=== PATIENT | female | born 1945 | race Caucasian/White ===

== ENCOUNTER → 2016-08-03 | Outpatient (CLI) | payer BC, MEDICARE ==
[~2016-08-03] MED LIST: /CELE20CA; /METO5TA PO; /ONDA4TA; /RANI15TA PO; ACET50TA PO; ADVI200C5 PO; ASPI325T; ASPI81TA85 PO; ATEN25TA; ATEN25TA PO; COLA50CA3 PO; CYAN1000VL IM; DARV100T10; GASTROGRAFIN SOLUTION 30ML (Q9963) As Ordered ONE; HYDR12.56 PO; HYDR25TA6; ISOVUE-370 76% 100ML VIAL (Q9967) As Ordered ONE; MICR10CA PO; MIRA255PW PO; OMEP20CA3 PO; PAXI10TA2 PO; PRED1TA; VITA500T3 PO; XANA0.25; XANA0.25 PO; [UNRECOGNIZED DRUG - REMARK]
--- NOTE | 2016-08-03 14:57 | REP ---
CT ABDOMEN AND PELVIS, MULTIPHASE SCANNING: COMPARISON: 10/03/2015 Scanning is performed without IV contrast from the diaphragms to the iliac crests, not including the pelvis. This is followed by IV contrast enhanced scanning from the diaphragm to the pubic symphysis, including the pelvis during the portal venous phase of enhancement. This is followed by delayed contrast enhancement scanning from the diaphragms to the iliac crest, not including the pelvis. The patient has a history of cholecystectomy, appendectomy, hysterectomy, colon resection, renal calculi, bile duct surgery times two and parathyroid and adhesions. The visualized lung sandy are unremarkable. There is chronic pneumobilia, unchanged. There are surgical clips in the gallbladder fossa. The hepatic parenchyma is otherwise homogeneous on all phases of the study. The pancreas and spleen are normal size, and unchanged. The adrenals are unremarkable and unchanged. There are multiple parapelvic cysts in the kidneys bilaterally, unchanged. There is a small renal cortical cyst in the upper pole of the right kidney, unchanged. The left hydroureter and left ureteral calculus identified on 10/03/2015 are no longer identified. There is a nonobstructive renal calculus in the lower pole of the left kidney measuring 4 mm. There are no right renal calculi. There is no right hydronephrosis or hydroureter. No bladder calculi are identified. The abdominal aorta is unremarkable. There is no bowel distention or obstruction. PELVIS: There is no ascites or adenopathy. Pelvic phleboliths are noted. There are occasional diverticula in the descending colon and sigmoid colon without evidence of diverticulitis. IMPRESSION: Chronic pneumobilia. Bilateral parapelvic renal cysts. No hydronephrosis. Nonobstructive left renal calculus. No right renal calculi. No bowel distention or obstruction. No ascites or adenopathy. There is diverticulosis without diverticulitis. The vaginal cuff and adnexa are unremarkable. Signed by Carlos Eduardo Peña MD 08/03/2016 05:26 P
== END ==
LOC: M RAD 11:49
PROVIDERS: ATTEND Surgery
DX: R10.9 Unspecified abdominal pain (principal)

== ENCOUNTER → 2016-09-21 | Outpatient (CLI) | payer BC, MEDICARE ==
[~2016-09-21] MED LIST changes: -GASTROGRAFIN SOLUTION 30ML (Q9963) As Ordered ONE; -ISOVUE-370 76% 100ML VIAL (Q9967) As Ordered ONE
--- NOTE | 2016-09-21 09:23 | REP ---
URINARY TRACT SONOGRAPHY WITH RENAL ARTERY DOPPLER FLOW ASSESSMENT: HISTORY: History of renal stones, multiple surgeries left greater than right. Comparison study is CT study of the abdomen from August 03, 2016. MORPHOLOGIC FINDINGS: Visualized bladder castaneda are smooth. Renal cortical echogenicity pattern is normal. The right kidney measures 11.6 x 5.4 x 5.6 cm. Left renal dimensions are 10.0 x 4.7 x 5.1 cm. There is a 0.9 cm cyst in the upper pole of the right kidney. There are two visible parapelvic cysts in the left mid and lower pole. These measure 2.1 cm each in greatest diameter. No calculus is sonographically. No mass is seen. No hydronephrosis noted on either side. RENAL DOPPLER ASSESSMENT FINDINGS: Peak systolic flow velocity in the abdominal aorta at the level of the main renal arteries is normal at 81 cm/s. Peak systolic flow velocity in the right main renal artery is recorded at 163 cm/s and that in the left main renal artery is recorded at 148 cm/s. These values are normal. Renal to aortic flow velocity ratios are therefore normal at 2.0 on the right and 1.8 on the left. Resistive indices and acceleration times are measured in the intralobar arteries of the upper mid and lower pole bilaterally and these values are normal. IMPRESSION: Two left-sided peripelvic cysts. One cortical cyst on the right. No hydronephrosis. No renal artery Doppler evidence to suggest renal artery stenosis. Signed by Skinny Dias MD 09/21/2016 10:44 A
== END ==
LOC: M RAD 07:34
PROVIDERS: ATTEND Internal Medicine
DX: I70.1 Atherosclerosis of renal artery (principal)

== ENCOUNTER → 2016-09-25 | Outpatient (REF) | payer BC, MEDICARE | LOC: M LAB REF 09:34 | PROVIDERS: ATTEND Internal Medicine | DX: I10 Essential (primary) hypertension (principal) ==

== ENCOUNTER → 2016-10-02 | Outpatient (CLI) | payer BC, MEDICARE ==
--- NOTE | 2016-10-02 10:06 | REP ---
KUB, ONE VIEW: HISTORY: Kidney stone. COMPARISON: 11/14/2015. Air is present in small and large intestine. There are no air fluid levels or dilated loops of intestine. There is no pneumoperitoneum. A 2 mm calcification is present overlying the left kidney consistent with nephrolithiasis. Surgical clips are present. IMPRESSION: 1. Nonspecific bowel gas pattern. 2. Left nephrolithiasis. Signed by Michael Mac MD 10/02/2016 10:24 A
== END ==
LOC: M LAB 08:57 → M RAD 08:57
PROVIDERS: ATTEND Physician Assistant
DX: N20.0 Calculus of kidney (principal)

== ENCOUNTER → 2016-10-02 | Outpatient (CLI) | payer BC, MEDICARE ==
[2016-10-02 10:13] LABS: BLOOD UREA NITROGEN 21 MG/DL (7-18); CREATININE FOR GFR 0.63 MG/DL (0.55-1.02); GLOMERULAR FILTRATION RATE > 60.0 (>39)
== END ==
LOC: M LAB 09:09
PROVIDERS: ATTEND Nurse Practitioner Acute Care
DX: N20.0 Calculus of kidney (principal)

== ENCOUNTER → 2016-10-29 | Outpatient (REF) | payer BC, MEDICARE ==
[2016-10-29 12:14] LABS: BASO # 0.1 K/mm3 (0.0-0.2); BASO % 1.1 % (0.0-1.0); EOS # 0.2 K/mm3 (0.0-0.50); EOS % 2.4 % (0.0-3.0); LARGE UNSTAINED CELL # 0.2 K/mm3 (0.0-0.4); LARGE UNSTAINED CELL % 2.3 % (0.0-4.0); LYMPH # 1.8 K/mm3 (1.5-4.5); LYMPH % 22.9 % (24.0-44.0); MEAN CORPUSCULAR HEMOGLOBIN 25.4 pg (27.0-33.0); MEAN CORPUSCULAR HGB CONC 31.8 g/dl (32.0-36.5); MEAN CORPUSCULAR VOLUME 80.1 fl (80.0-96.0); MONO # 0.4 K/mm3 (0.0-0.8); MONO % 4.9 % (0.0-5.0); NEUTROPHILS # 5.1 K/mm3 (1.8-7.7); NEUTROPHILS % 66.4 % (36.0-66.0); PLATELET COUNT, AUTOMATED 328 k/mm3 (150-450); RED CELL DISTRIBUTION WIDTH 15.5 % (11.5-14.5); WHITE BLOOD COUNT 7.7 K/mm3 (4.0-10.0)
== END ==
LOC: M LABDRAW1 11:29
PROVIDERS: ATTEND Internal Medicine Gastroenterology
DX: R10.13 Epigastric pain (principal)

== ENCOUNTER → 2016-11-21 | Outpatient (CLI) | payer BC, MEDICARE ==
[~2016-11-21] VITALS: Ht 152.4 cm; Wt 64.4 kg
[~2016-11-21] MED LIST changes: +AMLO5TAB2 PO; +BISO10TA3 PO; +BISO10TA6 PO; +FURO20TA2 PO; +LIDOCAINE 2% INJ 100 MG/5 ML SDV (FOR ANES.) As Ordered ONE; +MAGN500C2 PO; +NS 1,000 ML IV ONE; +PRIL20CA9 PO; +PROPOFOL 200 MG/20 ML VIAL As Ordered ONE; +REGL10TA6 PO; +SERT50TA PO; +TYLE325T5 PO; +VALS1TAB47 PO; +VITA100041 PO; +ZOFR20TA PO
--- NOTE | 2016-11-21 13:02 | ROOR ---
Patient Name: Tammy Barfield Procedure Date: 11/21/2016 12:47 PM Date of : 1945 Age: 71 [facility] Gender: Female Note Status: Finalized Procedure: Upper GI endoscopy + Biopsies Indications: Epigastric abdominal pain, Exclusion of peptic ulcer Providers: Kalen Barfield MD Referring MD: Francisca Calvert DO Requesting Provider: Medicines: Monitored Anesthesia Care Complications: No immediate complications. Procedure: Pre-Anesthesia Assessment: - The heart rate, respiratory rate, oxygen saturations, blood pressure, adequacy of pulmonary ventilation, and response to care were monitored throughout the procedure. The Endoscope was introduced through the mouth, and advanced to the second part of duodenum. The upper GI endoscopy was accomplished without difficulty. The patient tolerated the procedure well. Findings: The Z-line was regular and was found 35 cm from the incisors. No other significant abnormalities were identified in a careful examination of the stomach. The exam of the duodenum was otherwise normal. Biopsies were taken with a cold forceps in the gastric antrum for Helicobacter pylori testing. The esophagus was normal. The stomach was normal. The examined duodenum was normal. Impression: - Z-line regular, 35 cm from the incisors. - Normal esophagus. - Normal stomach. - Normal examined duodenum. - Biopsies were taken with a cold forceps for Helicobacter pylori testing. - The examination was otherwise normal. Recommendation: - Patient has a contact number available for emergencies. The signs and symptoms of potential delayed complications were discussed with the patient. Return to normal activities tomorrow. Written discharge instructions were provided to the patient. - High fiber diet. - Discharge patient to home. - Continue present medications. - Await pathology results. - Telephone GI clinic for pathology results in 1 week. - Check Portal Online for Path Results.([email or web address] [place]) - The findings and recommendations were discussed with the patient's family. Kalen Barfield MD Kalen Barfield MD 11/21/2016 1:01:34 PM This report has been signed electronically. Number of Addenda: 0 Note Initiated On: 11/21/2016 12:47 PM Estimated Blood Loss: Estimated blood loss: none.
[2016-11-21 13:23] VITALS: BP 128/72
== END | disposition home or self-care (01) ==
LOC: M OPP 11:27
PROVIDERS: ATTEND Internal Medicine Gastroenterology
DX: R10.13 Epigastric pain (principal); I10 Essential (primary) hypertension; R01.1 Cardiac murmur, unspecified; M19.90 Unspecified osteoarthritis, unspecified site; D64.9 Anemia, unspecified; L30.9 Dermatitis, unspecified; M81.0 Age-related osteoporosis without current pathological fracture; F33.9 Major depressive disorder, recurrent, unspecified; F41.9 Anxiety disorder, unspecified; Q63.9 Congenital malformation of kidney, unspecified; Z88.5 Allergy status to narcotic agent; Z88.2 Allergy status to sulfonamides; Z88.1 Allergy status to other antibiotic agents; Z88.0 Allergy status to penicillin; Z88.8 Allergy status to other drugs, medicaments and biological substances; Z91.011 Allergy to milk products; Z91.018 Allergy to other foods; Z91.040 Latex allergy status; Z98.890 Other specified postprocedural states; Z79.899 Other long term (current) drug therapy

== ENCOUNTER → 2017-01-07 | Outpatient (REF) | payer BC, MEDICARE ==
[~2017-01-07] MED LIST changes: -LIDOCAINE 2% INJ 100 MG/5 ML SDV (FOR ANES.) As Ordered ONE; -NS 1,000 ML IV ONE; -PROPOFOL 200 MG/20 ML VIAL As Ordered ONE
[2017-01-07 13:59] LABS: PERCENT SATURATION 6.3 % (13.2-37.4)
== END ==
LOC: M LAB REF 12:03
PROVIDERS: ATTEND Internal Medicine
DX: D64.9 Anemia, unspecified (principal)

== ENCOUNTER → 2017-03-08 | Outpatient (CLI) | payer BC, MEDICARE ==
[~2017-03-08] MED LIST changes: +VITA-182 PO; -VITA100041 PO
--- NOTE | 2017-03-08 09:05 | REPMRS ---
Patient History The patient states she has not had a clinical breast exam in over a year. Patient is postmenopausal. Family history of colorectal cancer in father, breast cancer in mother at age 50 or over, colorectal cancer in maternal aunt, colorectal cancer in maternal grandmother, and breast cancer in daughter at age 44. Digital Woman Screen Mammo: March 08, 2017 - Exam #: [id number] Bilateral CC and MLO view(s) were taken. Technologist: Krystle Qureshi, Technologist Prior study comparison: August 10, 2014, digital woman screen mammo performed at [facility]. June 26, 2013, digital woman screen mammo performed at [facility]. FINDINGS: There are scattered fibroglandular densities. There has been no change in the appearance of the mammogram from the prior studies. There is a mild amount of residual fibroglandular tissue which is fairly symmetric. There is no interval development of dominant mass, architectural distortion, or clustered microcalcification suggestive of malignancy. ASSESSMENT: BI-RADS/ACR category 1 mammogram. Negative. Recommendation Routine screening mammogram in 1 year (for women over age 40). This mammogram was interpreted with the aid of an FDA-approved computer-aided dectection system. Electronically Signed By: Carlos Eduardo Green MD 03/08/17 0983
== END ==
LOC: M WHC 08:13
PROVIDERS: ATTEND Internal Medicine
DX: Z12.39 Encounter for other screening for malignant neoplasm of breast (principal)

== ENCOUNTER → 2017-06-11 | Outpatient (REF) | payer BC, MEDICARE ==
[2017-06-11 14:16] LABS: PERCENT SATURATION 22.6 % (13.2-45.0)
== END ==
LOC: M LAB REF 13:16
PROVIDERS: ATTEND Internal Medicine
DX: D50.9 Iron deficiency anemia, unspecified (principal)

== ENCOUNTER → 2017-09-10 | Outpatient (REF) | payer BC, MEDICARE ==
[2017-09-10 12:44] LABS: TROPONIN I < 0.02 NG/ML (< 0.10)
== END ==
LOC: M LAB REF 11:45
DX: R55 Syncope and collapse (principal)
CPT/HCPCS: 84484

== ENCOUNTER 2017-12-18 12:02 | Emergency (ER) | payer BC, MEDICARE ==
[2017-12-18] MEDS: IBUPROFEN 600 MG TAB PO (12:41)
[2017-12-18 14:48] LABS: HEMATOCRIT 37.8 % (36.0-47.0); HEMOGLOBIN 12.4 g/dl (12.0-15.5); MEAN CORPUSCULAR HEMOGLOBIN 29.2 pg (27.0-33.0); MEAN CORPUSCULAR HGB CONC 32.8 g/dl (32.0-36.5); MEAN CORPUSCULAR VOLUME 89.2 fl (80.0-96.0); PLATELET COUNT, AUTOMATED 317 10^3/uL (150-450); RED BLOOD COUNT 4.24 10^6/uL (4.00-5.40); RED CELL DISTRIBUTION WIDTH 12.7 % (11.5-14.5); WHITE BLOOD COUNT 7.7 10^3/uL (4.0-10.0)
[2017-12-18 15:14] LABS: LACTIC ACID SEPSIS PROTOCOL 0.6 MMOL/L (0.4-2.0)
[2017-12-18 15:14] LABS: ANION GAP 8 MEQ/L (8-16); BLOOD UREA NITROGEN 14 MG/DL (7-18); CALCIUM LEVEL 9.2 MG/DL (8.8-10.2); CARBON DIOXIDE LEVEL 27 MEQ/L (21-32); CHLORIDE LEVEL 109 MEQ/L (98-107); CPK CREATINE PHOSPHOKINASE 37 U/L (26-192); CREATININE FOR GFR 0.56 MG/DL (0.55-1.30); GLOMERULAR FILTRATION RATE > 60.0 (>39); GLUCOSE, FASTING 94 MG/DL (70-100); POTASSIUM SERUM 3.9 MEQ/L (3.5-5.1); SODIUM LEVEL 144 MEQ/L (136-145)
[2017-12-18 16:04] LABS: MYOGLOBIN SCREEN, URINE NEGATIVE (NEGATIVE)
== END 2017-12-18 15:59 | disposition home or self-care (01) ==
LOC: M ED 12:02
DX: S80.12XA Contusion of left lower leg, initial encounter (principal); W19.XXXA Unspecified fall, initial encounter; Y92.89 Other specified places as the place of occurrence of the external cause; I10 Essential (primary) hypertension; J44.9 Chronic obstructive pulmonary disease, unspecified; I25.10 Atherosclerotic heart disease of native coronary artery without angina pectoris; E78.00 Pure hypercholesterolemia, unspecified; Z79.899 Other long term (current) drug therapy; Z88.0 Allergy status to penicillin; Z88.2 Allergy status to sulfonamides; Z88.5 Allergy status to narcotic agent
CPT/HCPCS: 73560

== ENCOUNTER → 2018-02-17 | Outpatient (REF) | payer BC, MEDICARE ==
[2018-02-17 13:50] LABS: IRON (FE) 96 UG/DL (50-170); PERCENT SATURATION 22.1 % (13.2-45.0); TOTAL IRON BINDING CAPACITY 434 UG/DL (250-450)
== END ==
LOC: M LAB REF 13:00
DX: D50.9 Iron deficiency anemia, unspecified (principal)
CPT/HCPCS: 83550

== ENCOUNTER → 2018-03-19 | Outpatient (CLI) | payer BC, MEDICARE ==
[2018-03-19 13:35] LABS: ALBUMIN 3.8 GM/DL (3.2-5.2); ANION GAP 11 MEQ/L (8-16); BLOOD UREA NITROGEN 24 MG/DL (7-18); CALCIUM LEVEL 9.9 MG/DL (8.8-10.2); CARBON DIOXIDE LEVEL 24 MEQ/L (21-32); CHLORIDE LEVEL 107 MEQ/L (98-107); CREATININE FOR GFR 0.74 MG/DL (0.55-1.30); GLOMERULAR FILTRATION RATE > 60.0 (>39); GLUCOSE, FASTING 93 MG/DL (70-100); MAGNESIUM LEVEL 2.6 MG/DL (1.8-2.4); PHOSPHORUS LEVEL 4.4 MG/DL (2.5-4.9); POTASSIUM SERUM 4.1 MEQ/L (3.5-5.1); SODIUM LEVEL 142 MEQ/L (136-145)
== END ==
LOC: M LAB 12:08
DX: I11.9 Hypertensive heart disease without heart failure (principal)
CPT/HCPCS: 83735

== ENCOUNTER → 2018-04-10 | Outpatient (REF) | payer BC, MEDICARE ==
[2018-04-10 13:21] LABS: ALBUMIN 3.4 GM/DL (3.2-5.2); ALBUMIN/GLOBULIN RATIO 1.03 (1.00-1.93); ALKALINE PHOSPHATASE 172 U/L (45-117); ALT/SGPT 43 U/L (12-78); AST/SGOT 21 U/L (7-37); BILIRUBIN,DIRECT 0.2 MG/DL (0.0-0.2); BILIRUBIN,TOTAL 0.9 MG/DL (0.2-1.0); CHOLESTEROL LEVEL 126 MG/DL (<200); CHOLESTEROL RISK RATIO 3.073 (<5); HDL CHOLESTEROL 41 MG/DL (>40); LDL CHOLESTEROL 53 MG/DL (<100); NON-HDL-C 85 MG/DL; TOTAL PROTEIN 6.7 GM/DL (6.4-8.2); TRIGLYCERIDES LEVEL 161 MG/DL (<150)
== END ==
LOC: M LABDRAW1 12:10
DX: E78.00 Pure hypercholesterolemia, unspecified (principal)

== ENCOUNTER → 2018-05-31 | Outpatient (CLI) | payer MEDICARE ==
[2018-05-31 09:50] LABS: IONIZED CALCIUM 4.7 MG/DL (4.5-5.3)
[2018-06-02 10:14] LABS: PTH INTACT 109.9 PG/ML (18.5-88.0); TOTAL 25(OH) VITAMIN D 22.4 NG/ML (30.0-100.0)
== END ==
LOC: M LAB 08:36
DX: E83.52 Hypercalcemia (principal)
CPT/HCPCS: 82330

== ENCOUNTER → 2018-07-29 | Outpatient (REF) | payer MEDICARE ==
[~2018-07-29] MED LIST changes: -AMLO5TAB2 PO; +AMLO5TAB6 PO; -ZOFR20TA PO; +ZOFR4TAB16 PO
[2018-07-29 16:46] LABS: INR 0.95; PROTHROMBIN TIME 12.8 SECONDS (12.1-14.4)
[2018-07-29 16:48] LABS: PARTIAL THROMBOPLASTIN TIME 34.2 SECONDS (25.4-37.6)
== END ==
LOC: M LABDRAW1 15:42
PROVIDERS: ATTEND Physical Medicine & Rehabilitation
DX: Z79.01 Long term (current) use of anticoagulants (principal)

== ENCOUNTER → 2018-08-12 | Outpatient (CLI) | payer MEDICARE ==
--- NOTE | 2018-08-12 11:06 | REPMRS ---
Patient History The patient states she has not had a clinical breast exam in over a year. Patient is postmenopausal. Family history of breast cancer at age 50 or over in mother, colorectal cancer in maternal grandmother, colorectal cancer in maternal aunt, colorectal cancer in father, breast cancer at age 44 in daughter. Digital Woman Screen Mammo: August 12, 2018 - Exam #: [id number] Bilateral CC and MLO view(s) were taken. Technologist: Peace Berger Technologist Prior study comparison: March 08, 2017, digital woman screen mammo performed at [facility]. August 10, 2014, digital woman screen mammo performed at [facility]. June 26, 2013, digital woman screen mammo performed at [facility]. FINDINGS: There are scattered fibroglandular densities. There is a moderate amount of residual fibroglandular tissue which is fairly symmetric. There is no interval development of dominant mass, architectural distortion, or clustered microcalcification typical of malignancy. There has been no change in the appearance of the mammogram from the prior studies. 3-D tomosynthesis shows no additional findings. Assessment: BI-RADS/ACR category 1 mammogram. Negative Mammogram. Recommendation Routine screening mammogram of both breasts in 1 year (for women over age 40). This patient's Lifetime Breast Cancer RIsk is estimated at 7.1 %. This mammogram was interpreted with the aid of an FDA-approved computer-aided dectection system. Electronically Signed By: Fabian Dias MD 08/12/18 0058
== END ==
LOC: M WHC 09:39
PROVIDERS: ATTEND Internal Medicine
DX: Z12.31 Encounter for screening mammogram for malignant neoplasm of breast (principal); Z80.3 Family history of malignant neoplasm of breast; Z80.0 Family history of malignant neoplasm of digestive organs

== ENCOUNTER 2018-08-27 10:24 | Inpatient (IN) | payer MEDICARE ==
[~2018-08-27] VITALS: Ht 152.4 cm; Wt 68.4 kg
[2018-08-27] MEDS ORDERED: SYMB16INH INH (10:53)
[2018-08-27] MEDS ORDERED: GABA-843 PO (10:53)
[2018-08-27] MEDS ORDERED: LEVO500T3 PO (10:53)
[2018-08-27] MEDS ORDERED: METR-201 PO (10:53)
[2018-08-27] MEDS ORDERED: SPIR-10 PO (10:53)
[2018-08-27] MEDS ORDERED: SERT50TA PO (10:53)
[2018-08-27] MEDS ORDERED: CARV25TA PO (10:53)
[2018-08-27] MEDS ORDERED: CHLO25TA PO (10:53)
[2018-08-27] MEDS ORDERED: LOSA50TA88 PO (10:53)
--- NOTE | 2018-08-27 10:57 | REP ---
Portable chest, single AP view, the patient upright, 10:42 a.m.: Comparison is 10/28/2012. The lung sandy are clear. The cardiac size is normal. The soila, mediastinum, and skeletal structures are unremarkable. Impression: Negative portable chest. There is no interval change Electronically Signed by Carlos Eduardo Peña MD 08/27/2018 10:48 A
[2018-08-27] MEDS ORDERED: ONDANSETRON 4MG/2ML VIAL (J2405) IV ONE ×2 (11:00→17:45)
[2018-08-27] MEDS ORDERED: fentaNYL 100 MCG/2 ML INJECTION (J3010) IV ONE ×3 (11:00→17:45)
[2018-08-27 11:07] LABS: BASO # 0.1 10^3/uL (0.0-0.2); BASO % 0.9 % (0.0-1.0); EOS # 0.2 10^3/uL (0.0-0.50); EOS % 1.8 % (0.0-3.0); HEMATOCRIT 41.7 % (36.0-47.0); HEMOGLOBIN 14.1 g/dl (12.0-15.5); LYMPH # 1.7 10^3/uL (1.5-4.5); LYMPH % 19.8 % (24.0-44.0); MEAN CORPUSCULAR HEMOGLOBIN 29.5 pg (27.0-33.0); MEAN CORPUSCULAR HGB CONC 33.8 g/dl (32.0-36.5); MEAN CORPUSCULAR VOLUME 87.2 fl (80.0-96.0); MONO # 0.6 10^3/uL (0.0-0.8); MONO % 6.5 % (0.0-5.0); NEUTROPHILS # 5.9 10^3/uL (1.8-7.7); NEUTROPHILS % 69.8 % (36.0-66.0); PLATELET COUNT, AUTOMATED 340 10^3/uL (150-450); RED BLOOD COUNT 4.78 10^6/uL (4.00-5.40); WHITE BLOOD COUNT 8.5 10^3/uL (4.0-10.0)
[2018-08-27 11:45] LABS: ALBUMIN 3.7 GM/DL (3.2-5.2); ALT/SGPT 23 U/L (12-78); BILIRUBIN,DIRECT 0.2 MG/DL (0.0-0.2); BLOOD UREA NITROGEN 23 MG/DL (7-18); CALCIUM LEVEL 9.9 MG/DL (8.8-10.2); CARBON DIOXIDE LEVEL 22 MEQ/L (21-32); CHLORIDE LEVEL 105 MEQ/L (98-107); CK-MB VALUE MASS < 1.0 NG/ML (<3.6); CPK CREATINE PHOSPHOKINASE 26 U/L (26-192); CREATININE FOR GFR 1.14 MG/DL (0.55-1.30); GLOMERULAR FILTRATION RATE 49.9 (>39); GLUCOSE, FASTING 140 MG/DL (70-100); LIPASE 141 U/L (73-393); MB/CK RELATIVE INDEX 3.85 (< OR =4); POTASSIUM SERUM 3.1 MEQ/L (3.5-5.1); SODIUM LEVEL 139 MEQ/L (136-145); TOTAL PROTEIN 6.7 GM/DL (6.4-8.2); TROPONIN I < 0.02 NG/ML (< 0.10)
[2018-08-27] MEDS ORDERED: NS 500 ML IV ONE (13:15)
[2018-08-27] MEDS ORDERED: POTASSIUM CHLORIDE 10 MEQ SR TABLET PO ONE (13:15)
[2018-08-27] MEDS ORDERED: ISOVUE-370 76% 100ML VIAL (Q9967) As Ordered ONE (13:34)
[2018-08-27 16:55] LABS: CK-MB VALUE MASS < 1.0 NG/ML (<3.6); CPK CREATINE PHOSPHOKINASE 29 U/L (26-192); MB/CK RELATIVE INDEX 3.45 (< OR =4); TROPONIN I < 0.02 NG/ML (< 0.10)
[2018-08-27] MEDS ORDERED: ADVI200T PO (17:09)
[2018-08-27] MEDS ORDERED: SERT-138 PO (17:09)
--- NOTE | 2018-08-27 17:14 | ECGEPIP ---
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
--- NOTE | 2018-08-27 17:19 | REP ---
CT of the abdomen and pelvis with IV contrast, without bowel contrast: Comparisons are 10/17/2017 and 08/03/2016. The patient has a history of renal calculi, cholecystectomy, appendectomy, hysterectomy, colon resection, parathyroid surgery and biliary duct surgery. The visualized lung sandy are unremarkable. The hepatic parenchyma is homogeneous. There is chronic pneumobilia, unchanged from both prior studies, likely secondary to the biliary surgery. The pancreas and spleen are unremarkable. The adrenals are unremarkable. There are bilateral renal parapelvic cysts. There is a nonobstructive calculus in the right renal pelvis. There is a nonobstructive calculus in the left renal pelvis. There is no hydroureter. The abdominal aorta is unremarkable. There is no periaortic adenopathy or mass. There is no bowel distension or obstruction. There is wall thickening of the sigmoid colon as a change from the prior studies. This is nonspecific and could represent colitis in the appropriate clinical setting or could be artifact from under distension. There are sigmoid colon diverticula, however there is no pericolonic inflammation or abscess that would indicate acute diverticulitis. Pelvis: The appendix and uterus are surgically absent. The vaginal cuff and adnexa are unremarkable. The bladder is unremarkable. There is no adenopathy or ascites. There is no pneumoperitoneum. Impression: Wall thickening of the sigmoid colon compatible with colitis in the appropriate clinical setting versus artifact from under distension. Bilateral nonobstructive renal calculi. No hydronephrosis. Bilateral parapelvic renal cysts. Chronic pneumobilia. No bowel obstruction or distension. Electronically Signed by Carlos Eduardo Peña MD 08/27/2018 05:10 P
--- NOTE | 2018-08-27 17:24 | ECGEPIP ---
Stationary ECG Study [facility] - ED Test Date: 2018-08-27 Pat Name: MICHELLE VAZQUEZ Department: Room: - Gender: F Cathode Maker: [facility] : 1945 Requested By: Tori Melo Order Number: [id number] Reading MD: Ravi Duron Measurements Intervals [place] Rate: 71 P: 13 SD: 208 QRS: 13 QRSD: 103 T: 5 QT: 388 QTc: 422 Interpretive Statements SINUS RHYTHM NONSPECIFIC T-WAVE ABNORMALITY POOR R WAVE PROGRESSION SIMILAR TO PRIOR ON SAME DATE Electronically Signed On 08-27-2018 17:24:01 EST by Ravi Duron
[2018-08-27] MEDS ORDERED: metroNIDAZOLE 500 MG in APPROPRIATE DILUENT 1 EA IV ONE (17:45)
[2018-08-27] MEDS ORDERED: CIPROFLOXACIN 400 MG in APPROPRIATE DILUENT 1 EA IV ONE (17:45)
[2018-08-27] MEDS: NS 1,000 ML IV SCH (18:46)
--- NOTE | 2018-08-27 19:15 | HPE ---
DATE OF ADMISSION: 08/27/2018 72-year-old female with past medical history of hypertension and multiple abdominal surgeries who presents to emergency room with severe cramping, abdominal pain and diarrhea for 6 weeks. Apparently patient went to see her primary doctor last week and received Levaquin and it did not help and she even had a near-syncopal event yesterday while going to the bathroom during one of her bouts of diarrhea. The diarrhea is noted as watery in nature with no evidence of melena stool or clots. She has not been around any sick contacts. In the ER she had a CT abdomen and pelvis which showed evidence of acute colitis. The patient was started on IV Cipro Flagyl in the ER and given fentanyl as well as IV Zofran for symptomatic relief. Patient does feel better at this time though she is still nauseous. She will be admitted for further management. PAST MEDICAL HISTORY: Hypertension. Asthma. PAST SURGICAL HISTORY: Appendectomy. Tubal ligation. Hysterectomy. Cholecystectomy. Bladder and rectal repair 1971. Gastrectomy in 1972. History of hemorrhoidectomy. Parathyroidectomy. ALLERGIES: CODEINE. IODINE. MORPHINE. PENICILLIN AND CROSS-REACTORS. SULFA DRUGS AND SULFA DRUG CROSS-REACTORS. FAMILY HISTORY: Noncontributory. SOCIAL HISTORY: Patient denies tobacco, alcohol or illicit drugs. MEDICATIONS SHE TAKES AT HOME: Are as follows: - budesonide formoterol 2 puffs inhaled twice daily - Coreg 25 mg orally twice daily - gabapentin 300 mg orally three times a day - ibuprofen 600 mg orally four times a day as needed - levofloxacin 500 mg orally daily - losartan 850 mg orally at bedtime - metronidazole 500 mg orally three times a day - sertraline 100 mg orally at bedtime - spironolactone 12.5 mg orally daily REVIEW OF SYSTEMS: Negative all 10 major systems except as mentioned in the HPI. VITALS: Blood pressure is 115/58, heart rate 60 and regular. Respiratory rate 16, temperature is 97.7. Oxygen saturation is 96% on 2 liters nasal cannula. Head: Atraumatic. Normocephalic. Dry mucous membranes noted. Neck: Supple. No jugular venous distention (JVD). Lungs: Clear to auscultation. S1, S2 audible. No murmurs appreciated. Abdomen: Soft, positive tenderness on the left lower quadrant on deep palpation. No rebound tenderness. Positive bowel sounds. No pedal edema. Skin: Intact. Neurological examination: Patient awake, alert and oriented times three. LABS: WBC 8.5, hemoglobin 14.1, hematocrit 41.7, platelets are 320,000. Sodium 139, potassium 3.1, chloride is 105, CO2 22. Anion gap 12, BUN 23, creatinine 1.14. Glucose is 140, lactic acid is 1.9. Troponins less than 0.02. TSH is 1.97. IMPRESSION: 1. Acute colitis. 2. Hypokalemia. 3. Acute kidney injury (TED). PLAN: Patient will be admitted to the med-surg floor. We are going to continue the patient on IV fluids. Normal saline 125 mL an hour. Her potassium has already been repleted by the ER tending. Will followup BMP in the morning. Her TED is clearly prerenal in origin and will follow her creatinine trends as we give judicious fluids. I am going to hold all her diuretics at this time, otherwise continue preadmission medications and will continue her care on the med-surg floor.
[2018-08-27] MEDS: ONDANSETRON 4MG/2ML VIAL (J2405) IV PRN (21:19)
[2018-08-27] MEDS: MORPHINE 4 MG/ML 1ML VIAL/SYRINGE (J2270) IV PRN (21:19)
[2018-08-27] MEDS: SYMBICORT 160/4.5MCG INHALER 6GM INH SCH (21:20)
[2018-08-28] MEDS: CARVedilol 12.5 MG TAB PO SCH ×3 (00:41→21:04)
[2018-08-28] MEDS: GABAPENTIN 300 MG CAP PO SCH ×4 (00:42→21:04)
[2018-08-28] MEDS: SERTRALINE 100 MG TAB PO SCH ×2 (00:42→21:04)
[2018-08-28] MEDS: NS 1,000 ML IV SCH ×2 (02:03→12:30)
[2018-08-28] MEDS: metroNIDAZOLE 500 MG in APPROPRIATE DILUENT 1 EA IV SCH ×3 (03:47→17:41)
[2018-08-28] MEDS: ONDANSETRON 4MG/2ML VIAL (J2405) IV PRN ×4 (03:50→21:05)
[2018-08-28] MEDS: MORPHINE 4 MG/ML 1ML VIAL/SYRINGE (J2270) IV PRN ×6 (04:10→21:05)
[2018-08-28] MEDS: CIPROFLOXACIN 400 MG in APPROPRIATE DILUENT 1 EA IV SCH ×2 (06:19→19:44)
[2018-08-28 06:25] LABS: BASO # 0.1 10^3/uL (0.0-0.2); BASO % 0.8 % (0.0-1.0); EOS # 0.2 10^3/uL (0.0-0.50); EOS % 1.8 % (0.0-3.0); HEMATOCRIT 35.8 % (36.0-47.0); HEMOGLOBIN 11.8 g/dl (12.0-15.5); LYMPH # 1.4 10^3/uL (1.5-4.5); LYMPH % 16.7 % (24.0-44.0); MEAN CORPUSCULAR HEMOGLOBIN 29.3 pg (27.0-33.0); MEAN CORPUSCULAR VOLUME 88.8 fl (80.0-96.0); MONO # 0.6 10^3/uL (0.0-0.8); MONO % 7.5 % (0.0-5.0); NEUTROPHILS % 72.6 % (36.0-66.0); PLATELET COUNT, AUTOMATED 250 10^3/uL (150-450); RED BLOOD COUNT 4.03 10^6/uL (4.00-5.40); WHITE BLOOD COUNT 8.2 10^3/uL (4.0-10.0)
[2018-08-28 06:49] LABS: BLOOD UREA NITROGEN 19 MG/DL (7-18); CALCIUM LEVEL 8.6 MG/DL (8.8-10.2); CARBON DIOXIDE LEVEL 24 MEQ/L (21-32); CHLORIDE LEVEL 109 MEQ/L (98-107); GLOMERULAR FILTRATION RATE > 60.0 (>39); GLUCOSE, FASTING 97 MG/DL (70-100); POTASSIUM SERUM 3.3 MEQ/L (3.5-5.1); SODIUM LEVEL 141 MEQ/L (136-145)
[2018-08-28] MEDS ORDERED: POTASSIUM CHLORIDE 10 MEQ SR TABLET PO ONE (08:45)
[2018-08-28] MEDS: SYMBICORT 160/4.5MCG INHALER 6GM INH SCH ×2 (09:38→18:41)
[2018-08-28 12:36] VITALS: BP 131/64
[2018-08-28 14:00] VITALS: BP 132/60
[2018-08-28 22:00] VITALS: BP 131/58
--- NOTE | 2018-08-28 22:10 | IPNPDOC ---
Text Note Date of Service The patient was seen on 08/28/18. NOTE SUBJECTIVE: Patient continues to have watery diarrhea but feeling better after IVF. No dizziness or light headedness today. She got some pain medication early in the morning so her abdominal pain is better. Most of her abdominal discomfort was on aleks right upper quadrant. No fever or chills. No chest pain or SOb, No nausea or vomiting. Because of her history of stomach surgery and bile duct surgery she normally has a sensitive stomach and has to be careful about what she eats otherwise she has diarrhea. So she is always careful about her diet. PHYSICAL EXAM: VITALS: As below. HEENT: Atraumatic. Normocephalic. Moist mucous membranes noted. Anicteric eyes Neck: Supple. No jugular venous distention (JVD). Lungs: Clear to auscultation. Heart: S1, S2 audible. No murmurs appreciated. No rub or gallop. Abdomen: Soft, positive tenderness on the left lower quadrant on deep palpation. No rebound tenderness. Positive bowel sounds. Extremities: No pedal edema. Skin: Intact. Neurological examination: Patient awake, alert and oriented times three. 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 Apparently patient went to see her primary doctor last week and received Levaquin and it did not help and she even had a near-syncopal event yesterday while going to the bathroom during one of her bouts of diarrhea. The diarrhea is noted as watery in nature with no evidence of melena stool or clots. In the ER she had a CT abdomen and pelvis which showed evidence of acute colitis. The patient was started on IV Cipro Flagyl in the ER and given fentanyl as well as IV Zofran for symptomatic relief. Pateint was admitted to the hospitalist service for Acute colitis, diarrhea, dehydration , electrolyte immbalance and near syncope. Diarrhea and dehydration GI panel negative CT with possible Acute colitis in the sigmoid colon ? etiology Continue cipro and flagyl. continue IVF. Hypokalemia replaced Hypertension now with dehydration Bp normal to low will hold antihypertensives Asthma no issues Bilateral nonobstructive renal stones no issues Peptic ulcer disease, GERD continue PPI DVT prophylaxis has been ordered. VS,Fishbone, I+O VS, Fishbone, I+O Laboratory Tests 08/28/18 05:28 Red Blood Count 4.03, Mean Corpuscular Volume 88.8, Mean Corpuscular Hemoglobin 29.3, Mean Corpuscular Hemoglobin Concent 33.0, Red Cell Distribution Width 12.6, Neutrophils (%) (Auto) 72.6 H, Lymphocytes (%) (Auto) 16.7 L, Monocytes (%) (Auto) 7.5 H, Eosinophils (%) (Auto) 1.8, Basophils (%) (Auto) 0.8, Neutrophils # (Auto) 6.0, Lymphocytes # (Auto) 1.4 L, Monocytes # (Auto) 0.6, Eosinophils # (Auto) 0.2, Basophils # (Auto) 0.1, Calcium Level 8.6 L Vital Signs Date Time Temp Pulse Resp B/P (MAP) Pulse Ox O2 Delivery O2 Flow Rate FiO2 08/28/18 21:05 18 08/28/18 21:04 79 121/58 08/28/18 14:00 97.9 97 08/28/18 12:18 Room Air 08/28/18 04:10 2.0 I&O- Last 24 Hours up to 6 AM 08/28/18 06:00 Intake Total 800 ml Balance 800 ml INAG HUERTA MD Aug 28, 2018 22:10
[2018-08-29] MEDS: NS 1,000 ML IV SCH ×2 (00:15→13:10)
[2018-08-29] MEDS: metroNIDAZOLE 500 MG in APPROPRIATE DILUENT 1 EA IV SCH ×3 (02:43→17:01)
[2018-08-29] MEDS: ONDANSETRON 4MG/2ML VIAL (J2405) IV PRN ×5 (02:43→23:51)
[2018-08-29] MEDS: MORPHINE 4 MG/ML 1ML VIAL/SYRINGE (J2270) IV PRN ×5 (02:43→23:52)
[2018-08-29 06:00] VITALS: BP 128/69
[2018-08-29] MEDS: CIPROFLOXACIN 400 MG in APPROPRIATE DILUENT 1 EA IV SCH ×2 (06:01→18:12)
[2018-08-29] MEDS: SYMBICORT 160/4.5MCG INHALER 6GM INH SCH ×2 (07:55→21:07)
[2018-08-29] MEDS: GABAPENTIN 300 MG CAP PO SCH ×3 (08:31→20:57)
[2018-08-29] MEDS: CARVedilol 12.5 MG TAB PO SCH ×2 (08:32→20:57)
[2018-08-29 14:00] VITALS: BP 97/49
[2018-08-29 14:02] LABS: BLOOD UREA NITROGEN 13 MG/DL (7-18); CALCIUM LEVEL 8.6 MG/DL (8.8-10.2); CARBON DIOXIDE LEVEL 24 MEQ/L (21-32); CHLORIDE LEVEL 109 MEQ/L (98-107); CREATININE FOR GFR 0.81 MG/DL (0.55-1.30); GLOMERULAR FILTRATION RATE > 60.0 (>39); GLUCOSE, FASTING 161 MG/DL (70-100); POTASSIUM SERUM 3.6 MEQ/L (3.5-5.1); SODIUM LEVEL 140 MEQ/L (136-145)
--- NOTE | 2018-08-29 14:45 | IPNPDOC ---
Text Note Date of Service The patient was seen on 08/29/18. NOTE SUBJECTIVE: Patient continues to have watery diarrhea but feeling better after IVF. No dizziness or light headedness today. Most of her abdominal discomfort was on the right upper quadrant with cramps and bloating sometimes becomes hard followed by explosive diarrhea.No fever or chills. No chest pain or SOb, No nausea or vomiting. Because of her history of stomach surgery and bile duct surgery she normally has a sensitive stomach and has to be careful about what she eats otherwise she has diarrhea. So she is always careful about her diet. PHYSICAL EXAM: VITALS: As below. HEENT: Atraumatic. Normocephalic. Moist mucous membranes noted. Anicteric eyes Neck: Supple. No jugular venous distention (JVD). Lungs: Clear to auscultation. Heart: S1, S2 audible. No murmurs appreciated. No rub or gallop. Abdomen: Soft, positive tenderness on the left lower quadrant on deep palpation. No rebound tenderness. Positive bowel sounds. Extremities: No pedal edema. Skin: Intact. Neurological examination: Patient awake, alert and oriented times three. 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 Apparently patient went to see her primary doctor last week and received Levaquin and it did not help and she even had a near-syncopal event yesterday while going to the bathroom during one of her bouts of diarrhea. The d iarrhea is noted as watery in nature with no evidence of melena stool or clots. In the ER she had a CT abdomen and pelvis which showed evidence of acute colitis. The patient was started on IV Cipro Flagyl in the ER and given fentanyl as well as IV Zofran for symptomatic relief. Pateint was admitted to the hospitalist service for Acute colitis, diarrhea, dehydration , electrolyte immbalance and near syncope. Diarrhea and dehydration GI panel negative CT with possible Acute colitis in the sigmoid colon ? etiology Continue cipro and flagyl. continue IVF.will consult GI Hypokalemia replaced Hypertension now with dehydration Bp normal to low will hold antihypertensives Asthma no issues Bilateral nonobstructive renal stones no issues Peptic ulcer disease, GERD continue PPI DVT prophylaxis has been ordered. VS,Fishbone, I+O VS, Fishbone, I+O Laboratory Tests 08/29/18 13:05 Calcium Level 8.6 L Vital Signs Date Time Temp Pulse Resp B/P (MAP) Pulse Ox O2 Delivery O2 Flow Rate FiO2 08/29/18 13:29 17 08/29/18 08:32 62 130/60 08/29/18 06:00 98.1 95 08/28/18 12:18 Room Air 08/28/18 04:10 2.0 I&O- Last 24 Hours up to 6 AM 08/29/18 06:00 Intake Total 2355 ml Output Total 2100 ml Balance 255 ml INGA HUERTA MD Aug 29, 2018 14:45
[2018-08-29] MEDS: SERTRALINE 100 MG TAB PO SCH (20:57)
[2018-08-29 22:00] VITALS: BP 144/69
[2018-08-29 23:58] VITALS: BP 121/57
[2018-08-30] MEDS: metroNIDAZOLE 500 MG in APPROPRIATE DILUENT 1 EA IV SCH ×3 (02:06→11:44)
[2018-08-30] MEDS: ONDANSETRON 4MG/2ML VIAL (J2405) IV PRN ×4 (05:31→21:43)
[2018-08-30] MEDS: MORPHINE 4 MG/ML 1ML VIAL/SYRINGE (J2270) IV PRN ×4 (05:32→21:44)
[2018-08-30 06:00] VITALS: BP 137/83
[2018-08-30] MEDS: CIPROFLOXACIN 400 MG in APPROPRIATE DILUENT 1 EA IV SCH ×2 (06:05→18:17)
[2018-08-30] MEDS: SYMBICORT 160/4.5MCG INHALER 6GM INH SCH ×2 (07:45→20:56)
[2018-08-30 08:39] LABS: BLOOD UREA NITROGEN 8 MG/DL (7-18); CALCIUM LEVEL 8.3 MG/DL (8.8-10.2); CARBON DIOXIDE LEVEL 24 MEQ/L (21-32); CHLORIDE LEVEL 111 MEQ/L (98-107); CREATININE FOR GFR 0.66 MG/DL (0.55-1.30); GLOMERULAR FILTRATION RATE > 60.0 (>39); GLUCOSE, FASTING 99 MG/DL (70-100); POTASSIUM SERUM 3.4 MEQ/L (3.5-5.1); SODIUM LEVEL 141 MEQ/L (136-145)
[2018-08-30] MEDS: GABAPENTIN 300 MG CAP PO SCH ×3 (09:00→21:42)
[2018-08-30] MEDS: CARVedilol 12.5 MG TAB PO SCH ×2 (09:59→21:42)
[2018-08-30] MEDS: ENOXAPARIN 40 MG/0.4 ML SYRINGE (J1650) SC SCH (10:00)
[2018-08-30] MEDS: NS 1,000 ML IV SCH (11:42)
[2018-08-30] MEDS ORDERED: POTASSIUM CHLORIDE 10 MEQ SR TABLET PO ONE (12:45)
--- NOTE | 2018-08-30 12:46 | IPNPDOC ---
Text Note Date of Service The patient was seen on 08/30/18. NOTE SUBJECTIVE: No furthr diarrhea since last night. Abdominal soreness and dist ension is less. No dizziness or light headedness today. No fever or chills. No chest pain or SOb, No nausea or vomiting. Because of her history of stomach surgery and bile duct surgery she normally has a sensitive stomach and has to be careful about what she eats otherwise she has diarrhea. So she is always careful about her diet. PHYSICAL EXAM: VITALS: As below. HEENT: Atraumatic. Normocephalic. Moist mucous membranes noted. Anicteric eyes Neck: Supple. No jugular venous distention (JVD). Lungs: Clear to auscultation. Heart: S1, S2 audible. No murmurs appreciated. No rub or gallop. Abdomen: Soft, positive tenderness on the left lower quadrant on deep palpation. No rebound tenderness. Positive bowel sounds. Extremities: No pedal edema. Skin: Intact. Neurological examination: Patient awake, alert and oriented times three. 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 Apparently patient went to see her primary doctor last week and received Levaquin and it did not help and she even had a near-syncopal event yesterday while going to the bathroom during one of her bouts of diarrhea. The diarrhea is noted as watery in nature with no evidence of melena stool or clots. In the ER she had a CT abdomen and pelvis which showed evidence of acute colitis. The patient was started on IV Cipro Flagyl in the ER and given fentanyl as well as IV Zofran for symptomatic relief. Pateint was admitted to the hospitalist service for Acute colitis, diarrhea, dehydration , electrolyte immbalance and near syncope. Diarrhea and dehydration GI panel negative CT with possible Acute colitis in the sigmoid colon ? etiology Continue cipro and flagyl. consult Surgery Hypokalemia replaced Hypertension now with dehydration Bp normal to low will hold antihypertensives Asthma no issues Bilateral nonobstructive renal stones no issues Peptic ulcer disease, GERD continue PPI DVT prophylaxis has been ordered. VS,Fishbone, I+O VS, Fishbone, I+O Laboratory Tests 08/29/18 13:05 Calcium Level 8.6 L 08/30/18 08:07 Calcium Level 8.3 L Vital Signs Date Time Temp Pulse Resp B/P (MAP) Pulse Ox O2 Delivery O2 Flow Rate FiO2 08/30/18 12:39 16 08/30/18 09:59 70 08/30/18 06:00 98.2 137/83 (101) 95 08/28/18 12:18 Room Air 08/28/18 04:10 2.0 I&O- Last 24 Hours up to 6 AM 08/30/18 06:00 Intake Total 2270 ml Output Total 1150 ml Balance 1120 ml INGA HUERTA MD Aug 30, 2018 12:46
[2018-08-30 14:00] VITALS: BP 124/61
[2018-08-30] MEDS: SERTRALINE 100 MG TAB PO SCH (21:42)
[2018-08-30 22:00] VITALS: BP 166/77
[2018-08-30 22:40] VITALS: BP 124/58
[2018-08-31] MEDS: ONDANSETRON 4MG/2ML VIAL (J2405) IV PRN (02:03)
[2018-08-31] MEDS: MORPHINE 4 MG/ML 1ML VIAL/SYRINGE (J2270) IV PRN (02:04)
[2018-08-31] MEDS: metroNIDAZOLE 500 MG in APPROPRIATE DILUENT 1 EA IV SCH (02:05)
[2018-08-31 06:00] VITALS: BP 115/55
[2018-08-31] MEDS: CIPROFLOXACIN 400 MG in APPROPRIATE DILUENT 1 EA IV SCH (06:35)
[2018-08-31] MEDS: SYMBICORT 160/4.5MCG INHALER 6GM INH SCH (07:53)
[2018-08-31 09:00] VITALS: BP 115/55
[2018-08-31] MEDS: CARVedilol 12.5 MG TAB PO SCH (09:00)
[2018-08-31] MEDS ORDERED: CIPROFLOXACIN 500 MG TAB PO SCH ×3 (09:00→18:00)
[2018-08-31] MEDS: ENOXAPARIN 40 MG/0.4 ML SYRINGE (J1650) SC SCH (09:00)
[2018-08-31] MEDS ORDERED: metroNIDAZOLE (FLAGYL) 500 MG TAB PO SCH (09:00)
[2018-08-31] MEDS: GABAPENTIN 300 MG CAP PO SCH (09:17)
--- NOTE | 2018-08-31 09:22 | CR ---
DATE OF CONSULTATION: 08/30/2018 REASON FOR CONSULTATION: Abdominal pain. HISTORY OF THE PRESENT ILLNESS: The patient is a pleasant 72-year-old woman with a history of multiple surgical procedures of the abdomen. She was admitted on 08/27/2018 by the hospitalist service for treatment of what was at that time diagnosed as colitis. She reports that she has been having some abdominal cramping and diarrhea for about the last 6 weeks. She had apparently seen her primary physician the previous week and was started on Levaquin without benefit. She had undergone a CT scan of the abdomen and pelvis, which was interpreted as showing some wall thickening of the sigmoid colon compatible with colitis versus artifact from underdistention. She has been undergoing evaluation, but because of her complex surgical history and ongoing pain, I was asked to see the patient for evaluation. ALLERGIES: The patient's medical record indicates allergies to CODEINE, IODINE, LACTOSE INTOLERANCE, LATEX, MORPHINE, PENICILLINS, STRAWBERRY, SULFA DRUGS, and TOMATO. MEDICATIONS AT THE TIME OF ADMISSION: Include Symbicort inhaler two puffs twice daily, carvedilol 25 mg twice daily, gabapentin 300 mg three times daily, ibuprofen 600 mg four times daily as needed for pain, Levaquin 500 mg by mouth daily, losartan and 50 mg by mouth by mouth nightly, metronidazole 500 mg by mouth three times daily, sertraline 100 mg by mouth every day at bedtime, and spironolactone 12.5 mg daily. MEDICAL HISTORY: Is significant for asthma and hypertension. SURGICAL HISTORY: Is fairly complicated. She had an appendectomy in the distant past. She has also had a tubal ligation and a hysterectomy. A cholecystectomy was performed at some point. She underwent a bladder and rectal repair back in 1971. She reports having had a partial gastrectomy in 1972. 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 Ross performed a choledochojejunostomy for a recurrent stricture. At that time, she was noted to have extensive adhesions. She has had a parathyroidectomy. She reports that her last abdominal procedure was approximately 2-1/2 to [address] Mcgill in [place] and that he performed a lysis of adhesions. This was apparently performed as an elective procedure through a midline incision. She also reported that he did some sort of loosening up of a netting over the stomach to allow better flow, but it is unclear to me what exactly this procedure was. She has been doing fairly well but reports that she does have a tendency to have some abdominal tenderness at times, and her stomach does not tolerate certain foods well. FAMILY HISTORY: Is noncontributory. SOCIAL HISTORY: The patient does not smoke and denies any significant alcohol intake. REVIEW OF SYSTEMS: She denies any chest pain or palpitations. She has no current cough, wheezing, or sputum production. She denies any diabetes. She denies any urinary symptoms. She has had no bone or joint issues. She denies any history of deep venous thrombosis (DVT) or pulmonary embolus. She reports no history of stroke, transient ischemic attack (TIA), or seizure. PHYSICAL EXAMINATION: Reveals a pleasant woman appearing slightly younger than her stated age. She is alert, oriented, and cooperative. Her most recent vital signs showed a temperature of 98.3, pulse of 72, respirations of 18, and a blood pressure of 124/61. Room air oxygen saturation is 96%. Her skin is warm and dry. Sclerae are anicteric. Heart examination shows a regular rate and rhythm. The lungs are clear. The abdomen shows active bowel sounds in all four quadrants. She has a long midline scar. She has several smaller scars from either drains or trocar sites on the sides of the abdomen. The abdomen does appear somewhat full. On palpation, she has some mild tenderness in the right upper quadrant and to a lesser extent perhaps in the right lower quadrant. No masses appreciated. Extremities are without edema. LABORATORY STUDIES: From this morning show a white count of 8.2, hemoglobin of 12, hematocrit of 36, and a platelet count of 250,000. Differential count shows 73% neutrophils, 17% lymphocytes and 8% monocytes. Chemistry profile today showed a sodium of 141, potassium 3.4, chloride 111, CO2 of 24, BUN of 80, creatinine 0.66, and a glucose of 99. Her GI tract panel from 08/27/[address] scan from 08/27/2018 reviewed personally. She had some air in her biliary tree, which was not surprising given her choledochojejunostomy. She has somewhat atrophic left kidney, the right appears more normal. She has scattered clips and roque in the abdomen. Her small bowel was largely concentrated in the left upper quadrant, and there are a few small areas where the bowel appears slightly dilated. I cannot determine the nature of her reconstruction from review of her imaging. There is certainly no free air or free fluid within the abdomen and no sign of acute inflammatory changes, I think. The radiologist did feel that there was some thickening of the sigmoid colon wall, though this on my review does not appear striking. IMPRESSION: The patient is having episodic abdominal cramping with diarrhea. While I was examining her today, she had an episode where she sat up and clutched her abdomen and held on for a few minutes while she had severe pain. Her gastrointestinal (GI) panel is negative, and her CT scan does not show anything dramatically wrong to account for her discomfort. It may well be that she has a partial obstruction causing her symptoms. She reports that she had a colonoscopy with Dr. Barfield about 3 years ago, by her recollection. She does have a history of colonic polyps. RECOMMENDATIONS: At this point, I certainly would not recommend any surgical intervention. Though this may represent a partial obstruction causing her pains, any surgery would be very difficult, I anticipate, in this woman who has had multiple abdominal procedures. She would likely have fairly extensive adhesions within the abdomen. Certainly, if a more distinct obstructive pattern becomes clear or if her symptoms become unbearable and persistent, then a surgical procedure may be appropriate. If she approaches this point, then I think a small bowel followthrough study may be of benefit to better evaluate the small bowel. I think with her liquid diet is appropriate. If her pain is not tolerable, then I think converting to nothing by mouth status and performing the small bowel followthrough study would be most appropriate. If her pain diminishes and she is able to tolerate the liquids well, then advancing to regular foods would be reasonable.
[2018-08-31] MEDS ORDERED: CIPR-249 PO (09:40)
[2018-08-31 10:48] LABS: BASO # 0.1 10^3/uL (0.0-0.2); BASO % 0.6 % (0.0-1.0); EOS # 0.2 10^3/uL (0.0-0.50); EOS % 2.1 % (0.0-3.0); HEMATOCRIT 34.5 % (36.0-47.0); HEMOGLOBIN 11.6 g/dl (12.0-15.5); LYMPH # 0.8 10^3/uL (1.5-4.5); LYMPH % 10.9 % (24.0-44.0); MEAN CORPUSCULAR HEMOGLOBIN 29.4 pg (27.0-33.0); MEAN CORPUSCULAR HGB CONC 33.6 g/dl (32.0-36.5); MEAN CORPUSCULAR VOLUME 87.6 fl (80.0-96.0); MONO # 0.5 10^3/uL (0.0-0.8); MONO % 5.8 % (0.0-5.0); NEUTROPHILS # 6.2 10^3/uL (1.8-7.7); NEUTROPHILS % 80.2 % (36.0-66.0); PLATELET COUNT, AUTOMATED 235 10^3/uL (150-450); RED BLOOD COUNT 3.94 10^6/uL (4.00-5.40); WHITE BLOOD COUNT 7.7 10^3/uL (4.0-10.0)
[2018-08-31 11:08] LABS: BLOOD UREA NITROGEN 5 MG/DL (7-18); CALCIUM LEVEL 8.8 MG/DL (8.8-10.2); CARBON DIOXIDE LEVEL 25 MEQ/L (21-32); CHLORIDE LEVEL 110 MEQ/L (98-107); CREATININE FOR GFR 0.66 MG/DL (0.55-1.30); GLOMERULAR FILTRATION RATE > 60.0 (>39); GLUCOSE, FASTING 105 MG/DL (70-100); POTASSIUM SERUM 3.6 MEQ/L (3.5-5.1); SODIUM LEVEL 141 MEQ/L (136-145)
--- NOTE | 2018-09-05 22:20 | DS.PDOC ---
Discharge Summary General Date of Admission Aug 29, 2018 at 14:59 Date of Discharge 08/31/18 Attending Physician: INGA HUERTA MD Specialist/Consultants Involve: Eric Vilchis Discharge Summary PROCEDURES PERFORMED DURING STAY: None DISCHARGE DIAGNOSES: Partial Small bowel obstruction Colitis Hypertension Peptic Ulcer Disease s/p Billroth 2 partial gastrectomy with gastrojejunostomy in 1972 Asthma Bilateral nonobstructive renal stones s/p lithotripsies COMPLICATIONS/CHIEF COMPLAINT: Colitis,Hypokalemia. HISTORY OF PRESENT ILLNESS: Please see history and physical HOSPITAL COURSE: HEENT: 72-year-old female with past medical history of hypertension, Peptic ulcer disease, and multiple abdominal surgeries including Billroth II gastrojejunostomy for PUD in 1972, Bile duct surgery for blockages due to scar tissues and adhesions, Bilateral kidney stones since the age of 20 years with lithotrypsiesx2, laser surgeries for kidney stones on the left, multiple times stone removal from the back, total parathyroidectomy for hyperparathyroidism, asthma, mitral valve prolapse, h/o TIAs with transient vision loss due to control pills at age 21, who presents to emergency room with severe cramping, abdominal pain and diarrhea for 6 weeks. Apparently patient went to see her primary doctor last week and received Levaquin and it did not help and she even had a near-syncopal event yesterday while going to the bathroom during one of her bouts of diarrhea. The diarrhea is noted as watery in nature with no evidence of melena stool or clots. In the ER she had a CT abdomen and pelvis which showed evidence of acute colitis. The patient was started on IV Cipro Flagyl in the ER and given fentanyl as well as IV Zofran for symptomatic relief. Patient was admitted to the hosp italist service for Acute colitis, diarrhea, dehydration , electrolyte imbalance and near syncope. Pateint was evaluated by surgical service and felt there may be some partial small bowel obstruction going on due to extensive adhesions from her multiple abdominal surgeries. They had suggested small bowel follow through if the pain does not improve with conservative management . Hoever pateint abdominal pain improved with liquid diet , IVf and antibiotics. Patient's diet was advanced to regular low roughage food which she tolerated. Abdominal pain Diarrhea and dehydration GI panel negative CT with possible Acute colitis in the sigmoid colon ? etiology Continue Cipro and Flagyl. May be having partial small bowel obstruction but seems to have improved with liquid diet. If this occurs again or worsens then will benefit for small bowel follow through will be helpful Hypokalemia replaced Hypertension now with dehydration Bp normal to low will hold antihypertensives Asthma no issues Bilateral nonobstructive renal stones no issues Peptic ulcer disease, GERD continue PPI DISCHARGE MEDICATIONS: Please see below. ALLERGIES: Please see below. PHYSICAL EXAMINATION ON DISCHARGE: VITAL SIGNS: Please see below. GENERAL: awake alert sitting in bed in acute distress. HEENT: Atraumatic. Normocephalic. Moist mucous membranes noted. Anicteric eyes Neck: Supple. No jugular venous distention (JVD). Lungs: Clear to auscultation. Heart: S1, S2 audible. No murmurs appreciated. No rub or gallop. Abdomen: Soft, positive tenderness on the left lower quadrant on deep palpation. No rebound tenderness. Positive bowel sounds. Extremities: No pedal edema. Skin: Intact. Neurological examination: Patient awake, alert and oriented times three. LABORATORY DATA: Please see below. ACTIVITY: As tolerated DIET: Low fiber diet. DISPOSITION: 01 Home, Self-Care. DISCHARGE INSTRUCTIONS: Follow up with PMD in 1 week Follow up with Dr Vilchis as needed. DISCHARGE CONDITION: [Stable]. TIME SPENT ON DISCHARGE: Greater than 30 minutes. Vital Signs/I&Os Vital Signs Date Time Temp Pulse Resp B/P (MAP) Pulse Ox O2 Delivery O2 Flow Rate FiO2 08/31/18 09:00 79 115/55 08/31/18 06:00 97.2 16 94 08/28/18 12:18 Room Air 08/28/18 04:10 2.0 Microbiology Microbiology 08/27/18 Gastrointestinal Tract Panel (PCR) - Final, Complete Discharge Medications Scheduled Budesonide/Formoterol (Symbicort 160-4.5 Mcg/Act) 60 Puff/Inhaler Aers, 2 PUFF INH BID, (Reported) Carvedilol (Carvedilol) 25 Mg Tab, 25 MG PO BID, (Reported) Ciprofloxacin HCl (Cipro) 500 Mg Tab, 500 MG PO BID Gabapentin (Gabapentin) 300 Mg Cap, 300 MG PO TID, (Reported) Levofloxacin Hemihydrate (Levofloxacin) 500 Mg Tab, 500 MG PO DAILY, (Reported) FILLED 08/20/18 FOR 8 DAYS Losartan Potassium (Losartan Potassium) 50 Mg Tab, 50 MG PO QHS, (Reported) Metronidazole (Metronidazole) 500 Mg Tab, 500 MG PO TID, (Reported) FILLED 08/20/18 FOR 10 DAYS Sertraline HCl (Sertraline HCl) 100 Mg Tab, 100 MG PO QHS, (Reported) Spironolactone (Spironolactone) 25 Mg Tab, 12.5 MG PO DAILY, (Reported) Scheduled PRN Ibuprofen (Advil) 200 Mg Tab, 600 MG PO QID PRN for PAIN, (Reported) Allergies Coded Allergies: Codeine (Verified Allergy, Severe, respiratory failure, 08/27/18) Lactose Intolerance (GI) (Verified Allergy, Severe, GI, 11/14/16) Morphine (Verified Allergy, Intermediate, chest pain, difficulty breathing, 08/27/18) Penicillins (Verified Allergy, Intermediate, facial swelling, hives, 08/27/18) Penicillins Cross Reactors (Verified Allergy, Intermediate, hives, facial swelling, 08/27/18) Sulfa Drugs (Verified Allergy, Intermediate, facial swelling, hives, 08/27/18) Sulfa Drugs Cross Reactors (Verified Allergy, Intermediate, facial swelling; hives, 08/27/18) Iodine (Verified Allergy, Mild, skin irritation, 08/27/18) Latex (Verified Allergy, Unknown, 10/20/12) [place] (Verified Allergy, Unknown, 10/20/12) Tomato (Verified Allergy, Unknown, 10/20/12) INGA HUERTA MD Sep 02, 2018 01:37
== END 2018-08-31 12:10 | disposition home or self-care (01) | DRG 390 ==
LOC: M ED 10:24 → M ED INP 18:03 → M MSPAV 08-28 12:41 → OBSVTOIN 08-29 14:59
PROVIDERS: ADMIT Internal Medicine; ATTEND Internal Medicine Nephrology
DX: K56.51 Intestinal adhesions [bands], with partial obstruction (principal); K52.9 Noninfective gastroenteritis and colitis, unspecified; E87.6 Hypokalemia; N20.0 Calculus of kidney; K27.9 Peptic ulcer, site unspecified, unspecified as acute or chronic, without hemorrhage or perforation; K21.9 Gastro-esophageal reflux disease without esophagitis; I10 Essential (primary) hypertension; J45.909 Unspecified asthma, uncomplicated; E86.0 Dehydration; Z86.73 Personal history of transient ischemic attack (TIA), and cerebral infarction without residual deficits; Z88.5 Allergy status to narcotic agent; Z88.0 Allergy status to penicillin; Z88.2 Allergy status to sulfonamides; Z79.899 Other long term (current) drug therapy; Z91.040 Latex allergy status; Z90.49 Acquired absence of other specified parts of digestive tract

== ENCOUNTER 2018-12-23 16:08 | Emergency (ER) | payer MEDICARE ==
[~2018-12-23] VITALS: Ht 154.9 cm; Wt 66.4 kg
[~2018-12-23 16:08] MED LIST changes: -/CELE20CA; -/METO5TA PO; -/ONDA4TA; -/RANI15TA PO; -ACET50TA PO; +ADVI200T PO; +CARV25TA PO; +CELE1CAP4; +CHLO25TA PO; +CIPR-249 PO; +GABA-843 PO; +LEVO500T3 PO; +LOSA50TA88 PO; +MAPA500T17 PO; +METO1TAB88 PO; +METR-265 PO; -MIRA255PW PO; +ONDA-1; +POLY1POW4 PO; +RANI1TAB17 PO; +SERT-138 PO; +SERT-141 PO; -SERT50TA PO; +SPIR-10 PO; +SYMB16INH INH; -VALS1TAB47 PO; +VALS1TAB67 PO
[2018-12-23] MEDS ORDERED: KETOROLAC 30 MG/ML VIAL (J1885) IM ONE (16:45)
[2018-12-23 17:08] LABS: APPEARANCE, URINE CLEAR (CLEAR); BACTERIA, URINE AUTO 1+ (NEGATIVE); BILIRUBIN, URINE AUTO NEGATIVE (NEGATIVE); BLOOD, URINE BLOOD NEGATIVE (NEGATIVE); COLOR, URINE YELLOW (YELLOW); GLUCOSE, URINE (UA) AUTO NEGATIVE (NEGATIVE); KETONE, URINE AUTO NEGATIVE (NEGATIVE); LEUKOCYTE ESTERASE, URINE AUTO 1+ (NEGATIVE); NITRITE, URINE AUTO NEGATIVE (NEGATIVE); PROTEIN, URINE AUTO NEGATIVE (NEGATIVE); RBC, URINE AUTO 0 /HPF (0-3); SQUAMOUS EPITHELIAL CELL UR AU 3 /HPF (0-6); UROBILINOGEN, URINE AUTO 0.2 mg/dL (0.0-2.0); WBC, URINE AUTO 7 /HPF (0-3)
[2018-12-23] MEDS ORDERED: KETO10TAB PO (17:23)
[2018-12-23 17:30] VITALS: BP 113/56
== END 2018-12-23 17:31 | disposition home or self-care (01) ==
LOC: M ED 16:08
DX: M54.16 Radiculopathy, lumbar region (principal); M54.42 Lumbago with sciatica, left side; G89.29 Other chronic pain; I10 Essential (primary) hypertension; R56.9 Unspecified convulsions; J44.9 Chronic obstructive pulmonary disease, unspecified; J45.909 Unspecified asthma, uncomplicated; Z87.442 Personal history of urinary calculi; Z88.0 Allergy status to penicillin; Z88.2 Allergy status to sulfonamides; Z88.5 Allergy status to narcotic agent; Z88.8 Allergy status to other drugs, medicaments and biological substances; Z91.018 Allergy to other foods; Z91.011 Allergy to milk products; Z91.040 Latex allergy status; Z79.899 Other long term (current) drug therapy; Z79.51 Long term (current) use of inhaled steroids
CPT/HCPCS: 81001; 96372; 99284; J1885

== ENCOUNTER → 2019-01-06 | Outpatient (REF) | payer MEDICARE, BC ==
[~2019-01-06] MED LIST changes: -BISO10TA6 PO; +BISO10TA7 PO; +KETO10TAB PO
[2019-01-06 19:26] LABS: APPEARANCE, URINE CLEAR (CLEAR); BACTERIA, URINE AUTO NEGATIVE (NEGATIVE); BILIRUBIN, URINE AUTO NEGATIVE (NEGATIVE); BLOOD, URINE BLOOD NEGATIVE (NEGATIVE); COLOR, URINE YELLOW (YELLOW); GLUCOSE, URINE (UA) AUTO NEGATIVE (NEGATIVE); KETONE, URINE AUTO NEGATIVE (NEGATIVE); LEUKOCYTE ESTERASE, URINE AUTO TRACE (NEGATIVE); NITRITE, URINE AUTO NEGATIVE (NEGATIVE); PROTEIN, URINE AUTO NEGATIVE (NEGATIVE); RBC, URINE AUTO 0 /HPF (0-3); SPECIFIC GRAVITY URINE AUTO 1.008 (1.002-1.035); SQUAMOUS EPITHELIAL CELL UR AU 0 /HPF (0-6); UROBILINOGEN, URINE AUTO 0.2 mg/dL (0.0-2.0); WBC, URINE AUTO 1 /HPF (0-3)
== END ==
LOC: M SMT 17:07
PROVIDERS: ATTEND Nurse Practitioner Women's Health
DX: N20.0 Calculus of kidney (principal)
CPT/HCPCS: 81001; 87086; G0463

== ENCOUNTER → 2019-01-13 | Outpatient (CLI) | payer MEDICARE ==
[~2019-01-13] MED LIST changes: +BISO10TA14 PO; -BISO10TA3 PO; +BISO10TA4 PO; -BISO10TA7 PO
--- NOTE | 2019-01-14 07:23 | REP ---
REASON FOR EXAMINATION: Flank pain. History of renal calculi. Comparison examination is 08/27/2018 with other multiple priors also reviewed. The latest noncontrast enhanced examination is 10/17/2017. The lung bases are clear. Minimal bibasilar subsegmental atelectatic changes are present status quo. There is an 8 mm sized calculus in the collecting system of the right kidney interpolar region status quo from 08/27/2018 with increase in size from 10/17/2017. There are multiple left renal calculi in the renal collecting system unchanged from 08/27/2018. There are bilateral renal parapelvic cysts status quo. There is no maggy hydronephrosis or hydroureter. There are no definite ureteroliths. There are multiple bilateral pelvic phleboliths, status quo. There is pneumobilia status quo. The spleen, pancreas, and adrenal glands are unchanged. Multiple surgical clips are again seen throughout the abdomen and within the retroperitoneum. Limited evaluation of the bowel loops and their mesenteries show no gross abnormalities or significant changes from the prior exam. There is no free fluid or free air in the abdomen. Limited evaluation of the abdominal aorta and para-aortic regions show no gross abnormalities. CT PELVIS: There is sigmoid colon diverticulosis. The bowel loops and their mesenteries are otherwise unremarkable. There is no free fluid or free air. There is no evidence of a pelvic mass or adenopathy. Bone window technique throughout the exam shows the osseous structures to be stable and intact. IMPRESSION: Chronic changes as described above. There is no evidence of acute intra-abdominal or intrapelvic disease. Electronically Signed by Yordy Harrell DO 01/14/2019 03:37 P
== END ==
LOC: M RAD 16:48
PROVIDERS: ATTEND Nurse Practitioner Women's Health
DX: N20.0 Calculus of kidney (principal); R10.9 Unspecified abdominal pain; K57.30 Diverticulosis of large intestine without perforation or abscess without bleeding; N28.1 Cyst of kidney, acquired

== ENCOUNTER → 2019-02-12 | Outpatient (REF) | payer MEDICARE ==
[~2019-02-12] MED LIST changes: -BISO10TA14 PO; +BISO10TA3 PO; -BISO10TA4 PO; +BISO10TA7 PO
[2019-02-12 12:39] LABS: INR 1.09; PROTHROMBIN TIME 13.8 SECONDS (11.8-14.0)
== END ==
LOC: M LABDRAW1 10:44
PROVIDERS: ATTEND Physician Assistant
DX: Z01.812 Encounter for preprocedural laboratory examination (principal); Z79.01 Long term (current) use of anticoagulants

== ENCOUNTER → 2019-05-05 | Outpatient (REF) | payer MEDICARE ==
[~2019-05-05] MED LIST changes: +BISO10TA10 PO; -BISO10TA3 PO; +BISO10TA4 PO; -BISO10TA7 PO
== END ==
LOC: M LAB REF 12:57
PROVIDERS: ATTEND Registered Nurse
DX: N39.0 Urinary tract infection, site not specified (principal)

== ENCOUNTER → 2019-10-01 | Outpatient (REF) | payer MEDICARE ==
[~2019-10-01] MED LIST changes: -BISO10TA10 PO; +BISO10TA14 PO
[2019-10-01 12:01] LABS: APPEARANCE, URINE CLEAR (CLEAR); BACTERIA, URINE AUTO NEGATIVE (NEGATIVE); BILIRUBIN, URINE AUTO NEGATIVE (NEGATIVE); BLOOD, URINE BLOOD NEGATIVE (NEGATIVE); COLOR, URINE YELLOW (YELLOW); GLUCOSE, URINE (UA) AUTO NEGATIVE (NEGATIVE); KETONE, URINE AUTO NEGATIVE (NEGATIVE); LEUKOCYTE ESTERASE, URINE AUTO 2+ (NEGATIVE); MUCUS, URINE SMALL (NEGATIVE); NITRITE, URINE AUTO NEGATIVE (NEGATIVE); PROTEIN, URINE AUTO NEGATIVE (NEGATIVE); RBC, URINE AUTO 2 /HPF (0-3); SPECIFIC GRAVITY URINE AUTO 1.014 (1.002-1.035); SQUAMOUS EPITHELIAL CELL UR AU 2 /HPF (0-6); UROBILINOGEN, URINE AUTO 0.2 mg/dL (0.0-2.0); WBC, URINE AUTO 1 /HPF (0-3)
== END ==
LOC: M LABSMT 08:27
PROVIDERS: ATTEND Nurse Practitioner Women's Health
DX: N20.0 Calculus of kidney (principal)

== ENCOUNTER → 2019-10-01 | Outpatient (CLI) | payer MEDICARE ==
--- NOTE | 2019-10-01 09:49 | REPPI ---
KUB: Single view. HISTORY: Kidney stone. Comparison CT study January 13, 2019. FINDINGS: There are bilateral intrarenal calculi. The largest is in the upper pole region of the right kidney where a calculus measures 16 mm. No other right sided renal calculi are observed. There are several calcific opacities projecting on the left kidney the largest of which measures 10 mm. Scattered surgical clips are noted in the upper abdomen. No ureteral calculus or bladder calculus. There are phleboliths bilaterally in the pelvis. IMPRESSION: Bilateral intrarenal nephrolithiasis. Electronically Signed by Skinny Dias MD 10/01/2019 12:07 P
== END ==
LOC: M PLAIMG 08:30
PROVIDERS: ATTEND Nurse Practitioner Women's Health
DX: N20.0 Calculus of kidney (principal); I87.8 Other specified disorders of veins

== ENCOUNTER → 2019-11-09 | Outpatient (CLI) | payer MEDICARE ==
--- NOTE | 2019-11-10 00:03 | REP ---
MAXILLOFACIAL CT STUDY WITHOUT CONTRAST: HISTORY: Acute frontal sinusitis. CT FINDINGS: Digital preliminary it communications specialist radiographs are unremarkable. There is extensive opacification in the left maxillary sinus due to moderate to marked mucosal thickening. The ostiomeatal complex is occluded on the left. The right maxillary sinus is clear. The right ostiomeatal complex is patent. There is a small osteoma in the left medial frontal sinus; this osteoma measures 8 mm in greatest diameter. The left frontal sinus is otherwise clear. The right frontal sinus is clear. Ethmoid aeration is clear. There is a mild amount of mucosal thickening in the posterior aspect of the sphenoid sinus on the left. Sphenoid sinus is otherwise clear. The mastoid sinuses are clear and symmetric. Middle ear cavities appear to be aerated bilaterally. Nasal turbinate soft tissues are unremarkable. The mid nasal septum deviates somewhat to the left without a visible beak. There are several carious teeth in the maxilla bilaterally. No bony destructive lesion is seen. No intracranial or intraorbital abnormality is appreciated. IMPRESSION: Moderate chronic left maxillary sinusitis changes with mucosal thickening and mucosal thickening occluding the ostiomeatal complex. 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 Electronically Signed by Skinny Dias MD 11/10/2019 07:49 A
== END ==
LOC: M RAD 14:04
PROVIDERS: ATTEND Specialist
DX: J01.10 Acute frontal sinusitis, unspecified (principal); D14.0 Benign neoplasm of middle ear, nasal cavity and accessory sinuses

== ENCOUNTER → 2020-01-13 | Outpatient (REF) | payer MEDICARE ==
[2020-01-13 17:02] LABS: PERCENT SATURATION 18.2 % (13.2-45.0)
[2020-01-18 20:08] LABS: Lyme Disease IgG/IgM Antibodie <0.91 ISR (0.00-0.90); Lyme Disease IgM Ab Quantitati <0.80 index (0.00-0.79)
== END ==
LOC: M LAB REF 16:01
PROVIDERS: ATTEND Internal Medicine
DX: D50.9 Iron deficiency anemia, unspecified (principal); R10.84 Generalized abdominal pain; W57.XXXA Bitten or stung by nonvenomous insect and other nonvenomous arthropods, initial encounter; Y92.9 Unspecified place or not applicable; Y93.9 Activity, unspecified; Y99.9 Unspecified external cause status

== ENCOUNTER → 2020-04-01 | Outpatient (CLI) | payer MEDICARE ==
[~2020-04-01] MED LIST changes: +AMLO1TAB24 PO; -AMLO5TAB6 PO
[2020-04-01 13:22] LABS: BLOOD UREA NITROGEN 20 MG/DL (7-18); CALCIUM LEVEL 10.1 MG/DL (8.8-10.2); CARBON DIOXIDE LEVEL 26 MEQ/L (21-32); CHLORIDE LEVEL 103 MEQ/L (98-107); CREATININE FOR GFR 0.94 MG/DL (0.55-1.30); GLOMERULAR FILTRATION RATE > 60.0 (>39); GLUCOSE, FASTING 98 MG/DL (70-100); POTASSIUM SERUM 3.6 MEQ/L (3.5-5.1); SODIUM LEVEL 137 MEQ/L (136-145)
== END ==
LOC: M LAB 09:30
PROVIDERS: ATTEND Physician Assistant
DX: I11.9 Hypertensive heart disease without heart failure (principal)

== ENCOUNTER → 2020-06-08 | Outpatient (CLI) | payer MEDICARE ==
--- NOTE | 2020-06-08 12:53 | REPVR ---
PROCEDURE INFORMATION: Exam: CT Maxillofacial Without Contrast, Sinus Exam date and time: 06/08/2020 12:38 PM Age: 74 years old Clinical indication: Other: Pansinusitis; Additional info: Chronic pansinusitis TECHNIQUE: Imaging protocol: CT Maxillofacial without contrast. Focus on the sinuses. Radiation optimization: All CT scans at this facility use at least one of these dose optimization techniques: automated exposure control; mA and/or kV adjustment per patient size (includes targeted exams where dose is matched to clinical indication); or iterative reconstruction. COMPARISON: CT Maxilofacial w/out contrast 11/09/2019 2:40 PM FINDINGS: Frontal sinuses: There is mild mucosal thickening along the floors of the frontal sinuses. There is an osteoma within the left frontal sinus. No air-fluid levels. Ethmoid air cells: There is mild left ethmoid mucosal thickening.. No air-fluid levels. Sphenoid sinuses: There is trace fluid within the left sphenoid sinus. Maxillary sinuses: There is near complete opacification of the left maxillary sinus. The left maxillary sinus infundibulum is obscured by mucosal thickening. Nasal cavity/Septum: There is leftward nasal septal deviation. Orbital cavity: Orbits are normal. Globes are unremarkable. Bones/joints: Unremarkable. Soft tissues: Unremarkable. IMPRESSION: Sinus mucosal disease as described. Electronically signed by: Brunilda Funez On 06/08/2020 12:53:41 PM
== END ==
LOC: M RAD 12:25
PROVIDERS: ATTEND Specialist
DX: J32.4 Chronic pansinusitis (principal)

== ENCOUNTER → 2020-08-02 | Outpatient (REF) | payer MEDICARE ==
[~2020-08-02] MED LIST changes: +GABA-282 PO; -GABA-843 PO
== END ==
LOC: M LAB REF 11:29
PROVIDERS: ATTEND Internal Medicine
DX: J45.901 Unspecified asthma with (acute) exacerbation (principal)

== ENCOUNTER → 2020-09-20 | Outpatient (REF) | payer MEDICARE ==
[2020-09-20 15:09] LABS: APPEARANCE, URINE CLEAR (CLEAR); BACTERIA, URINE AUTO NEGATIVE (NEGATIVE); BILIRUBIN, URINE AUTO NEGATIVE (NEGATIVE); BLOOD, URINE BLOOD 1+ (NEGATIVE); COLOR, URINE STRAW (YELLOW); GLUCOSE, URINE (UA) AUTO NEGATIVE (NEGATIVE); KETONE, URINE AUTO NEGATIVE (NEGATIVE); LEUKOCYTE ESTERASE, URINE AUTO TRACE (NEGATIVE); NITRITE, URINE AUTO NEGATIVE (NEGATIVE); PROTEIN, URINE AUTO NEGATIVE (NEGATIVE); RBC, URINE AUTO 0 /HPF (0-3); SPECIFIC GRAVITY URINE AUTO 1.004 (1.002-1.035); SQUAMOUS EPITHELIAL CELL UR AU 1 /HPF (0-6); UROBILINOGEN, URINE AUTO 0.2 mg/dL (0.0-2.0); WBC, URINE AUTO 1 /HPF (0-3)
== END ==
LOC: M SMT 13:44
PROVIDERS: ATTEND Nurse Practitioner Women's Health
DX: N20.0 Calculus of kidney (principal)
CPT/HCPCS: 51798; 81001; 87086; G0463

== ENCOUNTER → 2020-09-28 | Outpatient (CLI) | payer MEDICARE ==
--- NOTE | 2020-09-28 18:37 | REP ---
INDICATION: KIDNEY STONE, FLANK PAIN. COMPARISON: 01/13/2019 without IV contrast and 08/03/2016 with IV contrast. TECHNIQUE: Abdomen/pelvis CT without IV contrast. FINDINGS: Patient has a history of cholecystectomy, bowel duct surgery x2, appendectomy, hysterectomy and colon resection. The pancreas and spleen are on remarkable unchanged. The adrenals are unremarkable. The abdominal aorta is unremarkable. There is no periaortic adenopathy or mass. The bowel and mesentery are unremarkable. Pelvis: There is no adenopathy or ascites. The bladder and pelvic bowel loops are unchanged. There is diverticulosis without diverticulitis in the sigmoid colon, unchanged. The vaginal cuff and adnexa are unremarkable. There is a nonobstructive 16 mm calculus in the upper pole calyx of the right kidney. This measured 11 mm on 01/13/2019. There are no other right renal calculi. There are multiple calcifications in the lower pole of the left kidney. This is also unchanged from 01/13/2019. Additionally there is diffuse left renal cortical atrophy. This is also unchanged. There are multiple bilateral renal parapelvic cysts, confirmed on the comparison study with IV contrast. These are unchanged. There is no definite evidence of hydronephrosis or hydroureter on the study today. There are multiple surgical clips in the upper abdomen as previously. There is chronic pneumobilia as previously. IMPRESSION: There are mild bilateral nonobstructive renal calculi as described, unchanged. There are parapelvic cysts bilaterally, unchanged. There is diffuse left renal cortical atrophy, unchanged. There is no hydronephrosis. There are other chronic findings as discussed above. <Electronically signed by Carlos Eduardo Peña > 09/28/20 [id number]
== END ==
LOC: M RAD 14:38
PROVIDERS: ATTEND Nurse Practitioner Women's Health
DX: N28.1 Cyst of kidney, acquired (principal); N26.1 Atrophy of kidney (terminal); N20.0 Calculus of kidney; R10.9 Unspecified abdominal pain

== ENCOUNTER → 2020-10-24 | Outpatient (CLI) | payer MEDICARE ==
[~2020-10-24] MED LIST changes: +ALBU8.5H INH; +CHLO125TA PO; +DICL50TA2 PO; +LOSA25TA14 PO; +OMEP1CAP73 PO; +ZOLO100T PO
--- NOTE | 2020-10-24 11:35 | REP ---
INDICATION: CALCULUS OF KIDNEY- LABS AND EKG FIRST. COMPARISON: Plain film chest 08/02/2020 TECHNIQUE: PA and lateral chest FINDINGS: The cardiovascular silhouette within normal limits. The lungs are clear. Mediastinum and bony thorax are unremarkable. Surgical clips seen in the midline beneath the diaphragm. IMPRESSION: Normal chest <Electronically signed by Thang More > 10/24/20 [id number]
[2020-10-24 11:38] LABS: HEMATOCRIT 42.1 % (36.0-47.0); HEMOGLOBIN 13.8 g/dl (12.0-15.5); MEAN CORPUSCULAR HEMOGLOBIN 28.3 pg (27.0-33.0); MEAN CORPUSCULAR HGB CONC 32.8 g/dl (32.0-36.5); MEAN CORPUSCULAR VOLUME 86.3 fl (80.0-96.0); PLATELET COUNT, AUTOMATED 324 10^3/uL (150-450); RED BLOOD COUNT 4.88 10^6/uL (4.00-5.40); WHITE BLOOD COUNT 7.8 10^3/uL (4.0-10.0)
[2020-10-24 11:49] LABS: INR 0.9; PROTHROMBIN TIME 12.4 SECONDS (12.5-14.3)
[2020-10-24 12:06] LABS: BLOOD UREA NITROGEN 20 MG/DL (7-18); CALCIUM LEVEL 10.5 MG/DL (8.8-10.2); CARBON DIOXIDE LEVEL 26 MEQ/L (21-32); CHLORIDE LEVEL 105 MEQ/L (98-107); CREATININE FOR GFR 0.87 MG/DL (0.55-1.30); GLOMERULAR FILTRATION RATE > 60.0 (>39); GLUCOSE, FASTING 90 MG/DL (70-100); POTASSIUM SERUM 3.5 MEQ/L (3.5-5.1); SODIUM LEVEL 139 MEQ/L (136-145)
[2020-10-24 13:12] LABS: APPEARANCE, URINE CLEAR (CLEAR); BACTERIA, URINE AUTO 1+ (NEGATIVE); BILIRUBIN, URINE AUTO NEGATIVE (NEGATIVE); BLOOD, URINE BLOOD 3+ (NEGATIVE); COLOR, URINE STRAW (YELLOW); GLUCOSE, URINE (UA) AUTO NEGATIVE (NEGATIVE); KETONE, URINE AUTO NEGATIVE (NEGATIVE); LEUKOCYTE ESTERASE, URINE AUTO 2+ (NEGATIVE); MUCUS, URINE SMALL (NEGATIVE); NITRITE, URINE AUTO NEGATIVE (NEGATIVE); PROTEIN, URINE AUTO NEGATIVE (NEGATIVE); RBC, URINE AUTO 4 /HPF (0-3); SPECIFIC GRAVITY URINE AUTO 1.005 (1.002-1.035); SQUAMOUS EPITHELIAL CELL UR AU 2 /HPF (0-6); UROBILINOGEN, URINE AUTO 0.2 mg/dL (0.0-2.0); WBC, URINE AUTO 4 /HPF (0-3)
--- NOTE | 2020-10-24 23:20 | ECGEPIP ---
[facility] Test Date: 2020-10-24 Pat Name: MICHELLE VAZQUEZ Department: Room: - Gender: Female Real Estate Coordinator: ANKITA : 1945 Requested By: Monse GOINS Order Number: [id number] Reading MD: Cruz Patel Measurements Intervals [place] Rate: 73 P: 12 ID: [id number] QRS: 18 QRSD: 86 T: 16 QT: 384 QTc: 423 Interpretive Statements Normal sinus rhythm Compared to prior 2 tracings in the system, no remarkable changes Electronically Signed on 10-24-2020 23:19:59 EDT by Cruz Patel
== END ==
LOC: M LAB 09:40
PROVIDERS: ATTEND Nurse Practitioner Women's Health
DX: Z01.818 Encounter for other preprocedural examination (principal); N20.0 Calculus of kidney; Z79.51 Long term (current) use of inhaled steroids; Z79.899 Other long term (current) drug therapy

== ENCOUNTER → 2020-10-29 | Outpatient (CLI) | payer MEDICARE | LOC: M LABSMTC 08:11 | PROVIDERS: ATTEND Anesthesiology | DX: Z01.812 Encounter for preprocedural laboratory examination (principal); Z20.822 Contact with and (suspected) exposure to COVID-19 ==

== ENCOUNTER 2020-11-03 06:00 | Day surgery (SDC) | payer MEDICARE ==
[~2020-11-03] VITALS: Ht 152.4 cm; Wt 62.1 kg
[2020-11-03] MEDS ORDERED: LevoFLOXacin IV 500 MG in IV 1 EA IV ONE (07:00)
[2020-11-03] MEDS ORDERED: LR 1,000 ML IV ONE (07:00)
[2020-11-03] MEDS ORDERED: LIDOCAINE 2% 100MG/5ML SDV (FOR ANES.) As Ordered ONE (07:16)
[2020-11-03] MEDS ORDERED: ONDANSETRON 4MG/2ML VIAL As Ordered ONE (07:16)
[2020-11-03] MEDS ORDERED: propofoL 500 MG/50 ML VIAL As Ordered ONE (07:17)
[2020-11-03] MEDS ORDERED: MIDAZOLAM INJ 2MG/2ML VIAL (J2250 PER 1MG) As Ordered ONE (07:17)
[2020-11-03] MEDS ORDERED: fentaNYL 100 MCG/2 ML INJECTION (J3010) As Ordered ONE (07:17)
[2020-11-03] MEDS ORDERED: SCOPOLAMINE 1MG TRANSDERMAL PATCH TOP ONE (07:20)
[2020-11-03] MEDS ORDERED: LIDOCAINE 2% JELLY 5ML TUBE As Ordered ONE (07:23)
[2020-11-03] MEDS ORDERED: LIDOCAINE 5% OINT 30GM TUBE As Ordered ONE (07:40)
[2020-11-03] MEDS ORDERED: OXYC1TAB23 PO (08:12)
[2020-11-03] MEDS ORDERED: FLOM0.4C39 PO (08:12)
--- NOTE | 2020-11-03 08:24 | REP ---
INDICATION: KIDNEY STONE- KUB PRIOR TO SDC. COMPARISON: Comparison KUB October 02, 2016. Comparison CT study September 28, 2020.. TECHNIQUE: KUB. FINDINGS: There is a 16 mm calculus projecting over the renal pelvic region on the right kidney. There is a grouping of 5 or 6 calcifications in the lower pole of the left kidney, the largest of which measures 9 mm in greatest diameter. Bowel gas pattern is unremarkable. There are surgical clips in the upper abdomen right more so than left. Psoas margins and flank stripes are intact. No bony lesion is seen. Phleboliths are noted in the pelvis. IMPRESSION: Bilateral intrarenal nephrolithiasis. <Electronically signed by Fabian Dias > 11/03/20 0818
[2020-11-03] MEDS ORDERED: oxyCODONE 5MG TAB PO PRN (09:00)
[2020-11-03] MEDS ORDERED: ONDANSETRON 4MG/2ML VIAL IV PRN (09:00)
[2020-11-03] MEDS ORDERED: LR 1,000 ML IV SCH (09:00)
[2020-11-03] MEDS ORDERED: HYDROMORPHONE HCL 0.5 MG/ 0.5 ML SYRINGE (J1170 PER 1) IV PRN (09:00)
[2020-11-03] MEDS: fentaNYL 100 MCG/2 ML INJECTION (J3010) IV PRN ×2 (09:05→09:12)
[2020-11-03] MEDS ORDERED: PERCOCET 5MG/325MG TAB PO PRN (09:05)
--- NOTE | 2020-11-03 09:33 | RO ---
OPERATIVE NOTE DATE OF OPERATION: 11/03/2020 PREOPERATIVE DIAGNOSIS: Right kidney stone. POSTOPERATIVE DIAGNOSIS: Right kidney stone. PROCEDURE: Right extracorporeal shock wave lithotripsy, cystoscopy, right ureteral stent placement. SURGEON: Tonny Rutledge MD SPEECH LANGUAGE PATHOLOGIST TRAVEL: None. ANESTHESIA: MAC. OPERATIVE INDICATIONS: This is a 75-year-old female who was found to have bilateral non-obstructing kidney stones with 1.6 cm stone on the right side. She was brought to the operating room for treatment of right side first. DESCRIPTION OF PROCEDURE: The patient was brought to the operating room and MAC anesthesia was administered. Prophylactic antibiotics were infused. She was placed in the supine position, and was prepped and draped first for cystoscopy. A rigid cystoscope was inserted into urethral meatus and advanced into the bladder. A guidewire was advanced up the right collecting system. I then advanced a 6-Amharic x 22-32 cm JJ ureteral stent up the right collecting system. The wire was removed and there were adequate curls of the stent in right renal pelvis and bladder. At this point the cystoscope was removed. The patient was then repositioned for the right-sided extracorporeal shock wave lithotripsy. Fluoroscopy was utilized to monitor the stone position and fragmentation throughout the procedure. Shock wave was then delivered to the right-sided kidney stone ungated. There were no arrhythmias. The stone did appear to fragment well up. After 2500 shocks the procedure was concluded. The patient was awakened from anesthesia and transferred to the recovery room in stable condition. ESTIMATED BLOOD LOSS: 0 mL. COMPLICATIONS: None. SPECIMEN: None. PLAN: The patient will follow up in urology clinic in a few weeks with imaging prior to assess for residual stone burden. She will then be set up for treatment on the left side kidney stone. If she does not pass her stones from the right side it will probably be best to proceed with bilateral ureteroscopy. If all of her stone fragments are gone from right side then we will just set her up for the left-sided extracorporeal shock wave lithotripsy and remove the right-sided stent at that time. [facility]
[2020-11-03 10:25] VITALS: BP 132/65
== END 2020-11-03 10:25 | disposition home or self-care (01) ==
LOC: M SDC 06:00
PROVIDERS: ATTEND Urology
DX: N20.0 Calculus of kidney (principal); Z87.442 Personal history of urinary calculi; N28.1 Cyst of kidney, acquired; K21.9 Gastro-esophageal reflux disease without esophagitis; R06.00 Dyspnea, unspecified; I11.9 Hypertensive heart disease without heart failure; E78.00 Pure hypercholesterolemia, unspecified; J45.909 Unspecified asthma, uncomplicated; F41.1 Generalized anxiety disorder; E78.5 Hyperlipidemia, unspecified; M47.9 Spondylosis, unspecified; M19.041 Primary osteoarthritis, right hand; M19.042 Primary osteoarthritis, left hand; L30.9 Dermatitis, unspecified; F32.9 Major depressive disorder, single episode, unspecified; R06.83 Snoring; Z79.899 Other long term (current) drug therapy; Z79.51 Long term (current) use of inhaled steroids; Z88.8 Allergy status to other drugs, medicaments and biological substances; Z88.5 Allergy status to narcotic agent; Z91.011 Allergy to milk products; Z91.040 Latex allergy status; Z88.0 Allergy status to penicillin; Z91.018 Allergy to other foods; Z88.2 Allergy status to sulfonamides
CPT/HCPCS: 50590; 52332; 74018; C1769; C2617; J1956; J2250; J3010

== ENCOUNTER → 2020-11-29 | Outpatient (CLI) | payer MEDICARE ==
[~2020-11-29] MED LIST changes: +FLOM0.4C39 PO; +OXYC1TAB23 PO
--- NOTE | 2020-11-29 11:11 | REP ---
INDICATION: CALCULUS OF KIDNEY. COMPARISON: 11/03/2020 FINDINGS: KUB shows the intestinal gas pattern to be nonspecific. The organ silhouettes insofar as delineated are unremarkable. There is no evidence of free intraperitoneal air. Since the last examination a double pigtail catheter stent has been placed on the right the proximal portion of which is in the region of the right renal pelvis and the distal portion of which is in the region of the urinary bladder. There are multiple pelvic calcifications consistent with phleboliths status quo. There are bilateral calcifications superimposed over each nephric silhouette. These calcifications appear unchanged on the left while on the right, the large calcifications seen in the upper pole region is no longer present but there new calcifications in the lower pole region. IMPRESSION: As above <Electronically signed by Yordy Harrell > 11/29/20 8047
== END ==
LOC: M RAD 09:13
PROVIDERS: ATTEND Nurse Practitioner Women's Health
DX: N20.0 Calculus of kidney (principal)

== ENCOUNTER → 2020-12-14 | Outpatient (CLI) | payer MEDICARE ==
[2020-12-14 11:22] LABS: HEMOGLOBIN 13.3 g/dl (12.0-15.5); MEAN CORPUSCULAR HEMOGLOBIN 27.6 pg (27.0-33.0); MEAN CORPUSCULAR HGB CONC 32.4 g/dl (32.0-36.5); MEAN CORPUSCULAR VOLUME 85.1 fl (80.0-96.0); PLATELET COUNT, AUTOMATED 356 10^3/uL (150-450); RED BLOOD COUNT 4.82 10^6/uL (4.00-5.40); WHITE BLOOD COUNT 7.6 10^3/uL (4.0-10.0)
[2020-12-14 11:25] LABS: APPEARANCE, URINE HAZY (CLEAR); BACTERIA, URINE AUTO 1+ (NEGATIVE); BILIRUBIN, URINE AUTO NEGATIVE (NEGATIVE); BLOOD, URINE BLOOD 3+ (NEGATIVE); COLOR, URINE YELLOW (YELLOW); GLUCOSE, URINE (UA) AUTO NEGATIVE (NEGATIVE); KETONE, URINE AUTO NEGATIVE (NEGATIVE); LEUKOCYTE ESTERASE, URINE AUTO 3+ (NEGATIVE); NITRITE, URINE AUTO NEGATIVE (NEGATIVE); PROTEIN, URINE AUTO 1+ mg/dL (NEGATIVE); RBC, URINE AUTO 98 /HPF (0-3); SPECIFIC GRAVITY URINE AUTO 1.009 (1.002-1.035); SQUAMOUS EPITHELIAL CELL UR AU 4 /HPF (0-6); UROBILINOGEN, URINE AUTO 0.2 mg/dL (0.0-2.0); WBC, URINE AUTO 31 /HPF (0-3)
[2020-12-14 11:37] LABS: INR 0.88; PROTHROMBIN TIME 12.1 SECONDS (12.5-14.3)
[2020-12-14 11:38] LABS: PARTIAL THROMBOPLASTIN TIME 32.5 SECONDS (24.2-38.5)
[2020-12-14 11:44] LABS: BLOOD UREA NITROGEN 26 MG/DL (7-18); CALCIUM LEVEL 10.8 MG/DL (8.8-10.2); CARBON DIOXIDE LEVEL 30 MEQ/L (21-32); CHLORIDE LEVEL 102 MEQ/L (98-107); CREATININE FOR GFR 0.75 MG/DL (0.55-1.30); GLOMERULAR FILTRATION RATE > 60.0 (>39); GLUCOSE, FASTING 105 MG/DL (70-100); POTASSIUM SERUM 3.2 MEQ/L (3.5-5.1); SODIUM LEVEL 139 MEQ/L (136-145)
== END ==
LOC: M LAB 10:19
PROVIDERS: ATTEND Nurse Practitioner Women's Health
DX: N20.0 Calculus of kidney (principal); Z01.818 Encounter for other preprocedural examination

== ENCOUNTER → 2020-12-15 | Outpatient (CLI) | payer MEDICARE ==
[2020-12-15 14:54] LABS: APPEARANCE, URINE HAZY (CLEAR); BACTERIA, URINE AUTO NEGATIVE (NEGATIVE); BILIRUBIN, URINE AUTO NEGATIVE (NEGATIVE); BLOOD, URINE BLOOD 3+ (NEGATIVE); COLOR, URINE YELLOW (YELLOW); GLUCOSE, URINE (UA) AUTO NEGATIVE (NEGATIVE); KETONE, URINE AUTO NEGATIVE (NEGATIVE); LEUKOCYTE ESTERASE, URINE AUTO 3+ (NEGATIVE); MUCUS, URINE SMALL (NEGATIVE); NITRITE, URINE AUTO NEGATIVE (NEGATIVE); PROTEIN, URINE AUTO 2+ mg/dL (NEGATIVE); RBC, URINE AUTO TNTC /HPF (0-3); SPECIFIC GRAVITY URINE AUTO 1.009 (1.002-1.035); SQUAMOUS EPITHELIAL CELL UR AU 1 /HPF (0-6); UROBILINOGEN, URINE AUTO 0.2 mg/dL (0.0-2.0); WBC, URINE AUTO 37 /HPF (0-3)
== END ==
LOC: M LAB 14:32
PROVIDERS: ATTEND Nurse Practitioner Women's Health
DX: N20.0 Calculus of kidney (principal); Z01.818 Encounter for other preprocedural examination

== ENCOUNTER → 2020-12-24 | Outpatient (CLI) | payer MEDICARE | LOC: M LABSMTC 09:15 | PROVIDERS: ATTEND Anesthesiology | DX: Z01.812 Encounter for preprocedural laboratory examination (principal); Z20.822 Contact with and (suspected) exposure to COVID-19 ==

== ENCOUNTER 2020-12-29 06:40 | Day surgery (SDC) | payer MEDICARE ==
[~2020-12-29] VITALS: Ht 152.4 cm; Wt 58.5 kg
[~2020-12-29 06:40] MED LIST changes: +LR 1,000 ML IV ONE; +LevoFLOXacin IV 500 MG in IV 1 EA IV ONE
[2020-12-29] MEDS ORDERED: LIDOCAINE 2% 5ML JELLY UROJET As Ordered ONE (08:44)
[2020-12-29] MEDS ORDERED: fentaNYL 100 MCG/2 ML INJECTION (J3010) As Ordered ONE (09:19)
[2020-12-29] MEDS ORDERED: MIDAZOLAM INJ 2MG/2ML VIAL (J2250 PER 1MG) As Ordered ONE (09:19)
[2020-12-29] MEDS ORDERED: propofoL 200 MG/20 ML VIAL As Ordered ONE (09:19)
[2020-12-29] MEDS ORDERED: ETOMIDATE INJ 20MG/10ML VIAL As Ordered ONE (09:19)
[2020-12-29] MEDS ORDERED: FLOM0.4C39 PO (09:28)
[2020-12-29] MEDS ORDERED: OXYC1TAB23 PO (09:28)
[2020-12-29] MEDS ORDERED: fentaNYL 100 MCG/2 ML INJECTION (J3010) IV PRN (10:05)
[2020-12-29] MEDS ORDERED: PERCOCET 5MG/325MG TAB PO PRN (10:05)
[2020-12-29] MEDS ORDERED: ONDANSETRON 4MG/2ML VIAL IV PRN (10:05)
[2020-12-29] MEDS ORDERED: METOCLOPRAMIDE INJ 10MG/2ML VIAL (J2765 PER 1) IV PRN (10:05)
[2020-12-29] MEDS ORDERED: LR 1,000 ML IV SCH (10:05)
--- NOTE | 2020-12-29 10:06 | REP ---
INDICATION: KUB BEFORE SDC. COMPARISON: 11/29/2020. TECHNIQUE: AP view abdomen and pelvis. FINDINGS: There is no evidence of bowel obstruction. A cluster of calculi overlying the left kidney appears essentially unchanged. The largest calcification measures approximately 11 mm maximally. There is an oval density overlying the lower pole the right kidney which measures approximately 17 x 7 mm. There is an oval density overlying the lateral margin of the right kidney measuring 8 x 5 mm. A right ureteral stent is unchanged in position. Multiple phleboliths are seen in the right pelvis. Multiple metallic clips are seen in the upper abdomen. There are mild degenerative changes of the spine. IMPRESSION: Bilateral calcific densities overlying the kidneys as discussed above. <Electronically signed by Carlos Eduardo Green > 12/29/20 1002
[2020-12-29 10:40] VITALS: BP 140/66
--- NOTE | 2020-12-29 10:51 | RO ---
OPERATIVE NOTE DATE OF OPERATION: 12/29/2020 PREOPERATIVE DIAGNOSES: Kidney stones. POSTOPERATIVE DIAGNOSIS: Kidney stones. PROCEDURE: Left extracorporeal shockwave lithotripsy, cystoscopy, removal of right ureteral stent. SURGEON: Tonny Rutledge MD INTERPRETER: None. ANESTHESIA: MAC. OPERATIVE INDICATIONS: This is a patient with a history of kidney stones. She was brought to the operating room a few weeks ago for right-sided extracorporeal shock wave lithotripsy and right ureteral stent placement. She also has left-sided kidney stones. She is brought to the operating room today to treat left side kidney stones and remove her right ureteral stent. DESCRIPTION OF PROCEDURE: The patient was brought to the operating room and MAC anesthesia was administered. Prophylactic antibiotics were infused. She was placed in supine position and was then prepped and draped for cystoscopy. A cystoscope was inserted in the urethral meatus and advanced to the bladder. The right-sided ureteral stent was removed intact. The patient was then repositioned for a left-sided extracorporeal shockwave lithotripsy. Fluoroscopy was then utilized to monitor stone position and fragmentation throughout the position. Shockwaves were then delivered to the left-sided kidney stones ungated. There were no arrhythmias. The stones did appear to fragment well. After 2500 shocks, the procedure was concluded. The patient was then awakened from anesthesia and transported to the recovery room in stable condition. ESTIMATED BLOOD LOSS: 0 mL COMPLICATIONS: None. SPECIMENS: None PLAN: The patient will follow up in urology clinic in a few weeks and imaging prior to assess for residual stone burden. [facility]PITAL[facility]
== END 2020-12-29 10:50 | disposition home or self-care (01) ==
LOC: M SDC 06:40 → M RAD 06:40
PROVIDERS: ATTEND Urology
DX: N20.0 Calculus of kidney (principal); R10.9 Unspecified abdominal pain; Z87.442 Personal history of urinary calculi; K21.9 Gastro-esophageal reflux disease without esophagitis; N28.1 Cyst of kidney, acquired; J45.909 Unspecified asthma, uncomplicated; I10 Essential (primary) hypertension; R01.1 Cardiac murmur, unspecified; E78.00 Pure hypercholesterolemia, unspecified; K27.9 Peptic ulcer, site unspecified, unspecified as acute or chronic, without hemorrhage or perforation; R12 Heartburn; D64.9 Anemia, unspecified; M19.90 Unspecified osteoarthritis, unspecified site; L30.9 Dermatitis, unspecified; M54.9 Dorsalgia, unspecified; F41.9 Anxiety disorder, unspecified; M81.0 Age-related osteoporosis without current pathological fracture; N13.30 Unspecified hydronephrosis; F32.9 Major depressive disorder, single episode, unspecified; R06.83 Snoring; R06.02 Shortness of breath; Q63.9 Congenital malformation of kidney, unspecified; Z79.899 Other long term (current) drug therapy; Z79.51 Long term (current) use of inhaled steroids; Z79.1 Long term (current) use of non-steroidal anti-inflammatories (NSAID); Z79.891 Long term (current) use of opiate analgesic; Z88.8 Allergy status to other drugs, medicaments and biological substances; Z88.5 Allergy status to narcotic agent; Z88.0 Allergy status to penicillin; Z88.2 Allergy status to sulfonamides; Z91.040 Latex allergy status; E73.9 Lactose intolerance, unspecified; Z91.018 Allergy to other foods
CPT/HCPCS: 50590; 52310; 74018; J1956; J2250; J3010

== ENCOUNTER → 2021-01-31 | Outpatient (CLI) | payer MEDICARE ==
[~2021-01-31] MED LIST changes: -LR 1,000 ML IV ONE; -LevoFLOXacin IV 500 MG in IV 1 EA IV ONE
--- NOTE | 2021-01-31 14:53 | REP ---
INDICATION: CALCULUS OF KIDNEY. COMPARISON: Comparison radiograph December 29, 2020.. TECHNIQUE: Two views. Supine KUB. FINDINGS: There are scattered surgical clips in the upper abdomen. There is pneumobilia again noted post biliary surgery. There are 2 calcifications each a 2 mm in size projecting in the lower pole the right kidney. There are scattered small calcifications projecting at the lower pole and midpole position of the left kidney. These are much smaller than on the December 29, 2020 study. There are phleboliths in the pelvis. The ureteral stent that was previously noted on the right is been removed. Psoas margins and flank stripes are intact. IMPRESSION: Bilateral intrarenal nephrolithiasis much improved on the left compared with the December 29, 2020 study. <Electronically signed by Fabian Dias > 01/31/21 1262
== END ==
LOC: M RAD 12:58
PROVIDERS: ATTEND Nurse Practitioner Women's Health
DX: N20.0 Calculus of kidney (principal)

== ENCOUNTER → 2021-04-04 | Outpatient (CLI) | payer MEDICARE ==
--- NOTE | 2021-04-04 12:22 | DEXAMM ---
INDICATION: AGE RELATED OSTEOPOROSIS W/O CURRENT PATHOLOGICAL FX. COMPARISON: August 23, 2009 TECHNIQUE: Bone density was measured using dual-energy x-ray absorptionmetry (DEXA). FINDINGS: AP SPINE L1-L4 BMD 0.903 g/cm2 Young Adult T-Score -2.4 Age Matched Z-Score -0.6. LT FEMUR, TOTAL BMD 0.682 g/cm2 Young Adult T-Score -2.6 Age Matched Z-Score -0.8. LT NECK BMD 0.674 g/cm2 Young Adult T-Score -2.6 Age Matched Z-Score -0.7. RT FEMUR, TOTAL BMD 0.778 g/cm2 Young Adult T-Score -1.8 Age Matched Z-Score -0.1. RT NECK BMD 0.749 g/cm2 Young Adult T-Score -2.1 Age Matched Z-Score -0.1. IMPRESSION: There is low bone density of the spine. There is osteoporosis of the left hip. There is low bone density of the right hip. The density of the spine has decreased 6.8% since the initial exam on 05 August 2003. The density of the spine decreased 2.9% since most recent exam on 23 August 2009. The density of the left hip has decreased 18.5% since initial exam on 05 August 2003. The density of the left hip has decreased 11.1% since most recent exam on 23 August 2009. The density of the right hip has decreased 10.6% since the initial exam on 05 August 2003. The density of the right hip has decreased 6.7% since the most recent exam on 23 August 2009. FOLLOW-UP: Recommendation for the next bone density exam: 2 years. <Electronically signed by Fabian Dias > 04/04/21 0125
--- NOTE | 2021-04-04 12:31 | REPMRS ---
Patient History The patient states she has not had a clinical breast exam in over a year. Family history of breast cancer at age 50 or over in mother, colorectal cancer in maternal grandmother, colorectal cancer in maternal aunt, colorectal cancer in father, breast cancer at age 44 in daughter. 15 lb unintentional weight loss. Patient states no breast complaints today. Patient has signed MRS History Sheet. Digital Woman Screen Mammo: April 04, 2021 - Exam #: [id number] Bilateral CC and MLO view(s) were taken. Technologist: RT Latisha Prior study comparison: August 12, 2018, bilateral digital woman screen mammo performed at [facility]. March 08, 2017, digital woman screen mammo performed at [facility]. FINDINGS: The breast tissue is heterogeneously dense. This may lower the sensitivity of mammography. Screening. Digital screening (2D) mammography was performed bilaterally in the CC and MLO projections. Additionally, breast tomosynthesis (3D mammography) was performed bilaterally in the CC and MLO projections. Todays exam was compared to the prior exam/exams. By history, the patient has no complaints of a palpable breast abnormality or other significant breast complaints. The breasts are unchanged in size and shape. There are no kia-soft tissue densities or spiculated masses. There is no internal architectural distortion. There are no suspicious kia-calcific clusters. Skin thickening or nipple retraction is not present. The Volpara volumetric breast density category is C, the breasts are heterogenously dense which may obscure small masses. IMPRESSION: BI-RADS Category 2- Benign Findings. There is no evidence of malignant alteration of the breasts. Followup examination recommended in one year. This mammogram was read [facility] the [facility],an FDA approved computer aided detection system for mammography. The lifetime Tyrer-Cuzick score is 5.7% Negative x-ray reports should not delay surgical consultation if a dominant or clinically suspicious mass is present. Not all breast cancers can be identified by mammography. Therefore, we recommend that you continue to perform regular breast self-examination and physical examination and then promptly contact your physician of any concerns or changes. Adenosis and dense breasts may obscure an underlying neoplasm. No significant changes when compared with prior studies. Assessment: BI-RADS/ACR category 2 mammogram. Benign Findings. Recommendation Routine screening mammogram of both breasts in 1 year. Electronically Signed By: Dominick Valdez MD 04/04/21 2328
== END ==
LOC: M WHC 10:37
PROVIDERS: ATTEND Internal Medicine
DX: Z12.31 Encounter for screening mammogram for malignant neoplasm of breast (principal); M81.0 Age-related osteoporosis without current pathological fracture; M85.89 Other specified disorders of bone density and structure, multiple sites; Z80.3 Family history of malignant neoplasm of breast

== ENCOUNTER → 2021-04-24 | Outpatient (CLI) | payer MEDICARE ==
--- NOTE | 2021-04-24 20:20 | REPVR ---
PROCEDURE INFORMATION: Exam: MR Lumbar Spine Without Contrast Exam date and time: 04/24/2021 9:19 AM Age: 75 years old Clinical indication: Low back pain; Additional info: Contusion of lower back and pelvis TECHNIQUE: Imaging protocol: Multiplanar magnetic resonance images of the lumbar spine without intravenous contrast. COMPARISON: CT ABD PELVIS W/O CONTRAST 09/28/2020 3:01 PM FINDINGS: Vertebral body heights are maintained. Prominent Schmorl's node along the superior endplate of L4. No abnormal marrow signal. No cord compression. No abnormal cord signal. Conus medullaris terminates at the L1 level. Paravertebral soft tissues are unremarkable. L1-L2: No significant canal or foraminal narrowing. L2-L3: Broad-based disc bulge causes mild bilateral foraminal narrowing. Mild canal narrowing. L3-L4: Broad-based disc bulge and facet hypertrophy cause mild canal narrowing and mild bilateral foraminal narrowing. L4-L5: Broad-based disc bulge and facet hypertrophy cause mild bilateral foraminal narrowing. No significant canal narrowing. L5-S1: No significant canal or foraminal narrowing. IMPRESSION: Multilevel spondylotic changes of the lumbar spine, as detailed above. Electronically signed by: Eugenio Silva On 04/24/2021 20:19:47 PM
== END ==
LOC: M PLAIMG 08:25
PROVIDERS: ATTEND Physician Assistant
DX: S30.0XXA Contusion of lower back and pelvis, initial encounter (principal)

== ENCOUNTER → 2021-05-02 | Outpatient (CLI) | payer MEDICARE ==
[~2021-05-02] MED LIST changes: +POTA20TA6 PO
[2021-05-02 11:40] LABS: ALBUMIN 4.1 GM/DL (3.2-5.2); ALT/SGPT 31 U/L (12-78); BILIRUBIN,TOTAL 1.3 MG/DL (0.2-1.0); BLOOD UREA NITROGEN 19 MG/DL (7-18); CALCIUM LEVEL 10.5 MG/DL (8.8-10.2); CARBON DIOXIDE LEVEL 25 MEQ/L (21-32); CHLORIDE LEVEL 108 MEQ/L (98-107); CHOLESTEROL LEVEL 262 MG/DL (<200); CREATININE FOR GFR 0.84 MG/DL (0.55-1.30); GLOMERULAR FILTRATION RATE > 60.0 (>39); GLUCOSE, FASTING 103 MG/DL (70-100); HDL CHOLESTEROL 65 MG/DL (>40); LDL CHOLESTEROL 162 MG/DL (<100); NON-HDL-C 197 MG/DL; NT-PRO BNP 72 PG/ML (<450); POTASSIUM SERUM 3.6 MEQ/L (3.5-5.1); SODIUM LEVEL 139 MEQ/L (136-145); TOTAL PROTEIN 7.5 GM/DL (6.4-8.2); TRIGLYCERIDES LEVEL 176 MG/DL (<150)
== END ==
LOC: M PLALAB 08:29
PROVIDERS: ATTEND Physician Assistant
DX: E78.00 Pure hypercholesterolemia, unspecified (principal); I11.9 Hypertensive heart disease without heart failure

== ENCOUNTER → 2021-05-05 | Outpatient (CLI) | payer MEDICARE ==
[2021-05-05 16:57] LABS: ALBUMIN 3.5 GM/DL (3.2-5.2); ALT/SGPT 38 U/L (12-78); BILIRUBIN,TOTAL 0.8 MG/DL (0.2-1.0); BLOOD UREA NITROGEN 15 MG/DL (7-18); CALCIUM LEVEL 9.5 MG/DL (8.8-10.2); CARBON DIOXIDE LEVEL 28 MEQ/L (21-32); CHLORIDE LEVEL 110 MEQ/L (98-107); CREATININE FOR GFR 0.81 MG/DL (0.55-1.30); GLOMERULAR FILTRATION RATE > 60.0 (>39); GLUCOSE, FASTING 91 MG/DL (70-100); SODIUM LEVEL 143 MEQ/L (136-145); TOTAL PROTEIN 6.8 GM/DL (6.4-8.2)
== END ==
LOC: M PLALAB 13:53
PROVIDERS: ATTEND Physician Assistant
DX: I11.9 Hypertensive heart disease without heart failure (principal)

== ENCOUNTER → 2021-05-09 | Outpatient (REF) | payer MEDICARE | LOC: M LAB REF 14:37 | PROVIDERS: ATTEND Internal Medicine | DX: E55.9 Vitamin D deficiency, unspecified (principal); M81.0 Age-related osteoporosis without current pathological fracture ==

== ENCOUNTER → 2021-05-10 | Outpatient (CLI) | payer MEDICARE | LOC: M LABSMTC 10:09 | PROVIDERS: ATTEND Anesthesiology | DX: Z01.812 Encounter for preprocedural laboratory examination (principal); Z20.822 Contact with and (suspected) exposure to COVID-19 ==

== ENCOUNTER 2021-05-15 09:04 | Day surgery (SDC) | payer MEDICARE ==
[~2021-05-15] VITALS: Ht 152.4 cm; Wt 56.6 kg
[~2021-05-15 09:04] MED LIST changes: +NS 1,000 ML IV ONE
--- OUTSIDE RECORDS SUMMARY | 2021-05-15 09:11 | CCD | Continuity of Care Document ---
Author Author Tammy DANIELLE P.A. Organization Unknown Address [facility], [address] [place] [address] Phone [phone] Care Team Providers Care Facilities Maintenance Supervisor Name Role Phone Francisca Calvert DO AUTM [phone] Problems Active Problems Provider Date Closed anterior dislocation of humerus O nset: 05/05/1999 Essential hypertension Parag Zamarripa MD Onset: 06/18/2016 Social History Type Date Description Comments Sex Unknown ETOH Use Denies alcohol use Tobacco Use Start: Unknown Denies Smoking Smoking Status Reviewed: 06/25/19 Denies Smoking Allergies and adverse reactions Active Allergies Criticality Reaction | Severity Comments Date Codeine Unable to assess criticality 06/18/2016 Tramadol Unable to assess criticality 06/18/2016 Morphine and Related Unable to assess criticality 06/18/2016 Penicillins Unable to assess criticality 06/18/2016 sulfa drugs Unable to assess criticality 12/19/2017 Latex Unable to assess criticality 12/19/2017 Inactive Allergies NKDA Unable to assess criticality 06/18/2016 Medications Active Medications SIG Qnty Indications Ordering Provide r Date Tramadol HCL 50mg Tablets 1 every 6 hours as needed pain 30tabs Adrián Mendoza MD 03/29/2021 Gabapentin 400mg Capsules 1 by mouth three times a day 90caps S30.0xxA Austin Ragland MD 06/25/2019 Losartan Potassium 25mg Tablets 1 by mouth every day Unknown Symbicort 80-4.5mcg/Act Aerosol Unknown Sertraline HCL 100mg Tablets Unknown Ondansetron 4mg Tablets Dispers Unknown Vitamin D 2000Unit Tablets 1 by mouth every day Unknown Potassium Chloride Torrie ER 20Meq Tablets ER Take One Tablet By Mouth Every Day Unknow n Aripiprazole 5mg Tablets Take One Tablet By Mouth Every Day Unknown Immunizations Description No Information Available Vital Signs Date Vital Result Comment 03/29/2021 10:52am Body Temperature 97.7 F Height 60.75 inches 5'0.75" Weight 128.00 lb BMI (Body Mass Index) 24.4 kg/m2 12/19/2017 8:15am Body Temperature 98.8 F Height 60.75 inches 5'0.75" Weight 148.12 lb BMI (Body Mass Index) 28.2 kg/m2 Results Description No Information Available Procedures Date Code Description Status 05/02/2021 29433 Office/Outpatient Established Lo w MDM 20-29 Min Completed 03/29/2021 33120 Office/Outpatient Established Mo d MDM 30-39 Min Completed 03/29/2021 62543 X-Ray Spine Lumbosacral Complete Inc Bending Views Min Of 6 Completed Medical Devices Description No Information Available Encounters Type Date Location Provider Dx Diagnosis Office Visit 05/02/2021 4:15p [place] Abdias Danielle, P.A. S30.0xxD Contusion of lower back and pelvis, subsequent encounter M48.061 Spinal stenosis, lumbar marcus on without neurogenic darlyn M51.36 Other intervertebral disc de generation, lumbar region Office Visit 03/29/2021 11:00a [place] Abdias Danielle PStephaneAStephane S30.0xxA Contusion of lower back and pelvis, initial encounter M51.37 Other intervertebral disc de generation, lumbosacral region Assessments Date Code Description Provider 05/02/2021 S30.0xxD Contusion of lower back and pelv is, subsequent encounter Abdias Danielle PStephaneAStephane 05/02/2021 M48.061 Spinal stenosis, lum bar region without neurogenic claudication Marcelino RandolphAStephane 05/02/2021 M51.36 Other intervertebral disc degene ration, lumbar region Marcelino RandolphAStephane 03/29/2021 S30.0xxA Contusion of lower back and pelv is, initial encounter Merrill Randolph 03/29/2021 M51.37 Other intervertebral disc degene ration, lumbosacral region Merrill Randolph Plan of Treatment Future Appointment(s):* 05/24/2021 1:30 pm - Mikayla Pacheco, MSPT at Physical Therapy 05/02/2021 - Merrill Randolph* S30.0xxD Contusion of lower back and pelvis, subsequent encounter * M48.061 Spinal stenosis, lumbar region without neurogenic claudication * M51.36 Other intervertebral disc degeneration, lumbar region* Follow up:* prn Functional Status Description No Information Available Mental Status Description No Information Available Referrals Refer to Dr Reason for Referral Status Appt Date Abdias Danielle, BENITA Physical therapy lumbar spin e per medicare no auth req based on medical necessity, [place] [facility] [place] dept [place]. Created [address] [place], [place] [id number] [phone] Austin Ragland MD MRI NO AUTH REQUIRED FOR MRI OF LUMBAR SPINE ([id number]) TO TERESA CORADO Created [address] [place] [address], [address] [address] [phone] Austin Ragland MD MRI NO AUTH REQUIRED FOR MRI OF LUMBAR SPINE ([id number]) TO TERESA CORADO Created [address] [place] [address], [address] [address] [phone]
--- OUTSIDE RECORDS SUMMARY | 2021-05-15 09:11 | CCD | Continuity of Care Document ---
Author Author Tammy NAJERA Organization Unknown Address [id number] [place] [address] Phone [phone] Care Team Providers Care Services Account Manager Name Role Phone Russ Khan MD AUTM Unavailable Parag Zamarripa MD AUTM Unavailable Zuleika Leiva MD AUTM [phone] Kalen Barfield MD AUTM [phone] Francisca Najera DO AUTM Unavailable Eric Vilchis MD AUTM [phone] Denton Hong MD AUTM Unavailable [facility] [phone] Problems Active Problems Provider Date Kidney stone Francisca Najera DO Onset: 12/07/2011 Disease of liver Francisca Najera DO Onset: 12/07/2011 Asthma without status asthmaticus Francisca Najera DO Onset: 12/07/2011 Benign hypertensive heart disease without congestive h eart failure Francisca Najera DO Onset: 12/07/2011 Social History Type Date Description Comments Sex Unknown Tobacco Use Start: Unknown Never Smoked Cigarettes ETOH Use Denies alcohol use Tobacco Use Start: Unknown Patient has never smoked Exercise Type/Frequency Exercises sporadically Seat Belt/Car Seat always uses seat belt Allergies and adverse reactions Active Allergies Criticality Reaction | Severity Comments Date Penicillins Unable to assess criticality Tongue Swell ing, Hives 07/22/2009 Sulfa Unable to assess criticality Tongue Swell ing, Hives 07/22/2009 Iodine Unable to assess criticality Tongue Swell ing, Hives 07/22/2009 Codeine Unable to assess criticality Respiratory Arrest 07/22/2009 Morphine Unable to assess criticality Respiratory Arrest 07/22/2009 Latex Unable to assess criticality RASH WHEN WEARING LATEX G LOVES 04/16/2012 Tramadol Unable to assess criticality vomiting 04/16/2012 Trazodone Unable to assess criticality n/v, rash 06/09/2012 Medications Active Medications SIG Qnty Indications Ordering Provide r Date Klor-Con M20 20Meq Tablets ER one po daily 30tabs Francisca NajeraDO 03/16/2021 Aripiprazole 5mg Tablets 1 by mouth every day 30tabs Francisca Najera,DO 03/07/2021 Advair Diskus 250-50mcg/Dose Aeros ol 1 puff twice a day 60units Jean-Claude Calderon M.D. 08/02/[address] 1 by mouth po bid for 8 weeks then once a day after 8 weeks 90caps Samantha Najera,DO 01/13/2020 Docusate Sodium & Senna Stimulant Laxati ve/Stool Softener 8.6-50mg Tablets take one tablet by mouth qam 60tabs Francisca Najera,DO 08/20/2018 Sertraline HCL 100mg Tablets 1 by mouth every day 30tabs Francisca Najera,DO 08/20/2018 Gabapentin 300mg Capsules 1 by mouth three times a day 90caps Francisca Najera,DO 02/17/2018 Gas Relief Extra Strength 125mg Ca psules 1 by mouth four times a day as needed Francisca Najera, DO 06/11/2017 Epipen 2-Esequiel 0.3mg/0.3ML Device as directed as needed 1units Francisca Najera,DO 03/23/2013 Proair HFA 108(90Base) mcg/Act Aer osol inhale two puffs by mouth four times a day as needed 8.5units Francisca Najera, 03/23/2013 Advil 200mg Capsules up to 4 a day if needed for pain Unknown Losartan Potassium 50mg Tablets 1 by mouth one daily Unknown Chlorthalidone 25mg Tablets take 1/2 tablet by mouth every morning Unknown History Medications Losartan Potassium 50mg Tablets 1 by mouth one daily Francisca Najera DO 05/09/2021 - Medications Administered in Office Medication SIG Qnty Indications Ordering Provider Date Covid-19 vaccine, Unspecified Inj ection Unknown 08/28/2020 Covid-19 vaccine, Unspecified Inj ection Unknown 07/31/2020 B12 1000 mcg [address]-79 Injection Francisca Najera,DO 01/21/2014 Therapeutic Injection Injection Francisca Najera,DO 01/21/2014 B12 1000 mcg [address]-09 Injection Nurse Schedule 11/27/2013 Therapeutic Injection Injection Francisca Najera,DO 11/27/2013 B12 1000 mcg [address]-42 Injection Nurse Schedule 09/14/2013 Therapeutic Injection Injection Francisca Najera,DO 09/14/2013 B12 1000 mcg [address]-03 Injection Francisca Najera,DO 07/23/2013 Therapeutic Injection Injection Francisca Najera,DO 07/23/2013 B12 1000 mcg [address]-80 Injection Nurse Schedule 06/15/2013 Therapeutic Injection Injection Francisca Najera,DO 06/15/2013 B12 1000 mcg [address]-61 Injection Francisca Najera,DO 05/15/2013 Therapeutic Injection Injection Francisca Najera,DO 05/15/2013 B12 1000 mcg [address]-15 Injection Nurse Schedule 04/06/2013 Therapeutic Injection Injection Francisca Najera,DO 04/06/2013 B12 1000 mcg [address]-74 Injection Francisca Najera,DO 02/20/2013 Therapeutic Injection Injection Francisca Najera,DO 02/20/2013 B12 1000 mcg [address]-52 Injection Nurse Schedule 01/22/2013 Therapeutic Injection Injection Francisca Najera,DO 01/22/2013 B12 1000 mcg [address]-61 Injection Nurse Schedule 11/26/2012 Therapeutic Injection Injection Francisca Najera,DO 11/26/2012 B12 1000 mcg [address]-12 Injection Nurse Schedule 10/27/2012 Therapeutic Injection Injection Francisca Najera,DO 10/27/2012 B12 1000 mcg [address]-04 Injection Nurse Schedule 09/25/2012 Therapeutic Injection Injection Nurse Schedule 09/25/2012 B12 1000 mcg [address]-96 Injection Nurse Schedule 08/28/2012 Therapeutic Injection Injection Francisca Najera,DO 08/28/2012 B12 1000 mcg [address]-95 Injection Nurse Schedule 07/28/2012 Therapeutic Injection Injection Francisca Najera,DO 07/28/2012 B12 1000 mcg [address]-36 Injection Nurse Schedule 07/21/2012 Therapeutic Injection Injection Francisca Najera,DO 07/21/2012 B12 1000 mcg [address]-69 Injection Nurse Schedule 07/09/2012 Therapeutic Injection Injection Francisca Najera,DO 07/09/2012 B12 1000 mcg [address]-94 Injection Nurse Schedule 06/30/2012 B12 1000 mcg [address]-94 Injection Francisca Najera,DO 06/30/2012 Therapeutic Injection Injection Francisca Najera,DO 06/30/2012 B12 1000 mcg [address]-55 Injection Nurse Schedule 06/23/2012 Therapeutic Injection Injection Francisca Najera,DO 06/23/2012 B12 1000 mcg [address]-87 Injection Nurse Schedule 06/16/2012 Therapeutic Injection Injection Nurse Schedule 06/16/2012 B12 1000 mcg [address]-55 Injection Francisca Najera,DO 06/09/2012 Therapeutic Injection Injection Francisca Najera,DO 06/09/2012 B12 1000 mcg [address]-57 Injection Nurse Schedule 05/30/2012 Therapeutic Injection Injection Francisca Najera,DO 05/30/2012 B12 1000 mcg [address]-10 Injection Nurse Schedule 05/23/2012 Therapeutic Injection Injection Francisca Najera,DO 05/23/2012 B12 1000 mcg [address]-40 Injection Nurse Schedule 05/16/2012 Therapeutic Injection Injection Francisca Najera,DO 05/16/2012 Immunizations CPT Code Status Date Vaccine Lot # [id number] Given 03/16/2021 Pneumovax 23 [id number] U-Flu Given 06/22/2020 Influenza,Unspecified U-Flu Given 05/16/2018 Influenza,Unspecified U-PneuC Given 08/21/2017 Prevnar 13 [id number] Given 05/17/2015 Fluvirin Virus Vaccine [id number] 01 [id number] Given 05/23/2010 Influenza Virus Vaccine Vital Signs Date Vital Result Comment 05/09/2021 9:11am BP Systolic 122 mmHg BP Diastolic 78 mmHg Heart Rate 72 /min Height 61 inches 5'1" Weight 128.00 lb BMI (Body Mass Index) 24.2 kg/m2 03/16/2021 8:32am BP Systolic 140 mmHg BP Diastolic 80 mmHg BP Systolic Lying Down 130 mmHg Laying Down BP Diastolic Lying Down 70 mmHg Laying Down BP Systolic Sitting 120 mmHg Sitting BP Diastolic Sitting 70 mmHg Sitting BP Systolic Standing 110 mmHg Standing BP Diastolic Standing 70 mmHg Standing Height 61 inches 5'1" Weight 125.12 lb BMI (Body Mass Index) 23.6 kg/m2 Results Test Acquired Date Facility Test Result H/L Range Note Coronavirus 2019 Nasopharygeal 05/10/[address] [id number] [phone] Coronavirus 2019 Nasopharygeal ASSAY INFORMATIO <SEE N OTE> 1 Laboratory test finding 05/09/2021 [facility] Document Imaging Specialist: Dr Donald Carmen [place] [id number] [phone] Vitamin D 25-Hydroxy 28.2 ng/ml 24.0 - 80.0 2 Laboratory test finding 05/09/2021 [place] [id number] [phone] PTH Intact 86.3 pg/mL Normal 18.5-88.0 Basic Metabolic Panel 05/09/2021 [facility] Document Imaging Specialist: [place] [address] [phone] Glucose 107 mg/dL High 74 - 99 3 BUN 22 mg/dL High 7 - 18 Creatinine 1.0 mg/dL 0.6 - 1.3 Sodium 138 mEq/L 136 - 145 Potassium 3.8 mEq/L 3.5 - 5.1 Chloride 102 mEq/L 98 - 107 Carbon Dioxide 27 mEq/L 21 - 32 Calcium 10.8 mg/dL High 8.5 - 10.1 4 GFR 54 mL/min Low >60 GFR >= 60 mL/min >60 5 Comprehensive Metabolic Profil 05/05/2021 [place] [address] [phone] Glucose, Fasting 91 mg/dL Normal 70-100 Blood Urea Nitrogen 15 mg/dL Normal 7-18 Creatinine For GFR 0.81 mg/dL Normal 0.55-1.30 Glomerular Filtration Rate > 60.0 Normal >39 6 Sodium Level 143 mEq/L Normal 136-145 Potassium Serum 4.0 mEq/L Normal 3.5-5.1 Chloride Level 110 mEq/L High 98-107 Carbon Dioxide Level 28 mEq/L Normal 21-32 Anion Gap 5 mEq/L Low 8-16 Calcium Level 9.5 mg/dL Normal 8.8-10.2 Ast/Sgot 25 U/L Normal 7-37 Alt/SGPT 38 U/L Normal 12-78 Alkaline Phosphatase 153 U/L High 45-117 Bilirubin,Total 0.8 mg/dL Normal 0.2-1.0 Total Protein 6.8 GM/DL Normal 6.4-8.2 Albumin 3.5 GM/DL Normal 3.2-5.2 Albumin/Globulin Ratio 1.1 Low 1.2-2.2 Laboratory test finding 03/23/2021 [facility] Document Imaging Specialist: Dr Donald Carmen [place] [id number] [phone] Potassium 4.0 mEq/L 3.5 - 5.1 Comprehensive Chem Profile 03/16/2021 [facility] Peggy jimenez Document Imaging Specialist: [place] [address] [phone] Glucose 96 mg/dL 74 - 99 7 BUN 19 mg/dL High 7 - 18 Creatinine 0.8 mg/dL 0.6 - 1.3 Sodium 142 mEq/L 136 - 145 Potassium 3.0 mEq/L Low 3.5 - 5.1 Chloride 106 mEq/L 98 - 107 Carbon Dioxide 25 mEq/L 21 - 32 Calcium 10.0 mg/dL 8.5 - 10.1 Alk. Phosphatase 153 mg/dL High 46 - 116 Total Bilirubin 0.9 mg/dL 0.2 - 1.0 Ast (Sgot) 20 U/L 15 - 37 Alt (SGPT) 33 U/L 12 - 78 Albumin 3.9 g/dL 3.4 - 5.0 Total Protein 6.8 g/dL 6.4 - 8.2 A/G Ratio 1.34 CALC 1.00 - 1.90 GFR >= 60 mL/min >60 GFR >= 60 mL/min >60 8 Laboratory test finding 03/16/2021 [facility]ir kim Document Imaging Specialist: [place] [address] [phone] Magnesium 2.1 mg/dL 1.8 - 2.4 Complete Blood Count 03/16/2021 [facility]h elizal[facility] Document Imaging Specialist: [place] [address] [phone] WBC 6.2 x10*3/UL 4.1 - 10.9 RBC 4.72 x10*6/UL 4.20 - 6.30 Hemoglobin 13.5 g/dL 12.0 - 18.0 Hematocrit 38.8 % 37.0 - 51.0 MCV 82.2 fL 80.0 - 97.0 MCH 28.6 pg 26.0 - 32.0 MCHC 34.8 g/dL 31.0 - 38.0 RDW 12.8 % 11.6 - 13.7 PLT 320 x10*3/UL 140 - 440 MPV 8.5 FL 7.8 - 11.0 Lymph % 19.0 % 10.0 - 58.5 Mid % 5.1 % 1.7 - 9.3 Neut % 75.9 % 37.0 - 92.0 Lymph # 1.1 x10*3/UL 0.6 - 4.1 Mid # 0.4 x10*3/UL 0.1 - 0.6 Neut # 4.7 x10*3/UL 2.0 - 7.8 Ua Routine 12/15/2020 [facility] [address] [address] [place] [address] [phone] Appearance, Urine HAZY Normal Clear Color, Urine YELLOW Normal Yellow PH,Urine 6.0 units Normal 5.0-9.0 Specific [place] Urine Auto 1.009 Normal 1.002-1.035 Protein, Urine Auto 2+ mg/dL High Negative Glucose, Urine (Ua) Auto NEGATIVE mg/dL Normal Negative Ketone, Urine Auto NEGATIVE mg/dL Normal Negative Urobilinogen, Urine Auto 0.2 mg/dL Normal 0.0-2.0 Bilirubin, Urine Auto NEGATIVE Normal Negative Nitrite, Urine Auto NEGATIVE Normal Negative Leukocyte Esterase, Urine Auto 3+ High Negative Blood, Urine Blood 3+ High Negative WBC, Urine Auto 37 /HPF High 0-3 RBC, Urine Auto TNTC /HPF High 0-3 Bacteria, Urine Auto NEGATIVE Normal Negative Squamous Epithelial Cell Ur AU 1 /HPF Normal 0-6 Mucus, Urine SMALL Normal Negative Hyaline Cast, Urine Auto 0 /LPF Normal 0-1 Laboratory test finding 12/15/2020 [facility] [address] [place] [address] [phone] Urine Culture FULL REPORT IN L <SEE NOTE> Normal 9 Complete Blood Count 12/14/2020 [facility] [address] [place] [address] [phone] White Blood Count 7.6 10 Normal 4.0-10.0 Red Blood Count 4.82 10 Normal 4.00-5.40 Hemoglobin 13.3 g/dL Normal 12.0-15.5 Hematocrit 41.0 % Normal 36.0-47.0 Mean Corpuscular Volume 85.1 fl Normal 80.0-96.0 Mean Corpuscular Hemoglobin 27.6 pg Normal 27.0-33.0 Mean Corpuscular HGB Conc 32.4 g/dL Normal 32.0-36.5 Red Cell Distribution Width 13.2 % Normal 11.5-14.5 Platelet Count, Automated 356 10 Normal 150-450 Nucleated Red Blood Cell % 0.0 % Normal 0-0 Ua Routine 12/14/2020 [facility] [address] [address] [place] [address] [phone] Appearance, Urine HAZY Normal Clear Color, Urine YELLOW Normal Yellow PH,Urine 6.0 units Normal 5.0-9.0 Specific [place] Urine Auto 1.009 Normal 1.002-1.035 Protein, Urine Auto 1+ mg/dL High Negative Glucose, Urine (Ua) Auto NEGATIVE mg/dL Normal Negative Ketone, Urine Auto NEGATIVE mg/dL Normal Negative Urobilinogen, Urine Auto 0.2 mg/dL Normal 0.0-2.0 Bilirubin, Urine Auto NEGATIVE Normal Negative Nitrite, Urine Auto NEGATIVE Normal Negative Leukocyte Esterase, Urine Auto 3+ High Negative Blood, Urine Blood 3+ High Negative WBC, Urine Auto 31 /HPF High 0-3 RBC, Urine Auto 98 /HPF High 0-3 Bacteria, Urine Auto 1+ High Negative Squamous Epithelial Cell Ur AU 4 /HPF Normal 0-6 Hyaline Cast, Urine Auto 0 /LPF Normal 0-1 PT & Aptt 12/14/2020 [facility] [address] [place] [address] [phone] Prothrombin Time 12.1 seconds Normal 12.5-14.3 Inr 0.88 Normal 10 Partial Thromboplastin Time 32.5 seconds Normal 24.2-38.5 Basic Metabolic Profile 12/14/2020 [facility] [address] [place] [address] [phone] Glucose, Fasting 105 mg/dL High 70-100 Blood Urea Nitrogen 26 mg/dL High 7-18 Creatinine For GFR 0.75 mg/dL Normal 0.55-1.30 Glomerular Filtration Rate > 60.0 Normal >39 1 1 Sodium Level 139 mEq/L Normal 136-145 Potassium Serum 3.2 mEq/L Low 3.5-5.1 Chloride Level 102 mEq/L Normal 98-107 Carbon Dioxide Level 30 mEq/L Normal 21-32 Anion Gap 7 mEq/L Low 8-16 Calcium Level 10.8 mg/dL High 8.8-10.2 Laboratory test finding 12/14/2020 [place] [id number] [place] [address] [phone] Urine Culture FULL REPORT IN L <SEE NOTE> Normal 12 1 ASSAY INFORMATION: Real Time RT-PCR NOTE: The COVID-19 assay has been cleared by the U.S. Food and Drug Administration under the Emergency Use Authorization (EUA). [email or web address] and [employer] are designated as high complexity laboratories by the Clinical Laboratory Improvement Amendments of 1988(CLIA) and are qualified to perform this test. Not Detected 2 This test was performed in [employer] Vitamin D immunoassay kit. Values obtained with different assay methods should not be used interchangeably. 3 100-125 mg/dL PRE-DIABET ES/FASTING >126 mg/dL DIABETES/FASTING 4 NOTE: RESULT VERIFIED. 5 CHRONIC KIDNEY DISEASE STAGI NG PER NKF STAGE I & II GFR >= 60 NORMAL TO MILDLY DECREASED STAGE III GFR 30-59 MODERATELY DECREASED STAGE IV GFR 15-29 SEVERELY DECREASED STAGE V GFR <15 VERY LITTLE GFR LEFT ESRD GFR <15 ON ARMED SECURITY PROFESSIONAL 6 Units are mL/min/1.73 m2 Chronic Kidney Disease Staging per NKF: Stage I & II GFR >=60 Normal to Mildly Decreased Stage III GFR 30-59 Moderately Decreased Stage IV GFR 15-29 Severely Decreased Stage V GFR <15 Very Little GFR Left ESRD GFR <15 on ARMED SECURITY PROFESSIONAL 7 100-125 mg/dL PRE-DIABET ES/FASTING >126 mg/dL DIABETES/FASTING 8 CHRONIC KIDNEY DISEASE STAGI NG PER NKF STAGE I & II GFR >= 60 NORMAL TO MILDLY DECREASED STAGE III GFR 30-59 MODERATELY DECREASED STAGE IV GFR 15-29 SEVERELY DECREASED STAGE V GFR <15 VERY LITTLE GFR LEFT ESRD GFR <15 ON ARMED SECURITY PROFESSIONAL 9 FULL REPORT IN LAB NOTES ([facility] and [facility]). NO GROWTH 10 THERAPUTIC HUMAN INR VALUES INDICATIONS NORMAL RANGES PROPHYLAXIS/TREATMENT OF: VENOUS THROMBOSIS 2.0-3.0 PULMONARY EMBOLISM 2.0-3.0 PREVENTION OF SYSTEMIC EMBOLISM FROM: TISSUE HEART VALVES 2.0-3.0 ACUTE MYOCARDIAL INFARCTION 2.0-3.0 VALVULAR HEART DISEASE 2.0-3.0 ATRIAL FIBRILLATION 2.0-3.0 MECHANICAL VALVES(HIGH RISK) 2.5-3.5 RECURRENT MYOCARDIAL INFARCTION 2.5-3.5 11 Units are mL/min/1.73 m2 Chronic Kidney Disease Staging per NKF: Stage I & II GFR >=60 Normal to Mildly Decreased Stage III GFR 30-59 Moderately Decreased Stage IV GFR 15-29 Severely Decreased Stage V GFR <15 Very Little GFR Left ESRD GFR <15 on ARMED SECURITY PROFESSIONAL 12 FULL REPORT IN LAB NOTES ([facility] and [facility]). SPECIMEN APPEARS CONTAMINATED Procedures Date Code Description Status 04/04/2021 [id number] Bone Mineral Density Test Comple ana maria 04/04/2021 [id number] Mammogram Completed 03/21/2021 08976 Chronic Care MGMT 20 Mins Clinical Staff Time Per Calendar Month Completed 03/16/2021 19294 Office/Outpatient Established Mo d MDM 30-39 Min Completed 03/07/2021 01239 Complex Chronic Care MGMT Servic e Ea Addl 30 Min Completed 03/07/2021 71516 Complex Chronic Care Management SVC 1St 60 Min Completed 08/12/2018 [id number] Mammogram Completed 03/08/2017 [id number] Mammogram Completed 04/27/2015 [id number] Colonoscopy Completed 08/10/2014 [id number] Mammogram Completed 06/26/2013 [id number] Mammogram Completed 05/17/2011 [id number] Mammogram Completed 08/23/2009 [id number] Bone Mineral Density Test Comple [facility] Medical Devices Description No Information Available Encounters Type Date Location Provider Dx Diagnosis Office Visit [facility] I10 Essential (primary) hypertension M81.0 Age-related osteoporosis w/o current pathological fracture N20.0 Calculus of kidney E55.9 Vitamin D deficiency, unspec ified F43.23 Adjustment disorder with mix ed anxiety and depressed mood J45.20 Mild intermittent asthma, un complicated I25.10 Athscl heart disease of [place] coronary artery w/o ang pctrs E87.6 Hypokalemia D50.9 Iron deficiency anemia, unsp ecified Z23 Encounter for immunization Z13.89 Encounter for screening for other disorder Assessments Date Code Description Provider 05/09/2021 I10 Essential (primary) hypertension Francisca Najera,DO 05/09/2021 N20.0 Calculus of kidney Francisca Nehal,D O 05/09/2021 E55.9 Vitamin D deficiency, unspecifie d Francisca Nehal,DO 05/09/2021 M81.0 Age-related osteoporosis without current pathological fracture Francisca Francogs,DO 05/09/2021 F43.23 Adjustment disorder with mixed a nxiety and depressed mood Francisca Nehal,DO 05/09/2021 J45.20 Mild intermittent asthma, uncomp licated Francisca Nehal,DO 05/09/2021 I25.10 Atherosclerotic hear t disease of [place] coronary artery without angina pectoris Francisca Nehal,DO 05/09/2021 D50.9 Iron deficiency anemia, unspecif ied Francisca Nehal,DO 05/09/2021 K83.1 Obstruction of bile duct Francisca frank,DO 03/23/2021 E87.6 Hypokalemia Francisca Nehal,DO 03/23/2021 E87.6 Hypokalemia Lab Schedule 03/21/2021 I10 Essential (primary) hypertension Francisca Nehal,DO 03/21/2021 N20.0 Calculus of kidney Francisca Nehal,D O 03/21/2021 E55.9 Vitamin D deficiency, unspecifie d Francisca Nehal,DO 03/16/2021 I10 Essential (primary) hypertension Francisca Nehal,DO 03/16/2021 M81.0 Age-related osteoporosis without current pathological fracture Francisca Francogs,DO 03/16/2021 N20.0 Calculus of kidney Francisca Najera,D O 03/16/2021 E55.9 Vitamin D deficiency, unspecifie d Francisca Najera,DO 03/16/2021 F43.23 Adjustment disorder with mixed a nxiety and depressed mood Francisca Najera,DO 03/16/2021 J45.20 Mild intermittent asthma, uncomp licated Francisca Najera,DO 03/16/2021 I25.10 Atherosclerotic hear t disease of [place] coronary artery without angina pectoris Francisca Najera,DO 03/16/2021 E87.6 Hypokalemia Francisca Najera,DO 03/16/2021 D50.9 Iron deficiency anemia, unspecif ied Francisca Najera,DO 03/16/2021 Z23 Encounter for immunization Francisca Naejra,DO 03/16/2021 Z13.89 Encounter for screening for othe r disorder Francisca Najera,DO 03/07/2021 I10 Essential (primary) hypertension Francisca Najera, 03/07/2021 N20.2 Calculus of kidney with calculus of ureter Francisca Najera,DO 03/07/2021 E55.9 Vitamin D deficiency, unspecifie d Francisca Najera DO Plan of Treatment Future Appointment(s):* 11/09/2021 9:40 am - Francisca Najera DO at [facility] 05/09/2021 - Francisca Najera DO* I10 Essential (primary) hypertension * N20.0 Calculus of kidney * E55.9 Vitamin D deficiency, unspecified * M81.0 Age-related osteoporosis without current pathological fracture * F43.23 Adjustment disorder with mixed anxiety and depressed mood * J45.20 Mild intermittent asthma, uncomplicated * I25.10 Atherosclerotic heart disease of [place] coronary artery without angina pectoris * D50.9 Iron deficiency anemia, unspecified * K83.1 Obstruction of bile duct * All * New Medication:* Losartan Potassium 50 mg - 1 by mouth one daily Functional Status Description No Information Available Mental Status Description No Information Available Referrals Description No Information Available
--- OUTSIDE RECORDS SUMMARY | 2021-05-15 09:12 | CCD | Continuity of Care Document ---
Author Author Tammy NAJERA Organization Unknown Address [address] [place] [address] Phone [phone] Care Team Providers Care Mental Health Clinician Name Role Phone Russ Khan MD AUTM Unavailable Parag Zamarripa MD AUT[facility] Unavailable Zuleika Leiva MD [facility]M [phone] Kalen Barfield MD [facility] [phone] Francisca Najera DO AUTM Unavailable Eric Vilchis MD [facility]M [phone] Denton Hong MD [facility] Unavailable [facility] [phone] Problems Active Problems Provider Date Kidney stone [...] Inj ection Unknown 07/31/2020 B12 1000 mcg [address]-45 Injection Francisca Najera,DO 01/21/2014 Therapeutic Injection Injection Francisca Najera,DO 01/21/2014 B12 1000 mcg [address]-11 Injection Nurse Schedule 11/27/2013 Therapeutic Injection Injection Francisca Najera,DO 11/27/2013 B12 1000 mcg [address]-05 Injection Nurse Schedule 09/14/2013 Therapeutic Injection Injection Francisca Najera,DO 09/14/2013 B12 1000 mcg [address]-47 Injection Francisca Najera,DO 07/23/2013 Therapeutic Injection Injection Francisca Najera,DO 07/23/2013 B12 1000 mcg [address]-90 Injection Nurse Schedule 06/15/2013 Therapeutic Injection Injection Francisca Najera,DO 06/15/2013 B12 1000 mcg [address]-07 Injection Francisca Najera,DO 05/15/2013 Therapeutic Injection Injection Francisca Najera,DO 05/15/2013 B12 1000 mcg [address]-66 Injection Nurse Schedule 04/06/2013 Therapeutic Injection Injection Francisca Najera,DO 04/06/2013 B12 1000 mcg [address]-34 Injection Francisca Najera,DO 02/20/2013 Therapeutic Injection Injection Francisca Najera,DO 02/20/2013 B12 1000 mcg [address]-67 Injection Nurse Schedule 01/22/2013 Therapeutic Injection Injection Francisca Najera,DO 01/22/2013 B12 1000 mcg [address]-84 Injection Nurse Schedule 11/26/2012 Therapeutic Injection Injection Francisca Najera,DO 11/26/2012 B12 1000 mcg [address]-77 Injection Nurse Schedule 10/27/2012 Therapeutic Injection Injection Francisca Najera,DO 10/27/2012 B12 1000 mcg [address]-35 Injection Nurse Schedule 09/25/2012 Therapeutic Injection Injection Nurse Schedule 09/25/2012 B12 1000 mcg [address]-53 Injection Nurse Schedule 08/28/2012 Therapeutic Injection Injection Francisca Najera,DO 08/28/2012 B12 1000 mcg [address]-68 Injection Nurse Schedule 07/28/2012 Therapeutic Injection Injection Francisca Najera,DO 07/28/2012 B12 1000 mcg [address]-58 Injection Nurse Schedule 07/21/2012 Therapeutic Injection Injection Francisca Najera,DO 07/21/2012 B12 1000 mcg [address]-53 Injection Nurse Schedule 07/09/2012 Therapeutic Injection Injection Francisca Najera,DO 07/09/2012 B12 1000 mcg [address]-14 Injection Nurse Schedule 06/30/2012 B12 1000 mcg [address]-02 Injection Francisca Najera,DO 06/30/2012 Therapeutic Injection Injection Francisca Najera,DO 06/30/2012 B12 1000 mcg [address]-06 Injection Nurse Schedule 06/23/2012 Therapeutic Injection Injection Francisca Najera,DO 06/23/2012 B12 1000 mcg [address]-23 Injection Nurse Schedule 06/16/2012 Therapeutic Injection Injection Nurse Schedule 06/16/2012 B12 1000 mcg [address]-30 Injection Francisca Najera,DO 06/09/2012 Therapeutic Injection Injection Francisca Najera,DO 06/09/2012 B12 1000 mcg [address]-76 Injection Nurse Schedule 05/30/2012 Therapeutic Injection Injection Francisca Najera,DO 05/30/2012 B12 1000 mcg [address]-09 Injection Nurse Schedule 05/23/2012 Therapeutic Injection Injection Francisca Najera,DO 05/23/2012 B12 1000 mcg [address]-27 Injection Nurse Schedule 05/16/2012 Therapeutic Injection Injection Francisca Najera,DO 05/16/2012 Immunizations CPT Code Status Date Vaccine Lot # [id number] Given 03/16/2021 Pneumovax 23 [id number] U-Flu Given 06/22/2020 Influenza,Unspecified U-Flu Given 05/16/2018 Influenza,Unspecified U-PneuC Given 08/21/2017 Prevnar 13 [id number] Given 05/17/2015 Fluvirin Virus Vaccine [id number] Given 05/23/2010 Influenza Virus Vaccine Vital Signs [...] Date Facility Test Result H/L Range Note Laboratory test finding 05/09/2021 [facility] [id number] [place], [place] [id number] [phone] PTH Intact 86.3 pg/mL Normal 18.5-88.0 Basic Metabolic Panel 05/09/2021 [facility] Mail Examiner: Dr Donald Carmen [place] [id number] [phone] Glucose 107 mg/dL High 74 - 99 1 BUN 22 mg/dL High 7 - 18 Creatinine 1.0 mg/dL 0.6 - 1.3 Sodium 138 mEq/L 136 - 145 Potassium 3.8 mEq/L 3.5 - 5.1 Chloride 102 mEq/L 98 - 107 Carbon Dioxide 27 mEq/L 21 - 32 Calcium 10.8 mg/dL High 8.5 - 10.1 2 GFR 54 mL/min Low >60 GFR >= 60 mL/min >60 3 Laboratory test finding 05/09/2021 [facility] Mail Examiner: [place] [address] [phone] Vitamin D 25-Hydroxy <pending> Comprehensive Metabolic Profil 05/05/2021 [facility] [address] [place] [id number] [phone] Glucose, Fasting 91 mg/dL Normal 70-100 Blood Urea Nitrogen 15 mg/dL Normal 7-18 Creatinine For GFR 0.81 mg/dL Normal 0.55-1.30 Glomerular Filtration Rate > 60.0 Normal >39 4 Sodium Level 143 mEq/L Normal 136-145 Potassium [...] 1.1 Low 1.2-2.2 Laboratory test finding 03/23/2021 [facility] Mail Examiner: Dr Donald Carmen [place], [place] [id number] [phone] Potassium 4.0 mEq/L 3.5 - 5.1 Comprehensive Chem Profile 03/16/2021 [facility] Mail Examiner: [place] [address] [phone] Glucose 96 mg/dL 74 - 99 5 BUN 19 mg/dL High 7 - 18 [...] mL/min >60 GFR >= 60 mL/min >60 6 Laboratory test finding 03/16/2021 [facility] Mail Examiner: [place] [address] [phone] Magnesium 2.1 mg/dL 1.8 - 2.4 Complete Blood Count 03/16/2021 [facility] Mail Examiner: [place] [address] [phone] WBC 6.2 x10*3/UL 4.1 - 10.9 RBC [...] x10*3/UL 2.0 - 7.8 Ua Routine 12/15/2020 [facility] [address] [place] [address] [phone] Appearance, Urine HAZY Normal Clear Color, Urine YELLOW Normal Yellow PH,Urine 6.0 units Normal 5.0-9.0 Specific Embudo Urine Auto 1.009 Normal 1.002-1.035 Protein, Urine [...] /LPF Normal 0-1 Laboratory test finding 12/15/2020 [facility] [address] [place] [address] [phone] Urine Culture FULL REPORT IN L <SEE NOTE> Normal 7 Complete Blood Count 12/14/2020 [facility] enter [address] [place] [address] [phone] White Blood Count 7.6 10 Normal 4.0-10.0 [...] 0.0 % Normal 0-0 Ua Routine 12/14/[address] [address] [phone] Appearance, Urine HAZY Normal Clear Color, Urine YELLOW Normal Yellow PH,Urine 6.0 units Normal 5.0-9.0 Specific Embudo Urine Auto 1.009 Normal 1.002-1.035 Protein, Urine [...] /LPF Normal 0-1 PT & Aptt 12/14/[address] [address] [phone] Prothrombin Time 12.1 seconds Normal 12.5-14.3 Inr 0.88 Normal 8 Partial Thromboplastin Time 32.5 seconds Normal 24.2-38.5 Basic Metabolic Profile 12/14/[address] [address] [phone] Glucose, Fasting 105 mg/dL High 70-100 Blood Urea Nitrogen 26 mg/dL High 7-18 Creatinine For GFR 0.75 mg/dL Normal 0.55-1.30 Glomerular Filtration Rate > 60.0 Normal >39 9 Sodium Level 139 mEq/L Normal 136-145 Potassium Serum 3.2 mEq/L Low 3.5-5.1 Chloride Level 102 mEq/L Normal 98-107 Carbon Dioxide Level 30 mEq/L Normal 21-32 Anion Gap 7 mEq/L Low 8-16 Calcium Level 10.8 mg/dL High 8.8-10.2 Laboratory test finding 12/14/2020 [facility] [address] [place] [address] [phone] Urine Culture FULL REPORT IN L <SEE NOTE> Normal 10 1 100-125 mg/dL PRE-DIABET ES/FASTING >126 mg/dL DIABETES/FASTING 2 NOTE: RESULT VERIFIED. 3 CHRONIC KIDNEY DISEASE STAGI NG PER NKF STAGE I & II GFR >= 60 NORMAL TO MILDLY DECREASED STAGE III GFR 30-59 MODERATELY DECREASED STAGE IV GFR 15-29 SEVERELY DECREASED STAGE V GFR <15 VERY LITTLE GFR LEFT ESRD GFR <15 ON VICE PRESIDENT FIXED INCOME 4 Units are mL/min/1.73 m2 Chronic Kidney Disease Staging per NKF: Stage I & II GFR >=60 Normal to Mildly Decreased Stage III GFR 30-59 Moderately Decreased Stage IV GFR 15-29 Severely Decreased Stage V GFR <15 Very Little GFR Left ESRD GFR <15 on VICE PRESIDENT FIXED INCOME 5 100-125 mg/dL PRE-DIABET ES/FASTING >126 mg/dL DIABETES/FASTING 6 CHRONIC KIDNEY DISEASE STAGI NG PER NKF STAGE I & II GFR >= 60 NORMAL TO MILDLY DECREASED STAGE III GFR 30-59 MODERATELY DECREASED STAGE IV GFR 15-29 SEVERELY DECREASED STAGE V GFR <15 VERY LITTLE GFR LEFT ESRD GFR <15 ON VICE PRESIDENT FIXED INCOME 7 FULL REPORT IN LAB NOTES ([facility] and [facility]). NO GROWTH 8 THERAPUTIC HUMAN INR VALUES INDICATIONS NORMAL RANGES PROPHYLAXIS/TREATMENT OF: VENOUS THROMBOSIS 2.0-3.0 PULMONARY EMBOLISM 2.0-3.0 PREVENTION OF SYSTEMIC EMBOLISM FROM: TISSUE HEART VALVES 2.0-3.0 ACUTE MYOCARDIAL INFARCTION 2.0-3.0 VALVULAR HEART DISEASE 2.0-3.0 ATRIAL FIBRILLATION 2.0-3.0 MECHANICAL VALVES(HIGH RISK) 2.5-3.5 RECURRENT MYOCARDIAL INFARCTION 2.5-3.5 9 Units are mL/min/1.73 m2 Chronic Kidney Disease Staging per NKF: Stage I & II GFR >=60 Normal to Mildly Decreased Stage III GFR 30-59 Moderately Decreased Stage IV GFR 15-29 Severely Decreased Stage V GFR <15 Very Little GFR Left ESRD GFR <15 on VICE PRESIDENT FIXED INCOME 10 FULL REPORT IN LAB NOTES ([facility] and [facility]). SPECIMEN APPEARS CONTAMINATED Procedures Date Code Description Status 04/04/2021 [id number] Bone Mineral Density Test Comple ana maria 04/04/2021 [id number] Mammogram Completed 03/21/2021 34135 Chronic Care MGMT 20 Mins Clinical Staff Time Per Calendar Month Completed 03/16/2021 81742 Office/Outpatient Established Mo d MDM 30-39 Min Completed 03/07/2021 05075 Complex Chronic Care MGMT Servic e Ea Addl 30 Min Completed 03/07/2021 19997 Complex Chronic Care Management SVC 1St 60 Min Completed 08/12/2018 [id number] Mammogram Completed 03/08/2017 [id number] Mammogram Completed 04/27/2015 [id number] Colonoscopy Completed 08/10/2014 [id number] Mammogram Completed 06/26/2013 [id number] Mammogram Completed 05/17/2011 [id number] Mammogram Completed 08/23/2009 [id number] Bone Mineral Density Test Comple ana maria Medical Devices Description No Information Available Encounters Type Date Location Provider Dx Diagnosis Office Visit 03/16/2021 9:00a [facility] Francisca Najera DO I10 Essential (primary) hypertension M81.0 [...] Provider 05/09/2021 I10 Essential (primary) hypertension Francisca Najera DO 05/09/2021 N20.0 Calculus of kidney Bernice Kahn O 05/09/2021 E55.9 Vitamin D deficiency, unspecifie d Francisca Najera DO 05/09/2021 M81.0 Age-related osteoporosis without current pathological fracture Francisca Najera DO 05/09/2021 F43.23 Adjustment disorder with mixed a nxiety and depressed mood Francisca Najera,DO 05/09/2021 J45.20 Mild intermittent asthma, uncomp licated Francisca Najera,DO 05/09/2021 I25.10 Atherosclerotic hear t disease of [place] coronary artery without angina pectoris Francisca Najera,DO 05/09/2021 D50.9 Iron deficiency anemia, unspecif ied Francisca Najera,DO 05/09/2021 K83.1 Obstruction of bile duct Francisca Herrera oggs,DO 03/23/2021 E87.6 Hypokalemia Francisca Najera,DO 03/23/2021 E87.6 Hypokalemia Lab Schedule 03/21/2021 I10 Essential (primary) hypertension Francisca Najera,DO 03/21/2021 N20.0 Calculus of kidney Francisca Najera,D O 03/21/2021 E55.9 Vitamin D deficiency, unspecifie d Francisca Najera,DO 03/16/2021 I10 Essential (primary) hypertension Francisca Najera,DO 03/16/2021 M81.0 Age-related osteoporosis without current pathological fracture Francisca Najera,DO 03/16/2021 N20.0 Calculus of kidney Francisca Najera,D O 03/16/2021 E55.9 Vitamin D deficiency, unspecifie d Francisca Najera,DO 03/16/2021 F43.23 Adjustment disorder with mixed a nxiety and depressed mood Francisca Najera,DO 03/16/2021 J45.20 Mild intermittent asthma, uncomp licated Francisca Najera,DO 03/16/2021 I25.10 Atherosclerotic hear t disease of [place] coronary artery without angina pectoris Francisca Najera,DO 03/16/2021 E87.6 Hypokalemia Francisca Najera,DO 03/16/2021 D50.9 Iron deficiency anemia, unspecif ied Francisca Najera,DO 03/16/2021 Z23 Encounter for immunization Francisca Najera,DO 03/16/2021 Z13.89 Encounter for screening for othe r disorder Francisca Najera,DO 03/07/2021 I10 Essential (primary) hypertension Francisca Najera,DO 03/07/2021 N20.2 Calculus of kidney with calculus of ureter Francisca Najera DO 03/07/2021 E55.9 Vitamin D deficiency, unspecifie d Francisca Najera DO Plan of Treatment Future Appointment(s):* 11/09/2021 9:40 am - Francisca Najera DO at [facility] 05/09/2021 - Francisca Najera DO* I10 Essential (primary) hypertension * N20.0 Calculus of kidney * E55.9 Vitamin D deficiency, unspecified * M81.0 Age-related osteoporosis without current pathological fracture * F43.23 Adjustment disorder with mixed anxiety and depressed mood * J45.20 Mild intermittent asthma, uncomplicated * I25.10 Atherosclerotic heart disease of [place] coronary artery without angina pectoris * D50.9 Iron deficiency anemia, unspecified * K83.1 Obstruction of bile duct * All * New Medication:* Losartan Potassium 50 mg - 1 by mouth one daily Functional Status Description No Information Available Mental Status Description No Information Available Referrals Description No Information Available
--- OUTSIDE RECORDS SUMMARY | 2021-05-15 09:12 | CCD | Continuity of Care Document ---
Author Organization Unknown Address Unknown Phone Unavailable Care Team Providers [facility] Name Role Phone Russ Khan MD AUTM Unavailable Parag Zamarripa MD AUTM Unavailable Zuleika Leiva MD AUTM [phone] Kalen Barfield MD AUTM [phone] Francisca Calvert DO AUTM Unavailable Eric Vilchis MD AUTM [phone] Denton Hong MD AUTM Unavailable Problems Active Problems Provider Date Kidney stone Francisca Calvert DO Onset: 12/07/2011 Disease of liver Francisca Calvert DO Onset: 12/07/2011 Asthma without status asthmaticus Francisca Calvert DO Onset: 12/07/2011 Benign hypertensive heart disease without congestive h eart failure Francisca Calvert DO Onset: 12/07/2011 Social History Type Date [...] Tablets ER one po daily 30tabs Francisca Calvert,DO 03/16/2021 Aripiprazole 5mg Tablets 1 by mouth every day 30tabs Francisca Calvert,DO 03/07/2021 Losartan Potassium 25mg Tablets 1 by mouth one po bid 60tabs Francisca Calvert,DO 2020 Advair Diskus 250-50mcg/Dose Aeros ol 1 puff twice a day 60units Jean-Claude Calderon M.D. 08/02/[address] 1 by mouth po bid for 8 weeks then once a day after 8 weeks 90caps Samantha Calvert,DO 01/13/2020 Docusate Sodium & Senna Stimulant Laxati ve/Stool Softener 8.6-50mg Tablets take one tablet by mouth qam 60tabs Francisca Calvert,DO 08/20/2018 Sertraline HCL 100mg Tablets 1 by mouth every day 30tabs Francisca Calvert,DO 08/20/2018 Gabapentin 300mg Capsules 1 by mouth three times a day 90caps Francisca Calvert,DO 02/17/2018 Gas Relief Extra Strength 125mg Ca psules 1 by mouth four times a day as needed Francisca Calvert, DO 06/11/2017 Epipen 2-Esequiel 0.3mg/0.3ML Device as directed as needed 1units Francisca Calvert,DO 03/23/2013 Proair HFA 108(90Base) mcg/Act Aer osol inhale two puffs by mouth four times a day as needed 8.5units Francisca Calvert,DO 03/23/2013 Advil 200mg Capsules up to 4 a day if needed for pain Unknown Medications Administered in Office Medication SIG Qnty Indications Ordering Provider Date Covid-19 vaccine, Unspecified Inj ection Unknown 08/28/2020 Covid-19 vaccine, Unspecified Inj ection Unknown 07/31/2020 B12 1000 mcg [address]-01 Injection Francisca Calvert,DO 01/21/2014 Therapeutic Injection Injection Francisca Calvert,DO 01/21/2014 B12 1000 mcg [address]-88 Injection Nurse Schedule 11/27/2013 Therapeutic Injection Injection Francisca Calvert,DO 11/27/2013 B12 1000 mcg [address]-30 Injection Nurse Schedule 09/14/2013 Therapeutic Injection Injection Francisca Calvert,DO 09/14/2013 B12 1000 mcg [address]-99 Injection Francisca Calvert,DO 07/23/2013 Therapeutic Injection Injection Francisca Calvert,DO 07/23/2013 B12 1000 mcg [address]-44 Injection Nurse Schedule 06/15/2013 Therapeutic Injection Injection Francisca Calvert,DO 06/15/2013 B12 1000 mcg [address]-17 Injection Francisca Calvert,DO 05/15/2013 Therapeutic Injection Injection Francisca Calvert,DO 05/15/2013 B12 1000 mcg [address]-43 Injection Nurse Schedule 04/06/2013 Therapeutic Injection Injection Francisca Calvert,DO 04/06/2013 B12 1000 mcg [address]-43 Injection Francisca Calvert,DO 02/20/2013 Therapeutic Injection Injection Francisca Calvert,DO 02/20/2013 B12 1000 mcg [address]-28 Injection Nurse Schedule 01/22/2013 Therapeutic Injection Injection Francisca Calvert,DO 01/22/2013 B12 1000 mcg [address]-60 Injection Nurse Schedule 11/26/2012 Therapeutic Injection Injection Francisca Calvert,DO 11/26/2012 B12 1000 mcg [address]-69 Injection Nurse Schedule 10/27/2012 Therapeutic Injection Injection Francisca Calvert,DO 10/27/2012 B12 1000 mcg [address]-82 Injection Nurse Schedule 09/25/2012 Therapeutic Injection Injection Nurse Schedule 09/25/2012 B12 1000 mcg [address]-43 Injection Nurse Schedule 08/28/2012 Therapeutic Injection Injection Francisca Calvert,DO 08/28/2012 B12 1000 mcg [address]-88 Injection Nurse Schedule 07/28/2012 Therapeutic Injection Injection Francisca Calvert,DO 07/28/2012 B12 1000 mcg [address]-00 Injection Nurse Schedule 07/21/2012 Therapeutic Injection Injection Francisca Calvert,DO 07/21/2012 B12 1000 mcg [address]-45 Injection Nurse Schedule 07/09/2012 Therapeutic Injection Injection Francisca Calvert,DO 07/09/2012 B12 1000 mcg [address]-65 Injection Nurse Schedule 06/30/2012 B12 1000 mcg [address]-93 Injection Francisca Calvert,DO 06/30/2012 Therapeutic Injection Injection Francisca Calvert,DO 06/30/2012 B12 1000 mcg [address]-96 Injection Nurse Schedule 06/23/2012 Therapeutic Injection Injection Francisca Calvert,DO 06/23/2012 B12 1000 mcg [address]-22 Injection Nurse Schedule 06/16/2012 Therapeutic Injection Injection Nurse Schedule 06/16/2012 B12 1000 mcg [address]-87 Injection Francisca Calvert,DO 06/09/2012 Therapeutic Injection Injection Francisca Calvert,DO 06/09/2012 B12 1000 mcg [address]-67 Injection Nurse Schedule 05/30/2012 Therapeutic Injection Injection Francisca Calvert,DO 05/30/2012 B12 1000 mcg [address]-12 Injection Nurse Schedule 05/23/2012 Therapeutic Injection Injection Francisca Calvert,DO 05/23/2012 B12 1000 mcg [address]-00 Injection Nurse Schedule 05/16/2012 Therapeutic Injection Injection Francisca Calvert,DO 05/16/2012 Immunizations CPT Code Status Date Vaccine Lot # [id number] Given 03/16/2021 Pneumovax 23 [id number] U-Flu Given 06/22/2020 Influenza,Unspecified U-Flu Given 05/16/2018 Influenza,Unspecified U-PneuC Given 08/21/2017 Prevnar 13 [id number] Given 05/17/2015 Fluvirin Virus Vaccine [id number] 01 07058 Given 05/23/2010 Influenza Virus Vaccine Vital Signs Date Vital Result Comment 03/16/2021 8:32am BP Systolic 140 mmHg BP Diastolic 80 mmHg BP Systolic Lying Down 130 mmHg Laying Down BP Diastolic Lying Down 70 mmHg Laying Down BP Systolic Sitting 120 mmHg Sitting BP Diastolic Sitting 70 mmHg Sitting BP Systolic Standing 110 mmHg Standing BP Diastolic Standing 70 mmHg Standing Height 61 inches 5'1" Weight 125.12 lb BMI (Body Mass Index) 23.6 kg/m2 10/27/2020 10:10am BP Systolic 130 mmHg BP Diastolic 76 mmHg Heart Rate 72 /min Height 61 inches 5'1" Weight 136.00 lb BMI (Body Mass Index) 25.7 kg/m2 Results Test Acquired Date Facility Test Result H/L Range Note Comprehensive Metabolic Profil 05/05/[address] [id number] [phone] Glucose, Fasting 91 mg/dL Normal 70-100 Blood Urea Nitrogen 15 mg/dL Normal 7-18 Creatinine For GFR 0.81 mg/dL Normal 0.55-1.30 Glomerular Filtration Rate > 60.0 Normal >39 1 Sodium Level 143 mEq/L Normal 136-145 Potassium [...] 1.1 Low 1.2-2.2 Laboratory test finding 03/23/2021 [facility] [employer] Architect: [place] [address] [phone] Potassium 4.0 mEq/L 3.5 - 5.1 Complete Blood Count 03/16/2021 [facility] [employer] Architect: [place] [address] [phone] WBC 6.2 x10*3/UL 4.1 - 10.9 RBC [...] Neut # 4.7 x10*3/UL 2.0 - 7.8 Comprehensive Chem Profile 03/16/2021 [facility] [employer] Architect: [place] [address] [phone] Glucose 96 mg/dL 74 - 99 2 BUN 19 mg/dL High 7 - 18 [...] mL/min >60 GFR >= 60 mL/min >60 3 Laboratory test finding 03/16/2021 [facility] [employer] Architect: [place] [address] [phone] Magnesium 2.1 mg/dL 1.8 - 2.4 Ua Routine 12/15/2020 [facility] [address] [address] [place] [address] [phone] Appearance, Urine HAZY Normal Clear Color, Urine YELLOW Normal Yellow PH,Urine 6.0 units Normal 5.0-9.0 Specific [place] Urine Auto 1.009 Normal 1.002-1.035 Protein, Urine [...] /LPF Normal 0-1 Laboratory test finding 12/15/2020 [facility] [address] [place] [address] [phone] Urine Culture FULL REPORT IN L <SEE NOTE> Normal 4 Complete Blood Count 12/14/2020 [facility] enter [address] [place] [address] [phone] White Blood Count 7.6 10 Normal 4.0-10.0 [...] 0.0 % Normal 0-0 Ua Routine 12/14/2020 [facility] [address] [address] [place] [address] [phone] Appearance, Urine HAZY Normal Clear Color, Urine YELLOW Normal Yellow PH,Urine 6.0 units Normal 5.0-9.0 Specific [place] Urine Auto 1.009 Normal 1.002-1.035 Protein, Urine [...] /LPF Normal 0-1 PT & Aptt 12/14/2020 [facility] [address] [address] [place] [address] [phone] Prothrombin Time 12.1 seconds Normal 12.5-14.3 Inr 0.88 Normal 5 Partial Thromboplastin Time 32.5 seconds Normal 24.2-38.5 Basic Metabolic Profile 12/14/2020 [facility] [address] [place] [address] [phone] Glucose, Fasting 105 mg/dL High 70-100 Blood Urea Nitrogen 26 mg/dL High 7-18 Creatinine For GFR 0.75 mg/dL Normal 0.55-1.30 Glomerular Filtration Rate > 60.0 Normal >39 6 Sodium Level 139 mEq/L Normal 136-145 Potassium Serum 3.2 mEq/L Low 3.5-5.1 Chloride Level 102 mEq/L Normal 98-107 Carbon Dioxide Level 30 mEq/L Normal 21-32 Anion Gap 7 mEq/L Low 8-16 Calcium Level 10.8 mg/dL High 8.8-10.2 Laboratory test finding 12/14/2020 [facility] [address] [place] [address] [phone] Urine Culture FULL REPORT IN L <SEE NOTE> Normal 7 1 Units are mL/min/1.73 m2 Chronic Kidney Disease Staging per NKF: Stage I & II GFR >=60 Normal to Mildly Decreased Stage III GFR 30-59 Moderately Decreased Stage IV GFR 15-29 Severely Decreased Stage V GFR <15 Very Little GFR Left ESRD GFR <15 on [employer] ENGRAVER 2 100-125 mg/dL PRE-DIABET ES/FASTING >126 mg/dL DIABETES/FASTING 3 CHRONIC KIDNEY DISEASE STAGI NG PER NKF STAGE I & II GFR >= 60 NORMAL TO MILDLY DECREASED STAGE III GFR 30-59 MODERATELY DECREASED STAGE IV GFR 15-29 SEVERELY DECREASED STAGE V GFR <15 VERY LITTLE GFR LEFT ESRD GFR <15 ON SO[employer] HAND ENGRAVER 4 FULL REPORT IN LAB NOTES ([facility] and [facility]). NO GROWTH 5 THERAPUTIC HUMAN INR VALUES INDICATIONS NORMAL RANGES PROPHYLAXIS/TREATMENT OF: VENOUS THROMBOSIS 2.0-3.0 PULMONARY EMBOLISM 2.0-3.0 PREVENTION OF SYSTEMIC EMBOLISM FROM: TISSUE HEART VALVES 2.0-3.0 ACUTE MYOCARDIAL INFARCTION 2.0-3.0 VALVULAR HEART DISEASE 2.0-3.0 ATRIAL FIBRILLATION 2.0-3.0 MECHANICAL VALVES(HIGH RISK) 2.5-3.5 RECURRENT MYOCARDIAL INFARCTION 2.5-3.5 6 Units are mL/min/1.73 m2 Chronic Kidney Disease Staging per NKF: Stage I & II GFR >=60 Normal to Mildly Decreased Stage III GFR 30-59 Moderately Decreased Stage IV GFR 15-29 Severely Decreased Stage V GFR <15 Very Little GFR Left ESRD GFR <15 on [employer] HAND ENGRAVER 7 FULL REPORT IN LAB NOTES ([facility]C [facility] and [facility]). SPECIMEN APPEARS CONTAMINATED Procedures Date Code Description Status 04/04/2021 [id number] Bone Mineral Density Test Comple ana maria 04/04/2021 [id number] Mammogram Completed 03/21/2021 73885 Chronic Care MGMT 20 Mins Clinical Staff Time Per Calendar Month Completed 03/16/2021 95682 Office/Outpatient Established Mo d MDM 30-39 Min Completed 03/07/2021 27933 Complex Chronic Care MGMT Servic e Ea Addl 30 Min Completed 03/07/2021 95617 Complex Chronic Care Management SVC 1St 60 Min Completed 08/12/2018 [id number] Mammogram Completed 03/08/2017 [id number] Mammogram Completed 04/27/2015 [id number] Colonoscopy Completed 08/10/2014 [id number] Mammogram Completed 06/26/2013 [id number] Mammogram Completed 05/17/2011 [id number] Mammogram Completed 08/23/2009 [id number] Bone Mineral Density Test Comple ana maria Medical Devices Description No Information Available Encounters Type Date Location Provider Dx Diagnosis Office Visit 03/16/2021 9:00a [facility] Francisca Calvert ,DO I10 Essential (primary) hypertension M81.0 Age-related osteoporosis [...] other disorder Assessments Date Code Description Provider 03/23/2021 E87.6 Hypokalemia Francisca Calvert,DO 03/23/2021 E87.6 Hypokalemia Lab Schedule 03/21/2021 I10 Essential (primary) hypertension Francisca Calvert,DO 03/21/2021 N20.0 Calculus of kidney Francisca Calvert,D O 03/21/2021 E55.9 Vitamin D deficiency, unspecifie d Francisca Calvert,DO 03/16/2021 I10 Essential (primary) hypertension Francisca Calvert,DO 03/16/2021 M81.0 Age-related osteoporosis without current pathological fracture Francisca Calvert,DO 03/16/2021 N20.0 Calculus of kidney Francisca Calvert,D O 03/16/2021 E55.9 Vitamin D deficiency, unspecifie d Francisca Calvert,DO 03/16/2021 F43.23 Adjustment disorder with mixed a nxiety and depressed mood Francisca Calvert,DO 03/16/2021 J45.20 Mild intermittent asthma, uncomp licated Francisca Calvert,DO 03/16/2021 I25.10 Atherosclerotic hear t disease of [place] coronary artery without angina pectoris Francisca Calvert,DO 03/16/2021 E87.6 Hypokalemia Francisca Calvert,DO 03/16/2021 D50.9 Iron deficiency anemia, unspecif ied Francisca Calvert,DO 03/16/2021 Z23 Encounter for immunization Francisca Calvert,DO 03/16/2021 Z13.89 Encounter for screening for othe r disorder Francisca Calvert,DO 03/07/2021 I10 Essential (primary) hypertension Francisca Calvert,DO 03/07/2021 N20.2 Calculus of kidney with calculus of ureter Francisca Calvert,DO 03/07/2021 E55.9 Vitamin D deficiency, unspecifie d Francisca Calvert DO Plan of Treatment Future Appointment(s):* 05/09/2021 9:00 am - Francisca Calvert DO at [facility] 03/16/2021 - Francisca Calvert DO* I10 Essential (primary) hypertension * M81.0 Age-related osteoporosis without current pathological fracture * N20.0 Calculus of kidney * E55.9 Vitamin D deficiency, unspecified * F43.23 Adjustment disorder with mixed anxiety and depressed mood * J45.20 Mild intermittent asthma, uncomplicated * I25.10 Atherosclerotic heart disease of [place] coronary artery without angina pectoris * E87.6 Hypokalemia * D50.9 Iron deficiency anemia, unspecified * Z23 Encounter for immunization * Z13.89 Encounter for screening for other disorder * All * New Medication:* Klor-Con M20 20 Meq - one po daily Functional Status Description No Information Available Mental Status Description No Information Available Referrals Description No Information Available
--- OUTSIDE RECORDS SUMMARY | 2021-05-15 09:12 | CCD | Continuity of Care Document ---
Author Author Tammy NAJERA Organization Unknown Address [address] [place] [address] Phone [phone] Care Team Providers Care Roof Painter Name Role Phone Russ Khan MD AUTM Unavailable Parag Zamarripa MD AUTM Unavailable Zuleika Leiva MD AUTM [phone] Kalen Barfield MD AUTM [phone] Francisca Najera DO AUTM Unavailable Eric Vilchis MD AUTM [phone] Denton Hong MD AUTM Unavailable [facility] AUTM [phone] Problems Active Problems Provider Date Kidney stone [...] Inj ection Unknown 07/31/2020 B12 1000 mcg [address]-55 Injection Francisca Najera,DO 01/21/2014 Therapeutic Injection Injection Francisca Najera,DO 01/21/2014 B12 1000 mcg [address]-67 Injection Nurse Schedule 11/27/2013 Therapeutic Injection Injection Francisca Najera,DO 11/27/2013 B12 1000 mcg [address]-04 Injection Nurse Schedule 09/14/2013 Therapeutic Injection Injection Francisca Najera,DO 09/14/2013 B12 1000 mcg [address]-03 Injection Francisca Najera,DO 07/23/2013 Therapeutic Injection Injection Francisca Najera,DO 07/23/2013 B12 1000 mcg [address]-41 Injection Nurse Schedule 06/15/2013 Therapeutic Injection Injection Francisca Najera,DO 06/15/2013 B12 1000 mcg [address]-72 Injection Francisca Najera,DO 05/15/2013 Therapeutic Injection Injection Francisca Najera,DO 05/15/2013 B12 1000 mcg [address]-71 Injection Nurse Schedule 04/06/2013 Therapeutic Injection Injection Francisca Najera,DO 04/06/2013 B12 1000 mcg [address]-59 Injection Francisca Najera,DO 02/20/2013 Therapeutic Injection Injection Francisca Najera,DO 02/20/2013 B12 1000 mcg [address]-59 Injection Nurse Schedule 01/22/2013 Therapeutic Injection Injection Francisca Najera,DO 01/22/2013 B12 1000 mcg [address]-06 Injection Nurse Schedule 11/26/2012 Therapeutic Injection Injection Francisca Najera,DO 11/26/2012 B12 1000 mcg [address]-40 Injection Nurse Schedule 10/27/2012 Therapeutic Injection Injection Francisca Najera,DO 10/27/2012 B12 1000 mcg [address]-62 Injection Nurse Schedule 09/25/2012 Therapeutic Injection Injection Nurse Schedule 09/25/2012 B12 1000 mcg [address]-49 Injection Nurse Schedule 08/28/2012 Therapeutic Injection Injection Francisca Najera,DO 08/28/2012 B12 1000 mcg [address]-33 Injection Nurse Schedule 07/28/2012 Therapeutic Injection Injection Francisca Najera,DO 07/28/2012 B12 1000 mcg [address]-94 Injection Nurse Schedule 07/21/2012 Therapeutic Injection Injection Francisca Najera,DO 07/21/2012 B12 1000 mcg [address]-66 Injection Nurse Schedule 07/09/2012 Therapeutic Injection Injection Francisca Najera,DO 07/09/2012 B12 1000 mcg [address]-49 Injection Nurse Schedule 06/30/2012 B12 1000 mcg [address]-28 Injection Francisca Najera,DO 06/30/2012 Therapeutic Injection Injection Francisca Najera,DO 06/30/2012 B12 1000 mcg [address]-06 Injection Nurse Schedule 06/23/2012 Therapeutic Injection Injection Francisca Najera,DO 06/23/2012 B12 1000 mcg [address]-63 Injection Nurse Schedule 06/16/2012 Therapeutic Injection Injection Nurse Schedule 06/16/2012 B12 1000 mcg [address]-76 Injection Francisca Najera,DO 06/09/2012 Therapeutic Injection Injection Francisca Najera,DO 06/09/2012 B12 1000 mcg [address]-47 Injection Nurse Schedule 05/30/2012 Therapeutic Injection Injection Francisca Najera,DO 05/30/2012 B12 1000 mcg [address]-46 Injection Nurse Schedule 05/23/2012 Therapeutic Injection Injection Francisca Najera,DO 05/23/2012 B12 1000 mcg [address]-49 Injection Nurse Schedule 05/16/2012 Therapeutic Injection Injection Francisca Najera,DO 05/16/2012 Immunizations CPT Code Status Date Vaccine Lot # [id number] Given 03/16/2021 Pneumovax 23 [id number] U-Flu Given 06/22/2020 Influenza,Unspecified U-Flu Given 05/16/2018 Influenza,Unspecified U-PneuC Given 08/21/2017 Prevnar 13 [id number] Given 05/17/2015 Fluvirin Virus Vaccine [id number] 01 91184 Given 05/23/2010 Influenza Virus Vaccine Vital Signs [...] H/L Range Note Laboratory test finding 05/09/2021 [facility] jefferson Wilburn [employer] Layer: [place] [address] [phone] Vitamin D 25-Hydroxy <pending> Basic Metabolic Panel 05/09/2021 [facility] jefferson Vazquez [employer] Layer: Dr Donald Carmen [place], [place] [id number] [phone] Glucose 107 mg/dL High 74 - 99 [...] >60 GFR >= 60 mL/min >60 3 Comprehensive Metabolic Profil 05/05/[address] [id number] [phone] Glucose, Fasting 91 mg/dL Normal 70-100 Blood [...] 1.1 Low 1.2-2.2 Laboratory test finding 03/23/2021 [facility] Tamir kim, pc [employer] Layer: [place] [address] [phone] Potassium 4.0 mEq/L 3.5 - 5.1 Complete Blood Count 03/16/2021 [facility] International Marketing Coordinator jefferson elizalde [employer] Layer: [place] [address] [phone] WBC 6.2 x10*3/UL 4.1 - 10.9 RBC [...] 2.0 - 7.8 Comprehensive Chem Profile 03/16/2021 [facility] Int jefferson jimenez [employer] Layer: [place] [address] [phone] Glucose 96 mg/dL 74 - 99 5 [...] mL/min >60 6 Laboratory test finding 03/16/2021 [facility] Wax Blender jefferson kim [employer]forcing [employer] Layer: [place] [address] [phone] Magnesium 2.1 mg/dL 1.8 - 2.4 Ua Routine 12/15/2020 [facility] nter [address] [place] [address] [phone] Appearance, Urine HAZY Normal Clear Color, Urine YELLOW Normal Yellow PH,Urine 6.0 units Normal 5.0-9.0 Specific Catarina Urine Auto 1.009 Normal 1.002-1.035 Protein, Urine [...] /LPF Normal 0-1 Laboratory test finding 12/15/2020 [facility] [address] [place] [address] [phone] Urine Culture FULL REPORT IN L <SEE NOTE> Normal 7 Complete Blood Count 12/14/2020 [facility] enter [address] [place] [address] [phone] White Blood Count 7.6 10 Normal 4.0-10.0 [...] 0.0 % Normal 0-0 Ua Routine 12/14/2020 [place] [id number] [phone] Appearance, Urine HAZY Normal Clear Color, Urine YELLOW Normal Yellow PH,Urine 6.0 units Normal 5.0-9.0 Specific Catarina Urine Auto 1.009 Normal 1.002-1.035 Protein, Urine [...] /LPF Normal 0-1 PT & Aptt 12/14/[address] [address] [phone] Prothrombin Time 12.1 seconds Normal 12.5-14.3 Inr 0.88 Normal 8 Partial Thromboplastin Time 32.5 seconds Normal 24.2-38.5 Basic Metabolic Profile 12/14/[address] [address] [phone] Glucose, Fasting 105 mg/dL High 70-100 Blood [...] mg/dL High 8.8-10.2 Laboratory test finding 12/14/2020 [facility] [address] [place], [place] [address] [phone] Urine Culture FULL REPORT IN L <SEE [...] LITTLE GFR LEFT ESRD GFR <15 ON DIRECTOR COMM[employer]CIAL SALES 4 Units are mL/min/1.73 m2 Chronic Kidney Disease Staging per NKF: Stage I & II GFR >=60 Normal to Mildly Decreased Stage III GFR 30-59 Moderately Decreased Stage IV GFR 15-29 Severely Decreased Stage V GFR <15 Very Little GFR Left ESRD GFR <15 on DIRECTOR [employer] SALES 5 100-125 mg/dL PRE-DIABET ES/FASTING >126 mg/dL DIABETES/FASTING 6 CHRONIC KIDNEY DISEASE STAGI NG PER NKF STAGE I & II GFR >= 60 NORMAL TO MILDLY DECREASED STAGE III GFR 30-59 MODERATELY DECREASED STAGE IV GFR 15-29 SEVERELY DECREASED STAGE V GFR <15 VERY LITTLE GFR LEFT ESRD GFR <15 ON [employer]OR [employer] SALES 7 FULL REPORT IN LAB NOTES ([facility] [employer]). NO GROWTH 8 THERAPUTIC HUMAN INR VALUES [...] Little GFR Left ESRD GFR <15 on DIRECTOR [employer] SALES 10 FULL REPORT IN LAB NOTES ([facility] [employer]). SPECIMEN APPEARS CONTAMINATED Procedures Date Code Description Status 04/04/2021 420946705 Bone Mineral Density Test Comple ana maria 04/04/2021 [id number] Mammogram Completed 03/21/2021 18079 Chronic Care MGMT 20 Mins Clinical Staff Time Per Calendar Month Completed 03/16/2021 95860 Office/Outpatient Established Mo d MDM 30-39 Min Completed 03/07/2021 12638 Complex Chronic Care MGMT Servic e Ea Addl 30 Min Completed 03/07/2021 67778 Complex Chronic Care Management SVC 1St 60 Min Completed 08/12/2018 [id number] Mammogram Completed 03/08/2017 [id number] Mammogram Completed 04/27/2015 [id number] Colonoscopy Completed 08/10/2014 [id number] Mammogram Completed 06/26/2013 [id number] Mammogram Completed 05/17/2011 [id number] Mammogram Completed 08/23/2009 [id number] Bone Mineral Density Test Comple [facility] Medical Devices Description No Information Available Encounters Type Date Location Provider Dx Diagnosis Office Visit 03/16/2021 9:00a [facility] Francisca Najera ,DO I10 Essential (primary) hypertension M81.0 Age-related [...] Provider 05/09/2021 I10 Essential (primary) hypertension Francisca Najera, 05/09/2021 N20.0 Calculus of kidney Francisca Najera,D O 05/09/2021 E55.9 Vitamin D deficiency, unspecifie d Francisca Najera, 05/09/2021 M81.0 Age-related osteoporosis without current pathological fracture Francisca Najera DO 05/09/2021 F43.23 Adjustment disorder with mixed a nxiety and depressed mood Francisca Najera DO 05/09/2021 J45.20 Mild intermittent asthma, uncomp licated Francisca Najera,DO 05/09/2021 I25.10 Atherosclerotic hear t disease of samish coronary artery without angina pectoris Francisca Najera,DO 05/09/2021 D50.9 Iron deficiency anemia, unspecif ied Francisca Najera,DO 05/09/2021 K83.1 Obstruction of bile duct Francisca frank,DO 03/23/2021 E87.6 Hypokalemia Francisca Najera,DO 03/23/2021 E87.6 [...] 03/16/2021 I25.10 Atherosclerotic hear t disease of samish coronary artery without angina pectoris Francisca Najera,DO [...] Vitamin D deficiency, unspecifie d Francisca Nehal,DO Plan of Treatment Future Appointment(s):* 11/09/2021 9:40 am - Francisca Najera DO at [facility] 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
--- OUTSIDE RECORDS SUMMARY | 2021-05-15 09:12 | CCD | Continuity of Care Document ---
Author Author Tammy BUENROSTRO PA Organization Unknown Address [address] [facility], [place] [address] Phone [phone] Care Team Providers Care Ad Operations Specialist Name Role Phone Russ Khan MD AUTM [phone] Francisca Calvert DO AUTM [phone] Kalen Barfield MD AUTM [phone] Santhosh Cardenas MD AUTM [phone] Problems Active Problems Provider Date Benign hypertensive heart disease without congestive h eart failure Fiona Landrum PA-C Onset: 08/16/2011 Electrocardiogram abnormal Fiona Landrum PA-C Onset: 10/01 Supraventricular premature beats Fiona Landrum PA-C Onset: 08/16/2011 Pure hypercholesterolemia Denton Hong MD Onset: 018 Precordial pain Denton Hong MD Onset: 03/06/2018 Dyspnea Denton Hong MD Onset: 03/06/2018 Syncope and collapse Denton Hong MD Onset: 03/06/2018 Dietary management surveillance BENITA Archibald Onset: 10/22/2018 Social History Type Date Description Comments Sex Unknown ETOH Use Does not consume alcohol Tobacco Use Start: Unknown Patient has never smoked Smoking Status Reviewed: 04/11/21 Patient has never smoked Exercise Type/Frequency Walks daily Exercise Type/Frequency Does housework daily Exercise Type/Frequency Does yardwork sporadical ly Exercise Type/Frequency Does gardening sporadica lly Exercise Limitations Shortness Of Breath Exercise Limitations Chest Discomfort Allergies and adverse reactions Active Allergies Criticality Reaction | Severity Comments Date Altace Unable to assess criticality hives 08/13/2006 Codeine Unable to assess criticality resp failure 08/13/2006 Penicillin Unable to assess criticality tongue swell ing, hives, anaphylaxis 08/13/2006 Sulfa Unable to assess criticality hives 08/13/2006 Iodine Unable to assess criticality hives 08/13/2006 Shellfish Unable to assess criticality hives 08/13/2006 Lasix Unable to assess criticality hives 01/11/2009 Latex Unable to assess criticality contact rash 03/30/2018 Medications Active Medications SIG Qnty Indications Ordering Provide r Date Losartan Potassium 50mg Tablets 1 by mouth once day 90tabs Denton Hong MD 05/05/2021 Chlorthalidone 25mg Tablets Take 1/2 Tablet By Mouth Every Day 45tabs I11.9 Ace Dai MD 1 Afrin Nasal [place] 0.05% Solution 1 spray each nostril every 12 hours Unknown 04/15 Aripiprazole 5mg Tablets 1 by mouth every day Unknown 04/10/2021 Tramadol HCL 50mg Tablets 1 by mouth every 6 hours as needed, as directed Unknown 0 04/10/2021 Advil Dual Action /Acetaminophen 125-250mg Tablets 2 by mouth as needed Unknown 020 Mucinex 600mg Tablets ER 12HR 1 by mouth twice daily as needed Unknown 06/20/2020 Advair Diskus 250-50mcg/Dose Aeros ol 1 puff twice a day Francisca Calvert, 12/16/2019 Sertraline HCL 100mg Tablets 1 by mouth every day Francisca Calvert, 12/16/2019 Gas Relief Extra Strength 125mg Ch ewtabs as needed Unknown 03/30/2018 Aspirin Childrens 81mg Chewtabs 1 by mouth every day 90units R07.2 Denton Hong MD 03/06/2018 Gabapentin 300mg Capsules 1 by mouth three times a day Unknown 03/05/2018 Ondansetron HCL 4mg Tablets 1 by mouth every 6 hours as needed Lorraine Donato, RNC ANP 09/09/2014 Proair HFA 108(90Base) mcg/ac Aero analia 2 puffs tid Francisca Calvert DO 08/16/2011 Potassium Chloride ER 20Meq Tablet s ER 1 by mouth every day Unknown History Medications Losartan Potassium 25mg Tablets 1 by mouth twice every day Francisca Calvert DO 05/04/2021 - 05/05/2021 Losartan Potassium 25mg Tablets 1 by mouth twice daily Unknown 04/10/2021 - Immunizations Description No Information Available Vital Signs Date Vital Result Comment 05/05/2021 12:44pm Weight 129.00 lb Home Weight 127lb Height 60 inches 5'0" BMI (Body Mass Index) 25.2 kg/m2 BP Systolic Sitting 160 mmHg Ra, medium cuff BP Diastolic Sitting 92 mmHg Ra, medium cuff 04/11/2021 11:10am Weight 127.00 lb Home Weight 128lb Height 60 inches 5'0" BMI (Body Mass Index) 24.8 kg/m2 BP Systolic Sitting 140 mmHg Ra, medium cuff BP Diastolic Sitting 82 mmHg Ra, medium cuff Results Test Acquired Date Facility Test Result H/L Range Note [facility] 05/05/2021 [facility] nter [phone] Glucose, Fasting 91 mg/dL Normal 70-100 Blood [...] Normal 3.2-5.2 Albumin/Globulin Ratio 1.1 Low 1.2-2.2 [facility] 05/02/2021 [facility] nter [phone] Glucose, Fasting 103 mg/dL High 70-100 Blood Urea Nitrogen 19 mg/dL High 7-18 Creatinine For GFR 0.84 mg/dL Normal 0.55-1.30 Glomerular Filtration Rate > 60.0 Normal >39 2 Sodium Level 139 mEq/L Normal 136-145 Potassium Serum 3.6 mEq/L Normal 3.5-5.1 Chloride Level 108 mEq/L High 98-107 Carbon Dioxide Level 25 mEq/L Normal 21-32 Anion Gap 6 mEq/L Low 8-16 Calcium Level 10.5 mg/dL High 8.8-10.2 Ast/Sgot 18 U/L Normal 7-37 Alt/SGPT 31 U/L Normal 12-78 Alkaline Phosphatase 160 U/L High 45-117 Bilirubin,Total 1.3 mg/dL High 0.2-1.0 Total Protein 7.5 GM/DL Normal 6.4-8.2 Albumin 4.1 GM/DL Normal 3.2-5.2 Albumin/Globulin Ratio 1.2 Normal 1.2-2.2 Lipid Panel 05/02/2021 [facility] nter [phone] Triglycerides Level 176 mg/dL High <150 Cholesterol Level 262 mg/dL High <200 HDL Cholesterol 65 mg/dL Normal >40 LDL Cholesterol 162 mg/dL High <100 Non-HDL-C 197 mg/dL Normal Cholesterol Risk Ratio 4.030 Normal <5 Laboratory test finding 05/02/2021 [facility] [phone] NT-Pro BNP 72 pg/mL Normal <450 Magnesium Level 2.0 mg/dL Normal 1.8-2.4 CBC without Differential 03/16/2021 [facility] [address] [place], [place] [address] [phone] White Blood Count 6.2 4.1-10.9 Red Blood Count 4.72 4.2-6.30 Platelets 320 140-440 Hemoglobin 13.5 12.0-18.0 Hematocrit 38.8 37.0-51.0 CMP 03/16/2021 [facility] [address] [place], [place] [address] [phone] Albumin Serum/Plasma 3.9 Alt - SGPT 33 Calcium Ser/Plasma Mass/Vol 10.0 Carbon Dioxide Ser/Plasm 25 Chloride Serum/Plasma 106 Alkaline Phosphatase 153 Potassium 3.0 Protein Total 6.8 Sodium 142 Ast - Sgot 20 BUN - Urea Nitrogen 19 Glucose 96 74-106 Creatinine For GFR 0.8 CBC without Differential 12/14/2020 [facility] - not inter faced (315)- - White Blood Count 7.6 5.0-10.0 Red Blood Count 4.82 4.00-5.40 Platelets 356 172-450 Hemoglobin 13.3 Hematocrit 41.0 BMP 12/14/2020 [facility] - not interfaced (315)- - Calcium Ser/Plasma Mass/Vol 10.8 Sodium 139 Carbon Dioxide Ser/Plasm 30 Chloride Serum/Plasma 102 Potassium 3.2 Glucose 105 83-110 Blood Urea Nitrogen 26 High 7-18 Creatinine 0.75 0.6-1.0 G F R >60.0 1 Units are mL/min/1.73 m2 Chronic Kidney Disease Staging per NKF: Stage I & II GFR >=60 Normal to Mildly Decreased Stage III GFR 30-59 Moderately Decreased Stage IV GFR 15-29 Severely Decreased Stage V GFR <15 Very Little GFR Left ESRD GFR <15 on INCLUSION INTERN 2 Units are mL/min/1.73 m2 Chronic Kidney Disease Staging per NKF: Stage I & II GFR >=60 Normal to Mildly Decreased Stage III GFR 30-59 Moderately Decreased Stage IV GFR 15-29 Severely Decreased Stage V GFR <15 Very Little GFR Left ESRD GFR <15 on INCLUSION INTERN Procedures Date Code Description Status 05/05/2021 41711 Office/Outpatient Established Lo w MDM 20-29 Min Completed 04/26/2021 44188 TM Interpretation & Report Only Completed 04/26/2021 22026 Myocardial Imaging (PET) Multipl e Studies Completed 04/11/2021 62465 Office/Outpatient Established Mo d MDM 30-39 Min Completed 04/11/2021 51231 ECG 12-Lead Completed Medical Devices Description No Information Available Encounters Type Date Location Provider Dx Diagnosis Office Visit 05/05/2021 12:45p Main Office BENITA Chairez I11 .9 Hypertensive heart disease without heart failure Office Visit 04/11/2021 11:15a Main Office BENITA Chairez R55 Syncope and collapse R07.9 Chest pain, unspecified I11.9 Hypertensive heart disease w ithout heart failure R06.02 Shortness of breath E78.00 Pure hypercholesterolemia, u nspecified R94.31 Abnormal electrocardiogram [ ECG] [EKG] Z71.3 Dietary counseling and surve illance Assessments Date Code Description Provider 05/05/2021 I11.9 Hypertensive heart disease witho ut heart failure BENITA Chairez 04/26/2021 R07.9 Chest pain, unspecified Cardiac PET 04/11/2021 R55 Syncope and collapse BENITA Jack 04/11/2021 R07.9 Chest pain, unspecified BENITA Seo 04/11/2021 I11.9 Hypertensive heart disease witho ky heart failure BENITA Chairez 04/11/2021 R06.02 Shortness of breath BENITA Chairez 04/11/2021 E78.00 Pure hypercholesterolemia, unspe cified BENITA Chairez 04/11/2021 R94.31 Abnormal electrocardiogram [ECG] [EKG] BENITA Chairez 04/11/2021 Z71.3 Dietary counseling and surveilla nce BENITA Chairez Plan of Treatment Future Appointment(s):* 06/16/2021 8:00 am - BENITA Chairez at Main Office 05/05/2021 - BENITA Chairez* I11.9 Hypertensive heart disease without heart failure* New Medication:* Chlorthalidone 25 mg - Take 1/2 Tablet By Mouth Every Day * Recommendations:* Take losartan 50 mg in the evening (she states she only took 50mg of Losartan this AM, can start this tonight) Add half tablet of chlorthalidone in the morning Do not take medications other than as directed Obtain lab work to rule out any renal dysfunction/electrolyte abnormalities with excessive HOLLY inhibitor use Advised patient to please monitor blood pressures at home and to alert our office with readings >150/>90 Will see her in a few weeks for a BP check * All * Follow up:* 4 week BP check Cancel 05/18 apt Functional Status Functional Condition Comment Date Status Independent with all ADL's Activ e Mental Status Description No Information Available Referrals Refer to Reason for Referral Status Appt Date Santhosh Cardenas MD Please evaluate and treat th is patient with multiple years history of dizziness and frequent syncopal episodes. She has had multiple cardiac tests and unfortunately does not wish for much further evaluation from a cardiac standpoint. She is agreeable to a neurology referral, however she would only like to follow with Dr. Cardenas. She states she saw a neurologist last many years ago. Thank you for your consultation. [facility] [place] [address] [phone]
--- OUTSIDE RECORDS SUMMARY | 2021-05-15 09:12 | CCD | Continuity of Care Document ---
Author Author Tammy BUENROSTRO PA Organization Unknown Address [address] [facility], [place] [address] Phone [phone] Care Team Providers Care Project Finance Analyst Name Role Phone Russ Khan MD AUTM [phone] Francisca Calvert DO AUTM [phone] Kalen Barfield MD AUTM [phone] Santhosh Cardenas MD AUTM [phone] Problems Active Problems Provider Date Benign hypertensive [...] I11.9 Ace Dai MD 1 Afrin Nasal [place] 0.05% Solution 1 spray each nostril every [...] Date Facility Test Result H/L Range Note [facility] 05/05/2021 [facility] nter [phone] Glucose, Fasting 91 mg/dL Normal 70-100 Blood [...] Normal 3.2-5.2 Albumin/Globulin Ratio 1.1 Low 1.2-2.2 [facility] 05/02/2021 [facility] nter [phone] Glucose, Fasting 103 mg/dL High 70-100 Blood [...] Ratio 1.2 Normal 1.2-2.2 Lipid Panel 05/02/2021 [facility] nter [phone] Triglycerides Level 176 mg/dL High <150 Cholesterol Level 262 mg/dL High <200 HDL Cholesterol 65 mg/dL Normal >40 LDL Cholesterol 162 mg/dL High <100 Non-HDL-C 197 mg/dL Normal Cholesterol Risk Ratio 4.030 Normal <5 Laboratory test finding 05/02/2021 [facility] [phone] NT-Pro BNP 72 pg/mL Normal <450 Magnesium Level 2.0 mg/dL Normal 1.8-2.4 CBC without Differential 03/16/2021 [facility] [address] [place], [place] [address] [phone] White Blood Count 6.2 4.1-10.9 Red Blood Count 4.72 4.2-6.30 Platelets 320 140-440 Hemoglobin 13.5 12.0-18.0 Hematocrit 38.8 37.0-51.0 CMP 03/16/2021 [facility] [address] [place], [place] [address] [phone] Albumin Serum/Plasma 3.9 Alt - SGPT 33 Calcium Ser/Plasma Mass/Vol 10.0 Carbon Dioxide Ser/Plasm 25 Chloride Serum/Plasma 106 Alkaline Phosphatase 153 Potassium 3.0 Protein Total 6.8 Sodium 142 Ast - Sgot 20 BUN - Urea Nitrogen 19 Glucose 96 74-106 Creatinine For GFR 0.8 CBC without Differential 12/14/2020 [facility] - not inter faced (315)- - White Blood Count 7.6 5.0-10.0 Red Blood Count 4.82 4.00-5.40 Platelets 356 172-450 Hemoglobin 13.3 Hematocrit 41.0 BMP 12/14/2020 [facility] - not interfaced (315)- - Calcium Ser/Plasma [...] GFR Left ESRD GFR <15 on DIRECTOR OF [employer]NERSHIPS 2 Units are mL/min/1.73 m2 Chronic Kidney Disease Staging per NKF: Stage I & II GFR >=60 Normal to Mildly Decreased Stage III GFR 30-59 Moderately Decreased Stage IV GFR 15-29 Severely Decreased Stage V GFR <15 Very Little GFR Left ESRD GFR <15 on DIRECTOR OF [employer]NER[employer]IPS Procedures Date Code Description Status 05/05/2021 39942 Office/Outpatient Established Lo w MDM 20-29 Min Completed 04/26/2021 23288 TM Interpretation & Report Only Completed 04/26/2021 17584 Myocardial Imaging (PET) Multipl e Studies Completed 04/11/2021 60278 Office/Outpatient Established Mo d MDM 30-39 Min Completed 04/11/2021 79087 ECG 12-Lead Completed Medical Devices Description No [...] Seo 04/11/2021 I11.9 Hypertensive heart disease witho or heart failure BENITA Chairez 04/11/2021 R06.02 Shortness [...] ago. Thank you for your consultation. Sent [facility] Neurology [facility] [place] [address] [phone]
--- OUTSIDE RECORDS SUMMARY | 2021-05-15 09:12 | CCD | Continuity of Care Document ---
Author Author Tammy BUENROSTRO PA Organization Unknown Address [address] [facility], [place] [address] Phone [phone] Care Team Providers Care [place] Joiner Name Role Phone Russ Khan MD AUTM [phone] Francisca Calvert DO AUTM [phone] Kalen Barfield MD AUTM [phone] Santhosh Cardenas MD AUTM [phone] Problems Active Problems Provider Date Benign hypertensive [...] I11.9 Ace Dai MD 1 Afrin Nasal [place] 0.05% Solution 1 spray each nostril every [...] 5'0" BMI (Body Mass Index) 25.2 kg/m2 04/11/2021 11:10am Weight 127.00 lb Home Weight 128lb Height 60 inches 5'0" BMI (Body Mass Index) 24.8 kg/m2 BP Systolic Sitting 140 mmHg Ra, medium cuff BP Diastolic Sitting 82 mmHg Ra, medium cuff Results Test Acquired Date Facility Test Result H/L Range Note CMP 05/02/2021 [facility] nter [phone] Glucose, Fasting 103 mg/dL High 70-100 Blood Urea Nitrogen 19 mg/dL High 7-18 Creatinine For GFR 0.84 mg/dL Normal 0.55-1.30 Glomerular Filtration Rate > 60.0 Normal >39 1 Sodium Level 139 mEq/L Normal 136-145 [...] Ratio 1.2 Normal 1.2-2.2 Lipid Panel 05/02/2021 [facility] nter [phone] Triglycerides Level 176 mg/dL High <150 Cholesterol Level 262 mg/dL High <200 HDL Cholesterol 65 mg/dL Normal >40 LDL Cholesterol 162 mg/dL High <100 Non-HDL-C 197 mg/dL Normal Cholesterol Risk Ratio 4.030 Normal <5 Laboratory test finding 05/02/2021 [facility] [phone] NT-Pro BNP 72 pg/mL Normal <450 Magnesium Level 2.0 mg/dL Normal 1.8-2.4 CBC without Differential 03/16/2021 [facility] [address] [place] [address] [phone] White Blood Count 6.2 4.1-10.9 Red Blood Count 4.72 4.2-6.30 Platelets 320 140-440 Hemoglobin 13.5 12.0-18.0 Hematocrit 38.8 37.0-51.0 CMP 03/16/2021 [facility] [address] [place] [address] [phone] Albumin Serum/Plasma 3.9 Alt - SGPT 33 Calcium Ser/Plasma Mass/Vol 10.0 Carbon Dioxide Ser/Plasm 25 Chloride Serum/Plasma 106 Alkaline Phosphatase 153 Potassium 3.0 Protein Total 6.8 Sodium 142 Ast - Sgot 20 BUN - Urea Nitrogen 19 Glucose 96 74-106 Creatinine For GFR 0.8 CBC without Differential 12/14/2020 [facility] - not inter faced (315)- - White Blood Count 7.6 5.0-10.0 Red Blood Count 4.82 4.00-5.40 Platelets 356 172-450 Hemoglobin 13.3 Hematocrit 41.0 BMP 12/14/2020 [facility] - not interfaced (315)- - Calcium Ser/Plasma [...] Little GFR Left ESRD GFR <15 on COMBER FIXER Procedures Date Code Description Status 05/05/2021 69866 Office/Outpatient Established Lo w MDM 20-29 Min Completed 04/26/2021 84651 TM Interpretation & Report Only Completed 04/26/2021 61801 Myocardial Imaging (PET) Multipl e Studies Completed 04/11/2021 43760 Office/Outpatient Established Mo d MDM 30-39 Min Completed 04/11/2021 71242 ECG 12-Lead Completed Medical Devices Description No [...] BENITA Jack 04/11/2021 R07.9 Chest pain, unspecified Vickir BENITA Pierre 04/11/2021 I11.9 Hypertensive heart disease witho ut heart failure BENITA Chairez 04/11/2021 R06.02 Shortness [...] Take losartan 50 mg in the evening Add half tablet of chlorthalidone in the morning Do not take medications other than as directed Obtain lab work to rule out any renal dysfunction/electrolyte abnormalities with excessive HOLLY inhibitor use Advised patient to please monitor blood pressures at home and to alert our office with readings >150/>90 * All * Follow up:* 4 week [...] ago. Thank you for your consultation. Sent [facility] [address] [address] [phone]
--- OUTSIDE RECORDS SUMMARY | 2021-05-15 09:12 | CCD | Continuity of Care Document ---
Author Author Tammy NAJERA Organization Unknown Address [address] [place] [address] Phone [phone] Care Team Providers Care Immigration Manager Name Role Phone Russ Khan MD AUTM Unavailable Parag Zamarripa MD AUTM Unavailable Zuleika Leiva MD AUTM [phone] Kalen Barfield MD AUTM [phone] Francisca Najera DO AUTM Unavailable Eric Vilchis MD AUTM [phone] Denton Hong MD AUTM Unavailable [facility] AUTM [phone] Problems Active Problems Provider Date Kidney stone [...] Inj ection Unknown 07/31/2020 B12 1000 mcg [address]-94 Injection Francisca Najera,DO 01/21/2014 Therapeutic Injection Injection Francisca Najera,DO 01/21/2014 B12 1000 mcg [address]-63 Injection Nurse Schedule 11/27/2013 Therapeutic Injection Injection Francisca Najera,DO 11/27/2013 B12 1000 mcg [address]-36 Injection Nurse Schedule 09/14/2013 Therapeutic Injection Injection Francisca Najera,DO 09/14/2013 B12 1000 mcg [address]-05 Injection Francisca Najera,DO 07/23/2013 Therapeutic Injection Injection Francisca Najera,DO 07/23/2013 B12 1000 mcg [address]-09 Injection Nurse Schedule 06/15/2013 Therapeutic Injection Injection Francisca Najera,DO 06/15/2013 B12 1000 mcg [address]-22 Injection Francisca Najera,DO 05/15/2013 Therapeutic Injection Injection Francisca Najera,DO 05/15/2013 B12 1000 mcg [address]-48 Injection Nurse Schedule 04/06/2013 Therapeutic Injection Injection Francisca Najera,DO 04/06/2013 B12 1000 mcg [address]-48 Injection Francisca Najera,DO 02/20/2013 Therapeutic Injection Injection Francisca Najera,DO 02/20/2013 B12 1000 mcg [address]-90 Injection Nurse Schedule 01/22/2013 Therapeutic Injection Injection Francisca Najera,DO 01/22/2013 B12 1000 mcg [address]-71 Injection Nurse Schedule 11/26/2012 Therapeutic Injection Injection Francisca Najera,DO 11/26/2012 B12 1000 mcg [address]-29 Injection Nurse Schedule 10/27/2012 Therapeutic Injection Injection Francisca Najera,DO 10/27/2012 B12 1000 mcg [address]-41 Injection Nurse Schedule 09/25/2012 Therapeutic Injection Injection Nurse Schedule 09/25/2012 B12 1000 mcg [address]-55 Injection Nurse Schedule 08/28/2012 Therapeutic Injection Injection Francisca Njaera,DO 08/28/2012 B12 1000 mcg [address]-56 Injection Nurse Schedule 07/28/2012 Therapeutic Injection Injection Francisca Najera,DO 07/28/2012 B12 1000 mcg [address]-05 Injection Nurse Schedule 07/21/2012 Therapeutic Injection Injection Francisca Najera,DO 07/21/2012 B12 1000 mcg [address]-35 Injection Nurse Schedule 07/09/2012 Therapeutic Injection Injection Francisca Najera,DO 07/09/2012 B12 1000 mcg [address]-67 Injection Nurse Schedule 06/30/2012 B12 1000 mcg [address]-97 Injection Francisca Najera,DO 06/30/2012 Therapeutic Injection Injection Francisca Najera,DO 06/30/2012 B12 1000 mcg [address]-15 Injection Nurse Schedule 06/23/2012 Therapeutic Injection Injection Francisca Najera,DO 06/23/2012 B12 1000 mcg [address]-56 Injection Nurse Schedule 06/16/2012 Therapeutic Injection Injection Nurse Schedule 06/16/2012 B12 1000 mcg [address]-55 Injection Francisca Najera,DO 06/09/2012 Therapeutic Injection Injection Francisca Najera,DO 06/09/2012 B12 1000 mcg [address]-70 Injection Nurse Schedule 05/30/2012 Therapeutic Injection Injection Francisca Najera,DO 05/30/2012 B12 1000 mcg [address]-80 Injection Nurse Schedule 05/23/2012 Therapeutic Injection Injection Francisca Najera,DO 05/23/2012 B12 1000 mcg [address]-89 Injection Nurse Schedule 05/16/2012 Therapeutic Injection Injection Francisca Najera,DO 05/16/2012 Immunizations CPT Code Status Date Vaccine Lot # [id number] Given 03/16/2021 Pneumovax 23 [id number] U-Flu Given 06/22/2020 Influenza,Unspecified U-Flu Given 05/16/2018 Influenza,Unspecified U-PneuC Given 08/21/2017 Prevnar 13 [id number] Given 05/17/2015 Fluvirin Virus Vaccine 22494 01 35989 Given 05/23/2010 Influenza Virus Vaccine Vital Signs [...] H/L Range Note Laboratory test finding 05/09/[address] [id number] [phone] PTH Intact 86.3 pg/mL Normal 18.5-88.0 Basic Metabolic Panel 05/09/2021 [facility] President: Dr Donald Carmen [place] [id number] [phone] Glucose 107 mg/dL High 74 - 99 [...] mL/min >60 3 Laboratory test finding 05/09/2021 [facility] President: [place] [address] [phone] Vitamin D 25-Hydroxy 28.2 ng/ml 24.0 - 80.0 4 Comprehensive Metabolic Profil 05/05/[address] [id number] [phone] Glucose, Fasting 91 mg/dL Normal 70-100 Blood Urea Nitrogen 15 mg/dL Normal 7-18 Creatinine For GFR 0.81 mg/dL Normal 0.55-1.30 Glomerular Filtration Rate > 60.0 Normal >39 5 Sodium Level 143 mEq/L Normal 136-145 Potassium [...] 1.1 Low 1.2-2.2 Laboratory test finding 03/23/2021 [facility] President: [place] [address] [phone] Potassium 4.0 mEq/L 3.5 - 5.1 Comprehensive Chem Profile 03/16/2021 [facility] President: [place] [address] [phone] Glucose 96 mg/dL 74 - 99 6 BUN 19 mg/dL High 7 - 18 [...] mL/min >60 GFR >= 60 mL/min >60 7 Laboratory test finding 03/16/2021 [facility] President: [place] [address] [phone] Magnesium 2.1 mg/dL 1.8 - 2.4 Complete Blood Count 03/16/2021 [facility] President: [place] [address] [phone] WBC 6.2 x10*3/UL 4.1 - 10.9 RBC [...] x10*3/UL 2.0 - 7.8 Ua Routine 12/15/2020 [facility] nter [address] [place] [address] [phone] Appearance, Urine HAZY Normal Clear Color, Urine YELLOW Normal Yellow PH,Urine 6.0 units Normal 5.0-9.0 Specific [place] Urine Auto 1.009 Normal 1.002-1.035 Protein, Urine [...] /LPF Normal 0-1 Laboratory test finding 12/15/2020 [facility] [address] [place] [address] [phone] Urine Culture FULL REPORT IN L <SEE NOTE> Normal 8 Complete Blood Count 12/14/2020 [facility] enter [address] [place] [address] [phone] White Blood Count 7.6 10 Normal 4.0-10.0 [...] 0.0 % Normal 0-0 Ua Routine 12/14/[address] [address] [phone] Appearance, Urine HAZY Normal Clear Color, Urine YELLOW Normal Yellow PH,Urine 6.0 units Normal 5.0-9.0 Specific [place] Urine Auto 1.009 Normal 1.002-1.035 Protein, Urine [...] /LPF Normal 0-1 PT & Aptt 12/14/[address] [address] [phone] Prothrombin Time 12.1 seconds Normal 12.5-14.3 Inr 0.88 Normal 9 Partial Thromboplastin Time 32.5 seconds Normal 24.2-38.5 Basic Metabolic Profile 12/14/2020 [address] [place] [address] [phone] Glucose, Fasting 105 mg/dL High 70-100 Blood Urea Nitrogen 26 mg/dL High 7-18 Creatinine For GFR 0.75 mg/dL Normal 0.55-1.30 Glomerular Filtration Rate > 60.0 Normal >39 1 0 Sodium Level 139 mEq/L Normal 136-145 Potassium Serum 3.2 mEq/L Low 3.5-5.1 Chloride Level 102 mEq/L Normal 98-107 Carbon Dioxide Level 30 mEq/L Normal 21-32 Anion Gap 7 mEq/L Low 8-16 Calcium Level 10.8 mg/dL High 8.8-10.2 Laboratory test finding 12/14/[address] [address] [phone] Urine Culture FULL REPORT IN L <SEE NOTE> Normal 11 1 100-125 mg/dL PRE-DIABET ES/FASTING >126 mg/dL DIABETES/FASTING 2 NOTE: RESULT VERIFIED. 3 CHRONIC KIDNEY DISEASE STAGI NG PER NKF STAGE I & II GFR >= 60 NORMAL TO MILDLY DECREASED STAGE III GFR 30-59 MODERATELY DECREASED STAGE IV GFR 15-29 SEVERELY DECREASED STAGE V GFR <15 VERY LITTLE GFR LEFT ESRD GFR <15 ON CLOCKSMITH 4 This test was performed [facility] Vitamin D immunoassay kit. Values obtained with different assay methods should not be used interchangeably. 5 Units are mL/min/1.73 m2 Chronic Kidney Disease Staging per NKF: Stage I & II GFR >=60 Normal to Mildly Decreased Stage III GFR 30-59 Moderately Decreased Stage IV GFR 15-29 Severely Decreased Stage V GFR <15 Very Little GFR Left ESRD GFR <15 on CLOCKSMITH 6 100-125 mg/dL PRE-DIABET ES/FASTING >126 mg/dL DIABETES/FASTING 7 CHRONIC KIDNEY DISEASE STAGI NG PER NKF STAGE I & II GFR >= 60 NORMAL TO MILDLY DECREASED STAGE III GFR 30-59 MODERATELY DECREASED STAGE IV GFR 15-29 SEVERELY DECREASED STAGE V GFR <15 VERY LITTLE GFR LEFT ESRD GFR <15 ON CLOCKSMITH 8 FULL REPORT IN LAB NOTES ([facility] W and [facility]). NO GROWTH 9 THERAPUTIC HUMAN INR VALUES INDICATIONS NORMAL RANGES PROPHYLAXIS/TREATMENT OF: VENOUS THROMBOSIS 2.0-3.0 PULMONARY EMBOLISM 2.0-3.0 PREVENTION OF SYSTEMIC EMBOLISM FROM: TISSUE HEART VALVES 2.0-3.0 ACUTE MYOCARDIAL INFARCTION 2.0-3.0 VALVULAR HEART DISEASE 2.0-3.0 ATRIAL FIBRILLATION 2.0-3.0 MECHANICAL VALVES(HIGH RISK) 2.5-3.5 RECURRENT MYOCARDIAL INFARCTION 2.5-3.5 10 Units are mL/min/1.73 m2 Chronic Kidney Disease Staging per NKF: Stage I & II GFR >=60 Normal to Mildly Decreased Stage III GFR 30-59 Moderately Decreased Stage IV GFR 15-29 Severely Decreased Stage V GFR <15 Very Little GFR Left ESRD GFR <15 on CLOCKSMITH 11 FULL REPORT IN LAB NOTES (eC W and [facility]). SPECIMEN APPEARS CONTAMINATED Procedures Date Code Description Status 04/04/2021 [id number] Bone Mineral Density Test Comple ana maria 04/04/2021 [id number] Mammogram Completed 03/21/2021 11473 Chronic Care MGMT 20 Mins Clinical Staff Time Per Calendar Month Completed 03/16/2021 36042 Office/Outpatient Established Mo d MDM 30-39 Min Completed 03/07/2021 40326 Complex Chronic Care MGMT Servic e Ea Addl 30 Min Completed 03/07/2021 36986 Complex Chronic Care Management SVC 1St 60 Min Completed 08/12/2018 [id number] Mammogram Completed 03/08/2017 [id number] Mammogram Completed 04/27/2015 [id number] Colonoscopy Completed 08/10/2014 [id number] Mammogram Completed 06/26/2013 [id number] Mammogram Completed 05/17/2011 [id number] Mammogram Completed 08/23/2009 [id number] Bone Mineral Density Test Comple [facility] Medical Devices Description No Information Available Encounters Type Date Location Provider Dx Diagnosis Office Visit 03/16/2021 9:00a [facility] Francisca Najera DO I10 Essential [...] 05/09/2021 N20.0 Calculus of kidney Bernice Kahn 05/09/2021 E55.9 Vitamin D deficiency, unspecifie d Francisca Najera,DO 05/09/2021 M81.0 Age-related osteoporosis without current pathological fracture Francisca Najera,DO 05/09/2021 F43.23 Adjustment disorder with mixed a nxiety and depressed mood Francisca Najera,DO 05/09/2021 J45.20 Mild intermittent asthma, uncomp licated Francisca Najera,DO 05/09/2021 I25.10 Atherosclerotic hear t disease of [place] coronary artery without angina pectoris Francisca Najera,DO [...] 03/16/2021 I25.10 Atherosclerotic hear t disease of [place] coronary artery without angina pectoris Francisca Najera,DO 03/16/2021 E87.6 Hypokalemia Francisca Najera,DO 03/16/2021 D50.9 Iron deficiency anemia, unspecif ied Francisca Najera,DO 03/16/2021 Z23 Encounter for immunization Francisca Najera,DO 03/16/2021 Z13.89 Encounter for screening for othe r disorder Francisca Najera DO 03/07/2021 I10 Essential (primary) hypertension Francisca Najera DO 03/07/2021 N20.2 Calculus of kidney with calculus of ureter Francisca Najera DO 03/07/2021 E55.9 Vitamin D deficiency, unspecifie d Francisca Najera DO Plan of Treatment Future Appointment(s):* 11/09/2021 9:40 am - Francisca Najera DO at [facility] 05/09/2021 - Francisca Najera DO* I10 Essential (primary) hypertension * N20.0 Calculus of kidney * E55.9 Vitamin D deficiency, unspecified * M81.0 Age-related osteoporosis without current pathological fracture * F43.23 Adjustment disorder with mixed anxiety and depressed mood * J45.20 Mild intermittent asthma, uncomplicated * I25.10 Atherosclerotic heart disease of [place] coronary artery without angina pectoris * D50.9 Iron deficiency anemia, unspecified * K83.1 Obstruction of bile duct * All * New Medication:* Losartan Potassium 50 mg - 1 by mouth one daily Functional Status Description No Information Available Mental Status Description No Information Available Referrals Description No Information Available
--- OUTSIDE RECORDS SUMMARY | 2021-05-15 09:12 | CCD | Continuity of Care Document ---
Author Author Tammy NAJERA Organization Unknown Address [address] [place] [address] Phone [phone] Care Team Providers Care Assignment Clerk Name Role Phone Russ Khan MD AUTM Unavailable Parag Zamarripa MD AUTM Unavailable Zuleika Leiva MD AUTM [phone] Kalen Barfield MD AUTM [phone] Francisca Najera DO AUTM Unavailable Eric Vilchis MD AUTM [phone] Denton Hong MD AUTM Unavailable [facility] [phone] Problems Active Problems Provider Date Kidney stone [...] Inj ection Unknown 07/31/2020 B12 1000 mcg [address]-72 Injection Francisca Najera,DO 01/21/2014 Therapeutic Injection Injection Francisca Najera,DO 01/21/2014 B12 1000 mcg [address]-37 Injection Nurse Schedule 11/27/2013 Therapeutic Injection Injection Francisca Najera,DO 11/27/2013 B12 1000 mcg [address]-28 Injection Nurse Schedule 09/14/2013 Therapeutic Injection Injection Francisca Najera,DO 09/14/2013 B12 1000 mcg [address]-28 Injection Francisca Najera,DO 07/23/2013 Therapeutic Injection Injection Francisca Najera,DO 07/23/2013 B12 1000 mcg [address]-89 Injection Nurse Schedule 06/15/2013 Therapeutic Injection Injection Francisca Najera,DO 06/15/2013 B12 1000 mcg [address]-68 Injection Francisca Najera,DO 05/15/2013 Therapeutic Injection Injection Francisca Najera,DO 05/15/2013 B12 1000 mcg [address]-20 Injection Nurse Schedule 04/06/2013 Therapeutic Injection Injection Francisca Najera,DO 04/06/2013 B12 1000 mcg [address]-97 Injection Francisca Najera,DO 02/20/2013 Therapeutic Injection Injection Francisca Najera,DO 02/20/2013 B12 1000 mcg [address]-59 Injection Nurse Schedule 01/22/2013 Therapeutic Injection Injection Francisca Najera,DO 01/22/2013 B12 1000 mcg [address]-88 Injection Nurse Schedule 11/26/2012 Therapeutic Injection Injection Francisca Najera,DO 11/26/2012 B12 1000 mcg [address]-26 Injection Nurse Schedule 10/27/2012 Therapeutic Injection Injection Francisca Najera,DO 10/27/2012 B12 1000 mcg [address]-80 Injection Nurse Schedule 09/25/2012 Therapeutic Injection Injection Nurse Schedule 09/25/2012 B12 1000 mcg [address]-43 Injection Nurse Schedule 08/28/2012 Therapeutic Injection Injection Francisca Najera,DO 08/28/2012 B12 1000 mcg [address]-50 Injection Nurse Schedule 07/28/2012 Therapeutic Injection Injection Francisca Najera,DO 07/28/2012 B12 1000 mcg [address]-21 Injection Nurse Schedule 07/21/2012 Therapeutic Injection Injection Francisca Najera,DO 07/21/2012 B12 1000 mcg [address]-68 Injection Nurse Schedule 07/09/2012 Therapeutic Injection Injection Francisca Najera,DO 07/09/2012 B12 1000 mcg [address]-16 Injection Nurse Schedule 06/30/2012 B12 1000 mcg [address]-51 Injection Francisca Najera,DO 06/30/2012 Therapeutic Injection Injection Francisca Najera,DO 06/30/2012 B12 1000 mcg [address]-44 Injection Nurse Schedule 06/23/2012 Therapeutic Injection Injection Francisca Najera,DO 06/23/2012 B12 1000 mcg [address]-11 Injection Nurse Schedule 06/16/2012 Therapeutic Injection Injection Nurse Schedule 06/16/2012 B12 1000 mcg [address]-84 Injection Francisca Najera,DO 06/09/2012 Therapeutic Injection Injection Francisca Najera,DO 06/09/2012 B12 1000 mcg [address]-88 Injection Nurse Schedule 05/30/2012 Therapeutic Injection Injection Francisca Najera,DO 05/30/2012 B12 1000 mcg [address]-78 Injection Nurse Schedule 05/23/2012 Therapeutic Injection Injection Francisca Najera,DO 05/23/2012 B12 1000 mcg [address]-78 Injection Nurse Schedule 05/16/2012 Therapeutic Injection Injection Francisca Naejra,DO 05/16/2012 Immunizations CPT Code Status Date Vaccine Lot # [id number] Given 03/16/2021 Pneumovax 23 [id number] U-Flu Given 06/22/2020 Influenza,Unspecified U-Flu Given 05/16/2018 Influenza,Unspecified U-PneuC Given 08/21/2017 Prevnar 13 [id number] Given 05/17/2015 Fluvirin Virus Vaccine [id number] 01 55031 Given 05/23/2010 Influenza Virus Vaccine Vital Signs [...] H/L Range Note Laboratory test finding 05/09/2021 [facility]: Dr Donald [place], [place] [id number] [phone] Vitamin D 25-Hydroxy <pending> Comprehensive Metabolic Profil 05/05/2021 [facility] [address] [place] [address] [phone] Glucose, Fasting 91 mg/dL Normal 70-100 Blood [...] 1.1 Low 1.2-2.2 Laboratory test finding 03/23/2021 [facility]: Dr Donald Carmen [place], [place] [address] [phone] Potassium 4.0 mEq/L 3.5 - 5.1 Complete Blood Count 03/16/2021 [facility]: [place] [address] [phone] WBC 6.2 x10*3/UL 4.1 - 10.9 RBC [...] 2.0 - 7.8 Comprehensive Chem Profile 03/16/2021 [facility] Gmat Tutor: [place] [address] [phone] Glucose 96 mg/dL 74 - 99 2 [...] mL/min >60 3 Laboratory test finding 03/16/2021 [facility]: [place] [address] [phone] Magnesium 2.1 mg/dL 1.8 - 2.4 Ua Routine 12/15/2020 [facility] nter [address] [place] [address] [phone] Appearance, Urine HAZY Normal Clear Color, Urine YELLOW Normal Yellow PH,Urine 6.0 units Normal 5.0-9.0 Specific Maskell Urine Auto 1.009 Normal 1.002-1.035 Protein, Urine [...] /LPF Normal 0-1 Laboratory test finding 12/15/2020 [facility] [address] [place] [address] [phone] Urine Culture FULL REPORT IN L <SEE NOTE> Normal 4 Complete Blood Count 12/14/2020 [facility] enter [address] [place] [address] [phone] White Blood Count 7.6 10 Normal 4.0-10.0 [...] 0.0 % Normal 0-0 Ua Routine 12/14/2020 [facility] nter [address] [place], [place] [address] [phone] Appearance, Urine HAZY Normal Clear Color, Urine YELLOW Normal Yellow PH,Urine 6.0 units Normal 5.0-9.0 Specific [place] Urine Auto 1.009 Normal 1.002-1.035 Protein, Urine [...] /LPF Normal 0-1 PT & Aptt 12/14/2020 [facility] nter [address] [place] [address] [phone] Prothrombin Time 12.1 seconds Normal 12.5-14.3 Inr 0.88 Normal 5 Partial Thromboplastin Time 32.5 seconds Normal 24.2-38.5 Basic Metabolic Profile 12/14/[address] [address] [phone] Glucose, Fasting 105 mg/dL High 70-100 Blood [...] mg/dL High 8.8-10.2 Laboratory test finding 12/14/[address] [address] [phone] Urine Culture FULL REPORT IN L <SEE NOTE> Normal 7 1 Units are mL/min/1.73 m2 Chronic Kidney Disease Staging per NKF: Stage I & II GFR >=60 Normal to Mildly Decreased Stage III GFR 30-59 Moderately Decreased Stage IV GFR 15-29 Severely Decreased Stage V GFR <15 Very Little GFR Left ESRD GFR <15 on SOLUTION DEVELOPER 2 100-125 mg/dL PRE-DIABET ES/FASTING >126 mg/dL DIABETES/FASTING 3 CHRONIC KIDNEY DISEASE STAGI NG PER NKF STAGE I & II GFR >= 60 NORMAL TO MILDLY DECREASED STAGE III GFR 30-59 MODERATELY DECREASED STAGE IV GFR 15-29 SEVERELY DECREASED STAGE V GFR <15 VERY LITTLE GFR LEFT ESRD GFR <15 ON SOLUTION DEVELOPER 4 FULL REPORT IN LAB NOTES (eC [...] Little GFR Left ESRD GFR <15 on SOLUTION DEVELOPER 7 FULL REPORT IN LAB NOTES (eC W and Medent). SPECIMEN APPEARS CONTAMINATED Procedures Date Code Description Status 04/04/2021 [id number] Bone Mineral Density Test Comple ana maria 04/04/2021 [id number] Mammogram Completed 03/21/2021 34298 Chronic Care MGMT 20 Mins Clinical Staff Time Per Calendar Month Completed 03/16/2021 97830 Office/Outpatient Established Mo d MDM 30-39 Min Completed 03/07/2021 46978 Complex Chronic Care MGMT Servic e Ea Addl 30 Min Completed 03/07/2021 50168 Complex Chronic Care Management SVC 1St 60 Min Completed 08/12/2018 [id number] Mammogram Completed 03/08/2017 [id number] Mammogram Completed 04/27/2015 [id number] Colonoscopy Completed 08/10/2014 [id number] Mammogram Completed 06/26/2013 [id number] Mammogram Completed 05/17/2011 [id number] Mammogram Completed 08/23/2009 [id number] Bone Mineral Density Test Comple [facility] Medical Devices Description No Information Available Encounters Type Date Location Provider Dx Diagnosis Office Visit 03/16/2021 9:00a [facility] Francisca Nehal ,DO I10 Essential (primary) hypertension M81.0 Age-related [...] Code Description Provider 03/23/2021 E87.6 Hypokalemia Francisca Nehal,DO 03/23/2021 E87.6 Hypokalemia Lab Schedule 03/21/2021 I10 Essential (primary) hypertension Francisca Najera,DO 03/21/2021 N20.0 Calculus of kidney Francisca Najera,D O 03/21/2021 E55.9 Vitamin D deficiency, unspecifie d Francisca Najera,DO 03/16/2021 I10 Essential (primary) hypertension Francisca Nehal,DO 03/16/2021 M81.0 Age-related osteoporosis without current pathological fracture Francisca Najera,DO 03/16/2021 N20.0 Calculus of kidney Francisca Najera,D O 03/16/2021 E55.9 Vitamin D deficiency, unspecifie d Francisca Nehal,DO 03/16/2021 F43.23 Adjustment disorder with mixed a nxiety and depressed mood Francisca Najera,DO 03/16/2021 J45.20 Mild intermittent asthma, uncomp licated Francisca Francogs,DO 03/16/2021 I25.10 Atherosclerotic hear t disease of [place] coronary artery without angina pectoris Francisca Najera,DO [...] 9:40 am - Francisca Najera DO at [facility] 03/16/2021 - Francisca Najera DO* I10 Essential (primary) hypertension * M81.0 Age-related osteoporosis without current pathological fracture * N20.0 Calculus of kidney * E55.9 Vitamin D deficiency, unspecified * F43.23 Adjustment disorder with mixed anxiety and depressed mood * J45.20 Mild intermittent asthma, uncomplicated * I25.10 Atherosclerotic heart disease of [place] coronary artery without angina pectoris * E87.6 [...]
--- OUTSIDE RECORDS SUMMARY | 2021-05-15 09:13 | CCD | Continuity of Care Document ---
Author Author Cardiac NAYETammy Franny Organization Unknown Address [address] [facility], [place] [address] Phone [phone] Care Team Providers Care Food Analyst Name Role Phone Russ Khan MD AUTM [phone] Francisca Calvert DO AUTM [phone] Kalen Barfield MD AUTM [phone] Santhosh Cardenas MD AUTM [phone] Problems Active Problems Provider Date Benign hypertensive [...] Lasix Unable to assess criticality hives 01/11/2009 Tramadol Unable to assess criticality voilent vomi ting, nausea, chest pain 08/16/2011 Latex Unable to assess criticality contact rash 03/30/2018 Medications Active Medications SIG Qnty Indications Ordering Provide r Date Aripiprazole 5mg Tablets 1 by mouth every day Unknown 04/10/2021 Tramadol HCL 50mg Tablets 1 by mouth every 6 hours as needed, as directed Unknown 0 04/10/2021 Advil Dual Action /Acetaminophen 125-250mg Tablets 2 by mouth as needed Unknown 020 Mucinex 600mg Tablets ER 12HR 1 by mouth twice daily as needed Unknown 06/20/2020 Sertraline HCL 100mg Tablets 1 by mouth every day Francisca Calvert, 12/16/2019 Advair Diskus 250-50mcg/Dose Aeros ol 1 puff twice a day Francisca Calvert DO 12/16/2019 Gas Relief Extra Strength 125mg Ch [...] Available Vital Signs Date Vital Result Comment 04/11/2021 11:10am Weight 127.00 lb Home Weight 128lb Height 60 inches 5'0" BMI (Body Mass Index) 24.8 kg/m2 BP Systolic Sitting 140 mmHg Ra, medium cuff BP Diastolic Sitting 82 mmHg Ra, medium cuff 06/21/2020 8:38am Weight 139.00 lb Home Weight 138lb Height 60 inches 5'0" BMI (Body Mass Index) 27.1 kg/m2 Heart Rate 56 /min regular Respiratory Rate 16 /min nonlabored BP Systolic Sitting 118 mmHg Ra, medium cuff BP Diastolic Sitting 78 mmHg Ra, medium cuff BP Systolic Lying Down 122 mmHg Ra, medium cuff BP Diastolic Lying Down 80 mmHg Ra, medium cuff Results Test Acquired Date Facility Test Result H/L Range Note CMP 05/02/2021 [facility] nter [phone] Glucose, Fasting 103 mg/dL High 70-100 Blood [...] Ratio 1.2 Normal 1.2-2.2 Lipid Panel 05/02/2021 [facility] nter [phone] Triglycerides Level 176 mg/dL High <150 Cholesterol Level 262 mg/dL High <200 HDL Cholesterol 65 mg/dL Normal >40 LDL Cholesterol 162 mg/dL High <100 Non-HDL-C 197 mg/dL Normal Cholesterol Risk Ratio 4.030 Normal <5 Laboratory test finding 05/02/2021 [facility] [phone] NT-Pro BNP 72 pg/mL Normal <450 Magnesium Level 2.0 mg/dL Normal 1.8-2.4 CBC without Differential 03/16/2021 [facility] [address] [place] [address] [phone] White Blood Count 6.2 4.1-10.9 Red Blood Count 4.72 4.2-6.30 Platelets 320 140-440 Hemoglobin 13.5 12.0-18.0 Hematocrit 38.8 37.0-51.0 [facility] 03/16/2021 [facility] [address] [place], [place] [address] [phone] Albumin Serum/Plasma 3.9 Alt - SGPT 33 [...] Little GFR Left ESRD GFR <15 on INFORMATION TECHNOLOGY PROGRAM MANAGER Procedures Date Code Description Status 04/11/2021 50904 Office/Outpatient Established Mo d MDM 30-39 Min Completed 04/11/2021 80677 ECG 12-Lead Completed Medical Devices Description No Information Available Encounters Type Date Location Provider Dx Diagnosis Office Visit 04/11/2021 11:15a Main Office BENITA Chairez R55 Syncope and collapse R07.9 Chest pain, unspecified I11.9 Hypertensive heart disease w ithout heart failure R06.02 Shortness of breath E78.00 Pure hypercholesterolemia, u nspecified R94.31 Abnormal electrocardiogram [ ECG] [EKG] Z71.3 Dietary counseling and surve illance Assessments Date Code Description Provider 04/11/2021 R55 Syncope and collapse BENITA Jack 04/11/2021 R07.9 Chest pain, unspecified BENITA Seo 04/11/2021 I11.9 Hypertensive heart disease witho ut heart failure BENITA Chairez 04/11/2021 R06.02 Shortness of breath BENITA Chairez 04/11/2021 E78.00 Pure hypercholesterolemia, unspe cified BENITA Chairez 04/11/2021 R94.31 Abnormal electrocardiogram [ECG] [EKG] BENITA Chairez 04/11/2021 Z71.3 Dietary counseling and surveilla nce BENITA Chairez Plan of Treatment Future Appointment(s):* 05/18/2021 9:30 am - BENITA Chairez at Main Office 04/11/2021 - BENITA Chairez* R55 Syncope and collapse* Referral:* Santhosh Cardenas MD, Neurology * Recommendations:* Cardiac has been ordered as per assessment #2 Referral to neurology Lab requisition has been given to recheck patient's electrolytes Will contact patient in one week to see how her blood pressures have been running, advised her to please take a morning and mid afternoon reading Advised patient to seek medical attention with the onset of any additional episodes of syncope * R07.9 Chest pain, unspecified* Recommendations:* Cardiac PET scan has been ordered for further evaluation Patient agreeable to seek emergency medical attention with any worsening chest pain * I11.9 Hypertensive heart disease without heart failure* Recommendations:* Continue off antihypertensives Continue losartan 25 mg with systolic blood pressure > 130 Advised patient to monitor blood pressures and alert our office with readings >150/>90. * R06.02 Shortness of breath* Recommendations:* No further evaluation is needed at this time * E78.00 Pure hypercholesterolemia, unspecified* Recommendations:* Please obtain fasting labs * R94.31 Abnormal electrocardiogram [ECG] [EKG]* Recommendations:* No further evaluation is needed at this time. * Z71.3 Dietary counseling and surveillance* Recommendations:* Recommended for patient to follow a more whole food diet. Advised patient to avoid overly processed foods and packaged foods. Advised patient to avoid sodas, juices and other liquid calories. Recommended at least 30 minutes of exercise 3 days a week. * All * Follow up:* CV after cardiac testing Functional Status Functional Condition Comment Date Status [...] ago. Thank you for your consultation. Sent [facility] Neurology [facility] [place] [address] [phone]
--- OUTSIDE RECORDS SUMMARY | 2021-05-15 09:13 | CCD | Continuity of Care Document ---
Author Author Tammy BUENROSTRO PA Organization Unknown Address [address] [facility], [place] [address] Phone [phone] Care Team Providers Care Rewrite Editor Name Role Phone Russ Khan MD AUTM [phone] Francisca Calvert DO AUTM [phone] Kalen Barfield MD AUTM [phone] Santhosh Cardenas MD AUTM [phone] Problems Active Problems Provider Date Benign hypertensive [...] Tablets 1 by mouth every day Francisca Calvert DO 12/16/2019 Advair Diskus 250-50mcg/Dose Aeros ol 1 [...] Test Result H/L Range Note CMP 05/02/[address] [facility] nter [phone] Glucose, Fasting 103 mg/dL High 70-100 Blood [...] Ratio 1.2 Normal 1.2-2.2 Lipid Panel 05/02/[address] [facility] nter [phone] Triglycerides Level 176 mg/dL High <150 Cholesterol Level 262 mg/dL High <200 HDL Cholesterol 65 mg/dL Normal >40 LDL Cholesterol 162 mg/dL High <100 Non-HDL-C 197 mg/dL Normal Cholesterol Risk Ratio 4.030 Normal <5 Laboratory test finding 05/02/2021 [facility] [phone] NT-Pro BNP 72 pg/mL Normal <450 Magnesium Level 2.0 mg/dL Normal 1.8-2.4 CBC without Differential 03/16/2021 [facility] [address] [place] [address] [phone] White Blood Count 6.2 4.1-10.9 Red Blood Count 4.72 4.2-6.30 Platelets 320 140-440 Hemoglobin 13.5 12.0-18.0 Hematocrit 38.8 37.0-51.0 [facility] 03/16/2021 [facility] [address] [place], [place] [address] [phone] Albumin Serum/Plasma 3.9 Alt - SGPT 33 [...] Little GFR Left ESRD GFR <15 on EVALUATION MANAGER Procedures Date Code Description Status 04/11/2021 80316 Office/Outpatient Established Mo d MDM 30-39 Min Completed 04/11/2021 63277 ECG 12-Lead Completed Medical Devices Description No [...] ago. Thank you for your consultation. Sent [facility] Neurology [facility] [place] [address] [phone]
--- OUTSIDE RECORDS SUMMARY | 2021-05-15 09:13 | CCD | Continuity of Care Document ---
Author Organization Unknown Address Unknown Phone Unavailable Care Team Providers Care Executive Vp Name Role Phone Russ Khan MD AUTM [phone] Francisca Calvert DO AUTM [phone] Kalen Barfield MD AUTM [phone] Problems Active Problems Provider Date Benign hypertensive [...] Patient has never smoked Smoking Status Reviewed: 06/21/20 Patient has never smoked Exercise Type/Frequency Walks daily Exercise Type/Frequency Does housework daily Exercise Type/Frequency Does yardwork sporadical ly Exercise Type/Frequency Does gardening sporadica lly Exercise Limitations Shortness Of Breath Exercise Limitations Chest Discomfort Allergies, Adverse Reactions, Alerts Active Allergies Criticality Reaction | Severity Comments [...] SIG Qnty Indications Ordering Provide r Date Coq-10 Fast Dissolve 50mg Tablets Dispers Take 1 by mouth daily 30tabs E78.00 Denton Hong MD 020 Advil Dual Action /Acetaminophen 125-250mg Tablets 2 by mouth as needed Unknown Mucinex 600mg Tablets ER 12HR 1 by mouth twice daily as needed Unknown 06/20/2020 Tylenol Cold/Flu Severe 1-46-840-325mg Tablets 2 by mouth as needed Unknown 020 Vitamin D3 25mcg (1000 Ut) Capsule s 1 by mouth every day Unknown 06/20/[address] 1 by mouth every day Francisca Calvert, DO 03/22/2020 Atorvastatin Calcium 80mg Tablets 1 by mouth every night at bedtime 90tabs Zee Chase 12/17/2019 Sertraline HCL 100mg Tablets 1 by mouth every day Francisca Calvert, 12/16/2019 Advair Diskus 250-50mcg/Dose Aeros ol 1 puff twice a day Francisca Calvert, 12/16/2019 Gas Relief Extra Strength 125mg Ch ewtabs as needed Unknown 03/30/2018 Losartan Potassium 100mg Tablets take 1/2 tablets by mouth once daily 90tabs Ace Dai MD 03/13/2018 Aspirin Childrens 81mg Chewtabs 1 by mouth every day 90units R07.2 Denton Hong MD 03/06/2018 Chlorthalidone 25mg Tablets Take One Tablet By Mouth Every Day 90tabs I11.9 Ace Dai MD 0 03/06/2018 Gabapentin 300mg Capsules 1 by mouth three times a day Unknown 03/05/2018 Ondansetron HCL 4mg Tablets 1 by mouth every 6 hours as needed Lorraine Donato, RNC ANP 09/09/2014 Proair HFA 108(90Base) mcg/ac Aero analia 2 puffs tid Francisca Calvert DO 08/16/2011 Immunizations Description No Information Available Vital Signs Date Vital Result Comment 06/21/2020 8:38am Weight 139.00 lb Home Weight 138lb Height 60 inches 5'0" BMI (Body Mass Index) 27.1 kg/m2 Heart Rate 56 /min regular Respiratory Rate 16 /min nonlabored BP Systolic Sitting 118 mmHg Ra, medium cuff BP Diastolic Sitting 78 mmHg Ra, medium cuff BP Systolic Lying Down 122 mmHg Ra, medium cuff BP Diastolic Lying Down 80 mmHg Ra, medium cuff 03/23/2020 9:01am Weight 140.00 lb Home Weight 139lb Height 60 inches 5'0" BMI (Body Mass Index) 27.3 kg/m2 BP Systolic Sitting 124 mmHg large cuff, Ra BP Diastolic Sitting 70 mmHg large cuff, Ra Results Test Acquired Date Facility Test Result H/L Range Note CBC without Differential 03/16/2021 [facility] [address] [id number] [phone] White Blood Count 6.2 4.1-10.9 Red Blood Count 4.72 4.2-6.30 Platelets 320 140-440 Hemoglobin 13.5 12.0-18.0 Hematocrit 38.8 37.0-51.0 [facility] 03/16/2021 [facility] [address] [id number] [phone] Albumin Serum/Plasma 3.9 Alt - SGPT 33 Calcium Ser/Plasma Mass/Vol 10.0 Carbon Dioxide Ser/Plasm 25 Chloride Serum/Plasma 106 Alkaline Phosphatase 153 Potassium 3.0 Protein Total 6.8 Sodium 142 Ast - Sgot 20 BUN - Urea Nitrogen 19 Glucose 96 74-106 Creatinine For GFR 0.8 CBC without Differential 12/14/2020 [facility] - not inter faced (050)- - White Blood Count 7.6 5.0-10.0 Red Blood Count 4.82 4.00-5.40 Platelets 356 172-450 Hemoglobin 13.3 Hematocrit 41.0 BMP 12/14/2020 [facility] - not interfaced (967)- - Calcium Ser/Plasma Mass/Vol 10.8 Sodium 139 Carbon Dioxide Ser/Plasm 30 Chloride Serum/Plasma 102 Potassium 3.2 Glucose 105 83-110 Blood Urea Nitrogen 26 High 7-18 Creatinine 0.75 0.6-1.0 G F R >60.0 CBC without Differential 10/24/2020 [facility] - not inter faced (315)- - White Blood Count 7.6 5.0-10.0 Red Blood Count 4.82 4.00-5.40 Platelets 356 172-450 Hemoglobin 13.3 Hematocrit 41.0 BMP 10/24/2020 [facility] - not interfaced (315)- - Calcium Ser/Plasma Mass/Vol 10.5 Sodium 139 Carbon Dioxide Ser/Plasm 26 Chloride Serum/Plasma 105 Potassium 3.5 Glucose 90 83-110 Blood Urea Nitrogen 20 High 7-18 Creatinine 0.87 0.6-1.0 G F R >60.0 Procedures Description No Information Available Medical Devices Description No Information Available Encounters Description No Information Available Assessments Description No Information Available Plan of Treatment Future Appointment(s):* 04/11/2021 11:15 am - BENITA Chairez at Main Office 06/21/2020 - BENITA Chairez* R55 Syncope and collapse* Recommendations: * Due to symptoms of syncope and intermittent AVB found on event monitor, discontinue Carvedilol As per assessment #2 blood pressure is well controlled, and risk for ischemic event was found to be low with 12/2019 stress SPECT. Advised patient on the benefits and risks to discontinuing carvedilol therapy and to monitor her symptoms. * I11.9 Hypertensive heart disease without heart failure* Recommendations:* Continue Losartan at current dosage. Carvedilol discontinued as above. Advised patient to monitor blood pressures and alert our office with readings >130/> 90. * R06.02 Shortness of breath* Recommendations:* No further evaluation is needed at this time * R94.31 Abnormal electrocardiogram [ECG] [EKG]* Recommendations:* No further evaluation is needed at this time. * E78.00 Pure hypercholesterolemia, unspecified* New Medication:* Coq-10 Fast Dissolve 50 mg - Take 1 by mouth daily * Recommendations:* Begin CoQ-10 for side effects of statin therapy. Explained the benefit of statin therapy to patient, advised to try CoQ-10 to relieve symptoms, and if CoQ-10 is not found to be helpful we could consider switching to a different statin. * Z71.3 Dietary counseling and surveillance* Recommendations:* Recommended for patient to follow a more whole food diet. Advised patient to avoid overly processed foods and packaged foods. Advised patient to avoid sodas, juices and other liquid calories. Recommended at least 30 minutes of exercise 3 days a week. * All * Follow up:* Follow up in 3 months Functional Status Functional Condition Comment Date Status Independent with all ADL's Activ e Mental Status Description No Information Available Referrals Description No Information Available
--- OUTSIDE RECORDS SUMMARY | 2021-05-15 09:13 | CCD | Continuity of Care Document ---
Author Organization Unknown Address Unknown Phone Unavailable Care Team Providers Care Automatic Tire Tester Name Role Phone Russ Khan MD AUTM [phone] Francisca Calvert DO AUTM [phone] Kalen Barfield MD AUTM [phone] Problems Active Problems Provider Date Benign hypertensive [...] as needed Unknown 06/20/2020 Tylenol Cold/Flu Severe 6-30-037-325mg Tablets 2 by mouth as needed Unknown [...] Result H/L Range Note CBC without Differential 10/24/2020 [facility] - not inter faced (315)- - White Blood Count 7.6 5.0-10.0 Red Blood Count 4.82 4.00-5.40 Platelets 356 172-450 Hemoglobin 13.3 Hematocrit 41.0 [facility] 10/24/2020 [facility] - not interfaced (315)- - [...]
--- OUTSIDE RECORDS SUMMARY | 2021-05-15 09:13 | CCD | Continuity of Care Document ---
Author Author Tammy COHEN P.A. Organization Unknown Address [facility], [address] [place] [address] Phone [phone] Care Team Providers Care Head Insulation Board Saw Operator Name Role Phone Francisca Calvert DO AUTM [phone] Problems Active Problems Provider Date Closed anterior dislocation of humerus O nset: 05/05/1999 Essential hypertension Parag Zamarripa MD Onset: 06/18/2016 Social History Type Date Description Comments Sex Unknown ETOH Use Denies alcohol use Tobacco Use Start: Unknown Denies Smoking Smoking Status Reviewed: 06/25/19 Denies Smoking Allergies, Adverse Reactions, Alerts Active Allergies Criticality [...] every 6 hours as needed pain 30tabs Austin Ragland MD 03/29/2021 Gabapentin 400mg Capsules 1 by [...] Information Available Procedures Date Code Description Status 03/29/2021 59081 Office/Outpatient Established Mo d MDM 30-39 Min Completed 03/29/2021 83649 X-Ray Spine Lumbosacral Complete Inc Bending Views Min Of 6 Completed Medical Devices Description No Information Available Encounters Type Date Location Provider Dx Diagnosis Office Visit 03/29/2021 11:00a [place] Merrill Randolph S30.0xxA Contusion of lower back and pelvis, initial encounter M51.37 Other intervertebral disc de generation, lumbosacral region Assessments Date Code Description Provider 03/29/2021 S30.0xxA Contusion of lower back and pelv is, initial encounter Merrill Randolph 03/29/2021 M51.37 Other intervertebral disc degene ration, lumbosacral region Merrill Randolph Plan of Treatment Future Appointment(s):* 05/02/2021 4:15 pm - Merrill Randolph at [place] 03/29/2021 - Merrill Randolph* S30.0xxA Contusion of lower back and pelvis, initial encounter* Follow up:* after MRI of lumbosacral at [facility] with Zee * M51.37 Other intervertebral disc degeneration, lumbosacral region * All * New Medication:* Tramadol HCL 50 mg - 1 every 6 hours as needed pain Functional Status Description No Information Available Mental Status Description No Information Available Referrals Refer to Reason for Referral Status Appt Date Austin Ragland MD MRI NO AUTH REQUIRED FOR MRI OF LUMBAR SPINE ([id number]) TO TERESA CORADO Created [address] [place] [phone] Austin Ragland MD MRI NO AUTH REQUIRED FOR MRI OF LUMBAR SPINE ([id number]) TO TERESA CORADO Created [address] [place] [phone]
--- OUTSIDE RECORDS SUMMARY | 2021-05-15 09:13 | CCD | Continuity of Care Document ---
Author Author Tammy BUENROSTRO PA Organization Unknown Address [address] [place] [address], [place] [address] Phone [phone] Care Team Providers Care Technology Lead Name Role Phone Russ Khan MD AUTM [phone] Francisca Calvert DO AUTM [phone] Kalen Barfield MD AUTM [phone] Santhosh Cardenas MD AUTM [phone] Problems Active Problems Provider Date Benign hypertensive [...] H/L Range Note CBC without Differential 03/16/2021 [facility] [address] [address] [phone] White Blood Count 6.2 4.1-10.9 Red Blood Count 4.72 4.2-6.30 Platelets 320 140-440 Hemoglobin 13.5 12.0-18.0 Hematocrit 38.8 37.0-51.0 [facility] 03/16/2021 [facility] [address] [address] [phone] Albumin Serum/Plasma 3.9 Alt - SGPT 33 Calcium Ser/Plasma Mass/Vol 10.0 Carbon Dioxide Ser/Plasm 25 Chloride Serum/Plasma 106 Alkaline Phosphatase 153 Potassium 3.0 Protein Total 6.8 Sodium 142 Ast - Sgot 20 BUN - Urea Nitrogen 19 Glucose 96 74-106 Creatinine For GFR 0.8 CBC without Differential 12/14/2020 [facility] - not inter faced (315)- - White Blood Count 7.6 5.0-10.0 Red Blood Count 4.82 4.00-5.40 Platelets 356 172-450 Hemoglobin 13.3 Hematocrit 41.0 [facility] 12/14/2020 [facility] - not interfaced (315)- - Calcium Ser/Plasma Mass/Vol 10.8 Sodium 139 Carbon Dioxide Ser/Plasm 30 Chloride Serum/Plasma 102 Potassium 3.2 Glucose 105 83-110 Blood Urea Nitrogen 26 High 7-18 Creatinine 0.75 0.6-1.0 G F R >60.0 CBC without Differential 10/24/2020 [facility] - not inter faced (315)- [...] 0.87 0.6-1.0 G F R >60.0 Procedures Date Code Description Status 04/11/2021 21148 Office/Outpatient Established Mo d MDM 30-39 Min Completed 04/11/2021 09741 ECG 12-Lead Completed Medical Devices Description No [...] BENITA Chairez Plan of Treatment Future Appointment(s):* 05/04/2021 8:00 am - BENITA Chairez at Main Office * 04/26/2021 1:00 pm - Cardiac PET at Main Office 04/11/2021 - BENITA Chairez* [...] of syncope * R07.9 Chest pain, unspecified* New Xrays:* PET Myocardial Perfusion Multi Study AT [facility], Scheduled: 04/26/21 * Recommendations:* Cardiac PET scan has been ordered for further evaluation Patient agreeable to seek emergency medical attention with any worsening chest pain * I11.9 Hypertensive heart disease without heart failure* New Labs:* NT Probnp QN Ser/Plas, Ordered: 04/11/21 * Magnesium Level, Ordered: 04/11/21 * Recommendations:* Continue off antihypertensives Continue losartan 25 mg with systolic blood pressure > 130 Advised patient to monitor blood pressures and alert our office with readings >150/>90. * R06.02 Shortness of breath* Recommendations:* No further evaluation is needed at this time * E78.00 Pure hypercholesterolemia, unspecified* New Labs:* CMP, Ordered: 04/11/21 * Lipid Panel, Ordered: 04/11/21 * Recommendations:* Please obtain fasting labs * R94.31 [...] years ago. Thank you for your consultation. Created [facility] [address] [id number] [phone]
--- OUTSIDE RECORDS SUMMARY | 2021-05-15 09:13 | CCD | Continuity of Care Document ---
Author Organization Unknown Address Unknown Phone Unavailable Care Team Providers Care Supervisor Refractory Products Name Role Phone Russ Khan MD AUTM [phone] Francisca Calvert DO AUTM [phone] Kalen Barfield MD AUTM [phone] Problems Active Problems Provider Date Benign hypertensive [...] as needed Unknown 06/20/2020 Tylenol Cold/Flu Severe 9-10-992-325mg Tablets 2 by mouth as needed Unknown [...] Result H/L Range Note CBC without Differential 12/14/2020 [facility] - not inter faced (315)- - White Blood Count 7.6 5.0-10.0 Red Blood Count 4.82 4.00-5.40 Platelets 356 172-450 Hemoglobin 13.3 Hematocrit 41.0 BMP 12/14/2020 [facility] - not interfaced (315)- - Calcium Ser/Plasma Mass/Vol 10.8 Sodium 139 Carbon Dioxide Ser/Plasm 30 Chloride Serum/Plasma 102 Potassium 3.2 Glucose 105 83-110 Blood Urea Nitrogen 26 High 7-18 Creatinine 0.75 0.6-1.0 G F R >60.0 CBC without Differential 10/24/2020 [facility] - not inter faced (315)- - White Blood Count 7.6 5.0-10.0 Red Blood Count 4.82 4.00-5.40 Platelets 356 172-450 Hemoglobin 13.3 Hematocrit 41.0 BMP 10/24/2020 [facility] - not interfaced (315)- - [...]
--- OUTSIDE RECORDS SUMMARY | 2021-05-15 09:13 | CCD | Continuity of Care Document ---
Author Author Tammy DANIELLE P.A. Organization Unknown Address [facility], [address] [place] [address] Phone [phone] Care Team Providers Care Mechanical Systems Design Engineer Name Role Phone Francisca Calvert DO AUTM [phone] Problems Active Problems Provider Date Closed anterior [...] Available Procedures Date Code Description Status 03/29/2021 63447 Office/Outpatient Established Mo d MDM 30-39 Min Completed 03/29/2021 81808 X-Ray Spine Lumbosacral Complete Inc Bending Views Min Of 6 Completed Medical Devices Description No Information Available Encounters Type Date Location Provider Dx Diagnosis Office Visit 03/29/2021 11:00a Tennga Abdias Danielle, P.A. S30.0xxA Contusion of lower back and pelvis, initial encounter M51.37 Other intervertebral disc de generation, lumbosacral region Assessments Date Code Description Provider 05/02/2021 S30.0xxD Contusion of lower back and pelv is, subsequent encounter Rosa M Randolph. 05/02/2021 M48.061 Spinal stenosis, lum bar region without neurogenic claudication Merrill Randolph 05/02/2021 M51.36 Other intervertebral disc degene ration, lumbar region Marcelino RandolphA. 03/29/2021 S30.0xxA Contusion of lower back and pelv is, initial encounter Merrill Randolph 03/29/2021 M51.37 Other intervertebral disc degene ration, lumbosacral region Rosa M Randolph. Plan of Treatment 05/02/2021 - Rosa M Randolph.* S30.0xxD Contusion of lower back and pelvis, subsequent encounter * M48.061 Spinal stenosis, lumbar region without neurogenic claudication * M51.36 Other intervertebral disc degeneration, lumbar region* Follow up:* prn Functional Status Description No Information Available Mental Status Description No Information Available Referrals Refer to Dr Reason for Referral Status Appt Date Austin Ragland MD MRI NO AUTH REQUIRED FOR MRI OF LUMBAR SPINE ([id number]) TO TERESA CORADO Created [address] [place] [phone] Austin Ragland MD MRI NO AUTH REQUIRED FOR MRI OF LUMBAR SPINE ([id number]) TO TERESA CORADO Created [address] [place] [phone]
--- OUTSIDE RECORDS SUMMARY | 2021-05-15 09:13 | CCD | Continuity of Care Document ---
Author Author Cardiac NAYETammy Franny Organization Unknown Address [address] [facility], [place] [address] Phone [phone] Care Team Providers Care Assessment Clinician Name Role Phone Russ Khan MD AUTM [phone] Francisca Calvert DO AUTM [phone] Kalen Barfield MD AUTM [phone] Santhosh Cardenas MD AUTM [phone] Problems Active Problems Provider Date Benign hypertensive heart disease without congestive h eart failure Fiona Landrum PA-C Onset: 08/16/2011 Electrocardiogram abnormal Fiona Landrum PA-C Onset: 10/01 Supraventricular premature beats Fiona Landrum PA-C Onset: 08/16/2011 Pure hypercholesterolemia Denton Hong MD Onset: 018 Precordial pain Denton Hong MD Onset: 03/06/2018 Dyspnea Denton Hogn MD Onset: 03/06/2018 Syncope and collapse Denton [...] Test Result H/L Range Note CMP 05/02/2021 [facility] nter [phone] Glucose, Fasting 103 mg/dL High 70-100 Blood [...] Ratio 1.2 Normal 1.2-2.2 Lipid Panel 05/02/2021 [facility] nter [phone] Triglycerides Level 176 mg/dL High <150 Cholesterol Level 262 mg/dL High <200 HDL Cholesterol 65 mg/dL Normal >40 LDL Cholesterol 162 mg/dL High <100 Non-HDL-C 197 mg/dL Normal Cholesterol Risk Ratio 4.030 Normal <5 Laboratory test finding 05/02/2021 [facility] [phone] NT-Pro BNP 72 pg/mL Normal <450 Magnesium Level 2.0 mg/dL Normal 1.8-2.4 CBC without Differential 03/16/2021 [facility] [address] [place] [address] [phone] White Blood Count 6.2 4.1-10.9 Red Blood Count 4.72 4.2-6.30 Platelets 320 140-440 Hemoglobin 13.5 12.0-18.0 Hematocrit 38.8 37.0-51.0 [facility] 03/16/2021 [facility] [address] [place], [place] [id number] [phone] Albumin Serum/Plasma 3.9 Alt - SGPT 33 [...] Little GFR Left ESRD 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 Procedures Date Code Description Status 04/26/2021 93232 TM Interpretation & Report Only Completed 04/26/2021 06893 Myocardial Imaging (PET) Multipl e Studies Completed 04/11/2021 56818 Office/Outpatient Established Mo d MDM 30-39 Min Completed 04/11/2021 30512 ECG 12-Lead Completed Medical Devices Description No [...] surve illance Assessments Date Code Description Provider 04/26/2021 R07.9 Chest pain, unspecified Cardiac PET 04/11/2021 R55 Syncope and collapse BENITA Jack 04/11/2021 R07.9 Chest pain, unspecified BENITA Seo 04/11/2021 I11.9 Hypertensive heart disease witho ut heart failure BENITA Chairez 04/11/2021 R06.02 Shortness of breath BENITA Chairez 04/11/2021 E78.00 Pure hypercholesterolemia, unspe cified BENITA Chairez 04/11/2021 R94.31 Abnormal electrocardiogram [ECG] [EKG] BENTIA Chairez 04/11/2021 Z71.3 Dietary counseling and surveilla [...] ago. Thank you for your consultation. Sent [facility] [address] [address] [phone]
--- OUTSIDE RECORDS SUMMARY | 2021-05-15 09:15 | CCD ---
Author Author [facility] Organization [facility] Address Unknown Phone Unavailable Care Team Providers Care Chief Cruiser Name Role Phone Lenard, L Mikayla PA Unavailable Unavailable Lenard, L Mikayla PA Unavailable Unavailable Lenard, L Mikayla PA Unavailable Unavailable Lenard, L Mikayla PA Unavailable Unavailable Lenard, L Mikayla PA Unavailable Unavailable Lenard, L Mikayla PA Unavailable Unavailable Lenard, L Mikayla PA Unavailable Unavailable Lenard, L Mikayla PA Unavailable Unavailable Lenard, L Mikayla PA Unavailable Unavailable Lenard, L Mikayla PA Unavailable Unavailable Lenard, L Mikayla PA Unavailable Unavailable Lenard, L Mikayla PA Unavailable Unavailable Lenard, L Mikayla PA Unavailable Unavailable Lenard, L Mikayla PA Unavailable Unavailable Lenard, L Mikayla PA Unavailable Unavailable Lenard, L Mikayla PA Unavailable Unavailable Lenard, L Mikayla PA Unavailable Unavailable Lenard, L Mikayla PA Unavailable Unavailable Lenard, L Mikayla PA Unavailable Unavailable Lenard, L Mikayla PA Unavailable Unavailable Lenard, L Mikayla PA Unavailable Unavailable Lenard, L Mikayla PA Unavailable Unavailable Lenard, L Mikayla PA Unavailable Unavailable Rochelle Barfield MD Unavailable Unavailable Rochelle Barfield MD Unavailable Unavailable Rochelle Barfield MD Unavailable Unavailable Rochelle Barfield MD Unavailable Unavailable Rochelle Barfield MD Unavailable Unavailable Rochelle Barfield MD Unavailable Unavailable Rochelle Barfield MD Unavailable Unavailable Rochelle Barfield MD Unavailable Unavailable CarolyneRochelle bragg MD Unavailable Unavailable Carolyne, S Kalen BOSWELL Unavailable Unavailable Rochelle Barfield MD Unavailable Unavailable Rochelle Barfield MD Unavailable Unavailable Rochelle Barfield MD Unavailable Unavailable CarolyneRochelle bragg MD Unavailable Unavailable CarolyneRochelle bragg MD Unavailable Unavailable Carolyne, S Kalen BOSWELL Unavailable Unavailable Carolyne S Kalen BOSWELL Unavailable Unavailable Carolyne S Kalen BOSWELL Unavailable Unavailable CarolyneRochelle MD Unavailable Unavailable CarolyneRochelle bragg MD Unavailable Unavailable CarolyneRochelle MD Unavailable Unavailable CarolyneRochelle MD Unavailable Unavailable Carolyne, S Kalen BOSWELL Unavailable Unavailable Carolyne S Kalen BOSWELL Unavailable Unavailable Rochelle Barfield MD Unavailable Unavailable Rochelle Barfield MD Unavailable Unavailable Rochelle Barfield MD Unavailable Unavailable Rochelle Barfield MD Unavailable Unavailable Rochelle Barfield MD Unavailable Unavailable Rochelle Barfield MD Unavailable Unavailable Rochelle Barfield MD Unavailable Unavailable Rochelle Barfield MD Unavailable Unavailable Rochelle Barfield MD Unavailable Unavailable Rochelle Barfield MD Unavailable Unavailable Rochelle Barfield MD Unavailable Unavailable Rochelle Barfield MD Unavailable Unavailable Rochelle Barfield MD Unavailable Unavailable Rochelle Barfield MD Unavailable Unavailable Rochelle Barfield MD Unavailable Unavailable Rochelle Barfield MD Unavailable Unavailable Rochelle Barfield MD Unavailable Unavailable Rochelle Barfield MD Unavailable Unavailable Rochelle Barfield MD Unavailable Unavailable Rochelle Barfeild MD Unavailable Unavailable Rochelle Barfield MD Unavailable Unavailable Rochelle Barfield MD Unavailable Unavailable Rochelle Barfield MD Unavailable Unavailable Rochelle Barfield MD Unavailable Unavailable Rochelle Barfield MD Unavailable Unavailable Rochelle Barfield MD Unavailable Unavailable MCELAN, ACE PA Unavailable Unavailable MCELAN, ACE PA Unavailable Unavailable MCELHERAN, ACE PA Unavailable Unavailable MCELHERAN, ACE PA Unavailable Unavailable MCELHERAN, ACE PA Unavailable Unavailable MCELHERAN, ACE PA Unavailable Unavailable MCELHERAN, ACE PA Unavailable Unavailable MCELAN, ACE PA Unavailable Unavailable MCELAN, ACE PA Unavailable Unavailable MCELAN, ACE PA Unavailable Unavailable MCELHERAN, ACE PA Unavailable Unavailable MCELHERAN, ACE PA Unavailable Unavailable MCELHERAN, ACE PA Unavailable Unavailable MCELHERAN, ACE PA Unavailable Unavailable MCELHERAN, ACE PA Unavailable Unavailable MCELHERAN, ACE PA Unavailable Unavailable MCELHERAN, ACE PA Unavailable Unavailable MCELHERAN, ACE PA Unavailable Unavailable MCELHERAN, ACE PA Unavailable Unavailable MCELHERAN, ACE PA Unavailable Unavailable MCELHERAN, ACE PA Unavailable Unavailable MCELHERAN, ACE PA Unavailable Unavailable MCELHERAN, ACE PA Unavailable Unavailable MCELHERAN, ACE PA Unavailable Unavailable MCELHERAN, ACE PA Unavailable Unavailable MCELHERAN, ACE PA Unavailable Unavailable MCELHERAN, ACE PA Unavailable Unavailable MCELHERAN, ACE PA Unavailable Unavailable MCELHERAN, ACE PA Unavailable Unavailable MCELHERAN, ACE PA Unavailable Unavailable MCELHERAN, ACE PA Unavailable Unavailable MCELHERAN, ACE PA Unavailable Unavailable MCELHERAN, ACE PA Unavailable Unavailable MCELHERAN, ACE PA Unavailable Unavailable MCELHERAN, ACE PA Unavailable Unavailable MCELHERAN, ACE PA Unavailable Unavailable MCELHERAN, ACE PA Unavailable Unavailable MCELHERAN, ACE PA Unavailable Unavailable MCELHERAN, ACE PA Unavailable Unavailable MCELHERAN, ACE PA Unavailable Unavailable MCELHERAN, ACE PA Unavailable Unavailable MCELHERAN, ACE PA Unavailable Unavailable MCELHERAN, ACE PA Unavailable Unavailable MCELHERAN, ACE PA Unavailable Unavailable MCELHERAN, ACE PA Unavailable Unavailable MCELHERAN, ACE PA Unavailable Unavailable MCELHERAN, ACE PA Unavailable Unavailable MCELHERAN, ACE PA Unavailable Unavailable MCELHERAN, ACE PA Unavailable Unavailable MCELHERAN, ACE PA Unavailable Unavailable MCELHERAN, ACE PA Unavailable Unavailable MCELHERAN, ACE PA Unavailable Unavailable MCELHERAN, ACE PA Unavailable Unavailable MCELHERAN, ACE PA Unavailable Unavailable MCELHERAN, ACE PA Unavailable Unavailable MCELHERAN, ACE PA Unavailable Unavailable MCELHERAN, ACE PA Unavailable Unavailable MCELHERAN, ACE PA Unavailable Unavailable Javier Herrera MD Unavailable Unavailable Javier Herrera MD Unavailable Unavailable Javier Herrera MD Unavailable Unavailable Javier Herrera MD Unavailable Unavailable Javier Herrera MD Unavailable Unavailable Javier Herrera MD Unavailable Unavailable Javier Herrera MD Unavailable Unavailable Javier Herrera MD Unavailable Unavailable Javier Herrera MD Unavailable Unavailable Javier Herrera MD Unavailable Unavailable Javier Herrera MD Unavailable Unavailable Abriss, Javier Solano MD Unavailable Unavailable Abriss, Javier Solano MD Unavailable Unavailable Abriss, Javier Solano MD Unavailable Unavailable Abriss, Javier Solano MD Unavailable Unavailable Abriss, Javier Solano MD Unavailable Unavailable Abriss, Javier Solano MD Unavailable Unavailable Abriss, Javier Solano MD Unavailable Unavailable Abriss, Javier Solano MD Unavailable Unavailable DONNA, O DEVORA BOSWELL Unavailable Unavailable DONNA, O DEVORA BOSWELL Unavailable Unavailable DONNA, O DEVORA BOSWELL Unavailable Unavailable DONNA, O DEVORA BOSWELL Unavailable Unavailable DONNA, O DEVORA BOSWELL Unavailable Unavailable DONNA, O DEVORA MD Unavailable Unavailable DONNA, O DEVORA BOSWELL Unavailable Unavailable DONNA, O DEVORA BOSWELL Unavailable Unavailable DONNA, O DEVORA BOSWELL Unavailable Unavailable DONNA, O DEVORA MD Unavailable Unavailable DONNA, O DEVORA MD Unavailable Unavailable DONNA, O DEVORA MD Unavailable Unavailable DONNA, O DEVORA MD Unavailable Unavailable DONNA, O DEVORA MD Unavailable Unavailable DONNA, O DEVORA MD Unavailable Unavailable DONNA, O DEVORA MD Unavailable Unavailable DONNA, O DEVORA MD Unavailable Unavailable DONNA, O DEVORA MD Unavailable Unavailable DONNA, O DEVORA MD Unavailable Unavailable DONNA, O DEVORA BOSWELL Unavailable Unavailable DONNA, O DEVORA MD Unavailable Unavailable DONNA, O DEVORA MD Unavailable Unavailable DONNA, O DEVORA MD Unavailable Unavailable DONNA, O DEVORA MD Unavailable Unavailable DONNA, O DEVORA MD Unavailable Unavailable DONNA, O DEVORA MD Unavailable Unavailable DONNA, O DEVORA MD Unavailable Unavailable DONNA, O DEVORA MD Unavailable Unavailable DONNA, O DEVORA MD Unavailable Unavailable DONNA, O DEVORA MD Unavailable Unavailable DONNA, O DEVORA MD Unavailable Unavailable DONNA, O DEVORA MD Unavailable Unavailable DONNA, O DEVORA MD Unavailable Unavailable DONNA, O DEVORA MD Unavailable Unavailable DONNA, O DEVORA BOSWELL Unavailable Unavailable DONNA, O DEVORA BOSWELL Unavailable Unavailable DONNA, O DEVORA BOSWELL Unavailable Unavailable DONNA, O DEVORA BOSWELL Unavailable Unavailable DONNA, O DEVORA BOSWELL Unavailable Unavailable DONNA, O DEVORA BOSWELL Unavailable Unavailable DONNA, O DEVORA MD Unavailable Unavailable DONNA, O DEVORA MD Unavailable Unavailable DONNA, O DEVORA MD Unavailable Unavailable Nehal, Francisca DO Unavailable Unavailable Nehal, Francisca DO Unavailable Unavailable Nehal, Francisca DO Unavailable Unavailable Nehal, Francisca DO Unavailable Unavailable Nehal, Francisca DO Unavailable Unavailable Nehal, Francisca DO Unavailable Unavailable Nehal, Francisca DO Unavailable Unavailable Nehal, Francisca DO Unavailable Unavailable Nehal, Francisca DO Unavailable Unavailable Nehal, Francisca DO Unavailable Unavailable Nehal, Francisca DO Unavailable Unavailable Nehal, Francisca DO Unavailable Unavailable Nehal, Francisca DO Unavailable Unavailable Nehal, Francisca DO Unavailable Unavailable Nehal, Francisca DO Unavailable Unavailable Nehal, Francisca DO Unavailable Unavailable Nehal, Francisca DO Unavailable Unavailable Nehal, Francisca DO Unavailable Unavailable Nehal, Francisca DO Unavailable Unavailable Nehal, Francisca DO Unavailable Unavailable Nehal, Francisca DO Unavailable Unavailable Nehal, Francisca DO Unavailable Unavailable Nehal, Francisca DO Unavailable Unavailable Nehal, Francisca DO Unavailable Unavailable Nehal, Francisca DO Unavailable Unavailable Nehal, Francisca DO Unavailable Unavailable Nehal, Francisca DO Unavailable Unavailable Nehal, Francisca DO Unavailable Unavailable Nehal, Francisca DO Unavailable Unavailable Nehal, Francisca DO Unavailable Unavailable Nehal, Francisca DO Unavailable Unavailable Nehal, Francisca DO Unavailable Unavailable Nehal, Francisca DO Unavailable Unavailable Nehal, Francisca DO Unavailable Unavailable Nehal, Francisca DO Unavailable Unavailable Nehal, Francisca DO Unavailable Unavailable Nehal, Francisca DO Unavailable Unavailable Nehal, Francisca DO Unavailable Unavailable Nehal, Francisca DO Unavailable Unavailable Nehal, Francisca DO Unavailable Unavailable Nehal, Francisca DO Unavailable Unavailable Nehal, Francisca DO Unavailable Unavailable Nehal, Francisca DO Unavailable Unavailable Nehal, Francisca DO Unavailable Unavailable Nehal, Francisca DO Unavailable Unavailable Nehal, Francisca DO Unavailable Unavailable Nehal, Francisca DO Unavailable Unavailable Nehal, Francisca DO Unavailable Unavailable Nehal, Francisca DO Unavailable Unavailable Nehal, Francisca DO Unavailable Unavailable Nehal, Francisca DO Unavailable Unavailable Nehal, Francisca DO Unavailable Unavailable Nehal, Francisca DO Unavailable Unavailable Nehal, Francisca DO Unavailable Unavailable Nehal, Francisca DO Unavailable Unavailable Nehal, Francisca DO Unavailable Unavailable Nehal, Francisca DO Unavailable Unavailable Nehal, Francisca DO Unavailable Unavailable Nehal, Francisca DO Unavailable Unavailable Nehal, Francisca DO Unavailable Unavailable Nehal, Francisca DO Unavailable Unavailable Nehal, Francisca DO Unavailable Unavailable Nehal, Francisca DO Unavailable Unavailable Nehal, Francisca DO Unavailable Unavailable Nehal, Francisca DO Unavailable Unavailable Nehal, Francisca DO Unavailable Unavailable Nehal, Francisca DO Unavailable Unavailable Nehal, Francisca DO Unavailable Unavailable Nehal, Francisca DO Unavailable Unavailable Nehal, Francisca DO Unavailable Unavailable Nehal, Francisca DO Unavailable Unavailable Nehal, Francisca DO Unavailable Unavailable Nehal, Francisca DO Unavailable Unavailable Nehal, Francisca DO Unavailable Unavailable John BUENROSTROANDRA PA Unavailable Unavailable CHITRA, L NAPOLEON PA Unavailable Unavailable CHITRA, L NAPOLEON PA Unavailable Unavailable CHITRA, L NAPOLEON PA Unavailable Unavailable CHITRA, L NAPOLEON PA Unavailable Unavailable CHITRA, L NAPOLEON PA Unavailable Unavailable CHITRA, L NAPOLEON PA Unavailable Unavailable CHITRA, L NAPOLEON PA Unavailable Unavailable CHITRA, L NAPOLEON PA Unavailable Unavailable CHITRA, L NAPOLEON PA Unavailable Unavailable CHITRA, L NAPOLEON PA Unavailable Unavailable CHITRA, L NAPOLEON PA Unavailable Unavailable CHITRA, L NAPOLEON PA Unavailable Unavailable CHITRA, L NAPOLEON PA Unavailable Unavailable CHITRA, L NAPOLEON PA Unavailable Unavailable CHITRA, L NAPOLEON PA Unavailable Unavailable NON, PHYSICIAN STAFF Unavailable Unavailable Re-disclosure Warning The records that you are about to access may contain information from federally-assisted alcohol or drug abuse programs. If such information is present, then the following federally mandated warning applies: This information has been disclosed to you from records protected by federal confidentiality rules (42 CFR part 2). The federal rules prohibit you from making any further disclosure of this information unless further disclosure is expressly permitted by the written consent of the person to whom it pertains or as otherwise permitted by 42 CFR part 2. A general authorization for the release of medical or other information is NOT sufficient for this purpose. The Federal rules restrict any use of the information to criminally investigate or prosecute any alcohol or drug abuse patient.The records that you are about to access may contain highly sensitive health information, the redisclosure of which is protected by Article 27-F of the [facility] Public Health law. If you continue you may have access to information: Regarding HIV / AIDS; Provided by facilities licensed or operated by the [facility] Office of Mental Health; or Provided by the [facility] Office for People With Developmental Disabilities. If such information is present, then the following [facility] mandated warning applies: This information has been disclosed to you from confidential records which are protected by state law. State law prohibits you from making any further disclosure of this information without the specific written consent of the person to whom it pertains, or as otherwise permitted by law. Any unauthorized further disclosure in violation of state law may result in a fine or nursing home sentence or both. A general authorization for the release of medical or other information is NOT sufficient authorization for further disc losure. Family History Family Member Name Family Member Gender Family Member Status Date o f Status Description Data Source(s) Unknown Unknown Problem MEDENT ([facility], ) Encounters Encounter Providers Location Date Indications Data Source(s ) Outpatient Attender: NAPOLEON JOY Main Office 05/05/2021 1 2:45:00 PM EDT MED[facility] ([facility]) OFFICE OUTPATIENT VISIT 15 MINUTES Attender: ACE JOY Physical Therapy 05/02/2021 04:15:00 PM EDT MED[facility] ([facility]) Outpatient Attender: ACE COHEN PAConsultant: STAFF NON 04/11/2021 01:30:53 PM EDT - 04/12/2021 01:12:00 PM EDT [facility] Patient discharged. Outpatient Attender: NAPOLEON JOY Main Office 04/11/2021 1 1:15:00 AM EDT MED[facility] ([facility]) Outpatient Attender: ACE JOY Physical Therapy 03/29/2021 11:00:00 AM EDT [facility] ([facility] ) Outpatient Attender: Kalen Barfield MD Main Office 03/28/2021 10:15:00 AM EDT MED[facility] ([facility]) Outpatient Attender: Francisca Syed 03/16 09:00:00 AM EDT [facility] ([facility] ) [place] [address] [address] [address] 02/01/2021 12:00:00 AM EDT [facility]1 ([facility]) [place] [address] [address] 12/19/2020 12:00:00 AM EDT [facility]CW1 ([facility]) [place] [address] [facility] [place] [address] 12/15/2020 12:00:00 AM EDT eCW1 ([facility]) [place] [address] [address] [address] 12/01/2020 12:00:00 AM EDT eCW1 ([facility]) [place]op [place] [address] [address] [address] 11/30/2020 12:00:00 AM EDT eCW1 ([facility]) Outpatient Attender: Francisca Syed 10/27 10:00:00 AM EDT MED[facility] ([facility] ) [place] [address] [address] [address] 10/13/2020 12:00:00 AM EDT eCW1 [facility] [place] [address] [address] 10/07/2020 12:00:00 AM EDT eCW1 ([facility]) [place] [address] [address] 10/06/2020 12:00:00 AM EDT eCW1 [facility] [place] [address] [address] 10/05/2020 12:00:00 AM EDT eCW1 ([facility]) [place] [address] [address] 10/04/2020 12:00:00 AM EDT eCW1 ([facility] [place]patient [address] [address] 09/20/2020 12:00:00 AM EST eCW1 ([facility]) Outpatient Attender: Francisca Syed 09/07 07:40:00 AM EST MED[facility] ([facility] ) Outpatient Attender: Francisca Syed 08/09 12:45:00 PM EST MED[facility] ([facility] ) Outpatient Attender: Francisca Syed 08/02 07:40:00 AM EST MED[facility] ([facility] ) Outpatient Attender: NAPOLEON BUENROSTRO PA Main Office 06/21/2020 0 7:45:00 AM EST [facility] ([facility] Outpatient Attender: Russ [place] 06/01/2020 08:00:00 AM EST MED[facility] ([facility], ) Outpatient Attender: Russ Long/[place] 05/05/2020 01:00:00 PM EDT MED[facility] ([facility], ) Outpatient Attender: DEVORA Long/[place] 04/04/2020 10:00:00 AM EDT MED[facility] ([facility], ) Outpatient Attender: Mikayla JOY Main Office 03/23/2020 08:45:0 0 AM EDT MED[facility] ([facility]) Immunizations Vaccine Date Status Description Data Source(s) pneumococcal polysaccharide PPV23 03/16/2021 09:37:00 AM EDT comple ana maria MEDANTONY ([facility]) COVID-19 VACCINE Moderna 08/28/2020 12:00:00 AM EST completed [facility] Vaccine Series Complete: YESThis Data wa s Submitted to [facility] Via [employer]. COVID-19 VACCINE, MRNA-1273, LNP-S (MODERNA)/PF 08/28/2020 1 2:00:00 AM EST completed [facility] COVID-19 VACCINE, MRNA-1273, LNP-S (MODERNA)/PF 07/31/2020 1 2:00:00 AM EST completed [facility] COVID-19 VACCINE Moderna 07/31/2020 12:00:00 AM EST completed [facility] Vaccine Series Complete: NOThis Data was Submitted to [facility] Via [employer]. This CVX code allows reporting of a vacc ination when formulation is unknown (for example, when recording a Influenza vaccination when noted on a vaccination card) 06/22/2020 11:56:00 AM EST completed MEDEN T ([facility]) INFLUENZA VACCINE QUADRIVALENT (65 YR UP)/MF59 C.1/PF 06/22/2020 12:00:00 AM EST completed [facility] Medications Medication Brand Name Start Date Product Form Dose Route Admi nistrative Instructions Pharmacy Instructions Status Indications Reaction Description Data Source(s) Losartan Potassium 50 MG Oral Tablet Losartan Potassium 12:00:00 AM EDT ORAL completed MED[facility] ([facility]) 50 mg 05/06/2021 12:00:00 AM EDT tablet 90 TAKE ONE TABLET BY MOUTH EVERY DAY TAKE ONE TABLET BY MOUTH EVERY DAY SOLD: 05/07/2021 [facility] 25 mg 05/06/2021 12:00:00 AM EDT tablet 45 TAKE ONE-HALF TABLET BY MOUTH EVERY DAY TAKE ONE-HALF TABLET BY MOUTH EVERY DAY SOLD: 05/07/2021 [facility] Losartan Potassium 50 MG Oral Tablet Losartan Potassium 12:00:00 AM EDT ORAL active [facility] Chlorthalidone 25 MG Oral Tablet Chlorthalidone 05/05/2021 12:00:00 A M EDT active [facility] Losartan Potassium 25 MG Oral Tablet Losartan Potassium 12:00:00 AM EDT ORAL completed [facility] ([facility]) Oxymetazoline hydrochloride 0.5 MG/ML Nasal [place] [Afrin] Af rin Nasal [place] 05/04/2021 12:00:00 AM EDT active [facility] ([facility]) 50 mg 04/15/2021 12:00:00 AM EDT tablet 30 TAKE 1 TABLET BY MOUTH EVERY 6 HOURS NEEDED FOR PAIN MAXIMUM DAILY DOSE = 4 TAKE 1 TABLET BY MOUTH EVERY 6 HOURS NEEDED FOR PAIN MAXIMUM DAILY DOSE = 4 SOLD: 05/13/2021 [facility] 50 mg 04/15/2021 12:00:00 AM EDT tablet 30 TAKE 1 TABLET BY MOUTH EVERY 6 HOURS NEEDED FOR PAIN MAXIMUM DAILY DOSE = 4 TAKE 1 TABLET BY MOUTH EVERY 6 HOURS NEEDED FOR PAIN MAXIMUM DAILY DOSE = 4 SOLD: 04/15/2021 [facility] aripiprazole 5 MG Oral Tablet Aripiprazole 04/10/2021 12:00:00 AM EDT ORAL active [facility] ([facility] Losartan Potassium 25 MG Oral Tablet Losartan Potassium 12:00:00 AM EDT ORAL completed [facility] ([facility]) tramadol hydrochloride 50 MG Oral Tablet Tramadol HCL 04/10/2021 12:00:00 AM EDT ORAL active [facility] ([facility] tramadol hydrochloride 50 MG Oral Tablet Tramadol HCL 03/29/2021 12:00:00 AM EDT active [facility] 50 mg 03/29/2021 12:00:00 AM EDT tablet 30 TAKE ONE TABLET BY MOUTH EVERY 6 HOURS NEEDED FOR PAIN MAXIMUM DAILY DOSE = 4 TAKE ONE TABLET BY MOUTH EVERY 6 HOURS NEEDED FOR PAIN MAXIMUM DAILY DOSE = 4 SOLD: 03/29/2021 [facility] Sutab Sutab 03/28/2021 12:00:00 AM EDT active [facility] ([facility]) 1.479-0.188- 0.225 gram 03/28/2021 12:00:00 AM EDT tablet 24 TAKE DIRECTED TAKE DIRECTED SOLD: 03/29/2021 [facility] 20 mEq 03/17/2021 12:00:00 AM EDT tablet,ER particles/cry stals 30 TAKE ONE TABLET BY MOUTH EVERY DAY TAKE ONE TABLET BY MOUTH EVERY DAY SOLD: 03/21/2021 [facility] Klor-Con M20 Klor-Con M20 03/16/2021 12:00:00 AM EDT ORAL active MED[facility] ([facility]) 5 mg 03/07/2021 12:00:00 AM EDT tablet 30 TAKE ONE TABLET BY MOUTH EVERY DAY TAKE ONE TABLET BY MOUTH EVERY DAY SOLD: 03/08/2021 [facility] 5 mg 03/07/2021 12:00:00 AM EDT tablet 30 TAKE ONE TABLET BY MOUTH EVERY DAY TAKE ONE TABLET BY MOUTH EVERY DAY SOLD: 05/02/2021 [facility] aripiprazole 5 MG Oral Tablet Aripiprazole 03/07/2021 12:00:00 AM EDT ORAL active MED[facility] ([facility]) 250-50 mcg/dose 03/02/2021 12:00:00 AM EDT blister with julianna ce 60 INHALE ONE PUFF BY MOUTH TWICE A DAY INHALE ONE PUFF BY MOUTH TWICE A DAY SOLD: 03/02/2021 [facility] Alprazolam 0.25 MG Oral Tablet ALPRAZOLAM 03/02/2021 12:00:00 AM EDT tablet 30 TAKE ONE TABLET BY MOUTH TWICE A DAY NEEDED FOR ANXIETY MAXIMUM DAILY DOSE = 2 TAKE ONE TABLET BY MOUTH TWICE A DAY NEEDED FOR ANXIETY MAXIMUM DAILY DOSE = 2 SOLD: 03/02/2021 [facility] 5-325 mg 12/29/2020 12:00:00 AM EDT tablet 20 TAKE ONE TABLET BY MOUTH EVERY 6 HOURS NEEDED FOR MODERATE/SEVERE PAIN (PS 5-10) MAXIMUM DAILY DOSE = 4 TAKE ONE TABLET BY MOUTH EVERY 6 HOURS NEEDED FOR MODERATE/SEVERE PAIN (PS 5- 10) MAXIMUM DAILY DOSE = 4 SOLD: 12/29/2020 [facility] 0.4 mg 12/29/2020 12:00:00 AM EDT capsule 20 TAKE ONE CAPSULE BY MOUTH EVERY DAY TAKE ONE CAPSULE BY MOUTH EVERY DAY SOLD: 12/29/2020 [facility] Acetaminophen 325 MG / Oxycodone Hydroch loride 5 MG Oral Tablet [Percocet] Percocet 5-325 MG Percocet 5-325 MG 12/19/2020 12:00:00 AM EDT 1 .0 {tablet_as_needed} active Percocet 5-32 5 MG eCW1 ([facility]) Acetaminophen 325 MG / Oxycodone Hydroch loride 5 MG Oral Tablet [Percocet] Percocet 5-325 MG Percocet 5-325 MG 12/19/2020 12:00:00 AM EDT 1 .0 {tablet_as_needed} suspended Percocet 5- 325 MG eCW1 ([facility]) 5-325 mg 12/19/2020 12:00:00 AM EDT tablet 28 TAKE 1 TABLET BY MOUTH EVERY 6 HOURS FOR 7 DAYS MAXIMUM DAILY DOSE = 4 TAKE 1 TABLET BY MOUTH EVERY 6 HOURS FOR 7 DAYS MAXIMUM DAILY DOSE = 4 SOLD: 12/20/2020 [facility] 100 mg 12/07/2020 12:00:00 AM EDT tablet 30 TAKE ONE TABLET BY MOUTH EVERY DAY TAKE ONE TABLET BY MOUTH EVERY DAY SOLD: 05/07/2021 [facility] 100 mg 12/07/2020 12:00:00 AM EDT tablet 30 TAKE ONE TABLET BY MOUTH EVERY DAY TAKE ONE TABLET BY MOUTH EVERY DAY SOLD: 01/31/2021 [facility] 100 mg 12/07/2020 12:00:00 AM EDT tablet 30 TAKE ONE TABLET BY MOUTH EVERY DAY TAKE ONE TABLET BY MOUTH EVERY DAY SOLD: 01/04/2021 [facility] 100 mg 12/07/2020 12:00:00 AM EDT tablet 30 TAKE ONE TABLET BY MOUTH EVERY DAY TAKE ONE TABLET BY MOUTH EVERY DAY SOLD: 04/05/2021 [facility] 100 mg 12/07/2020 12:00:00 AM EDT tablet 30 TAKE ONE TABLET BY MOUTH EVERY DAY TAKE ONE TABLET BY MOUTH EVERY DAY SOLD: 12/07/2020 [facility] 100 mg 12/07/2020 12:00:00 AM EDT tablet 30 TAKE ONE TABLET BY MOUTH EVERY DAY TAKE ONE TABLET BY MOUTH EVERY DAY SOLD: 03/02/2021 [facility] 5-325 mg 11/30/2020 12:00:00 AM EDT tablet 28 TAKE ONE TABLET BY MOUTH EVERY 6 HOURS NEEDED, MAXIMUM DAILY DOSE = 4 TAKE ONE TABLET BY MOUTH EVERY 6 HOURS NEEDED, MAXIMUM DAILY DOSE = 4 SOLD: 11/30/2020 [facility] Acetaminophen 325 MG / Oxycodone Hydroch loride 5 MG Oral Tablet [Percocet] Percocet 5-325 MG Percocet 5-325 MG 11/30/2020 12:00:00 AM EDT 1 .0 {tablet_as_needed} active eCW1 ([facility]) Acetaminophen 325 MG / Oxycodone Hydroch loride 5 MG Oral Tablet [Percocet] Percocet 5-325 MG Percocet 5-325 MG 11/30/2020 12:00:00 AM EDT 1 .0 {tablet_as_needed} active Percocet 5-32 5 MG eCW1 ([facility]) Acetaminophen 325 MG / Oxycodone Hydroch loride 5 MG Oral Tablet [Percocet] Percocet 5-325 MG Percocet 5-325 MG 11/30/2020 12:00:00 AM EDT 1 .0 {tablet_as_needed} active Percocet 5-32 5 MG eCW1 ([facility]) 5-325 mg 11/03/2020 12:00:00 AM EDT tablet 20 TAKE ONE TABLET BY MOUTH EVERY 6 HOURS NEEDED FOR MODERATE/SEVERE PAIN (PS 5-10) MAXIMUM DAILY DOSE = 4 TAKE ONE TABLET BY MOUTH EVERY 6 HOURS NEEDED FOR MODERATE/SEVERE PAIN (PS 5- 10) MAXIMUM DAILY DOSE = 4 SOLD: 11/03/2020 [facility] 0.4 mg 11/03/2020 12:00:00 AM EDT capsule 20 TAKE ONE CAPSULE BY MOUTH EVERY DAY TAKE ONE CAPSULE BY MOUTH EVERY DAY SOLD: 11/03/2020 [facility] Diclofenac Potassium 50 MG Oral Tablet Diclofenac Potassium 50 MG 10/13/2020 12:00:00 AM EDT 1.0 {tablet_with_food_or_milk} activ e eCW1 ([facility]) 50 mg 10/13/2020 12:00:00 AM EDT tablet 60 TAKE ONE TABLET BY MOUTH TWICE A DAY WITH FOOD OR MILK TAKE ONE TABLET BY MOUTH TWICE A DAY WITH FOOD OR MILK SOLD: 10/13/2020 [facility] Diclofenac Potassium 50 MG Oral Tablet Diclofenac Potassium 50 MG 10/13/2020 12:00:00 AM EDT 1.0 {tablet_with_food_or_milk} a ctive Diclofenac Potassium 50 MG eCW1 ([facility]) Diclofenac Potassium 50 MG Oral Tablet Diclofenac Potassium 50 MG 10/13/2020 12:00:00 AM EDT 1.0 {tablet_with_food_or_milk} a ctive Diclofenac Potassium 50 MG eCW1 ([facility]) Diclofenac Potassium 50 MG Oral Tablet Diclofenac Potassium 50 MG 10/13/2020 12:00:00 AM EDT 1.0 {tablet_with_food_or_milk} a ctive Diclofenac Potassium 50 MG eCW1 ([facility]) Diclofenac Potassium 50 MG Oral Tablet Diclofenac Potassium 50 MG 10/13/2020 12:00:00 AM EDT 1.0 {tablet_with_food_or_milk} a ctive Diclofenac Potassium 50 MG eCW1 ([facility]) Diclofenac Potassium 50 MG Oral Tablet Diclofenac Potassium 50 MG 10/13/2020 12:00:00 AM EDT 1.0 {tablet_with_food_or_milk} s uspended Diclofenac Potassium 50 MG eCW1 ([facility]) 4 mg 10/12/2020 12:00:00 AM EDT tablet 60 TAKE ONE TABLET BY MOUTH EVERY 4 HOURS NEEDED FOR NAUSEA TAKE ONE TABLET BY MOUTH EVERY 4 HOURS A S NEEDED FOR NAUSEA SOLD: 10/13/2020 [facility] 4 mg 10/12/2020 12:00:00 AM EDT tablet 60 TAKE ONE TABLET BY MOUTH EVERY 4 HOURS NEEDED FOR NAUSEA TAKE ONE TABLET BY MOUTH EVERY 4 HOURS A S NEEDED FOR NAUSEA SOLD: 01/11/2021 [facility] 4 mg 10/12/2020 12:00:00 AM EDT tablet 60 TAKE ONE TABLET BY MOUTH EVERY 4 HOURS NEEDED FOR NAUSEA TAKE ONE TABLET BY MOUTH EVERY 4 HOURS A S NEEDED FOR NAUSEA SOLD: 03/21/2021 [facility] 4 mg 10/12/2020 12:00:00 AM EDT tablet 60 TAKE ONE TABLET BY MOUTH EVERY 4 HOURS NEEDED FOR NAUSEA TAKE ONE TABLET BY MOUTH EVERY 4 HOURS A S NEEDED FOR NAUSEA SOLD: 11/23/2020 [facility] Naproxen sodium 550 MG Oral Tablet Naproxen Sodium 550 MG Naproxen Sodium 550 MG 10/07/2020 12:00:00 AM EDT active Naproxen Sodium 550 MG eCW1 ([facility]) Naproxen sodium 550 MG Oral Tablet Naproxen Sodium 550 MG Naproxen Sodium 550 MG 10/07/2020 12:00:00 AM EDT suspended Naproxen Sodium 550 MG eCW1 ([facility]) Naproxen sodium 550 MG Oral Tablet Naproxen Sodium 550 MG Naproxen Sodium 550 MG 10/07/2020 12:00:00 AM EDT active Naproxen Sodium 550 MG eCW1 ([facility]) Naproxen sodium 550 MG Oral Tablet Naproxen Sodium 550 MG Naproxen Sodium 550 MG 10/07/2020 12:00:00 AM EDT active Naproxen Sodium 550 MG eCW1 ([facility]) Naproxen sodium 550 MG Oral Tablet Naproxen Sodium 550 MG Naproxen Sodium 550 MG 10/07/2020 12:00:00 AM EDT active Naproxen Sodium 550 MG eCW1 ([facility]) Naproxen sodium 550 MG Oral Tablet Naproxen Sodium 550 MG Naproxen Sodium 550 MG 10/07/2020 12:00:00 AM EDT active eCW1 ([facility]) Naproxen sodium 550 MG Oral Tablet Naproxen Sodium 550 MG Naproxen Sodium 550 MG 10/07/2020 12:00:00 AM EDT active Naproxen Sodium 550 MG eCW1 ([facility]) Alprazolam 0.25 MG Oral Tablet ALPRAZOLAM 09/27/2020 12:00:00 AM EDT tablet 30 TAKE ONE TABLET BY MOUTH TWICE A DAY NEEDED FOR ANXIETY MAXIMUM DAILY DOSE = 2 TABLETS TAKE ONE TABLET BY MOUTH TWICE A DAY NEEDED FOR ANXIETY MAXIMUM DAILY DOSE = 2 TABLETS SOLD: 09/27/2020 [facility] Alprazolam 0.25 MG Oral Tablet [Xanax] Xanax 09/26/2020 12:00:00 AM EDT ORAL completed [facility] ([facility]) Ketorolac Tromethamine 10 MG Oral Tablet Ketorolac Trometham ine 10 MG 09/20/2020 12:00:00 AM EST active eCW1 ([facility]) Ketorolac Tromethamine 10 MG Oral Tablet Ketorolac Trometham ine 10 MG 09/20/2020 12:00:00 AM EST active Ketorol ac Tromethamine 10 MG eCW1 ([facility]) Ketorolac Tromethamine 10 MG Oral Tablet Ketorolac Trometham ine 10 MG 09/20/2020 12:00:00 AM EST active Ketorol ac Tromethamine 10 MG eCW1 ([facility]) Ketorolac Tromethamine 10 MG Oral Tablet Ketorolac Trometham ine 10 MG 09/20/2020 12:00:00 AM EST active Ketorol ac Tromethamine 10 MG eCW1 ([facility]) Ketorolac Tromethamine 10 MG Oral Tablet Ketorolac Trometham ine 10 MG 09/20/2020 12:00:00 AM EST active Ketorol ac Tromethamine 10 MG eCW1 ([facility]) Ketorolac Tromethamine 10 MG Oral Tablet Ketorolac Trometham ine 10 MG 09/20/2020 12:00:00 AM EST active Ketorol ac Tromethamine 10 MG eCW1 ([facility]) Ketorolac Tromethamine 10 MG Oral Tablet Ketorolac Trometham ine 10 MG 09/20/2020 12:00:00 AM EST active Ketorol ac Tromethamine 10 MG eCW1 ([facility]) Ketorolac Tromethamine 10 MG Oral Tablet Ketorolac Trometham ine 10 MG 09/20/2020 12:00:00 AM EST active Ketorol ac Tromethamine 10 MG eCW1 ([facility]) 10 mg 09/20/2020 12:00:00 AM EST tablet 20 TAKE ONE TABLET BY MOUTH EVERY 6 HOURS NEEDED WITH FOOD OR MILK TAKE ONE TABLET BY MOUTH EVERY 6 HOURS A S NEEDED WITH FOOD OR MILK SOLD: 09/20/2020 [facility] Ketorolac Tromethamine 10 MG Oral Tablet Ketorolac Trometham ine 10 MG 09/20/2020 12:00:00 AM EST suspended Keto rolac Tromethamine 10 MG eCW1 ([facility]) Ketorolac Tromethamine 10 MG Oral Tablet Ketorolac Trometham ine 10 MG 09/20/2020 12:00:00 AM EST active Ketorol ac Tromethamine 10 MG eCW1 ([facility]) Ketorolac Tromethamine 10 MG Oral Tablet Ketorolac Trometham ine 10 MG 09/20/2020 12:00:00 AM EST active Ketorol ac Tromethamine 10 MG eCW1 ([facility]) 25 mg 2020 12:00:00 AM EST tablet 60 TAKE ONE TABLET BY MOUTH TWICE A DAY TAKE ONE TABLET BY MOUTH TWICE A DAY SOLD: 10/11/2020 [facility] 25 mg 2020 12:00:00 AM EST tablet 60 TAKE ONE TABLET BY MOUTH TWICE A DAY TAKE ONE TABLET BY MOUTH TWICE A DAY SOLD: 05/02/2021 [facility] Losartan Potassium 25 MG Oral Tablet Losartan Potassium 12:00:00 AM EST ORAL active [facility] ([facility]) 25 mg 2020 12:00:00 AM EST tablet 60 TAKE ONE TABLET BY MOUTH TWICE A DAY TAKE ONE TABLET BY MOUTH TWICE A DAY SOLD: 02/21/2021 [facility] 25 mg 2020 12:00:00 AM EST tablet 60 TAKE ONE TABLET BY MOUTH TWICE A DAY TAKE ONE TABLET BY MOUTH TWICE A DAY SOLD: 03/26/2021 [facility] 25 mg 2020 12:00:00 AM EST tablet 60 TAKE ONE TABLET BY MOUTH TWICE A DAY TAKE ONE TABLET BY MOUTH TWICE A DAY SOLD: 11/23/2020 [facility] 25 mg 2020 12:00:00 AM EST tablet 60 TAKE ONE TABLET BY MOUTH TWICE A DAY TAKE ONE TABLET BY MOUTH TWICE A DAY SOLD: 01/04/2021 [facility] 25 mg 2020 12:00:00 AM EST tablet 60 TAKE ONE TABLET BY MOUTH TWICE A DAY TAKE ONE TABLET BY MOUTH TWICE A DAY SOLD: 09/08/2020 [facility] Covid-19 vaccine, Unspecified 08/28/2020 12:00:00 AM EST completed [facility] ([facility]) Medication administered onsite 250-50 mcg/dose 08/03/2020 12:00:00 AM EST blister with julianna ce 60 INHALE ONE PUFF BY MOUTH TWICE A DAY INHALE ONE PUFF BY MOUTH TWICE A DAY SOLD: 08/03/2020 [facility] Azithromycin 500 MG Oral Tablet Azithromycin 08/02/2020 12:00:[address] ORAL completed [facility] ([facility]) Prednisone 20 MG Oral Tablet Prednisone 08/02/2020 12:00:00 AM EST ORAL completed [facility] ([facility]) 60 ACTUAT Fluticasone propionate 0.25 MG /ACTUAT / salmeterol 0.05 MG/ACTUAT Dry Powder Inhaler [Advair] Advair Diskus 08/02/2020 12:00:00 AM EST RESPIRATORY active [facility] ([facility]) 20 mg 08/02/2020 12:00:00 AM EST tablet 14 TAKE TWO TABLETS BY MOUTH EVERY DAY FOR 7 DAYS TAKE TWO TABLETS BY MOUTH EVERY DAY FOR 7 DAYS SOLD: 021 [facility] 500 mg 08/02/2020 12:00:00 AM EST tablet 8 TAKE ONE TABLET BY MOUTH EVERY DAY FOR 8 DAYS TAKE ONE TABLET BY MOUTH EVERY DAY FOR 8 DAYS SOLD: 08/02/2020 [facility] 20 mEq 08/02/2020 12:00:00 AM EST tablet,ER particles/cry stals 60 TAKE 1 TABLET BY MOUTH NOW THEN REPEAT IN 2 HOURS THEN AGAIN IN 2 HOURS. STARTING TOMORROW TAKE 1 TABLET TWICE A DAY FOR 2 DAYS THEN ONCE DAILY THEREAFTER. TAKE 1 TABLET BY MOUTH NOW THEN REPEAT IN 2 HOURS THEN AGAIN IN 2 HOURS. STARTING TOMORROW TAKE 1 TABLET TWICE A DAY FOR 2 DAYS THEN ONCE DAILY THEREAFTER. SOLD: 08/03/2020 [facility] Klor-Con M20 Klor-Con M20 08/02/2020 12:00:00 AM EST ORAL completed [facility] ([facility]) Covid-19 vaccine, Unspecified 07/31/2020 12:00:00 AM EST completed [facility] ([facility]) Medication administered onsite 90 mcg/actuation 07/20/2020 12:00:00 AM EST HFA aerosol inha ler 8 INHALE TWO PUFFS BY MOUTH FOUR TIMES A DAY NEEDED INHALE TWO PUFFS BY MOUTH FOUR TIMES A DAY NEEDED SOLD: 07/24/2020 [facility] 300 mg 07/01/2020 12:00:00 AM EST capsule 30 TAKE ONE CAPSULE BY MOUTH THREE TIMES A DAY TAKE ONE CAPSULE BY MOUTH THREE TIMES A DAY SOLD: 07/01/2020 [facility] 10 mg 07/01/2020 12:00:00 AM EST tablet 40 TAKE TWO TABS. BY MOUTH TWICE A DAY FOR 4 DAYS, THEN 1 TAB. THREE TIMES DAILY FOR 4 DAYS, THEN 1 TAB. TWICE DAILY FOR 4 DAYS, THEN 1 TAB. DAILY FOR 4 DAYS TAKE TWO TABS. BY MOUTH TWICE A DAY FOR 4 DAYS, THEN 1 TAB. THREE TIMES DAILY FOR 4 DAYS, THEN 1 TAB. TWICE DAILY FOR 4 DAYS, THEN 1 TAB. DAILY FOR 4 DAYS SOLD: 07/01/2020 [facility] Coq-10 Fast Dissolve 06/21/2020 12:00:00 AM EST ORAL active [facility] ([facility]) Cholecalciferol 1000 UNT Oral Capsule Vitamin D3 06/20/2020 12:00:00 AM EST ORAL active [facility] ([facility] 12 HR Guaifenesin 600 MG Extended Release Oral Tablet [Mucin ex] Mucinex 06/20/2020 12:00:00 AM EST ORAL active [facility] ([facility]) Acetaminophen 325 MG / Dextromethorphan Hydrobromide 10 MG / Guaifenesin 200 MG / Phenylephrine Hydrochloride 5 MG Oral Tablet Tylenol Cold/Flu Severe 06/20/2020 12:00:00 AM EST ORAL active [facility] ([facility]) Advil Dual Action /Acetaminophen Advil Dual Action /Acetamin ophen 06/20/2020 12:00:00 AM EST ORAL active M [facility] ([facility]) 300 mg 05/20/2020 12:00:00 AM EST capsule 14 TAKE ONE CAPSULE BY MOUTH THREE TIMES A DAY TAKE ONE CAPSULE BY MOUTH THREE TIMES A DAY SOLD: 05/25/2020 [facility] 100 mg 05/12/2020 12:00:00 AM EDT tablet 30 TAKE ONE TABLET BY MOUTH EVERY DAY TAKE ONE TABLET BY MOUTH EVERY DAY SOLD: 10/11/2020 [facility] 100 mg 05/12/2020 12:00:00 AM EDT tablet 30 TAKE ONE TABLET BY MOUTH EVERY DAY TAKE ONE TABLET BY MOUTH EVERY DAY SOLD: 05/13/2020 [facility] 100 mg 05/12/2020 12:00:00 AM EDT tablet 30 TAKE ONE TABLET BY MOUTH EVERY DAY TAKE ONE TABLET BY MOUTH EVERY DAY SOLD: 2020 [facility] 100 mg 05/12/2020 12:00:00 AM EDT tablet 30 TAKE ONE TABLET BY MOUTH EVERY DAY TAKE ONE TABLET BY MOUTH EVERY DAY SOLD: 06/12/2020 [facility] 100 mg 05/12/2020 12:00:00 AM EDT tablet 30 TAKE ONE TABLET BY MOUTH EVERY DAY TAKE ONE TABLET BY MOUTH EVERY DAY SOLD: 08/08/2020 [facility] 100 mg 05/12/2020 12:00:00 AM EDT tablet 30 TAKE ONE TABLET BY MOUTH EVERY DAY TAKE ONE TABLET BY MOUTH EVERY DAY SOLD: 07/10/2020 [facility] 100 mg 05/12/2020 12:00:00 AM EDT tablet 30 TAKE ONE TABLET BY MOUTH EVERY DAY TAKE ONE TABLET BY MOUTH EVERY DAY SOLD: 11/09/2020 [facility] 10 mg 05/05/2020 12:00:00 AM EDT tablet 50 TAKE 2 TABS. BY MOUTH TWICE DAILY FOR 5 DAYS, THEN 1 TAB. THREE TIMES DAILY FOR 5 DAYS, THEN 1 TAB. TWICE DAILY FOR 5 DAYS, THEN 1 TAB. DAILY FOR 5 DAYS TAKE 2 TABS. BY MOUTH TWICE DAILY FOR 5 DAYS, THEN 1 TAB. THREE TIMES DAILY FOR 5 DAYS, THEN 1 TAB. TWICE DAILY FOR 5 DAYS, THEN 1 TAB. DAILY FOR 5 DAYS SOLD: 05/13/2020 [facility] 300 mg 05/05/2020 12:00:00 AM EDT capsule 30 TAKE ONE CAPSULE BY MOUTH THREE TIMES A DAY FOR 10 DAYS TAKE ONE CAPSULE BY MOUTH THREE TIMES A DAY FOR 10 DAYS SOLD: 05/05/2020 [facility] Prednisone 10 MG Oral Tablet Prednisone 05/05/2020 12:00:00 AM EDT ORAL active [facility] ([facility] ) 25 mg 04/29/2020 12:00:00 AM EDT tablet 30 TAKE ONE TABLET BY MOUTH EVERY DAY WITH 100MG TABLET TAKE ONE TABLET BY MOUTH EVERY DAY WITH 100MG TABLET S OLD: 04/30/2020 [facility] Clindamycin 300 MG Oral Capsule CLINDAMYCIN HCL 04/26/2020 12:00 :00 AM EDT capsule 21 TAKE ONE CAPSULE BY MOUTH THREE TIMES A DAY TAKE ONE CAPSULE BY MOUTH THREE TIMES A DAY SOLD: 04/26/2020 [facility] Clindamycin 300 MG Oral Capsule Clindamycin HCL 04/26/2020 12:00:00 A M EDT ORAL active [facility] ([facility] ) Acetaminophen 500 MG Oral Tablet Acetaminophen Extra Strengt h 03/22/2020 12:00:00 AM EDT ORAL completed [facility] ([facility] Omeprazole 40 MG Delayed Release Oral Capsule [Prilosec] Minnie losec 03/22/2020 12:00:00 AM EDT ORAL active M EDENT ([facility]) carvedilol 6.25 MG Oral Tablet CARVEDILOL 03/17/2020 12:00:00 AM EDT tablet 60 TAKE ONE TABLET BY MOUTH TWICE A DAY TAKE ONE TABLET BY MOUT H TWICE A DAY SOLD: 03/22/2020 [facility] carvedilol 6.25 MG Oral Tablet Carvedilol 03/17/2020 12:00:00 AM EDT ORAL completed [facility] ([facility]) 25 mg 03/15/2020 12:00:00 AM EDT tablet 90 TAKE ONE TABLET BY MOUTH EVERY DAY TAKE ONE TABLET BY MOUTH EVERY DAY SOLD: 10/11/2020 [facility] 25 mg 03/15/2020 12:00:00 AM EDT tablet 90 TAKE ONE TABLET BY MOUTH EVERY DAY TAKE ONE TABLET BY MOUTH EVERY DAY SOLD: 06/17/2020 [facility] 25 mg 03/15/2020 12:00:00 AM EDT tablet 90 TAKE ONE TABLET BY MOUTH EVERY DAY TAKE ONE TABLET BY MOUTH EVERY DAY SOLD: 01/11/2021 [facility] 25 mg 03/15/2020 12:00:00 AM EDT tablet 90 TAKE ONE TABLET BY MOUTH EVERY DAY TAKE ONE TABLET BY MOUTH EVERY DAY SOLD: 03/17/2020 [facility] 4 mg 02/09/2020 12:00:00 AM EDT tablet 60 TAKE ONE TABLET BY MOUTH EVERY 4 HOURS NEEDED FOR NAUSEA TAKE ONE TABLET BY MOUTH EVERY 4 HOURS A S NEEDED FOR NAUSEA SOLD: 08/18/2020 [facility] 4 mg 02/09/2020 12:00:00 AM EDT tablet 60 TAKE ONE TABLET BY MOUTH EVERY 4 HOURS NEEDED FOR NAUSEA TAKE ONE TABLET BY MOUTH EVERY 4 HOURS A S NEEDED FOR NAUSEA SOLD: 04/19/2020 [facility] 300 mg 02/09/2020 12:00:00 AM EDT capsule 270 TAKE ONE CAPSULE BY MOUTH THREE TIMES A DAY TAKE ONE CAPSULE BY MOUTH THREE TIMES A DAY SOLD: 01/31/2021 [facility] 300 mg 02/09/2020 12:00:00 AM EDT capsule 270 TAKE ONE CAPSULE BY MOUTH THREE TIMES A DAY TAKE ONE CAPSULE BY MOUTH THREE TIMES A DAY SOLD: 09/20/2020 [facility] 300 mg 02/09/2020 12:00:00 AM EDT capsule 270 TAKE ONE CAPSULE BY MOUTH THREE TIMES A DAY TAKE ONE CAPSULE BY MOUTH THREE TIMES A DAY SOLD: 05/13/2020 [facility] 4 mg 02/09/2020 12:00:00 AM EDT tablet 60 TAKE ONE TABLET BY MOUTH EVERY 4 HOURS NEEDED FOR NAUSEA TAKE ONE TABLET BY MOUTH EVERY 4 HOURS A S NEEDED FOR NAUSEA SOLD: 06/22/2020 [facility] 25 mg 02/08/2020 12:00:00 AM EDT tablet 30 TAKE ONE TABLET BY MOUTH EVERY DAY WITH 100MG TABLET TAKE ONE TABLET BY MOUTH EVERY DAY WITH 100MG TABLET S OLD: 03/17/2020 [facility] Sertraline 25 MG Oral Tablet Sertraline HCL 02/08/2020 12:00:00 AM EDT completed [facility] ([facility]) Prednisone 10 MG Oral Tablet Prednisone 12/16/2019 12:00:00 AM EDT ORAL completed [facility] ([facility] Clindamycin 150 MG Oral Capsule Clindamycin HCL 12/16/2019 12:00:00 A M EDT ORAL completed [facility] ([facility] 100 mg 11/03/2019 12:00:00 AM EDT tablet 30 TAKE ONE TABLET BY MOUTH EVERY DAY TAKE ONE TABLET BY MOUTH EVERY DAY SOLD: 04/19/2020 [facility] 100 mg 11/03/2019 12:00:00 AM EDT tablet 30 TAKE ONE TABLET BY MOUTH EVERY DAY TAKE ONE TABLET BY MOUTH EVERY DAY SOLD: 03/22/2020 [facility] 100 mg 08/19/2019 12:00:00 AM EST tablet 120 TAKE 1 & 1/2 TABLETS BY MOUTH ONCE DAILY TAKE 1 & 1/2 TABLETS BY MOUTH ONCE DAILY SOLD: 06/04/2020 [facility] carvedilol 25 MG Oral Tablet CARVEDILOL 06/30/2019 12:00:00 AM EST tab let 90 TAKE 1/2 TABLET BY MOUTH TWO TIMES A DAY TAKE 1/2 TABLET BY MOUTH TWO TIMES A DAY SOLD: 04/26/2020 [facility] Insurance Providers Payer name Policy type / Coverage type Policy ID Covered alliance party ID Covered alliance party's relationship to henley Policy [place] Plan Information Medicaid Medigap Part B [id number] Self [id number] Medicaid Medigap Part B [id number] Self Medicaid Medigap Part B [id number] Self [id number] Medicaid Medigap Part B [id number] Self [id number] Medicaid Medigap Part B [id number] [facility] () Workers Compensation [id number] Self [id number] [facility] () Workers Compensation [id number] Self [id number] Medicare (Part B) Medicare Primary [id number] Self [id number] Medicare Medigap Part B [id number] Self [id number] Medicare Medigap Part B [id number] Self Medicare Natl [employer] Medicare Primary [id number] Self [id number] Medicare Natl Govt Servic Medicare Primary [id number] Self [id number] Medicare (Part B) Medicare Primary [id number] Self [id number] [employer] [id number] S [id number] MEDICARE - [place] [id number] S [id number] Medicare Natl Govt Servic Medicare Primary [id number] Self [id number] Medicare Natl Govt Servic Medicare Primary [id number] Self [id number] Medicare Medigap Part B [id number] Self [id number] Medicare Natl Govt Servic Medicare Primary [id number] Self [id number] Medicare Natl Govt Servic Medicare Primary [id number] Self [id number] Medicare Natl Govt Servic Medicare Primary [id number] Self [id number] Medicare (Part B) Medicare Primary [id number] Self [id number] Medicare Natl Govt Servic Medicare Primary [id number] Self [id number] MEDICARE A [id number] Self [id number] Medicare Medigap Part B [id number] Self [id number] Medicare Natl [employer]t Servic Medicare Primary [id number] Self [id number] Medicare Natl [employer]t [employer]ic Medicare Primary [id number] Self [id number] Medicare Natl [employer]t [employer]ic Medicare Primary [id number] Self [id number] Medicare Natl [employer]t [employer] Medicare Primary [id number] Self [id number] MEDICARE [id number] SP [id number] A Medicare Natl [employer]t [employer] Medicare Primary [id number] Self Medicare (Part B) Medicare Primary [id number] Self [id number] Medicare Natl Govt Servic Medicare Primary [id number] Self [id number] MEDICARE M [id number] S [id number] MEDICARE M [id number] S [id number] A Medicare Medicare Primary [id number] Self MEDICARE [id number] SP [id number] A MEDICARE [id number] SP [id number] MEDICARE [id number] SP [id number] A Medicare Medigap Part B [id number] Self [id number] Medicare Natl Govt Serv Medicare Primary [id number] Self [id number] Medicare Natl Govt Servic Medicare Primary [id number] Self [id number] Medicare Natl Govt Servic Medicare Primary [id number] Self [id number] Medicare Natl Govt Serv Medicare Primary [id number] Self [id number] [employer] Medigap Part B [id number] Family Dependent [id number] BCBS Ppo [place] Medigap Part B [id number] 2.840.1.134970.3.227.99.572.45.0 Family Dependent [id number] BCBS Ppo [place] Medigap Part B [id number] 2.840.1.102060.3.227.99.572.45.0 Family Dependent [id number] BCBS Ppo [place] Med[place] B [id number] Family Depende nt BCBS Ppo [place] Medigap Part B [id number] 2.840.1.687015.3.227.99.572.45.0 Family Dependent [id number] [place] [id number] [id number] Self BS [place] Medig[place] Part B [id number] 2.840.1.978254.3.227.99.991.40393.0 Family Dependent Z [id number] BS [place] Medigap Part B [id number] 2.0.1.572795.3.227.99.991.44604.0 Family Dependent Z [id number] BS [place] Medigap Part B [id number] 2.840.1.254674.3.227.99.991.25946.0 Family Dependent Z [id number] BS [place] Medigap Part B [id number] 2.0.1.111947.3.227.99.991.06046.0 Family Dependent Z [id number] BS [place] Medigap Part B [id number] Family Dependent [id number] BS [place] Medigap Part B [id number] 2.0.1.993937.3.227.99.991.11956.0 Family Dependent Z [id number] BS [place] Medigap Part B 2.0.1.359214.3. 227.99.991.41396.0 Family Dependent BS [place] Medigap Part B [id number] 2.0.1.944903.3.227.99.991.91871.0 Family Dependent Z [id number] BS [place] Medigap Part B [id number] 2.840.1.261901.3.227.99.991.19107.0 Family Dependent Z [id number] [employer] BCBS Medigap Part B [id number] 2.0.1.483398.3.227.99.8646.05407.0 Family Dependent [id number] BC/BS Of [place] Medigap Part B [id number] 2.0.1.530201.3.227.99.572.45.0 Family Dependent [id number] BC/BS Of [place] Medigap Part B [id number] Family Dependent BC/BS Of [place] Medigap Part B [id number] 2.0.1.322567.3.227.99.572.45.0 Family Dependent [id number] BC/BS Of [place] Medigap Part B [id number] 2.0.1.169015.3.227.99.572.45.0 Family Dependent [id number] BC/BS Of [place] Medigap Part B [id number] 2.0.1.191198.3.227.99.572.45.0 Family Dependent [id number] BS [place] Trad/MX Medigap Part B [id number] Family Dependent [id number] BS [place] Trad/MX Commercial Epo [id number] Family Dependent Epo 6017 Blue Ppo Medigap Part B [id number] Family Dependent Blue Ppo Medigap Part B [id number] 2.0.1.794026.3.227.99 .572.45.0 Family Dependent [id number] Blue Ppo Medigap Part B [id number] 2.0.1.943723.3.227.99 .572.45.0 Family Dependent [id number] Blue Ppo Medigap Part B [id number] 2.0.1.802686.3.227.99 .572.45.0 Family Dependent [id number] Blue Ppo Medigap Part B [id number] 2.0.1.772920.3.227.99 .572.45.0 Family Dependent [id number] BCBS Of [facility] Ppo Medigap Part B [address] Family Dependent BCBS Of [facility] Ppo Medigap Part B [id number] 2.0.1.418034.3.227.99.572.45.0 Family Dependent [id number] BCBS Of [place] P[place] Med[place]ap Part B [id number] 2.840.1.363960.3.227.99.572.45.0 Family Dependent [id number] [place]BS [place] P[place] Med[place] Part B [id number] 2.16840.1.124938.3.227.99.572.45.0 Family Dependent [id number] [place]BS [place] P[place] Med[place] Part B [id number] 2.0.1.619193.3.227.99.572.45.0 Family Dependent [id number] BS [place] Medigap Part B [id number] 2.0.1.256715.3.227.99.991.89755.0 Family Dependent Y [id number] BS [place] Commercial 303 2.0.1.121624.3.22 7.99.991.54962.0 Family Dependent 303 BS [place] Medigap Part B [id number] 2.0.1.778610.3.227.99.991.11031.0 Family Dependent Y [id number] BS [place] Medigap Part B [id number] Family Dependent [id number] BS [place] Medigap Part B [id number] 2.0.1.744685.3.227.99.991.84533.0 Family Dependent Y [id number] BS [place] Medigap Part B [id number] 2.840.1.096191.3.227.99.991.74828.0 Family Dependent Y [id number] BS [place] Medigap Part B [id number] 2.16.840.1.112168.3.227.99.991.90932.0 Family Dependent Y [id number] BS [place] Commercial 303 2.16.840.1.756752.3.22 7.99.991.38337.0 Family Dependent 303 BS [place] Medigap Part B [id number] 2.840.1.707365.3.227.99.991.61110.0 Family Dependent Y [id number] BS [place] Medigap Part B [id number] 2.16840.1.285029.3.227.99.991.60139.0 Family Dependent Y [id number] BS [place] Trad/MX Commercial [id number] Self 803 BCBS [place] U/W Commercial [id number] 2.0.1.129043.3.227 .99.572.45.0 Family Dependent [id number] BLUE CARD C [id number] Spouse [id number] BS [place] Trad/MX Medigap Part B [id number] Self [id number] BC/BS [place] Commercial [id number] Family Dependent BCBS [place] U/W Commercial [id number] 2.840.1.453056.3.227 .99.572.45.0 Family Dependent [id number] BCBS [place] U/W Medigap Part B [id number] 2.16840.1.113 883.3.227.99.572.45.0 Family Dependent [id number] BS [place] Trad/MX Commercial [id number] 2.160.1.567753.3.227.99.4595.47974.0 Self [id number] BCBS [place] U/W Commercial [id number] 2.840.1.462184.3.227 .99.572.45.0 Family Dependent [id number] BCBS [place]AT[place] PPO 302/307 [id number] 2 [id number] BS [place] Trad/MX Commercial [id number] .1.515870.3.227.99.4595.47354.0 Family Dependent [id number] BS [place] Trad/MX Medigap Part B [id number].[id number] Family Dependent [id number] [place] Primary [id number] .1.190382.3.227.99.991.29980.0 Self 1 [id number] [place] Medicare Primary [id number] .1.314441.3.227.99.991.75634.0 Self 1 [id number] [facility] [id number].[id number] Family Dependent [id number] [place] Med[place] Part B [id number] .1.780567.3.227.99.991.07906.0 Self 1 [id number] [place] Med[place] Part B [id number] .1.893038.3.227.99.991.47999.0 Self 1 [id number] [place] Med[place] Part B [id number] .1.002701.3.227.99.991.57277.0 Self 1 [id number] [place] Medigap Part B [id number] .1.346312.3.227.99.991.72228.0 Self 1 [id number] [place] Medicare Primary [id number] MRN.991.[id number] Self [id number] BS [place] Commercial [id number] 2.16.840.1.810142.3.227.99.991.82396.0 Family Dependent [id number] Medicare [place] Medicare Primary [id number] 2.16.840.1.478157.3.227.99.991.40827.0 Self 1 [id number] [employer] Medigap Part B [id number] 2.16.840.1.260124.3.227.99.8646.5 0251.0 Self [id number] [facility] Medigap Part B [id number] 2.16.840.1.997361.3.227.99.4595.99353.0 Self [id number] [facility] Medigap Part B [id number] 2.16.840.1.172199.3.227.99.4595.35523.0 Self [id number] [facility] Medigap Part B [id number] 2.840.1.402063.3.227.99.4595.53929.0 Self [id number] [facility] Medigap Part B [id number] 2.16840.1.655996.3.227.99.4595.45428.0 Self [id number] [facility] Medigap Part B [id number] 2.16840.1.387420.3.227.99.4595.09928.0 Self [id number] [facility] Medigap Part B [id number] 2.840.1.829940.3.227.99.4595.07975.0 Self [id number] [facility] Medigap Part B [id number].[id number] Self [id number] A [employer] [facility] OPTIONS [id number] SP [id number] [facility] MEDICAID [id number] SP [id number] B AARP [employer] CARE OPTIONS -O/P [id number] 18 [id number] MEDICARE PART A -O/P [id number] 18 [id number] [place] [id number] SP [id number] MEDICARE C [id number] S [id number] AARP O [id number] S [id number] BCBS [place]AT[place] PPO 302/307 [id number] HU2 [id number] MEDICARE [id number] SP [id number] A [facility] Options Medigap Part B [id number].[id number] Self [id number] Medicare Dme Supplies Medigap Part B [id number].[id number] Self [id number] Medicaid [place] Medigap Part B [id number] MRN.991.[id number] Self [id number] ANSI-Commercial [id number] ANSI-Medicare Part B [id number] ANSI-Commercial [id number] ANSI-Commercial [id number] ANSI-Medicare Part B [id number] ANSI-Commercial [id number] MEDICAID [id number] SP [id number] Medicare [facility] Medicare Primary [id number] 2.16.840.1.176021.3.227.99.8646.92198.0 Self [id number] [facility] Options Medigap Part B [id number] 2.16840.1.691223.3.227.99.991.58726.0 Self 0 [id number] Medicare Dme Supplies Medigap Part B [id number] 2.16840.1.513796.3.227.99.991.19082.0 Self 1 [id number] [facility] Medigap Part B [id number] 2.160.1.362256.3.227.99.991.13450.0 Self 0 [id number] Medicare Dme Supplies Medigap Part B [id number] 2.840.1.457359.3.227.99.991.74969.0 Self 1 [id number] [facility] Medigap Part B [id number] 2.16840.1.714034.3.227.99.991.12537.0 Self 0 [id number] Medicare Dme Supplies Medigap Part B [id number] 2.16840.1.768889.3.227.99.991.59667.0 Self 1 [id number] MEDICARE C [id number] S [id number] A [facility] Medigap Part B [id number] 2.16840.1.453505.3.227.99.991.99158.0 Self 0 [id number] Medicare Dme Supplies Medigap Part B [id number] 2.16840.1.024421.3.227.99.991.71514.0 Self 1 [id number] [facility] Medigap Part B [id number] 2.16840.1.467140.3.227.99.991.93232.0 Self 0 [id number] Medicare Dme Supplies Medigap Part B [id number] 2.16.840.1.866475.3.227.99.991.57305.0 Self 1 [id number] [facility] CARE OPTIONS [id number] SP [id number] [place] Med[place] [id number] 2.16.840.1.264807.3.227.99 .802.809037.0 Family Dependent [id number] BCBS [place] Commercial [id number] 2.16.840.1.280274.3.227.99.8 02.350307.0 Family Dependent [id number] [place]related Medigap Part B [id number] 2.16.840.1.055207.3.227.99.572.45.0 Self BC31 074B Compensation-[place] Unrelated Medigap Part B [id number] 2.840.1.916711.3.227.99.572.45.0 Self BC31 074B [employer] Administrative Ser Commercial 2868 2.1 6.840.1.571418.3.227.99.572.45.0 Family Dependent 2868 [facility] Options Medigap Part B [id number] 2.16840.1.975182.3.227.99.572.45.0 Self [id number] [facility] 303/803 [id number] SP [id number] Liability-[place] Unrelated Medigap Part B [id number] 2.16.840.1.645121.3.227.99.572.45.0 Self BC31 074B Compensation-[place] Unrelated Medigap Part B [id number] 2.16.840.1.598316.3.227.99.572.45.0 Self BC31 074B Healthnow Administrative Ser Commercial 2868 2.1 6.840.1.269111.3.227.99.572.45.0 Family Dependent 2868 Li[place] Unrelated Medigap Part B [id number] 2.16.840.1.095208.3.227.99.572.45.0 Self BC31 074B Compensation-[place] Unrelated Medigap Part B [id number] 2.16.840.1.256546.3.227.99.572.45.0 Self BC31 074B Healthnow Administrative Ser Commercial 2868 2.1 6.840.1.839632.3.227.99.572.45.0 Family Dependent 2868 Liability-[place] Unrelated Medigap Part B [id number] 2.16.840.1.583201.3.227.99.572.45.0 Self BC31 074B Compensation-[place] Unrelated Medigap Part B [id number] 2.16.840.1.119417.3.227.99.572.45.0 Self BC31 074B Healthnow Administrative Ser Commercial 2868 2.1 6.840.1.849512.3.227.99.572.45.0 Family Dependent 2868 Medicare Dme Supplies Medigap Part B [id number] 2.0.1.226387.3.227.99.991.33767.0 Self 1 [id number] BCBS OF [place] [id number] SPO ZWP [id number] [place] BCBS B [id number] P ZWP [id number] BC/BS [place] B [id number] P ZW [id number] [place] BCBS B [id number] P [id number] BCBS [place] Medig[place] Part B [id number] 2.0.1.321114.3.227.99 .802.022680.0 Family Dependent [id number] BCBS [place] Commercial [id number] 2.0.1.936176.3.227.99.8 02.911076.0 Family Dependent [id number] [place] BCBS B [id number] P ZWP [id number] BCBS [facility] 303/803 [id number] HU2 [id number] BCBS [place] Commercial [id number] 2.0.1.134240.3.227.99.8 02.837305.0 Family Dependent [id number] BCBS [place]AT[place] PPO 302/307 [id number] SP [id number] Medicare [place] Medicare Primary [id number] 2.0.1.485608.3.227.99.6619.1884.0 Self 1 [id number] BS Of [place] Medigap Part B [id number] 2..1.663521.3.227.99.6619.1884.0 Family Dependent Y [id number] Medicare [place] Medicare Primary [id number] 2.0.1.211004.3.227.99.6619.1884.0 Self 1 [id number] BCBS [place] Commercial [id number] 2..1.198508.3.227.99.8 02.849091.0 Family Dependent [id number] [place] Med[place] Part B 2..1.543219.3.227.99.991.65 916.0 Self [place]BS [place] Commercial [id number] Family Dependent BCBS Of [place] Commercial [id number] Family Dependent Blue [facility] [id number] 01 [id number] Medicare Secondary Payer [id number] 18 [id number] BLUE CROSS O [id number] SP [id number] BLUE CROSS O [id number] SP [id number] MEDICARE PART A [id number] S [id number] BLUE CROSS O [id number] SP [id number] BLUE CROSS O [id number] SP [id number] BCBS [facility] 303/803 [id number] HU2 [id number] BCBS [place]MP[place] [id number] HU2 [id number] BS Of [place] Commercial 2484 Family Dependent BCBS [place] 800 [id number] HU2 [id number] BCBS [place] 800 [id number] HU2 [id number] Liability-[place] Unrelated Medigap Part B [id number] Self Compensation-[place] Unrelated Medigap Part B Self Healthnow Administrative Ser Commercial [id number] Family Dep endent [place] Medicare Primary 2485 Self BS Of [place] Commercial 2484 Family Dependent [facility] [id number] 18 [id number] EXCELLUS BCBS P [id number] S [id number] EXCELLUS BCBS P [id number] S [id number] MEDICARE [id number] SP [id number] T49 Problems, Conditions, and Diagnoses Code Display Name Description Problem Type Effective Dates Data Source(s) Z5321 Procedure and treatment not carried out due to patient leaving prior to being seen by health care provider Procedure and treatment not carried out due to patient leaving prior to being seen by health care provider Diagnosis 04/12/2021 01:12:00 PM EDT [facility] Surgeries/Procedures Procedure Description Date Indications Data Source(s) OFFICE OUTPATIENT VISIT 15 MINUTES 05/05/2021 12:00:00 AM EDT [facility] ([facility]) OFFICE OUTPATIENT VISIT 15 MINUTES 05/02/2021 12:00:00 AM EDT [facility] ([facility] ) MYOCRD IMAGE PET PERFUS MULTPL STUDY REST/STRESS 04/26 12:00:00 AM EDT [facility] ([facility]) CV STRS TST XERS&/OR RX CONT ECG I&R ONLY 04/26/2021 1 2:00:00 AM EDT [facility] ([facility]) ECG ROUTINE ECG W/LEAST 12 LDS W/I&R 04/11/2021 12:00: 00 AM EDT [facility] ([facility]) OFFICE OUTPATIENT VISIT 25 MINUTES 04/11/2021 12:00:00 AM EDT [facility] ([facility]) Mammogram 04/04/2021 12:00:00 AM EDT M JORI ([facility]) Bone Mineral Density Test 04/04/2021 12:00:00 AM EDT EMILY ([facility]) X-Ray Spine Lumbosacral Complete Inc Bending Views Min Of 6 03/29/2021 12:00:00 AM EDT [facility] ([facility]) OFFICE OUTPATIENT VISIT 25 MINUTES 03/29/2021 12:00:00 AM EDT [facility] ([facility]) OFFICE OUTPATIENT VISIT 15 MINUTES 03/28/2021 12:00:00 AM EDT [facility] ([facility]) Chronic Care MGMT 20 Mins Clinical Staff Time Per Calendar M [facility] 03/21/2021 12:00:00 AM EDT [facility] ([facility] ) OFFICE OUTPATIENT VISIT 25 MINUTES 03/16/2021 12:00:00 AM EDT [facility] ([facility]) Complex Chronic Care Management SVC 1St 60 Min 021 12:00:00 AM EDT [facility] ([facility]) Complex Chronic Care MGMT Service Ea Addl 30 Min 03/07 12:00:00 AM EDT [facility] ([facility]) Chronic Care MGMT 20 Mins Clinical Staff Time Per Calendar M [facility] 11/01/2020 12:00:00 AM EDT [facility] ([facility] ) OFFICE OUTPATIENT VISIT 25 MINUTES 10/27/2020 12:00:00 AM EDT [facility] ([facility]) ECG ROUTINE ECG W/LEAST 12 LDS W/I&R 06/21/2020 12:00: 00 AM EST [facility] ([facility]) XTRNL PT ACTIVATED ECG RECORD MONITOR 30 DAYS 04/08/20 20 12:00:00 AM EDT [facility] ([facility]) XTRNL PT ACTIVTD ECG DWNLD 30 DAYS PHYS R&I 04/08/2020 12:00:00 AM EDT [facility] ([facility]) Results ID Date Data Source [id number] 05/10/2021 10:05:00 AM EDT [facility] Name Value Range Interpretation Code Description Data Princess rce(s) Supporting Document(s) SARS-CoV-2 (COVID-19) RNA [Presence] in Respiratory specimen by RYAN with probe detection Not Detected [facility] This lab was ordered by [facility] and reported by [employer] ID Date Data Source [id number] 05/10/2021 10:05:00 AM EDT [facility]) Name Value Range Interpretation Code Description Data Princess rce(s) Supporting Document(s) Coronavirus 2019 Nasopharygeal Laboratory test result [facility] ([facility]) ASSAY INFORMATION: Real Time RT-PCR NOTE: The COVID-19 assay has been cleared by the U.S. Food and Drug Administration under the Emergency Use Authorization (EUA). The [facility] [place] and [facility] are designated as high complexity laboratories by the Clinical Laboratory Improvement Amendments of 1988(CLIA) and are qualified to perform this test. Not Detected ID Date Data Source [id number] 05/09/2021 08:46:00 AM EDT [facility] ([facility]) Name Value Range Interpretation Code Description Data Princess rce(s) Supporting Document(s) Parathyrin.intact [Mass/volume] in Serum or Plasma 86.3 pg/mL 18.5-88 .0 [facility] ([facility]) ID Date Data Source [id number] 05/09/2021 08:46:00 AM EDT [facility]) Name Value Range Interpretation Code Description Data Princess rce(s) Supporting Document(s) Calcidiol [Mass/volume] in Serum or Plasma 28.2 ng/mL 24.0-80.0 [facility] ([facility]) This test was performed using [employer]Pack I P Vitamin D immunoassay kit. Values obtained with different assay methods should not be used interchangeably. ID Date Data Source [id number] 05/09/2021 08:45:00 AM EDT [facility]) Name Value Range Interpretation Code Description Data Princess rce(s) Supporting Document(s) Creatinine 1.0 mg/dL 0.6-1.3 [facility] ([facility]) Glucose [Mass/volume] in Serum or Plasma 107 mg/dL 74-99 [facility] ([facility]) 100-125 mg/dL PRE-DIABETES/FASTING >126 mg/dL DIABETES/FASTING Urea nitrogen [Mass/volume] in Serum or Plasma 22 mg/dL 7-18 [facility] ([facility]) Potassium [Moles/volume] in Serum or Plasma 3.8 meq/L 3.5-5.1 [facility] ([facility]) Sodium [Moles/volume] in Serum or Plasma 138 meq/L 136-145 [facility] ([facility]) Chloride [Moles/volume] in Serum or Plasma 102 meq/L 98-107 [facility] ([facility]) Glomerular filtration rate/1.73 sq M pre dicted among non-blacks [Volume Rate/Area] in Serum or Plasma by Creatinine-based formula (MDRD) 54 mL/min [facility] ([facility]) Carbon dioxide, total [Moles/volume] in Serum or Plasma 27 meq/L 21 -32 [facility] ([facility]) Calcium [Mass/volume] in Serum or Plasma 10.8 mg/dL 8.5-10.1 [facility] ([facility]) NOTE: RESULT VERIFIED. Glomerular filtration rate/1.73 sq M pre dicted among blacks [Volume Rate/Area] in Serum or Plasma by Creatinine-based formula (MDRD) Laboratory test result [facility] ([facility]) <content>CHRONIC KIDNEY DISEASE STAGING PER NKF</content>
<content></content>
<content>STAGE I & II GFR >= 60 NORMAL TO MILDLY DECREASED</content>
<content>STAGE III GFR 30-59 MODERATELY DECREASED</content>
<content>STAGE IV GFR 15-29 SEVERELY DECREASED</content>
<content>STAGE V GFR <15 VERY LITTLE GFR LEFT</content>
<content>ESRD GFR <15 ON RADIO ANNOUNCER</content>
<content></content> ID Date Data Source [id number] 05/05/2021 01:58:00 PM EDT [facility] ([facility]) Name Value Range Interpretation Code Description Data Princess rce(s) Supporting Document(s) Blood Urea Nitrogen 15 mg/dL 7-18 [facility] ([facility]) Creatinine For GFR 0.81 mg/dL 0.55-1.30 [facility] ([facility]) Glucose, Fasting 91 mg/dL 70-100 [facility]) Glomerular Filtration Rate Laboratory test result [facility] ([facility]) <content>Units are mL/min/1.73 m2</content>
<content></content>
<content>Chronic Kidney Disease Staging per NKF:</content>
<content></content>
<content>Stage I & II GFR >=60 Normal to Mildly Decreased</content>
<content>Stage III GFR 30-59 Moderately Decreased</content>
<content>Stage IV GFR 15-29 Severely Decreased</content>
<content>Stage V GFR <15 Very Little GFR Left</content>
<content>ESRD GFR <15 on RADIO ANNOUNCER</content>
<content></content> Potassium Serum 4.0 meq/L 3.5-5.1 [facility] ([facility]) Sodium Level 143 meq/L 136-145 [facility] ([facility]) Chloride Level 110 meq/L 98-107 [facility] ([facility]) Carbon Dioxide Level 28 meq/L 21-32 [facility] ([facility]) Alt/SGPT 38 U/L 12-78 [facility] ([place] [facility]) Anion Gap 5 meq/L 8-16 [facility] ([facility] [facility]) Ast/Sgot 25 U/L 7-37 [facility] ([place] [facility]) Calcium Level 9.5 mg/dL 8.8-10.2 [facility] ([facility]) Alkaline Phosphatase 153 U/L 45-117 [facility] ([facility]) Bilirubin,Total 0.8 mg/dL 0.2-1.0 [facility] ([facility]) Total Protein 6.8 GM/DL 6.4-8.2 [facility] ([facility]) Albumin 3.5 GM/DL 3.2-5.2 [facility] ([place] [facility]) Albumin/Globulin Ratio 1.1 1.2-2.2 [facility] ([place] [facility]) ID Date Data Source [id number] 05/05/2021 01:58:00 PM EDT [facility] ([facility]) Name Value Range Interpretation Code Description Data Princess rce(s) Supporting Document(s) Glucose, Fasting 91 mg/dL 70-100 [facility] ([facility]) Blood Urea Nitrogen 15 mg/dL 7-18 [facility] ([facility]) Creatinine For GFR 0.81 mg/dL 0.55-1.30 [facility] ([facility]) Glomerular Filtration Rate Laboratory test result [facility] ([facility]) <content>Units are mL/min/1.73 m2</content>
<content></content>
<content>Chronic Kidney Disease Staging per NKF:</content>
<content></content>
<content>Stage I & II GFR >=60 Normal to Mildly Decreased</content>
<content>Stage III GFR 30-59 Moderately Decreased</content>
<content>Stage IV GFR 15-29 Severely Decreased</content>
<content>Stage V GFR <15 Very Little GFR Left</content>
<content>ESRD GFR <15 on RADIO ANNOUNCER</content>
<content></content> Potassium Serum 4.0 meq/L 3.5-5.1 [facility] ([facility]) Sodium Level 143 meq/L 136-145 [facility] ([facility]) Carbon Dioxide Level 28 meq/L 21-32 [facility] ([facility]) Chloride Level 110 meq/L 98-107 [facility] ([facility]) Anion Gap 5 meq/L 8-16 [facility] ([facility]) Calcium Level 9.5 mg/dL 8.8-10.2 [facility] ([facility]) Ast/Sgot 25 U/L 7-37 [facility]) Alt/SGPT 38 U/L 12-78 [facility]) Alkaline Phosphatase 153 U/L 45-117 [facility] ([facility]) Total Protein 6.8 GM/DL 6.4-8.2 [facility] ([facility]) Bilirubin,Total 0.8 mg/dL 0.2-1.0 [facility] ([facility]) Albumin/Globulin Ratio 1.1 1.2-2.2 [facility] [facility] Albumin 3.5 GM/DL 3.2-5.2 [facility] ([facility]iology [facility]) ID Date Data Source [id number] 05/02/2021 08:37:00 AM EDT [facility] ([facility]) Name Value Range Interpretation Code Description Data Princess rce(s) Supporting Document(s) Magnesium [Mass/volume] in Serum or Plasma 2.0 mg/dL 1.8-2.4 [facility] (Cardiology [facility]) Natriuretic peptide.B prohormone N-Terminal [Mass/volu me] in Serum or Plasma 72 pg/mL [facility] ([employer]) ID Date Data Source [id number] 05/02/2021 08:37:00 AM EDT [facility] ([facility]) Name Value Range Interpretation Code Description Data Princess rce(s) Supporting Document(s) Triglycerides Level 176 mg/dL [facility] LDL Cholesterol 162 mg/dL [facility]) Cholesterol Level 262 mg/dL [facility] (Card [facility]) HDL Cholesterol 65 mg/dL [facility]) Non-HDL-C 197 mg/dL [facility] ([facility]) Cholesterol Risk Ratio 4.030 [facility] (Cardiology [facility]) ID Date Data Source [id number] 05/02/2021 08:37:00 AM EDT [facility] ([facility]) Name Value Range Interpretation Code Description Data Princess rce(s) Supporting Document(s) Glucose, Fasting 103 mg/dL 70-100 [facility] ([facility]) Blood Urea Nitrogen 19 mg/dL 7-18 [facility] ([facility]) Glomerular Filtration Rate Laboratory test result MED[facility] ([facility]iology [facility]) <content>Units are mL/min/1.73 m2</content>
<content></content>
<content>Chronic Kidney Disease Staging per NKF:</content>
<content></content>
<content>Stage I & II GFR >=60 Normal to Mildly Decreased</content>
<content>Stage III GFR 30- 59 Moderately Decreased</content>
<content>Stage IV GFR 15-29 Severely Decreased</content>
<content>Stage V GFR <15 Very Little GFR Left</content>
<content>ESRD GFR <15 on RADIO ANNOUNCER</content>
<content></content> Creatinine For GFR 0.84 mg/dL 0.55-1.30 [facility] ([facility]) Sodium Level 139 meq/L 136-145 [facility] (Cardiolog y [facility]) Potassium Serum 3.6 meq/L 3.5-5.1 [facility] (Cardio [facility]y [facility]) Chloride Level 108 meq/L 98-107 [facility] (Cardiol ogy [facility]) Carbon Dioxide Level 25 meq/L 21-32 [facility] (C ardiology [facility]) Anion Gap 6 meq/L 8-16 [facility] ([facility] Ast/Sgot 18 U/L 7-37 [facility] (Cardiology [facility]) Alt/SGPT 31 U/L 12-78 [facility] ([facility]iology [facility]) Calcium Level 10.5 mg/dL 8.8-10.2 [facility] (Cardiol ogy [facility]) Bilirubin,Total 1.3 mg/dL 0.2-1.0 [facility] (Cardio [facility]y [facility]) Alkaline Phosphatase 160 U/L 45-117 [facility] (C [facility]) Albumin 4.1 GM/DL 3.2-5.2 [facility] ([facility]iology [facility]) Total Protein 7.5 GM/DL 6.4-8.2 [facility] (Cardiolo gy [facility]) Albumin/Globulin Ratio 1.2 1.2-2.2 [facility] ([facility]) ID Date Data Source [id number] 03/23/2021 09:20:00 AM EDT [facility] ([facility]) Name Value Range Interpretation Code Description Data Princess rce(s) Supporting Document(s) Potassium [Moles/volume] in Serum or Plasma 4.0 meq/L 3.5-5.1 [facility] ([facility]) ID Date Data Source [id number] 03/16/2021 02:32:00 PM EDT [facility] ([facility] Name Value Range Interpretation Code Description Data Princess rce(s) Supporting Document(s) Alanine aminotransferase [Enzymatic activity/volume] in Serum or Pl asma 33 [facility] ([facility] Albumin [Mass/volume] in Serum or Plasma 3.9 [facility] ([facility] Carbon dioxide, total [Moles/volume] in Serum or Plasma 25 [facility] ([facility] Chloride [Moles/volume] in Serum or Plasma 106 [facility] ([facility] Calcium [Mass/volume] in Serum or Plasma 10.0 [facility] ([facility] Alkaline phosphatase [Enzymatic activity/volume] in Serum or Plasma 1 53 [facility] ([facility] Potassium [Moles/volume] in Serum or Plasma 3.0 [facility] ([facility] Aspartate aminotransferase [Enzymatic activity/volume] in Serum or Plasma 20 [facility] ([facility] Protein [Mass/volume] in Serum or Plasma 6.8 [facility] ([facility] Sodium 142 [facility] ([facility] Urea nitrogen [Mass/volume] in Serum or Plasma 19 [facility] ([facility] Glucose 96 74-106 [facility] ([facility] Creatinine For GFR 0.8 [facility] (Car [facility]ology [facility] ID Date Data Source [id number] 03/16/2021 02:32:00 PM EDT [facility] ([facility] Name Value Range Interpretation Code Description Data Princess rce(s) Supporting Document(s) White Blood Count 6.2 4.1-10.9 [facility] (Card [facility] Red Blood Count 4.72 4.2-6.30 [facility] ([facility]io [facility] Platelets 320 140-440 [facility] ([facility]iology [facility] Hemoglobin 13.5 12.0-18.0 [facility] ([facility] Hematocrit 38.8 37.0-51.0 [facility] ([facility]io [facility] ID Date Data Source [id number] 03/16/2021 09:41:00 AM EDT [facility] ([facility]) Name Value Range Interpretation Code Description Data Princess rce(s) Supporting Document(s) Erythrocytes [#/volume] in Blood by Automated count 4.72 x10*6/UL 4.2 0-6.30 [facility] ([facility]) Leukocytes [#/volume] in Blood by Automated count 6.2 x10*3/UL 4.1-10 .9 [facility] ([facility]) Hemoglobin [Mass/volume] in Blood 13.5 g/dL 12.0-18.0 [facility] ([facility]) MCV 82.2 fL 80.0-97.0 [facility] ([place] [facility]) MCH 28.6 pg 26.0-32.0 [facility] ([place] [facility]) Hematocrit [Volume Fraction] of Blood by Automated count 38.8 % 3 7.0-51.0 [facility] ([facility]) MCHC 34.8 g/dL 31.0-38.0 [facility] ([place] [facility]) Platelets [#/volume] in Blood by Automated count 320 x10*3/UL 140-440 [facility] Erythrocyte distribution width [Ratio] by Automated count 12.8 % 11.6-13.7 [facility] ([facility]) Lymph % 19.0 % 10.0-58.5 [facility] ([place] [facility]) MPV 8.5 FL 7.8-11.0 [facility] ([place] [facility]) Lymph # 1.1 x10*3/UL 0.6-4.1 [facility] ([facility]) Mid % 5.1 % 1.7-9.3 [facility] ([place] [facility]) Neut % 75.9 % 37.0-92.0 [facility] ([place] [facility]) Neut # 4.7 x10*3/UL 2.0-7.8 [facility] ([facility]) Mid # 0.4 x10*3/UL 0.1-0.6 [facility] ([facility]) ID Date Data Source [id number] 03/16/2021 09:41:00 AM EDT [facility] ([facility]) Name Value Range Interpretation Code Description Data Princess rce(s) Supporting Document(s) Magnesium 2.1 mg/dL 1.8-2.4 [facility] ([facility]) ID Date Data Source [id number] 03/16/2021 09:41:00 AM EDT [facility] ([facility]) Name Value Range Interpretation Code Description Data Princess rce(s) Supporting Document(s) Creatinine 0.8 mg/dL 0.6-1.3 [facility] ([facility]) Glucose [Mass/volume] in Serum or Plasma 96 mg/dL 74-99 [facility] ([facility]) 100-125 mg/dL PRE-DIABETES/FASTING >126 mg/dL DIABETES/FASTING Urea nitrogen [Mass/volume] in Serum or Plasma 19 mg/dL 7-18 [facility] ([facility]) Potassium [Moles/volume] in Serum or Plasma 3.0 meq/L 3.5-5.1 [facility] ([facility]) Sodium [Moles/volume] in Serum or Plasma 142 meq/L 136-145 [facility] ([facility]) Chloride [Moles/volume] in Serum or Plasma 106 meq/L 98-107 [facility] ([facility]) Carbon dioxide, total [Moles/volume] in Serum or Plasma 25 meq/L 21 -32 [facility] ([facility]) Alkaline phosphatase isoenzyme [Units/volume] in Serum or Pl asma 153 mg/dL 46-116 [facility] ([facility]) Calcium [Mass/volume] in Serum or Plasma 10.0 mg/dL 8.5-10.1 [facility] ([facility]) Aspartate aminotransferase [Enzymatic activity/volume] in Serum or Plasma 20 U/L 15-37 [facility] ([facility] ) Alanine aminotransferase [Enzymatic activity/volume] in Seru m or Plasma 33 U/L 12-78 [facility] ([facility]) Total Bilirubin 0.9 mg/dL 0.2-1.0 [facility] A/G Ratio 1.34 CALC 1.00-1.90 [facility]) Albumin [Mass/volume] in Serum or Plasma 3.9 g/dL 3.4-5.0 [facility] ([facility]) Proteinase 3 Ab [Units/volume] in Serum 6.8 g/dL 6.4-8.2 [facility] ([facility]) Glomerular filtration rate/1.73 sq M pre dicted among blacks [Volume Rate/Area] in Serum or Plasma by Creatinine-based formula (MDRD) Laboratory test result [facility]) <content>CHRONIC KIDNEY DISEASE STAGING PER NKF</content>
<content></content>
<content>STAGE I & II GFR >= 60 NORMAL TO MILDLY DECREASED</content>
<content>STAGE III GFR 30-59 MODERATELY DECREASED</content>
<content>STAGE IV GFR 15-29 SEVERELY DECREASED</content>
<content>STAGE V GFR <15 VERY LITTLE GFR LEFT</content>
<content>ESRD GFR <15 ON RADIO ANNOUNCER</content>
<content></content> Glomerular filtration rate/1.73 sq M pre dicted among non-blacks [Volume Rate/Area] in Serum or Plasma by Creatinine-based formula (MDRD) Laboratory test result [facility] ([facility] ) ID Date Data Source [id number] 12/24/2020 09:40:00 AM EDT [facility] Name Value Range Interpretation Code Description Data Princess rce(s) Supporting Document(s) SARS-CoV-2 (COVID-19) RNA [Presence] in Respiratory specimen by RYAN with probe detection Not Detected [facility] This lab was ordered by [facility] and reported by [employer]. ID Date Data Source [id number] 12/15/2020 02:43:00 PM EDT [facility] Name Value Range Interpretation Code Description Data Princess rce(s) Supporting Document(s) Bacteria identified in Urine by Culture Laboratory test result [facility] ([facility]) FULL REPORT IN LAB NOTES (eCW and [facility] ). NO GROWTH ID Date Data Source [id number] 12/15/2020 02:43:00 PM EDT [facility] ([facility]) Name Value Range Interpretation Code Description Data Princess rce(s) Supporting Document(s) Appearance, Urine Laboratory test result [facility] ([facility]) Color, Urine Laboratory test result [facility]E NT ([facility]) PH,Urine 6.0 units 5.0-9.0 [facility] ([facility]) Specific [place] Urine Auto 1.009 1.002-1.035 [facility] ([facility]) Protein, Urine Auto Laboratory test result [facility] ([facility]) Ketone, Urine Auto Laboratory test result [facility] ([facility]) Glucose, Urine (Ua) Auto Laboratory test result [facility] ([facility]) Urobilinogen, Urine Auto 0.2 mg/dL 0.0-2.0 MEDEN T ([facility]) Bilirubin, Urine Auto Laboratory test result [facility] ([facility]) Nitrite, Urine Auto Laboratory test result [facility] ([facility]) Blood, Urine Blood Laboratory test result [facility] ([facility]) Leukocyte Esterase, Urine Auto Laboratory test result [facility] ([facility]) WBC, Urine Auto 37 /HPF 0-3 [facility] ([facility]) Bacteria, Urine Auto Laboratory test result [facility] ([facility]) RBC, Urine Auto Laboratory test result 0-3 M EDENT ([facility]) Squamous Epithelial Cell Ur AU 1 /HPF 0-6 [facility] ([facility]) Mucus, Urine Laboratory test result [facility]E NT ([facility]) Hyaline Cast, Urine Auto 0 /LPF 0-1 MEDEN T ([facility]) ID Date Data Source [id number] 12/15/2020 12:00:00 AM EDT [facility] ([facility]) Name Value Range Interpretation Code Description Data Princess rce(s) Supporting Document(s) Laboratory studies (set) UA URINALYS IS [facility] ([facility]) ID Date Data Source [id number] 12/14/2020 01:41:00 PM EDT [facility] ([facility]) Name Value Range Interpretation Code Description Data Princess rce(s) Supporting Document(s) Sodium 139 [facility] Calcium [Mass/volume] in Serum or Plasma 10.8 [facility] ([facility]) Chloride [Moles/volume] in Serum or Plasma 102 [facility] ([facility]) Carbon dioxide, total [Moles/volume] in Serum or Plasma 30 [facility] ([facility]) Potassium [Moles/volume] in Serum or Plasma 3.2 [facility] ([facility]) Glucose 105 83-110 [facility] (Cardiology [facility]) Blood Urea Nitrogen 26 7-18 [facility] (Ca [facility]diology [facility]) Creatinine 0.75 0.6-1.0 [facility] ([facility]) Glomerular filtration rate/1.73 sq M.pre dicted [Volume Rate/Area] in Serum or Plasma by Creatinine-based formula (MDRD) Laboratory test result [facility] ([facility]) ID Date Data Source [id number] 12/14/2020 01:41:00 PM EDT [facility] ([facility]) Name Value Range Interpretation Code Description Data Princess rce(s) Supporting Document(s) White Blood Count 7.6 5.0-10.0 [facility] (Card iology [facility]) Red Blood Count 4.82 4.00-5.40 [facility] (Cardio [facility]y [facility]) Hemoglobin 13.3 [facility] ([facility]) Platelets 356 172-450 [facility] ([facility]) Hematocrit 41.0 [facility] ([facility]) ID Date Data Source [id number] 12/14/2020 10:29:00 AM EDT [facility] ([facility]) Name Value Range Interpretation Code Description Data Princess rce(s) Supporting Document(s) Bacteria identified in Urine by Culture Laboratory test result [facility] ([facility]) FULL REPORT IN LAB NOTES (eCW and [facility] ). SPECIMEN APPEARS CONTAMINATED ID Date Data Source [id number] 12/14/2020 10:29:00 AM EDT [facility] ([facility]) Name Value Range Interpretation Code Description Data Princess rce(s) Supporting Document(s) Creatinine For GFR 0.75 mg/dL 0.55-1.30 [facility] ([facility]) Glucose, Fasting 105 mg/dL 70-100 [facility] ([facility]) Blood Urea Nitrogen 26 mg/dL 7-18 [facility] ([facility]) Glomerular Filtration Rate Laboratory test result [facility] ([facility]) <content>Units are mL/min/1.73 m2</content>
<content></content>
<content>Chronic Kidney Disease Staging per NKF:</content>
<content></content>
<content>Stage I & II GFR >=60 Normal to Mildly Decreased</content>
<content>Stage III GFR 30-59 Moderately Decreased</content>
<content>Stage IV GFR 15-29 Severely Decreased</content>
<content>Stage V GFR <15 Very Little GFR Left</content>
<content>ESRD GFR <15 on RADIO ANNOUNCER</content>
<content></content> Potassium Serum 3.2 meq/L 3.5-5.1 [facility] ([facility]) Sodium Level 139 meq/L 136-145 [facility] ([facility]) Carbon Dioxide Level 30 meq/L 21-32 [facility] ([facility]) Chloride Level 102 meq/L 98-107 [facility] ([facility]) Anion Gap 7 meq/L 8-16 [facility] ([facility]) Calcium Level 10.8 mg/dL 8.8-10.2 [facility] ([facility]) ID Date Data Source [id number] 12/14/2020 10:29:00 AM EDT [facility] ([facility]) Name Value Range Interpretation Code Description Data Princess rce(s) Supporting Document(s) Inr 0.88 [facility] ([facility]) THERAPUTIC HUMAN INR VALUES INDICATIONS NORMAL RANGES PROPHYLAXIS/TREATMENT OF: VENOUS THROMBOSIS 2.0-3.0 PULMONARY EMBOLISM 2.0-3.0 PREVENTION OF SYSTEMIC EMBOLISM FROM: TISSUE HEART VALVES 2.0-3.0 ACUTE MYOCARDIAL INFARCTION 2.0-3.0 VALVULAR HEART DISEASE 2.0-3.0 ATRIAL FIBRILLATION 2.0-3.0 MECHANICAL VALVES(HIGH RISK) 2.5-3.5 RECURRENT MYOCARDIAL INFARCTION 2.5-3.5 Prothrombin Time 12.1 s 12.5-14.3 [facility] ([facility]) Partial Thromboplastin Time 32.5 s 24.2-38.5 [place] [facility] ([facility]) ID Date Data Source [id number] 12/14/2020 10:29:00 AM EDT [facility] ([facility]) Name Value Range Interpretation Code Description Data Princess rce(s) Supporting Document(s) PH,Urine 6.0 units 5.0-9.0 [facility] [facility] Color, Urine Laboratory test result [facility] NT ([facility]) Appearance, Urine Laboratory test result [facility] ([facility]) Glucose, Urine (Ua) Auto Laboratory test result [facility] ([facility]) Protein, Urine Auto Laboratory test result [facility] ([facility]) Specific [place] Urine Auto 1.009 1.002-1.035 [facility] ([facility]) Bilirubin, Urine Auto Laboratory test result [facility] ([facility]) Ketone, Urine Auto Laboratory test result [facility] ([facility]) Urobilinogen, Urine Auto 0.2 mg/dL 0.0-2.0 MEDEN T ([facility]) Leukocyte Esterase, Urine Auto Laboratory test result [facility] ([facility]) Nitrite, Urine Auto Laboratory test result [facility] ([facility]) WBC, Urine Auto 31 /HPF 0-3 [facility] ([facility]) Blood, Urine Blood Laboratory test result [facility] ([facility]) RBC, Urine Auto 98 /HPF 0-3 [facility] ([facility]) Hyaline Cast, Urine Auto 0 /LPF 0-1 MEDEN T ([facility]) Squamous Epithelial Cell Ur AU 4 /HPF 0-6 [facility] ([facility]) Bacteria, Urine Auto Laboratory test result [facility] ([facility]) ID Date Data Source [id number] 12/14/2020 10:29:00 AM EDT [facility] ([facility]) Name Value Range Interpretation Code Description Data Princess rce(s) Supporting Document(s) Hemoglobin 13.3 g/dL 12.0-15.5 [facility] ([facility]) Red Blood Count 4.82 10 4.00-5.40 [facility] ([facility]) White Blood Count 7.6 10 4.0-10.0 [facility] ([facility]) Mean Corpuscular Hemoglobin 27.6 pg 27.0-33.0 [place] [facility] ([facility]) Mean Corpuscular Volume 85.1 fl 80.0-96.0 [facility] ([facility]) Hematocrit 41.0 % 36.0-47.0 [facility] ([facility]) Mean Corpuscular HGB Conc 32.4 g/dL 32.0-36.5 MEDE NT ([facility]) Red Cell Distribution Width 13.2 % 11.5-14.5 [place] [facility] ([facility]) Nucleated Red Blood Cell % 0.0 % 0-0 [facility] ([facility]) Platelet Count, Automated 356 10 150-450 MEDE NT ([facility]) ID Date Data Source [id number] 10/29/2020 09:10:00 AM EDT [facility] Name Value Range Interpretation Code Description Data Princess rce(s) Supporting Document(s) SARS-CoV-2 (COVID-19) RNA [Presence] in Respiratory specimen by RYAN with probe detection Not Detected [facility] This lab was ordered by [facility] and reported by [employer]. ID Date Data Source [id number] 10/24/2020 01:40:00 PM EDT [facility] ([facility]i [facility]) Name Value Range Interpretation Code Description Data Princess rce(s) Supporting Document(s) Sodium 139 [facility] (Cardiology [facility] Calcium [Mass/volume] in Serum or Plasma 10.5 [facility] ([facility]) Chloride [Moles/volume] in Serum or Plasma 105 [facility] ([facility]) Carbon dioxide, total [Moles/volume] in Serum or Plasma 26 [facility] ([facility]) Glucose 90 83-110 [facility] ([facility]) Potassium [Moles/volume] in Serum or Plasma 3.5 [facility] ([facility]) Creatinine 0.87 0.6-1.0 [facility] ([facility]) Glomerular filtration rate/1.73 sq M.pre dicted [Volume Rate/Area] in Serum or Plasma by Creatinine-based formula (MDRD) Laboratory test result [facility] ([facility]) Blood Urea Nitrogen 20 7-18 [facility] ([facility]) ID Date Data Source [id number] 10/24/2020 01:40:00 PM EDT [facility] ([facility]i [facility]) Name Value Range Interpretation Code Description Data Princess rce(s) Supporting Document(s) White Blood Count 7.6 5.0-10.0 [facility] (Card [facility]) Platelets 356 172-450 [facility] Red Blood Count 4.82 4.00-5.40 [facility] ([facility]io [facility]) Hemoglobin 13.3 [facility] ([facility]) Hematocrit 41.0 [facility] ([facility]) ID Date Data Source [id number] 10/24/2020 10:00:00 AM EDT [facility] ([facility]) Name Value Range Interpretation Code Description Data Princess rce(s) Supporting Document(s) PH,Urine 7.0 units 5.0-9.0 [facility] ([facility] [facility]) Color, Urine Laboratory test result [facility] NT ([facility]) Appearance, Urine Laboratory test result [facility] ([facility]) Specific [place] Urine Auto 1.005 1.002-1.035 [facility] ([facility]) Protein, Urine Auto Laboratory test result [facility] ([facility]) Urobilinogen, Urine Auto 0.2 mg/dL 0.0-2.0 MEDEN T ([facility]) Ketone, Urine Auto Laboratory test result [facility] ([facility]) Glucose, Urine (Ua) Auto Laboratory test result [facility] ([facility]) Bilirubin, Urine Auto Laboratory test result [facility] ([facility]) Nitrite, Urine Auto Laboratory test result [facility] ([facility]) Blood, Urine Blood Laboratory test result [facility] WBC, Urine Auto 4 /HPF 0-3 [facility] ([facility]) Leukocyte Esterase, Urine Auto Laboratory test result [facility] ([facility]) Bacteria, Urine Auto Laboratory test result [facility] ([facility]) RBC, Urine Auto 4 /HPF 0-3 [facility] ([facility]) Mucus, Urine Laboratory test result MEDE NT ([facility]) Hyaline Cast, Urine Auto 1 /LPF 0-1 MEDEN T ([facility]) Squamous Epithelial Cell Ur AU 2 /HPF 0-6 [facility] ([facility]) ID Date Data Source [id number] 10/24/2020 09:59:00 AM EDT [facility] ([facility]) Name Value Range Interpretation Code Description Data Princess rce(s) Supporting Document(s) Bacteria identified in Urine by Culture Laboratory test result [facility] ([facility]) FULL REPORT IN LAB NOTES (eCW and Medent ). NO GROWTH ID Date Data Source [id number] 10/24/2020 09:59:00 AM EDT [facility] ([facility]) Name Value Range Interpretation Code Description Data Princess rce(s) Supporting Document(s) Blood Urea Nitrogen 20 mg/dL 7-18 [facility] ([facility]) Glucose, Fasting 90 mg/dL 70-100 [facility] ([facility]) Creatinine For GFR 0.87 mg/dL 0.55-1.30 [facility] ([facility]) Sodium Level 139 meq/L 136-145 [facility] ([facility]) Glomerular Filtration Rate Laboratory test result [facility] ([facility]) <content>Units are mL/min/1.73 m2</content>
<content></content>
<content>Chronic Kidney Disease Staging per NKF:</content>
<content></content>
<content>Stage I & II GFR >=60 Normal to Mildly Decreased</content>
<content>Stage III GFR 30-59 Moderately Decreased</content>
<content>Stage IV GFR 15-29 Severely Decreased</content>
<content>Stage V GFR <15 Very Little GFR Left</content>
<content>ESRD GFR <15 on RADIO ANNOUNCER</content>
<content></content> Chloride Level 105 meq/L 98-107 [facility] ([facility]) Potassium Serum 3.5 meq/L 3.5-5.1 [facility] ([facility]) Carbon Dioxide Level 26 meq/L 21-32 [facility] ([facility]) Calcium Level 10.5 mg/dL 8.8-10.2 [facility] ([facility]) Anion Gap 8 meq/L 8-16 [facility]) ID Date Data Source [id number] 10/24/2020 09:59:00 AM EDT [facility] ([facility]) Name Value Range Interpretation Code Description Data Princess rce(s) Supporting Document(s) Prothrombin Time 12.4 s 12.5-14.3 [facility] ([facility]) Inr 0.90 [facility] ([facility]) THERAPUTIC HUMAN INR VALUES INDICATIONS NORMAL RANGES PROPHYLAXIS/TREATMENT OF: VENOUS THROMBOSIS 2.0-3.0 PULMONARY EMBOLISM 2.0-3.0 PREVENTION OF SYSTEMIC EMBOLISM FROM: TISSUE HEART VALVES 2.0-3.0 ACUTE MYOCARDIAL INFARCTION 2.0-3.0 VALVULAR HEART DISEASE 2.0-3.0 ATRIAL FIBRILLATION 2.0-3.0 MECHANICAL VALVES(HIGH RISK) 2.5-3.5 RECURRENT MYOCARDIAL INFARCTION 2.5-3.5 Partial Thromboplastin Time 32.0 s 24.2-38.5 [place] [facility] ([facility]) ID Date Data Source [id number] 10/24/2020 09:59:00 AM EDT [facility] ([facility]) Name Value Range Interpretation Code Description Data Princess rce(s) Supporting Document(s) Hemoglobin 13.8 g/dL 12.0-15.5 [facility] ([facility]) Red Blood Count 4.88 10 4.00-5.40 [facility] ([facility]) White Blood Count 7.8 10 4.0-10.0 [facility] ([facility]) Mean Corpuscular Volume 86.3 fl 80.0-96.0 [facility] ([facility]) Hematocrit 42.1 % 36.0-47.0 [facility] ([facility]) Mean Corpuscular Hemoglobin 28.3 pg 27.0-33.0 [place] [facility]ENT ([facility]) Mean Corpuscular HGB Conc 32.8 g/dL 32.0-36.5 MEDE NT ([facility]) Red Cell Distribution Width 13.0 % 11.5-14.5 [place] [facility]ENT ([facility]) Platelet Count, Automated 324 10 150-450 MEDE NT ([facility]) Nucleated Red Blood Cell % 0.0 % 0-0 MED ENT ([facility]) ID Date Data Source URINE CULTURE 09/20/2020 12:00:00 AM EST eCW1 ([facility]) Name Value Range Interpretation Code Description Data Princess rce(s) Supporting Document(s) Laboratory studies (set) URINE CULTU RE eCW1 ([facility]) ID Date Data Source [id number] 09/14/2020 09:30:00 AM EST [facility] ([facility]) Name Value Range Interpretation Code Description Data Princess rce(s) Supporting Document(s) Glucose [Mass/volume] in Serum or Plasma 95 mg/dL 74-99 [facility] ([facility]) 100-125 mg/dL PRE-DIABETES/FASTING >126 mg/dL DIABETES/FASTING Urea nitrogen [Mass/volume] in Serum or Plasma 14 mg/dL 7-18 [facility] ([facility]) Sodium [Moles/volume] in Serum or Plasma 143 meq/L 136-145 [facility] ([facility]) Creatinine 0.9 mg/dL 0.6-1.3 [facility] ([facility]) Potassium [Moles/volume] in Serum or Plasma 3.9 meq/L 3.5-5.1 [facility] ([facility]) Chloride [Moles/volume] in Serum or Plasma 106 meq/L 98-107 [facility] ([facility]) Calcium [Mass/volume] in Serum or Plasma 9.6 mg/dL 8.5-10.1 [facility] ([facility]) Carbon dioxide, total [Moles/volume] in Serum or Plasma 27 meq/L 21 -32 [facility] ([facility]) Glomerular filtration rate/1.73 sq M pre dicted among blacks [Volume Rate/Area] in Serum or Plasma by Creatinine-based formula (MDRD) Laboratory test result [facility] ([facility]) <content>CHRONIC KIDNEY DISEASE STAGING PER NKF</content>
<content></content>
<content>STAGE I & II GFR >= 60 NORMAL TO MILDLY DECREASED</content>
<content>STAGE III GFR 30-59 MODERATELY DECREASED</content>
<content>STAGE IV GFR 15-29 SEVERELY DECREASED</content>
<content>STAGE V GFR <15 VERY LITTLE GFR LEFT</content>
<content>ESRD GFR <15 ON RADIO ANNOUNCER</content>
<content></content> Glomerular filtration rate/1.73 sq M pre dicted among non-blacks [Volume Rate/Area] in Serum or Plasma by Creatinine-based formula (MDRD) Laboratory test result [facility] ([facility] ) ID Date Data Source [id number] 09/14/2020 09:21:00 AM EST [facility] ([facility]) Name Value Range Interpretation Code Description Data Princess rce(s) Supporting Document(s) Calcium [Mass/volume] in Serum or Plasma 9.6 [facility] ([facility]) Carbon dioxide, total [Moles/volume] in Serum or Plasma 27 [facility] ([facility]) Chloride [Moles/volume] in Serum or Plasma 106 [facility] ([facility]) Sodium 143 [facility] ([facility]) Potassium [Moles/volume] in Serum or Plasma 3.9 [facility] ([facility]) Glucose 95 74-99 [facility] Blood Urea Nitrogen 14 7-18 [facility] ([facility]) Creatinine 0.9 0.6-1.3 [facility] ([facility]) Glomerular filtration rate/1.73 sq M.pre dicted [Volume Rate/Area] in Serum or Plasma by Creatinine-based formula (MDRD) Laboratory [facility]) ID Date Data Source [id number] 2020 09:04:00 AM EST [facility] ([facility]) Name Value Range Interpretation Code Description Data Princess rce(s) Supporting Document(s) Urine Color Laboratory test result MEDEN T ([facility]) Urine Appearance Laboratory test result Abnormal (applies to non-numeric results) [facility] ([facility]) Urine PH 8.0 units 5.0-9.0 [facility] ([facility]) Specific gravity of Urine 1.010 1.005-1.030 [place] [facility] ([facility]) Urine Leukocytes Laboratory test result Abnormal (applies to non-numeric results) [facility] ([facility]) Urine Blood Laboratory test result MEDEN T ([facility]) Glucose [Presence] in Urine Laboratory test result [facility] ([facility]) Urine Protein Laboratory test result 0-0 MED ENT ([facility]) Urine Nitrite Laboratory test result MED ENT ([facility]) Urine Ketone Laboratory test result [facility] NT ([facility]) Bilirubin.total [Mass/volume] in Serum or Plasma Laboratory test resu lt [facility] ([facility]) Urine Urobilinogen 0.2 mg/dL 0.2-1.0 [facility] ([facility]) ID Date Data Source [id number] 2020 08:33:00 AM EST [facility] ([facility]) Name Value Range Interpretation Code Description Data Princess rce(s) Supporting Document(s) Glucose [Mass/volume] in Serum or Plasma 84 mg/dL 74-99 [facility] ([facility]) 100-125 mg/dL PRE-DIABETES/FASTING >126 mg/dL DIABETES/FASTING Urea nitrogen [Mass/volume] in Serum or Plasma 19 mg/dL 7-18 [facility] ([facility]) Creatinine 0.9 mg/dL 0.6-1.3 [facility] ([facility]) Sodium [Moles/volume] in Serum or Plasma 141 meq/L 136-145 [facility] ([facility]) Potassium [Moles/volume] in Serum or Plasma 3.7 meq/L 3.5-5.1 [facility] ([facility]) Chloride [Moles/volume] in Serum or Plasma 103 meq/L 98-107 [facility] ([facility]) Carbon dioxide, total [Moles/volume] in Serum or Plasma 26 meq/L 21 -32 [facility] ([facility]) Glomerular filtration rate/1.73 sq M pre dicted among non-blacks [Volume Rate/Area] in Serum or Plasma by Creatinine-based formula (MDRD) Laboratory test result [facility] ([facility] ) Calcium [Mass/volume] in Serum or Plasma 10.1 mg/dL 8.5-10.1 [facility] ([facility]) NOTE: RESULT VERIFIED. Glomerular filtration rate/1.73 sq M pre dicted among blacks [Volume Rate/Area] in Serum or Plasma by Creatinine-based formula (MDRD) Laboratory test result [facility] ([facility]) <content>CHRONIC KIDNEY DISEASE STAGING PER NKF</content>
<content></content>
<content>STAGE I & II GFR >= 60 NORMAL TO MILDLY DECREASED</content>
<content>STAGE III GFR 30-59 MODERATELY DECREASED</content>
<content>STAGE IV GFR 15-29 SEVERELY DECREASED</content>
<content>STAGE V GFR <15 VERY LITTLE GFR LEFT</content>
<content>ESRD GFR <15 ON RADIO ANNOUNCER</content>
<content></content> ID Date Data Source [id number] 08/09/2020 01:58:00 PM EST MED[facility] ([facility]) Name Value Range Interpretation Code Description Data Princess rce(s) Supporting Document(s) Glucose [Mass/volume] in Serum or Plasma 103 mg/dL 74-99 [facility] ([facility]) 100-125 mg/dL PRE-DIABETES/FASTING >126 mg/dL DIABETES/FASTING Urea nitrogen [Mass/volume] in Serum or Plasma 24 mg/dL 7-18 [facility] ([facility]) Creatinine 0.9 mg/dL 0.6-1.3 [facility] ([facility]) Sodium [Moles/volume] in Serum or Plasma 137 meq/L 136-145 [facility] ([facility]) Chloride [Moles/volume] in Serum or Plasma 101 meq/L 98-107 [facility] ([facility]) Potassium [Moles/volume] in Serum or Plasma 3.8 meq/L 3.5-5.1 [facility] ([facility]) Carbon dioxide, total [Moles/volume] in Serum or Plasma 24 meq/L 21 -32 [facility] ([facility]) Calcium [Mass/volume] in Serum or Plasma 9.9 mg/dL 8.5-10.1 [facility] ([facility]) Glomerular filtration rate/1.73 sq M pre dicted among non-blacks [Volume Rate/Area] in Serum or Plasma by Creatinine-based formula (MDRD) Laboratory test result [facility] ([facility] ) Glomerular filtration rate/1.73 sq M pre dicted among blacks [Volume Rate/Area] in Serum or Plasma by Creatinine-based formula (MDRD) [facility] <content>CHRONIC KIDNEY DISEASE STAGING PER NKF</content>
<content></content>
<content>STAGE I & II GFR >= 60 NORMAL TO MILDLY DECREASED</content>
<content>STAGE III GFR 30-59 MODERATELY DECREASED</content>
<content>STAGE IV GFR 15-29 SEVERELY DECREASED</content>
<content>STAGE V GFR <15 VERY LITTLE GFR LEFT</content>
<content>ESRD GFR <15 ON RADIO ANNOUNCER</content>
<content></content> ID Date Data Source [id number] 08/04/2020 08:16:00 AM EST [facility] ([facility]) Name Value Range Interpretation Code Description Data Princess rce(s) Supporting Document(s) Glucose [Mass/volume] in Serum or Plasma 105 mg/dL 74-99 [facility] ([facility]) 100-125 mg/dL PRE-DIABETES/FASTING >126 mg/dL DIABETES/FASTING Urea nitrogen [Mass/volume] in Serum or Plasma 24 mg/dL 7-18 [facility] ([facility]) Creatinine 1.1 mg/dL 0.6-1.3 [facility] ([facility]) Sodium [Moles/volume] in Serum or Plasma 140 meq/L 136-145 [facility] ([facility]) Potassium [Moles/volume] in Serum or Plasma 3.0 meq/L 3.5-5.1 [facility] ([facility]) NOTE: RESULT VERIFIED. Chloride [Moles/volume] in Serum or Plasma 102 meq/L 98-107 [facility] ([facility]) Carbon dioxide, total [Moles/volume] in Serum or Plasma 27 meq/L 21 -32 [facility] ([facility]) Calcium [Mass/volume] in Serum or Plasma 9.6 mg/dL 8.5-10.1 [facility] ([facility]) Glomerular filtration rate/1.73 sq M pre dicted among non-blacks [Volume Rate/Area] in Serum or Plasma by Creatinine-based formula (MDRD) 49 mL/min [facility] ([facility]) Glomerular filtration rate/1.73 sq M pre dicted among blacks [Volume Rate/Area] in Serum or Plasma by Creatinine-based formula (MDRD) 59 mL/min [facility] ([facility]) <content>CHRONIC KIDNEY DISEASE STAGING PER NKF</content>
<content></content>
<content>STAGE I & II GFR >= 60 NORMAL TO MILDLY DECREASED</content>
<content>STAGE III GFR 30-59 MODERATELY DECREASED</content>
<content>STAGE IV GFR 15-29 SEVERELY DECREASED</content>
<content>STAGE V GFR <15 VERY LITTLE GFR LEFT</content>
<content>ESRD GFR <15 ON RADIO ANNOUNCER</content>
<content></content> ID Date Data Source [id number] 08/02/2020 12:00:[address] [facility] [place] [place] [facility] Francisca Calvert DO Patient Name: MICHELLE [id number] Date of : 1945[address] [facility]: [id number] Fax: [phone] EXAM: CHEST (2 VIEW) X-RAYCLINICAL INFORMATION: Cough.The latest prior for comparison is a portable examination of 08/27/2018.The superior mediastinal structures are midline. The heart is notenlarged. The diaphragmatic surfaces of the lungs are regular and thecostophrenic angles are clear. The pulmonary sandy are clear. Thevisualized osseous structures are intact.IMPRESSION:There is no acute cardiopulmonary disease.GRECIA Obando/Farrukh rubin for referring MICHELLE BARFIELD to our office. Electronically Signed - ANDREW SCHWARZ DO 08/02/20 17:59 Name Value Range Interpretation Code Description Data Princess rce(s) Supporting Document(s) ID Date Data Source [id number] 08/02/2020 08:56:00 AM EST [facility] ([facility]) Name Value Range Interpretation Code Description Data Princess rce(s) Supporting Document(s) C reactive protein [Mass/volume] in Serum or Plasma by High sensitivity method 0.75 mg/dL 0.00-0.30 [facility] ([facility] ) ID Date Data Source [id number] 08/02/2020 08:54:00 AM EST [facility] ([facility]) Name Value Range Interpretation Code Description Data Princess rce(s) Supporting Document(s) Magnesium 2.1 mg/dL 1.8-2.4 [facility] ([facility]) ID Date Data Source [id number] 08/02/2020 08:54:00 AM EST [facility] ([facility]) Name Value Range Interpretation Code Description Data Princess rce(s) Supporting Document(s) Urea nitrogen [Mass/volume] in Serum or Plasma 15 mg/dL 7-18 [facility] ([facility]) Glucose [Mass/volume] in Serum or Plasma 97 mg/dL 74-99 [facility] ([facility]) 100-125 mg/dL PRE-DIABETES/FASTING >126 mg/dL DIABETES/FASTING Creatinine 0.9 mg/dL 0.6-1.3 [facility] ([facility]) Sodium [Moles/volume] in Serum or Plasma 138 meq/L 136-145 [facility] ([facility]) NOTE: POTASSIUM VERIFIED Potassium [Moles/volume] in Serum or Plasma 2.9 meq/L 3.5-5.1 [facility] ([facility]) Carbon dioxide, total [Moles/volume] in Serum or Plasma 28 meq/L 21 -32 [facility] ([facility]) Chloride [Moles/volume] in Serum or Plasma 100 meq/L 98-107 [facility] ([facility]) Calcium [Mass/volume] in Serum or Plasma 9.8 mg/dL 8.5-10.1 [facility] ([facility]) Glomerular filtration rate/1.73 sq M pre dicted among non-blacks [Volume Rate/Area] in Serum or Plasma by Creatinine-based formula (MDRD) Laboratory test result [facility] ([facility] ) Glomerular filtration rate/1.73 sq M pre dicted among blacks [Volume Rate/Area] in Serum or Plasma by Creatinine-based formula (MDRD) Laboratory test result [facility] ([facility]) <content>CHRONIC KIDNEY DISEASE STAGING PER NKF</content>
<content></content>
<content>STAGE I & II GFR >= 60 NORMAL TO MILDLY DECREASED</content>
<content>STAGE III GFR 30-59 MODERATELY DECREASED</content>
<content>STAGE IV GFR 15-29 SEVERELY DECREASED</content>
<content>STAGE V GFR <15 VERY LITTLE GFR LEFT</content>
<content>ESRD GFR <15 ON RADIO ANNOUNCER</content>
<content></content> ID Date Data Source [id number] 08/02/2020 08:54:00 AM EST [facility] ([facility]) Name Value Range Interpretation Code Description Data Princess rce(s) Supporting Document(s) Leukocytes [#/volume] in Blood by Automated count 7.5 x10*3/UL 4.1-10 .9 [facility] ([facility]) Erythrocytes [#/volume] in Blood by Automated count 4.68 x10*6/UL 4.2 0-6.30 [facility] ([facility]) Hemoglobin [Mass/volume] in Blood 13.8 g/dL 12.0-18.0 [facility] ([facility]) Hematocrit [Volume Fraction] of Blood by Automated count 39.4 % 3 7.0-51.0 [facility] ([facility]) MCV 84.2 fL 80.0-97.0 [facility] MCH 29.6 pg 26.0-32.0 [facility] MCHC 35.1 g/dL 31.0-38.0 [facility] Platelets [#/volume] in Blood by Automated count 361 x10*3/UL 140-440 [facility] ([facility]) Erythrocyte distribution width [Ratio] by Automated count 12.6 % 11.6-13.7 [facility] ([facility]) MPV 8.3 FL 7.8-11.0 [facility] Lymph % 18.2 % 10.0-58.5 [facility] Mid % 5.3 % 1.7-9.3 [facility] Neut % 76.5 % 37.0-92.0 [facility] Mid # 0.5 x10*3/UL 0.1-0.6 [facility] ([facility]) Lymph # 1.3 x10*3/UL 0.6-4.1 [facility] ([facility]) Neut # 5.7 x10*3/UL 2.0-7.8 [facility] ([facility]) ID Date Data Source [id number] 04/01/2020 09:42:00 AM EDT [facility] Name Value Range Interpretation Code Description Data Princess rce(s) Supporting Document(s) Glucose, Fasting 98 mg/dL 70-100 [facility] ([facility]) Creatinine For GFR 0.94 mg/dL 0.55-1.30 [facility] ([facility]) Glomerular Filtration Rate Laboratory [facility]) <content>Units are mL/min/1.73 m2</content>
<content></content>
<content>Chronic Kidney Disease Staging per NKF:</content>
<content></content>
<content>Stage I & II GFR >=60 Normal to Mildly Decreased</content>
<content>Stage III GFR 30- 59 Moderately Decreased</content>
<content>Stage IV GFR 15-29 Severely Decreased</content>
<content>Stage V GFR <15 Very Little GFR Left</content>
<content>ESRD GFR <15 on RADIO ANNOUNCER</content>
<content></content> Blood Urea Nitrogen 20 mg/dL 7-18 [facility] ([facility]) Chloride Level 103 meq/L 98-107 [facility] ([facility]) Sodium Level 137 meq/L 136-145 [facility] ([facility]) Potassium Serum 3.6 meq/L 3.5-5.1 [facility] ([facility]) Calcium Level 10.1 mg/dL 8.8-10.2 [facility] ([facility]) Carbon Dioxide Level 26 meq/L 21-32 [facility] ([facility]) Anion Gap 8 meq/L 8-16 [facility] ID Date Data Source [id number] 04/01/2020 09:42:00 AM EDT [facility] ([facility]) Name Value Range Interpretation Code Description Data Princess rce(s) Supporting Document(s) Glucose, Fasting 98 mg/dL 70-100 [facility] ([facility]) Blood Urea Nitrogen 20 mg/dL 7-18 [facility] ([facility]) Creatinine For GFR 0.94 mg/dL 0.55-1.30 [facility] ([facility]) Glomerular Filtration Rate Laboratory test result [facility] ([facility]) <content>Units are mL/min/1.73 m2</content>
<content></content>
<content>Chronic Kidney Disease Staging per NKF:</content>
<content></content>
<content>Stage I & II GFR >=60 Normal to Mildly Decreased</content>
<content>Stage III GFR 30- 59 Moderately Decreased</content>
<content>Stage IV GFR 15-29 Severely Decreased</content>
<content>Stage V GFR <15 Very Little GFR Left</content>
<content>ESRD GFR <15 on RADIO ANNOUNCER</content>
<content></content> Chloride Level 103 meq/L 98-107 [facility] ([facility]) Potassium Serum 3.6 meq/L 3.5-5.1 [facility] ([facility]) Sodium Level 137 meq/L 136-145 [facility] ([facility]) Anion Gap 8 meq/L 8-16 [facility]) Calcium Level 10.1 mg/dL 8.8-10.2 [facility] ([facility]) Carbon Dioxide Level 26 meq/L 21-32 [facility] ([facility]) Procedure Social History Code Duration Value Status Description Data Source(s ) Smoking 04/11/2021 12:00:00 AM EDT Patient has never smoked co mpleted Patient has never smoked [facility] ([facility]) Smoking 02/01/2021 12:00:00 AM EDT Never Smoker completed Never S moker eCW1 ([facility]) Smoking 11/30/2020 12:00:00 AM EDT Never Smoker completed Never S moker eCW1 ([facility]) Smoking 11/30/2020 12:00:00 AM EDT Never Smoker completed Never S moker eCW1 ([facility]) Smoking 11/30/2020 12:00:00 AM EDT Never Smoker completed Never S moker eCW1 ([facility]) Smoking 11/30/2020 12:00:00 AM EDT Never Smoker completed Never S moker eCW1 ([facility]) Smoking 10/05/2020 12:00:00 AM EDT Never Smoker completed Never S moker eCW1 ([facility]) Smoking 10/05/2020 12:00:00 AM EDT Never Smoker completed Never S moker eCW1 ([facility]) Smoking 10/05/2020 12:00:00 AM EDT Never Smoker completed Never S moker eCW1 ([facility]) Smoking 10/05/2020 12:00:00 AM EDT Never Smoker completed Never S moker eCW1 ([facility]) Smoking 10/05/2020 12:00:00 AM EDT Never Smoker completed Never S moker eCW1 [facility] [facility]) Smoking 09/20/2020 12:00:00 AM EST Never Smoker completed Never S moker eCW1 ([facility]) Vital Signs ID Date Data Source UNK Name Value Range Interpretation Code Description Data Source(s) Body height 61 [in_i] 61 [facility] 5'1" Body weight 128.00 [lb_av] 128.00 [lb_av] ALEX Banda ([facility]) Body mass index (BMI) [Ratio] 24.2 kg/m2 24.2 k g/m2 EMILY ([facility]) Systolic blood pressure 122 mm[Hg] 122 mm[Hg] JORI ([facility]) Diastolic blood pressure 78 mm[Hg] 78 mm[Hg] EMILY ([facility]) Heart rate 72 /min 72 /min EMILY ([facility]) Body weight 129.00 [lb_av] 129.00 [lb_av] MEDEN T ([facility]) Body height 60 [in_i] 60 [in_i] MEDENT ([facility]) 5'0" Body mass index (BMI) [Ratio] 25.2 kg/m2 25.2 k g/m2 MEDENT ([facility]) Systolic blood pressure--sitting 160 mm[Hg] 160 mm[Hg] MEDENT ([facility]) Ra, medium cuff Diastolic blood pressure--sitting 92 mm[Hg] 92 mm[Hg] MEDENT ([facility]) Ra, medium cuff Body weight 127.00 [lb_av] 127.00 [lb_av] MEDEN T ([facility]) Body height 60 [in_i] 60 [in_i] MEDENT ([facility]) 5'0" Body mass index (BMI) [Ratio] 24.8 kg/m2 24.8 k g/m2 MEDENT ([facility]) Systolic blood pressure--sitting 140 mm[Hg] 140 mm[Hg] MEDENT ([facility]) Ra, medium cuff Diastolic blood pressure--sitting 82 mm[Hg] 82 mm[Hg] MEDENT ([facility]) Ra, medium cuff Body temperature 97.7 [degF] 97.7 [degF] MEDENT ([facility]) Body weight 128.00 [lb_av] 128.00 [lb_av] MEDEN T ([facility] ) Body mass index (BMI) [Ratio] 24.4 kg/m2 24.4 k g/m2 MEDENT ([facility] ) Body height 60.75 [in_i] 60.75 [in_i] MEDENT ([facility]) 5'0.75" Body height 60 [in_i] 60 [in_i] MEDENT ([facility]) 5'0" Body weight 132.00 [lb_av] 132.00 [lb_av] MEDEN T ([facility]) Systolic blood pressure 132 mm[Hg] 132 mm[Hg] M EDENT ([facility]) Diastolic blood pressure 83 mm[Hg] 83 mm[Hg] MEDENT ([facility]) Heart rate 73 /min 73 /min MEDENT ([facility] Body mass index (BMI) [Ratio] 25.8 kg/m2 25.8 k g/m2 MEDENT ([facility]) Body weight 59.875 kg 59.875 kg [facility] ([facility]) Body temperature 97.9 [degF] 97.9 [degF] MEDENT ([facility]) Body height 61 [in_i] 61 [in_i] MEDENT ([facility]) 5'1" Body weight 125.12 [lb_av] 125.12 [lb_av] MEDEN T ([facility]) Body mass index (BMI) [Ratio] 23.6 kg/m2 23.6 k g/m2 MEDENT ([facility]) Diastolic blood pressure--sitting 70 mm[Hg] 70 mm[Hg] MEDENT ([facility]) Sitting Systolic blood pressure--sitting 120 mm[Hg] 120 mm[Hg] MEDENT ([facility]) Sitting Systolic blood pressure--standing 110 mm[Hg] 11 0 mm[Hg] MEDENT ([facility]) Standing Diastolic blood pressure--standing 70 mm[Hg] 7 0 mm[Hg] MEDENT ([facility]) Standing Systolic blood pressure 140 mm[Hg] 140 mm[Hg] M EDENT ([facility]) Diastolic blood pressure 80 mm[Hg] 80 mm[Hg] [facility] Systolic blood pressure--supine 130 mm[Hg] 130 mm[Hg] MEDENT ([facility]) Laying Down Diastolic blood pressure--supine 70 mm[Hg] 70 mm[Hg] MEDENT ([facility]) Laying Down Body weight 138 [lb_av] 138 [lb_av] eCW1 ([facility]) Body height 61 [in_i] 61 [in_i] eCW1 ([facility]) Body mass index (BMI) [Ratio] 26.07 kg/m2 26.07 kg/m2 eCW1 ([facility]) Heart rate 76 /min 76 /min eCW1 ([facility]) Respiratory rate 18 /min 18 /min eCW1 ([facility]) Body temperature 96.8 [degF] 96.8 [degF] eCW1 ( [facility]) Systolic blood pressure 123 mm[Hg] 123 mm[Hg] e CW1 ([facility]) Diastolic blood pressure 78 mm[Hg] 78 mm[Hg] eCW1 ([facility]) Body weight 138 [lb_av] 138 [lb_av] eCW1 ([facility]) Body height 61 [in_i] 61 [in_i] eCW1 ([facility]) Body temperature 97.5 [degF] 97.5 [degF] eCW1 ( [facility]) Systolic blood pressure 149 mm[Hg] 149 mm[Hg] e CW1 ([facility]) Diastolic blood pressure 89 mm[Hg] 89 mm[Hg] eCW1 ([facility]) Body mass index (BMI) [Ratio] 26.07 kg/m2 26.07 kg/m2 eCW1 ([facility]) Heart rate 83 /min 83 /min eCW1 ([facility]) Respiratory rate 18 /min 18 /min eCW1 ([facility]) Heart rate 72 /min 72 /min MEDENT ([facility]) Body height 61 [in_i] 61 [in_i] MEDENT ([facility]) 5'1" Body weight 136.00 [lb_av] 136.00 [lb_av] MEDEN T ([facility]) Body mass index (BMI) [Ratio] 25.7 kg/m2 25.7 k g/m2 MEDENT ([facility]) Systolic blood pressure 130 mm[Hg] 130 mm[Hg] M EDENT ([facility]) Diastolic blood pressure 76 mm[Hg] 76 mm[Hg] MEDENT ([facility]) Body weight 138 [lb_av] 138 [lb_av] eCW1 ([facility]) Body height 61 [in_i] 61 [in_i] eCW1 ([facility]) Body mass index (BMI) [Ratio] 26.07 kg/m2 26.07 kg/m2 eCW1 ([facility]) Heart rate 82 /min 82 /min eCW1 ([facility]) Respiratory rate 18 /min 18 /min eCW1 ([facility]) Body temperature 98.7 [degF] 98.7 [degF] eCW1 ( [facility]) Systolic blood pressure 140 mm[Hg] 140 mm[Hg] e CW1 ([facility]) Diastolic blood pressure 88 mm[Hg] 88 mm[Hg] eCW1 ([facility]) Body temperature 97.0 [degF] 97.0 [degF] eCW1 ( [facility]) Body weight 138.4 [lb_av] 138.4 [lb_av] eCW1 ([facility]) Body height 61 [in_i] 61 [in_i] eCW1 ([facility]) Body mass index (BMI) [Ratio] 26.15 kg/m2 26.15 kg/m2 eCW1 ([facility]) Heart rate 89 /min 89 /min eCW1 ([facility]) Respiratory rate 18 /min 18 /min eCW1 ([facility]) Systolic blood pressure 140 mm[Hg] 140 mm[Hg] e CW1 ([facility]) Diastolic blood pressure 80 mm[Hg] 80 mm[Hg] eCW1 ([facility]) Body height 61 [in_i] 61 [in_i] EMILY ([facility]) 5'1" Body weight 135.25 [lb_av] 135.25 [lb_av] MEDEN T ([facility]) Oxygen saturation in Arterial blood by Pulse oximetry 99 % 99 % EMILY ([facility]) Systolic blood pressure 120 mm[Hg] 120 mm[Hg] M EDENT ([facility]) Body mass index (BMI) [Ratio] 25.6 kg/m2 25.6 k g/m2 MEDANTONY ([facility]) Diastolic blood pressure 78 mm[Hg] 78 mm[Hg] MEDANTONY ([facility]) Heart rate 84 /min 84 /min MEDANTONY ([facility]) Heart rate 88 /min 88 /min MEDENT ([facility]) Diastolic blood pressure 66 mm[Hg] 66 mm[Hg] MEDENT ([facility]) RT Arm Body height 61 [in_i] 61 [in_i] MEDENT ([facility]) 5'1" Body mass index (BMI) [Ratio] 25.9 kg/m2 25.9 k g/m2 MEDENT ([facility]) Systolic blood pressure 122 mm[Hg] 122 mm[Hg] [facility] RT Arm Body weight 137.25 [lb_av] 137.25 [lb_av] MEDEN T ([facility]) Body weight 137.00 [lb_av] 137.00 [lb_av] MEDEN T ([facility]) Body height 61 [in_i] 61 [in_i] [facility] 5'1" Diastolic blood pressure 68 mm[Hg] 68 mm[Hg] MEDENT ([facility]) Heart rate 90 /min 90 /min [facility] Oxygen saturation in Arterial blood by Pulse oximetry 92 % 92 % [facility] RM Air Body mass index (BMI) [Ratio] 25.9 kg/m2 25.9 k g/m2 [facility] Systolic blood pressure 122 mm[Hg] 122 mm[Hg] [facility] Systolic blood pressure--supine 122 mm[Hg] 122 mm[Hg] MEDENT ([facility]) Ra, medium cuff Body weight 139.00 [lb_av] 139.00 [lb_av] MEDEN T ([facility]) Systolic blood pressure--sitting 118 mm[Hg] 118 mm[Hg] MEDENT ([facility] Ra, medium cuff Diastolic blood pressure--sitting 78 mm[Hg] 78 mm[Hg] MEDENT ([facility]) Ra, medium cuff Diastolic blood pressure--supine 80 mm[Hg] 80 mm[Hg] MEDENT ([facility]) Ra, medium cuff Body height 60 [in_i] 60 [in_i] MEDENT ([facility]) 5'0" Body mass index (BMI) [Ratio] 27.1 kg/m2 27.1 k g/m2 MEDENT ([facility]) Heart rate 56 /min 56 /min MEDENT ([facility]) regular Respiratory rate 16 /min 16 /min MEDENT ( [facility]) nonlabored [place] body weight 105 [lb_av] 105 [lb_av] MEDEN T ([facility]) Body weight 64.411 kg 64.411 kg MEDENT ([facility]) Body surface area Derived from formula 1.63 m2 1.63 m2 [facility] Body height 61 [in_i] 61 [in_i] MEDENT ([facility]) 5'1" Body weight 142.00 [lb_av] 142.00 [lb_av] MEDEN T ([facility]) Body mass index (BMI) [Ratio] 26.8 kg/m2 26.8 k g/m2 MEDENT ([facility]) [place] body weight 105 [lb_av] 105 [lb_av] MEDEN T ([facility]) Body weight 64.411 kg 64.411 kg MEDENT ([facility]) Body surface area Derived from formula 1.63 m2 1.63 m2 [facility] ([facility]) Body height 61 [in_i] 61 [in_i] MEDENT ([facility]) 5'1" Body weight 142.00 [lb_av] 142.00 [lb_av] MEDEN T ([facility]) Body mass index (BMI) [Ratio] 26.8 kg/m2 26.8 k g/m2 [facility] ([facility]) Systolic blood pressure 120 mm[Hg] 120 mm[Hg] EDENT ([facility]) Diastolic blood pressure 70 mm[Hg] 70 mm[Hg] MEDENT ([facility]) Body height 61 [in_i] 61 [in_i] MEDENT ([facility]) 5'1" Body weight 141.50 [lb_av] 141.50 [lb_av] MEDEN T ([facility]) Body mass index (BMI) [Ratio] 26.7 kg/m2 26.7 k g/m2 MEDENT ([facility]) [place] body weight 105 [lb_av] 105 [lb_av] MEDEN T ([facility]) Body weight 64.184 kg 64.184 kg MEDENT ([facility]) Systolic blood pressure--sitting 124 mm[Hg] 124 mm[Hg] MEDENT ([facility]) large cuff, Ra Diastolic blood pressure--sitting 70 mm[Hg] 70 mm[Hg] MEDENT ([facility]) large cuff, Ra Body weight 140.00 [lb_av] 140.00 [lb_av] MEDEN T ([facility]) Body height 60 [in_i] 60 [in_i] [facility] 5'0" Body mass index (BMI) [Ratio] 27.3 kg/m2 27.3 k g/m2 MEDENT ([facility]) Patient Treatment Plan of Care Planned Activity Planned Date Details Description Data Source (s) Acetaminophen 325 MG / Oxycodone Hydrochloride 5 MG Or al Tablet [Percocet] 12/19/2020 12:00:00 AM EDT eCW1 ([facility]) Acetaminophen 325 MG / Oxycodone Hydrochloride 5 MG Or al Tablet [Percocet] 11/30/2020 12:00:00 AM EDT eCW1 ([facility]) Acetaminophen 325 MG / Oxycodone Hydrochloride 5 MG Or al Tablet [Percocet] 11/30/2020 12:00:00 AM EDT eCW1 ([facility]) Acetaminophen 325 MG / Oxycodone Hydrochloride 5 MG Or al Tablet [Percocet] 11/30/2020 12:00:00 AM EDT eCW1 ([facility]) Diclofenac Potassium 50 MG Oral Tablet 10/13/2020 12:00:00 AM EDT eCW1 ([facility]) Naproxen sodium 550 MG Oral Tablet 10/07/2020 12:00:00 AM EDT eCW1 ([facility]) Naproxen sodium 550 MG Oral Tablet 10/07/2020 12:00:00 AM EDT eCW1 ([facility]) Ketorolac Tromethamine 10 MG Oral Tablet 09/20/2020 12:00:00 AM EST eCW1 ([facility])
[2021-05-15] MEDS ORDERED: LIDOCAINE 2% 100MG/5ML SDV (FOR ANES.) As Ordered ONE (10:15)
[2021-05-15] MEDS ORDERED: propofoL 200 MG/20 ML VIAL As Ordered ONE (10:15)
--- NOTE | 2021-05-15 11:00 | ROOR ---
Patient Name: Tammy Barfield Procedure Date: 05/15/2021 10:31 AM Date of : 1945 Age: 75 Room: [facility] Gender: Female Note Status: Finalized Procedure: Upper Endoscopy + Biopsies Indications: Epigastric abdominal pain, Heartburn Providers: Kalen Barfield MD Referring MD: Francisca Calvert DO Requesting Provider: Medicines: Monitored Anesthesia Care Complications: No immediate complications. Procedure: Pre-Anesthesia Assessment: - The heart rate, respiratory rate, oxygen saturations, blood pressure, adequacy of pulmonary ventilation, and response to care were monitored throughout the procedure. The Endoscope was introduced through the mouth, and advanced to the second part of duodenum. The upper GI endoscopy was accomplished without difficulty. The patient tolerated the procedure well. Findings: The Z-line was regular and was found 35 cm from the incisors. Multiple biopsies were obtained with cold forceps for evaluation to rule out Olivier's Esophagus randomly at the gastroesophageal junction. 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 A gastric pouch with a normal size was found. The gastroduodenal anastomosis was characterized by healthy appearing mucosa. This was traversed. The exam was otherwise without abnormality. Impression: - Z-line regular, 35 cm from the incisors. 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 - The examination was otherwise normal. - Multiple biopsies were obtained at the gastroesophageal junction. - The examination was otherwise normal. Recommendation: - Patient has a contact number available for emergencies. The signs and symptoms of potential delayed complications were discussed with the patient. Return to normal activities tomorrow. Written discharge instructions were provided to the patient. - High fiber diet. - Discharge patient to home. - Follow an antireflux regimen. - Continue present medications. - Await pathology results. - Telephone GI clinic for pathology results in 1 week. - Return to referring physician. - The findings and recommendations were discussed with the patient. Procedure Code(s): --- Professional --- 74115, Esophagogastroduodenoscopy, flexible, transoral; with biopsy, single or multiple Diagnosis Code(s): --- Professional --- Z98.0, Intestinal bypass and anastomosis status R10.13, Epigastric pain R12, Heartburn CPT copyright 2019 [employer]. All rights reserved. The codes documented in this report are preliminary and upon drop machine operator review may be revised to meet current compliance requirements. Kalen Barfield MD Kalen Barfield MD 05/15/2021 10:59:50 AM Electronically signed by Kaeln Barfield MD Number of Addenda: 0 Note Initiated On: 05/15/2021 10:31 AM Estimated Blood Loss: Estimated blood loss: none.
--- NOTE | 2021-05-15 11:02 | ROOR ---
Patient Name: Tammy Barfield Procedure Date: 05/15/2021 10:31 AM Date of : 1945 Age: 75 Room: [facility] Gender: Female Note Status: Finalized Procedure: Total Colonoscopy to Cecum Indications: Screening in patient at increased risk: Family history of 1st-degree relative with colorectal cancer, Incidental - Lower abdominal pain Providers: Kalen Barfield MD Referring MD: Francisca Calvert DO Requesting Provider: Medicines: Monitored Anesthesia Care Complications: No immediate complications. Procedure: Pre-Anesthesia Assessment: - The heart rate, respiratory rate, oxygen saturations, blood pressure, adequacy of pulmonary ventilation, and response to care were monitored throughout the procedure. The Colonoscope was introduced through the anus and advanced to the cecum, identified by appendiceal orifice and ileocecal valve. The colonoscopy was performed without difficulty. The patient tolerated the procedure well. The quality of the bowel preparation was good. Findings: The perianal and digital rectal examinations were normal. Non-bleeding internal hemorrhoids were found during retroflexion. The hemorrhoids were small and Grade I (internal hemorrhoids that do not prolapse). Scattered small-mouthed diverticula were found in the recto-sigmoid colon, sigmoid colon and descending colon. The exam was otherwise without abnormality on direct and retroflexion views. Impression: - Non-bleeding internal hemorrhoids. - Diverticulosis in the recto-sigmoid colon, in the sigmoid colon and in the descending colon. - The examination was otherwise normal on direct and retroflexion views. - No specimens collected. - The exam was otherwise normal to the cecum. Recommendation: - Patient has a contact number available for emergencies. The signs and symptoms of potential delayed complications were discussed with the patient. Return to normal activities tomorrow. Written discharge instructions were provided to the patient. - High fiber diet. - Discharge patient to home. - Continue present medications. - Repeat colonoscopy is not recommended for screening purposes. - Return to referring physician. - The findings and recommendations were discussed with the patient. Procedure Code(s): --- Professional --- G0105, Colorectal cancer screening; colonoscopy on individual at high risk Diagnosis Code(s): --- Professional --- Z80.0, Family history of malignant neoplasm of digestive organs K64.0, First degree hemorrhoids K57.30, Diverticulosis of large intestine without perforation or abscess without bleeding CPT copyright 2019 [employer]. All rights reserved. The codes documented in this report are preliminary and upon service manager review may be revised to meet current compliance requirements. Kalen Barfield MD Kalen Barfield MD 05/15/2021 11:02:19 AM Electronically signed by Kalen Barfield MD Number of Addenda: 0 Note Initiated On: 05/15/2021 10:31 AM Estimated Blood Loss: Estimated blood loss: none.
[2021-05-15 11:15] VITALS: BP 113/71
== END 2021-05-15 11:30 | disposition home or self-care (01) ==
LOC: M OPP 09:04
PROVIDERS: ATTEND Internal Medicine Gastroenterology
DX: R10.13 Epigastric pain (principal); R10.30 Lower abdominal pain, unspecified; K64.0 First degree hemorrhoids; K57.30 Diverticulosis of large intestine without perforation or abscess without bleeding; I10 Essential (primary) hypertension; D64.9 Anemia, unspecified; K58.8 Other irritable bowel syndrome; J45.909 Unspecified asthma, uncomplicated; Z87.19 Personal history of other diseases of the digestive system; Z87.442 Personal history of urinary calculi; F32.A Depression, unspecified; Z88.0 Allergy status to penicillin; Z88.2 Allergy status to sulfonamides; Z88.8 Allergy status to other drugs, medicaments and biological substances; Z91.040 Latex allergy status; Z79.899 Other long term (current) drug therapy; Z80.0 Family history of malignant neoplasm of digestive organs; Z98.0 Intestinal bypass and anastomosis status
CPT/HCPCS: 43239; 88305; G0105

== ENCOUNTER → 2021-05-23 | Outpatient (CLI) | payer MEDICARE ==
[~2021-05-23] MED LIST changes: -NS 1,000 ML IV ONE
--- NOTE | 2021-05-23 11:04 | REP ---
INDICATION: FLANK PAIN, KIDNEY STONE. COMPARISON: 09/28/2020 TECHNIQUE: Noncontrast images through the abdomen pelvis with coronal and sagittal reconstructions. FINDINGS: CT abdomen: The lung bases show some mild cylindrical bronchiectatic change in both lower lobes. Pleural based stable small a nodular density about 4 mm without calcification. It abuts the paraspinal pleura in the medial basal segment of the left lower lobe. The heart size not grossly enlarged. No pericardial thickening or effusion. There are surgical clips near the GE junction. There also clips from prior cholecystectomy and reported bile duct surgery. There is no hepatomegaly or focal hepatic mass. No intrahepatic biliary dilatation. There is pneumobilia related to prior cholecystectomy and bile duct surgery. All of this unchanged. Pancreas, adrenal glands and spleen without acute finding. Spleen is minimally enlarged with the index measurement of 587 (normal < 480). No ascites in the upper abdomen. Abdominal aorta shows atherosclerotic calcifications without aneurysm. Kidneys show the right larger than left. They have parapelvic cysts. No gross hydronephrosis or extrarenal pelvis. No hydroureter or ureteral stone. There are nonobstructing stones in the lower pole interpolar region of the right and lower pole on the left. Reduction in the calcifications in the upper pole on the right and lower pole on the left. These may have passed or had lithotripsy. Following the ureters to the bladder, there is no ureteral stone visible. Small bowel loops in the upper abdomen unremarkable. Colon shows stool and gas without colitis or diverticulitis. Gallbladder surgically absent. Bone windows show some degenerative disc changes and facet arthropathy lower lumbar spine but no destructive lesion or fracture and the visualized ribs grossly intact. CT pelvis: The bony sacrum, SI joints, pelvis and hips show no destructive lesion or fracture. There is some mild hip joint space narrowing bilaterally that may reflect some chondromalacia. The distal left colon and sigmoid with some diverticulosis but no diverticulitis, colitis stricture or mass uterus absent the vaginal cuff intact. No adnexal mass or pelvic free fluid cecum unremarkable. There is no of visible appendix. Small bowel loops in the deep pelvis including terminal ileum to the ileocecal valve are unremarkable. Bladder shows no wall thickening, mass or stone. No dilated distal ureter or ureteral stone evident. No ventral or inguinal hernia nor pathologic sized inguinal adenopathy. IMPRESSION: 1. Again noted are bilateral nonobstructing renal calculi with some cortical atrophy on the left kidney and reduction of the larger lower pole nonobstructing stones on the left and upper pole stones on the right since the previous study. There are bilateral parapelvic cysts without gross hydronephrosis of either kidney no hydroureter. No ureteral stone. No other significant or acute finding. 2. Status post cholecystectomy and bile duct surgery with surgical clips as before and pneumobilia, stable. 3. Mild splenomegaly without focal splenic lesion. No other significant or acute finding. <Electronically signed by Gurmeet Dueñas > 05/23/21 1104
== END ==
LOC: M PLAIMG 10:04
PROVIDERS: ATTEND Nurse Practitioner Women's Health
DX: R10.9 Unspecified abdominal pain (principal); N20.0 Calculus of kidney; R16.1 Splenomegaly, not elsewhere classified

== ENCOUNTER → 2021-08-15 | Outpatient (CLI) | payer MEDICARE ==
[~2021-08-15] MED LIST changes: -BISO10TA4 PO; +BISO1TAB19 PO; -LEVO500T3 PO; +LEVO500T4 PO; +LOSA25TA13 PO; -LOSA25TA14 PO; +LOSA50TA28 PO; -LOSA50TA88 PO; +ONDA-195 PO; +POTA-151 PO; -POTA20TA6 PO; +TRAM50TA2 PO
[2021-08-15 10:35] LABS: PLATELET COUNT, AUTOMATED 343 10^3/uL (150-450)
[2021-08-15 10:45] LABS: INR 0.87; PROTHROMBIN TIME 12.2 SECONDS (12.7-14.5)
[2021-08-15 10:46] LABS: PARTIAL THROMBOPLASTIN TIME 32.4 SECONDS (25.9-37.0)
[2021-08-15 10:47] LABS: COLLAGEN EPINEPHRINE 131 SECONDS (74-162)
== END ==
LOC: M PLALAB 08:18
PROVIDERS: ATTEND Physician Assistant
DX: M48.061 Spinal stenosis, lumbar region without neurogenic claudication (principal)

== ENCOUNTER 2021-08-17 23:44 | Inpatient (IN) | payer MEDICARE ==
[~2021-08-17] VITALS: Ht 149.9 cm; Wt 58.3 kg
[~2021-08-17 23:44] MED LIST changes: -ONDA-195 PO; -TRAM50TA2 PO
[2021-08-18] MEDS ORDERED: METOCLOPRAMIDE INJ 10MG/2ML VIAL (J2765 PER 1) IV ONE (00:15)
[2021-08-18] MEDS ORDERED: NS 1,000 ML IV ONE (00:20)
[2021-08-18] MEDS: HYDROMORPHONE HCL 0.5 MG/ 0.5 ML SYRINGE (J1170 PER 1) IV PRN ×2 (00:27→05:01)
[2021-08-18 01:02] LABS: BASO # 0.1 10^3/uL (0.0-0.2); BASO % 0.8 % (0.0-1.0); EOS % 0.5 % (0.0-3.0); HEMATOCRIT 38.4 % (36.0-47.0); HEMOGLOBIN 13.2 g/dl (12.0-15.5); LYMPH # 0.9 10^3/uL (1.5-5.0); LYMPH % 11.4 % (24.0-44.0); MEAN CORPUSCULAR HEMOGLOBIN 28.4 pg (27.0-33.0); MEAN CORPUSCULAR HGB CONC 34.4 g/dl (32.0-36.5); MEAN CORPUSCULAR VOLUME 82.8 fl (80.0-96.0); MONO # 0.4 10^3/uL (0.0-0.8); MONO % 5.7 % (2.0-8.0); NEUTROPHILS # 6.2 10^3/uL (1.5-8.5); NEUTROPHILS % 81.1 % (36.0-66.0); PLATELET COUNT, AUTOMATED 302 10^3/uL (150-450); RED BLOOD COUNT 4.64 10^6/uL (4.00-5.40); WHITE BLOOD COUNT 7.7 10^3/uL (4.0-10.0)
[2021-08-18 01:29] LABS: CK-MB VALUE MASS 1.3 NG/ML (<3.6); MB/CK RELATIVE INDEX 2.95 (< OR =4)
[2021-08-18 01:32] LABS: ALBUMIN 3.6 GM/DL (3.2-5.2); ALT/SGPT 20 U/L (12-78); BILIRUBIN,DIRECT 0.3 MG/DL (0.0-0.2); BILIRUBIN,TOTAL 1.3 MG/DL (0.2-1.0); BLOOD UREA NITROGEN 14 MG/DL (7-18); CALCIUM LEVEL 9.9 MG/DL (8.8-10.2); CARBON DIOXIDE LEVEL 26 MEQ/L (21-32); CHLORIDE LEVEL 99 MEQ/L (98-107); CREATININE FOR GFR 0.76 MG/DL (0.55-1.30); GLOMERULAR FILTRATION RATE > 60.0 (>39); GLUCOSE, FASTING 127 MG/DL (70-100); LIPASE 77 U/L (73-393); POTASSIUM SERUM 2.6 MEQ/L (3.5-5.1); SODIUM LEVEL 134 MEQ/L (136-145); TOTAL PROTEIN 6.9 GM/DL (6.4-8.2)
[2021-08-18] MEDS ORDERED: POTASSIUM CHLORIDE 10MEQ SR TABLET PO ONE (01:45)
[2021-08-18] MEDS ORDERED: KCL 10MEQ/100ML SWI (KRUN) 10 MEQ in IV 1 EA IV ONE (01:45)
[2021-08-18] MEDS ORDERED: ISOVUE-370 76% 100ML VIAL As Ordered ONE (02:08)
[2021-08-18 02:21] LABS: CK-MB VALUE MASS < 1.0 NG/ML (<3.6); CPK CREATINE PHOSPHOKINASE 42 U/L (26-192); MB/CK RELATIVE INDEX 2.38 (< OR =4)
[2021-08-18] MEDS ORDERED: ONDANSETRON 4MG/2ML VIAL IV ONE (02:45)
[2021-08-18] MEDS ORDERED: metroNIDAZOLE 500 MG in IV 1 EA IV ONE (04:00)
[2021-08-18] MEDS ORDERED: CIPROFLOXACIN 400 MG in IV 1 EA IV ONE (04:00)
[2021-08-18] MEDS ORDERED: LOSA50TA28 PO (04:25)
[2021-08-18] MEDS ORDERED: HOME MED LIST COMPLETE! XX SCH (04:25)
[2021-08-18] MEDS ORDERED: ONDA-195 PO (04:25)
[2021-08-18] MEDS ORDERED: TRAM50TA2 PO (04:25)
[2021-08-18] MEDS ORDERED: NS 1,000 ML IV SCH (05:00)
[2021-08-18] MEDS ORDERED: ALBUTEROL 90 MCG/ACT 8GM HFA INHALER INH PRN (05:00)
[2021-08-18] MEDS ORDERED: IBUPROFEN 600MG TAB PO PRN (05:00)
[2021-08-18] MEDS ORDERED: PERCOCET 5MG/325MG TAB PO PRN (07:15)
[2021-08-18] MEDS: ONDANSETRON 4MG/2ML VIAL IV PRN ×2 (07:41→17:23)
[2021-08-18] MEDS ORDERED: atenoloL 25 MG TAB PO ONE (07:45)
[2021-08-18] MEDS: MORPHINE 2 MG/ML 1ML VIAL (J2270) IV PRN ×2 (07:49→16:16)
[2021-08-18] MEDS: SYMBICORT 160/4.5MCG INHALER 6GM INH SCH ×3 (08:00→20:00)
[2021-08-18 08:23] VITALS: BP 151/72
[2021-08-18] MEDS: KCL 40MEQ IN D5/0.45NS 1000ML 1,000 ML IV SCH ×2 (08:58→22:19)
[2021-08-18] MEDS: ENOXAPARIN 40MG/0.4ML SYRINGE (J1650 PER 10MG) SC SCH (08:59)
[2021-08-18] MEDS ORDERED: OMEPRAZOLE 20MG CAP PO SCH (09:00)
[2021-08-18] MEDS ORDERED: LOSARTAN 25 MG TAB PO SCH (09:00)
[2021-08-18] MEDS ORDERED: SERTRALINE 100 MG TAB PO SCH (09:00)
[2021-08-18] MEDS ORDERED: GABAPENTIN 300 MG CAP PO SCH (09:00)
[2021-08-18] MEDS ORDERED: CHLORTHALIDONE 12.5MG PER 1/2 TABLET PO SCH (09:00)
[2021-08-18] MEDS: METOCLOPRAMIDE INJ 10MG/2ML VIAL (J2765 PER 1) IV SCH ×3 (09:44→19:54)
[2021-08-18 10:02] LABS: BLOOD UREA NITROGEN 10 MG/DL (7-18); CALCIUM LEVEL 9.2 MG/DL (8.8-10.2); CARBON DIOXIDE LEVEL 27 MEQ/L (21-32); CHLORIDE LEVEL 105 MEQ/L (98-107); CREATININE FOR GFR 0.69 MG/DL (0.55-1.30); GLOMERULAR FILTRATION RATE > 60.0 (>39); GLUCOSE, FASTING 117 MG/DL (70-100); POTASSIUM SERUM 2.8 MEQ/L (3.5-5.1); SODIUM LEVEL 139 MEQ/L (136-145)
[2021-08-18 12:54] VITALS: BP 142/68
[2021-08-18] MEDS: metroNIDAZOLE 500 MG in IV 1 EA IV SCH (15:18)
[2021-08-18] MEDS: CIPROFLOXACIN 400 MG in IV 1 EA IV SCH (16:01)
[2021-08-18 16:40] VITALS: BP 153/74
[2021-08-18 19:58] VITALS: BP 163/77
[2021-08-18 22:15] LABS: BLOOD UREA NITROGEN 8 MG/DL (7-18); CALCIUM LEVEL 9.5 MG/DL (8.8-10.2); CARBON DIOXIDE LEVEL 26 MEQ/L (21-32); CHLORIDE LEVEL 109 MEQ/L (98-107); CREATININE FOR GFR 0.75 MG/DL (0.55-1.30); GLOMERULAR FILTRATION RATE > 60.0 (>39); GLUCOSE, FASTING 143 MG/DL (70-100); POTASSIUM SERUM 3.1 MEQ/L (3.5-5.1); SODIUM LEVEL 140 MEQ/L (136-145)
[2021-08-19] MEDS: metroNIDAZOLE 500 MG in IV 1 EA IV SCH ×2 (00:09→08:26)
[2021-08-19 00:31] VITALS: BP 137/87
[2021-08-19] MEDS: ONDANSETRON 4MG/2ML VIAL IV PRN (01:14)
[2021-08-19] MEDS: METOCLOPRAMIDE INJ 10MG/2ML VIAL (J2765 PER 1) IV SCH ×2 (02:39→08:25)
[2021-08-19 04:37] VITALS: BP 144/85
[2021-08-19] MEDS: CIPROFLOXACIN 400 MG in IV 1 EA IV SCH (04:40)
[2021-08-19] MEDS: MORPHINE 2 MG/ML 1ML VIAL (J2270) IV PRN (05:33)
[2021-08-19] MEDS ORDERED: LORazepam 2 MG/ML VIAL IV ONE (05:35)
[2021-08-19 05:45] LABS: BASO # 0.1 10^3/uL (0.0-0.2); BASO % 0.6 % (0.0-1.0); EOS % 0.3 % (0.0-3.0); HEMATOCRIT 39.4 % (36.0-47.0); HEMOGLOBIN 13.2 g/dl (12.0-15.5); LYMPH % 12.6 % (24.0-44.0); MEAN CORPUSCULAR HEMOGLOBIN 28.3 pg (27.0-33.0); MEAN CORPUSCULAR HGB CONC 33.5 g/dl (32.0-36.5); MEAN CORPUSCULAR VOLUME 84.4 fl (80.0-96.0); MONO # 0.6 10^3/uL (0.0-0.8); MONO % 8.1 % (2.0-8.0); NEUTROPHILS # 6.1 10^3/uL (1.5-8.5); PLATELET COUNT, AUTOMATED 315 10^3/uL (150-450); RED BLOOD COUNT 4.67 10^6/uL (4.00-5.40); WHITE BLOOD COUNT 7.9 10^3/uL (4.0-10.0)
[2021-08-19 06:03] LABS: BLOOD UREA NITROGEN 9 MG/DL (7-18); CALCIUM LEVEL 9.5 MG/DL (8.8-10.2); CARBON DIOXIDE LEVEL 23 MEQ/L (21-32); CHLORIDE LEVEL 109 MEQ/L (98-107); CREATININE FOR GFR 0.81 MG/DL (0.55-1.30); GLOMERULAR FILTRATION RATE > 60.0 (>39); GLUCOSE, FASTING 149 MG/DL (70-100); POTASSIUM SERUM 3.1 MEQ/L (3.5-5.1); SODIUM LEVEL 141 MEQ/L (136-145)
[2021-08-19] MEDS: SYMBICORT 160/4.5MCG INHALER 6GM INH SCH (06:24)
[2021-08-19 07:44] VITALS: BP 154/75
[2021-08-19] MEDS: ENOXAPARIN 40MG/0.4ML SYRINGE (J1650 PER 10MG) SC SCH (08:25)
[2021-08-19] MEDS ORDERED: POTASSIUM CHLORIDE 10MEQ SR TABLET PO SCH (09:00)
[2021-08-19] MEDS ORDERED: ISOSORBIDE DIN. (ISORDIL) 30 MG TAB PO SCH (10:15)
[2021-08-19] MEDS ORDERED: POTA-151 PO (10:18)
[2021-08-19] MEDS ORDERED: MAG SULF 1GM/100ML (MAG RUN) 1 GM in IV 1 EA IV ONE (10:20)
[2021-08-19] MEDS ORDERED: CIPR-249 PO (10:24)
[2021-08-19] MEDS ORDERED: BACITAB PO (10:24)
[2021-08-19] MEDS ORDERED: METR-265 PO (10:24)
[2021-08-19 10:38] VITALS: BP 154/75
[2021-08-19] MEDS ORDERED: ISOS30TAB PO (10:42)
[2021-08-19] MEDS ORDERED: AMLO1TAB25 PO (10:42)
[2021-08-19] MEDS ORDERED: ONDANSETRON 4 MG ORAL DISINTEGRATING TAB SL PRN (11:10)
[2021-08-19 20:34] LABS: MAGNESIUM LEVEL 1.5 MG/DL (1.7-2.2)
== END 2021-08-19 14:35 | disposition home or self-care (01) | DRG 392 ==
LOC: M ED 23:44 → M ED INP 08-18 04:58 → ENRESERV 08-18 06:48 → M PCU 08-18 08:13
PROVIDERS: ADMIT Family Medicine; ATTEND Family Medicine
DX: K52.9 Noninfective gastroenteritis and colitis, unspecified (principal); N39.0 Urinary tract infection, site not specified; R39.11 Hesitancy of micturition; M48.061 Spinal stenosis, lumbar region without neurogenic claudication; M81.0 Age-related osteoporosis without current pathological fracture; K21.9 Gastro-esophageal reflux disease without esophagitis; Z98.41 Cataract extraction status, right eye; F41.9 Anxiety disorder, unspecified; F32.A Depression, unspecified; J45.909 Unspecified asthma, uncomplicated; E78.5 Hyperlipidemia, unspecified; Z90.49 Acquired absence of other specified parts of digestive tract; Z90.79 Acquired absence of other genital organ(s); E87.6 Hypokalemia; I10 Essential (primary) hypertension; Z79.899 Other long term (current) drug therapy; Z88.0 Allergy status to penicillin; Z88.2 Allergy status to sulfonamides; Z88.8 Allergy status to other drugs, medicaments and biological substances; Z91.040 Latex allergy status; Z91.018 Allergy to other foods

== ENCOUNTER → 2021-08-28 | Outpatient (REF) | payer MEDICARE ==
[~2021-08-28] MED LIST changes: +AMLO1TAB25 PO; +BACITAB PO; +ISOS30TAB PO; +ONDA-195 PO; +TRAM50TA2 PO
== END ==
LOC: M LAB REF 16:10
PROVIDERS: ATTEND Internal Medicine
DX: K52.3 Indeterminate colitis (principal)

== ENCOUNTER → 2021-09-27 | Outpatient (REF) | payer MEDICARE | LOC: M SMT 12:35 | PROVIDERS: ATTEND Urology | DX: N20.0 Calculus of kidney (principal) ==

== ENCOUNTER → 2021-09-27 | Outpatient (REF) | payer MEDICARE ==
[2021-09-27 13:14] LABS: APPEARANCE, URINE CLEAR (CLEAR); BACTERIA, URINE AUTO 1+ (NEGATIVE); BILIRUBIN, URINE AUTO NEGATIVE (NEGATIVE); BLOOD, URINE BLOOD NEGATIVE (NEGATIVE); COLOR, URINE STRAW (YELLOW); GLUCOSE, URINE (UA) AUTO NEGATIVE (NEGATIVE); KETONE, URINE AUTO NEGATIVE (NEGATIVE); LEUKOCYTE ESTERASE, URINE AUTO 1+ (NEGATIVE); MUCUS, URINE SMALL (NEGATIVE); NITRITE, URINE AUTO NEGATIVE (NEGATIVE); PROTEIN, URINE AUTO NEGATIVE (NEGATIVE); RBC, URINE AUTO 1 /HPF (0-3); SPECIFIC GRAVITY URINE AUTO 1.004 (1.002-1.035); SQUAMOUS EPITHELIAL CELL UR AU 1 /HPF (0-6); UROBILINOGEN, URINE AUTO 0.2 mg/dL (0.0-2.0); WBC, URINE AUTO 2 /HPF (0-3)
== END ==
LOC: M SMT 12:44
PROVIDERS: ATTEND Urology
DX: N20.0 Calculus of kidney (principal)

== ENCOUNTER → 2021-10-11 | Outpatient (CLI) | payer MEDICARE | LOC: M RAD 13:51 | PROVIDERS: ATTEND Urology | DX: N20.0 Calculus of kidney (principal); N18.9 Chronic kidney disease, unspecified ==

== ENCOUNTER → 2021-11-09 | Outpatient (REF) | payer MEDICARE ==
[2021-11-09 20:31] LABS: % LABILE ALKALINE PHOSPHATASE 84.3 %
[2021-11-10 13:09] LABS: TOTAL PROTEIN 6.9 GM/DL (6.4-8.2)
== END ==
LOC: M LAB REF 16:29
PROVIDERS: ATTEND Internal Medicine
DX: R94.5 Abnormal results of liver function studies (principal)

== ENCOUNTER → 2022-01-05 | Outpatient (CLI) | payer MEDICARE ==
[2022-01-05 10:31] LABS: HEMATOCRIT 40.9 % (36.0-47.0); HEMOGLOBIN 13.1 g/dl (12.0-15.5); MEAN CORPUSCULAR HEMOGLOBIN 28.7 pg (27.0-33.0); MEAN CORPUSCULAR VOLUME 89.5 fl (80.0-96.0); PLATELET COUNT, AUTOMATED 332 10^3/uL (150-450); RED BLOOD COUNT 4.57 10^6/uL (4.00-5.40); WHITE BLOOD COUNT 6.5 10^3/uL (4.0-10.0)
[2022-01-05 11:03] LABS: ALBUMIN 3.6 GM/DL (3.2-5.2); ALT/SGPT 46 U/L (12-78); BILIRUBIN,TOTAL 0.7 MG/DL (0.2-1.0); BLOOD UREA NITROGEN 13 MG/DL (7-18); CALCIUM LEVEL 9.4 MG/DL (8.8-10.2); CARBON DIOXIDE LEVEL 27 MEQ/L (21-32); CHLORIDE LEVEL 108 MEQ/L (98-107); CHOLESTEROL LEVEL 204 MG/DL (<200); CHOLESTEROL RISK RATIO 3.849 (<5); CREATININE FOR GFR 0.87 MG/DL (0.55-1.30); GLOMERULAR FILTRATION RATE > 60.0 (>39); GLUCOSE, FASTING 91 MG/DL (70-100); HDL CHOLESTEROL 53 MG/DL (>40); LDL CHOLESTEROL 120 MG/DL (<100); NON-HDL-C 151 MG/DL; POTASSIUM SERUM 3.8 MEQ/L (3.5-5.1); SODIUM LEVEL 142 MEQ/L (136-145); TOTAL PROTEIN 6.7 GM/DL (6.4-8.2); TRIGLYCERIDES LEVEL 155 MG/DL (<150)
== END ==
LOC: M PLALAB 01-04 13:53
PROVIDERS: ATTEND Physician Assistant
DX: E78.00 Pure hypercholesterolemia, unspecified (principal); I11.9 Hypertensive heart disease without heart failure

== ENCOUNTER → 2022-03-05 | Outpatient (CLI) | payer MEDICARE ==
[~2022-03-05] MED LIST changes: +LEVO1TAB39 PO; -LEVO500T4 PO
== END ==
LOC: M PLAIMG 14:33
PROVIDERS: ATTEND Physician Assistant
DX: M51.36 Other intervertebral disc degeneration, lumbar region (principal); N28.1 Cyst of kidney, acquired; M51.26 Other intervertebral disc displacement, lumbar region

== ENCOUNTER → 2022-05-07 | Outpatient (REF) | payer MEDICARE ==
[2022-05-08 13:54] LABS: LABILE ALKPHOS 76 U/L; STABLE ALKPHOS 93 U/L
[2022-05-08 13:55] LABS: % LABILE ALKALINE PHOSPHATASE 45 %
== END ==
LOC: M LAB REF 11:47
PROVIDERS: ATTEND Internal Medicine
DX: R74.8 Abnormal levels of other serum enzymes (principal)

== ENCOUNTER → 2022-06-27 | Outpatient (CLI) | payer MEDICARE ==
[~2022-06-27] MED LIST changes: +**SFHN** LIDOCAINE 1% MDV 20ML VIAL ONE; +**SFHN** TRIAMCINOLONE ACETONIDE SUSP 40 MG/ML 1ML VIAL ONE; +ISOVUE-300 61% 50ML VIAL ONE
== END ==
LOC: M PLAIMG 13:25
PROVIDERS: ATTEND Physician Assistant
DX: M16.11 Unilateral primary osteoarthritis, right hip (principal)
CPT/HCPCS: 20610; 76000; J3301; Q9967

== ENCOUNTER → 2022-10-30 | Outpatient (CLI) | payer MEDICARE ==
[~2022-10-30] MED LIST changes: -**SFHN** LIDOCAINE 1% MDV 20ML VIAL ONE; -**SFHN** TRIAMCINOLONE ACETONIDE SUSP 40 MG/ML 1ML VIAL ONE; +ATOR1TAB21 PO; -ISOVUE-300 61% 50ML VIAL ONE; +OXYB5TAB10 PO
== END ==
LOC: M PLAIMG 11:53
PROVIDERS: ATTEND Urology
DX: N20.0 Calculus of kidney (principal)

== ENCOUNTER → 2022-10-31 | Outpatient (CLI) | payer MEDICARE ==
[2022-10-31 10:55] LABS: APPEARANCE, URINE CLEAR (CLEAR); BACTERIA, URINE AUTO NEGATIVE (NEGATIVE); BILIRUBIN, URINE AUTO NEGATIVE (NEGATIVE); BLOOD, URINE BLOOD NEGATIVE (NEGATIVE); CALCIUM OXALATE CRYSTALS SMALL; COLOR, URINE YELLOW (YELLOW); GLUCOSE, URINE (UA) AUTO NEGATIVE (NEGATIVE); KETONE, URINE AUTO NEGATIVE (NEGATIVE); LEUKOCYTE ESTERASE, URINE AUTO 1+ (NEGATIVE); MUCUS, URINE SMALL (NEGATIVE); NITRITE, URINE AUTO NEGATIVE (NEGATIVE); PROTEIN, URINE AUTO NEGATIVE (NEGATIVE); RBC, URINE AUTO 15 /HPF (0-3); SPECIFIC GRAVITY URINE AUTO 1.012 (1.002-1.035); SQUAMOUS EPITHELIAL CELL UR AU 1 /HPF (0-6); UROBILINOGEN, URINE AUTO 0.2 mg/dL (0.0-2.0); WBC, URINE AUTO 14 /HPF (0-3)
== END ==
LOC: M PLAIMG 09:05
PROVIDERS: ATTEND Urology
DX: N20.1 Calculus of ureter (principal); N20.0 Calculus of kidney; K57.30 Diverticulosis of large intestine without perforation or abscess without bleeding; N39.0 Urinary tract infection, site not specified

== ENCOUNTER → 2022-11-01 | Outpatient (CLI) | payer MEDICARE ==
[2022-11-01 17:26] LABS: MEAN CORPUSCULAR HEMOGLOBIN 28.9 pg (27.0-33.0); MEAN CORPUSCULAR HGB CONC 32.5 g/dl (32.0-36.5); MEAN CORPUSCULAR VOLUME 88.9 fl (80.0-96.0); PLATELET COUNT, AUTOMATED 358 10^3/uL (150-450); WHITE BLOOD COUNT 10.3 10^3/uL (4.0-10.0)
[2022-11-01 17:43] LABS: CALCIUM LEVEL 10.1 MG/DL (8.3-10.6); CREATININE FOR GFR 1.83 MG/DL (0.55-1.30); GLOMERULAR FILTRATION RATE 28.5 (>39); POTASSIUM SERUM 3.7 MMOL/L (3.5-5.1)
== END ==
LOC: M RAD 16:09
PROVIDERS: ATTEND Urology
DX: Z01.818 Encounter for other preprocedural examination (principal); N20.0 Calculus of kidney

== ENCOUNTER 2022-11-02 06:00 | Day surgery (SDC) | payer MEDICARE ==
[~2022-11-02] VITALS: Ht 152.4 cm; Wt 53.4 kg
[~2022-11-02 06:00] MED LIST changes: -ATOR1TAB21 PO; -OXYB5TAB10 PO
[2022-11-02] MEDS ORDERED: LevoFLOXacin IV 500 MG in IV 1 EA IV ONE (06:30)
[2022-11-02] MEDS ORDERED: ATOR1TAB21 PO (06:32)
[2022-11-02] MEDS ORDERED: OXYC1TAB23 PO (06:32)
[2022-11-02] MEDS ORDERED: LIDOCAINE 2% 100MG/5ML SDV (FOR ANES.) As Ordered ONE (06:52)
[2022-11-02] MEDS ORDERED: propofoL 200 MG/20 ML VIAL As Ordered ONE (06:52)
[2022-11-02] MEDS ORDERED: ONDANSETRON 4MG 2ML VIAL As Ordered ONE (06:52)
[2022-11-02] MEDS ORDERED: fentaNYL 100 MCG/2 ML INJECTION As Ordered ONE (07:01)
[2022-11-02] MEDS ORDERED: MIDAZOLAM INJ 2MG/2ML VIAL As Ordered ONE (07:01)
[2022-11-02] MEDS ORDERED: ISOVUE-300 61% 100ML VIAL As Ordered ONE (07:08)
[2022-11-02] MEDS ORDERED: SCOPOLAMINE 1MG TRANSDERMAL PATCH TOP ONE (07:25)
[2022-11-02] MEDS ORDERED: LR 1,000 ML IV SCH (07:30)
[2022-11-02] MEDS ORDERED: ONDANSETRON 4MG 2ML VIAL IV PRN (07:30)
[2022-11-02] MEDS ORDERED: oxyCODONE 5MG TAB PO PRN (07:30)
[2022-11-02] MEDS ORDERED: fentaNYL 100 MCG/2 ML INJECTION IV PRN (07:30)
[2022-11-02] MEDS ORDERED: ACETAMINOPHEN 1000MG 100ML IV BAG As Ordered ONE (07:42)
[2022-11-02] MEDS ORDERED: OXYB5TAB10 PO (09:21)
[2022-11-02 09:55] VITALS: BP 142/69
[2022-11-07 23:08] LABS: CA Oxalate Dihy 40 % (.); Ca Ox Monohydrate 50 % (.); Size 5x4 mm (.)
== END 2022-11-02 10:30 | disposition home or self-care (01) ==
LOC: M SDC 06:00
PROVIDERS: ATTEND Urology
DX: N20.0 Calculus of kidney (principal); N28.1 Cyst of kidney, acquired; K21.9 Gastro-esophageal reflux disease without esophagitis; I10 Essential (primary) hypertension; J45.909 Unspecified asthma, uncomplicated; E78.00 Pure hypercholesterolemia, unspecified; M51.9 Unspecified thoracic, thoracolumbar and lumbosacral intervertebral disc disorder; F41.9 Anxiety disorder, unspecified; F32.A Depression, unspecified; Z88.2 Allergy status to sulfonamides; Z88.5 Allergy status to narcotic agent; Z88.8 Allergy status to other drugs, medicaments and biological substances; Z91.040 Latex allergy status; Z79.899 Other long term (current) drug therapy; Z79.51 Long term (current) use of inhaled steroids
CPT/HCPCS: 52332; 52351; 52356; 74420; 82365; C1769; C1894; C2617; J0131; J1100; J1956; J2405; J3010; Q9967

== ENCOUNTER → 2022-12-03 | Outpatient (REF) | payer MEDICARE ==
[~2022-12-03] MED LIST changes: +ATOR1TAB21 PO; +OXYB5TAB10 PO
[2022-12-03 17:20] LABS: FERRITIN 16.8 NG/ML (7.3-270.7)
== END ==
LOC: M LAB REF 16:25
PROVIDERS: ATTEND Internal Medicine
DX: D50.9 Iron deficiency anemia, unspecified (principal)

== ENCOUNTER → 2022-12-31 | Outpatient (CLI) | payer MEDICARE ==
[~2022-12-31] MED LIST changes: +ISOVUE-300 61% 100ML VIAL ONE; +LIDOCAINE 1% MDV 20ML VIAL ONE; +methylPREDNISolone SUSP 40MG/ML 1ML VIAL (DEPO MEDROL) ONE
== END ==
LOC: M PLAIMG 13:52
PROVIDERS: ATTEND Physician Assistant
DX: M16.11 Unilateral primary osteoarthritis, right hip (principal)
CPT/HCPCS: 20610; 77002; J1030; Q9967

== ENCOUNTER → 2023-02-15 | Outpatient (REF) | payer MEDICARE ==
[~2023-02-15] MED LIST changes: -ISOVUE-300 61% 100ML VIAL ONE; -LIDOCAINE 1% MDV 20ML VIAL ONE; -methylPREDNISolone SUSP 40MG/ML 1ML VIAL (DEPO MEDROL) ONE
== END ==
LOC: M SFHCDERM 17:17
PROVIDERS: ATTEND Nurse Practitioner Family
DX: L72.0 Epidermal cyst (principal); L57.8 Other skin changes due to chronic exposure to nonionizing radiation

== ENCOUNTER 2023-02-24 10:37 | Emergency (ER) | payer MEDICARE ==
[~2023-02-24] VITALS: Ht 149.9 cm; Wt 51.4 kg
[2023-02-24] MEDS ORDERED: LOSA50TA28 (10:52)
[2023-02-24 11:36] LABS: BASO # 0.1 10^3/uL (0.0-0.2); BASO % 0.9 % (0.0-1.0); EOS # 0.2 10^3/uL (0.0-0.5); EOS % 1.2 % (0.0-3.0); HEMATOCRIT 43.5 % (36.0-47.0); HEMOGLOBIN 14.4 g/dl (12.0-15.5); LYMPH # 2.4 10^3/uL (1.5-5.0); LYMPH % 18.3 % (24.0-44.0); MEAN CORPUSCULAR HEMOGLOBIN 28.7 pg (27.0-33.0); MEAN CORPUSCULAR HGB CONC 33.1 g/dl (32.0-36.5); MEAN CORPUSCULAR VOLUME 86.7 fl (80.0-96.0); MONO # 0.9 10^3/uL (0.0-0.8); MONO % 6.7 % (2.0-8.0); NEUTROPHILS # 9.4 10^3/uL (1.5-8.5); NEUTROPHILS % 72.6 % (36.0-66.0); PLATELET COUNT, AUTOMATED 535 10^3/uL (150-450); RED BLOOD COUNT 5.02 10^6/uL (4.00-5.40)
[2023-02-24] MEDS ORDERED: MORPHINE 2 MG/ML 1ML VIAL IV ONE (12:00)
[2023-02-24] MEDS ORDERED: ONDANSETRON 4MG 2ML VIAL IV ONE (12:00)
[2023-02-24] MEDS ORDERED: NS 500 ML IV ONE (12:00)
[2023-02-24 12:10] LABS: ALBUMIN 4.4 G/DL (3.2-5.2); BILIRUBIN,DIRECT 0.3 MG/DL (<0.4)
[2023-02-24] MEDS ORDERED: ISOVUE-370 76% 100ML VIAL As Ordered ONE (12:10)
[2023-02-24] MEDS ORDERED: PERC5TAB12 PO (13:51)
[2023-02-24] MEDS ORDERED: ONDA4TAB6 PO (13:51)
[2023-02-24 14:06] VITALS: BP 134/62; TEMP 98.5; O2SAT 96
== END 2023-02-24 14:08 | disposition home or self-care (01) ==
LOC: M ED 10:37
DX: N20.0 Calculus of kidney (principal); E87.6 Hypokalemia; I10 Essential (primary) hypertension; I25.10 Atherosclerotic heart disease of native coronary artery without angina pectoris; J45.909 Unspecified asthma, uncomplicated; K57.92 Diverticulitis of intestine, part unspecified, without perforation or abscess without bleeding; Z88.0 Allergy status to penicillin; Z88.2 Allergy status to sulfonamides; Z88.8 Allergy status to other drugs, medicaments and biological substances; Z91.018 Allergy to other foods; Z79.899 Other long term (current) drug therapy; Z79.51 Long term (current) use of inhaled steroids
CPT/HCPCS: 74177; 80047; 80076; 81001; 83690; 85025; 87086; 96374; 96375; 99284; J2405; Q9967

== ENCOUNTER 2023-04-22 08:33 | Day surgery (SDC) | payer MEDICARE ==
[~2023-04-22] VITALS: Ht 149.9 cm; Wt 54.4 kg
[~2023-04-22 08:33] MED LIST changes: +LOSA50TA28; +LevoFLOXacin IV 500 MG in IV 1 EA IV ONE; +NORT25CA2 PO; +ONDA4TAB6 PO; +PERC5TAB12 PO
[2023-04-22] MEDS ORDERED: LR 1,000 ML IV SCH ×2 (09:10→12:40)
[2023-04-22] MEDS ORDERED: ISOVUE-300 61% 100ML VIAL As Ordered ONE (11:13)
[2023-04-22] MEDS ORDERED: SCOPOLAMINE 1MG TRANSDERMAL PATCH TOP ONE (11:20)
[2023-04-22] MEDS ORDERED: MIDAZOLAM INJ 2MG/2ML VIAL As Ordered ONE (11:48)
[2023-04-22] MEDS ORDERED: propofoL 200 MG/20 ML VIAL As Ordered ONE (11:48)
[2023-04-22] MEDS ORDERED: ONDANSETRON 4MG 2ML VIAL As Ordered ONE (11:48)
[2023-04-22] MEDS ORDERED: LIDOCAINE 2% 100MG/5ML SDV (FOR ANES.) As Ordered ONE (11:48)
[2023-04-22] MEDS ORDERED: fentaNYL 100 MCG/2 ML INJECTION As Ordered ONE (11:48)
[2023-04-22] MEDS ORDERED: HYDROMORPHONE HCL 0.5 MG/ 0.5 ML SYRINGE IV PRN (12:40)
[2023-04-22] MEDS ORDERED: fentaNYL 100 MCG/2 ML INJECTION IV PRN (12:40)
[2023-04-22] MEDS ORDERED: oxyCODONE 5MG TAB PO PRN (12:40)
[2023-04-22] MEDS ORDERED: ONDANSETRON 4MG 2ML VIAL IV PRN (12:40)
[2023-04-22] MEDS ORDERED: PERCOCET 5MG/325MG TAB PO PRN (13:00)
[2023-04-22 13:28] VITALS: BP 137/69; TEMP 97.9; O2SAT 98
== END 2023-04-22 13:34 | disposition home or self-care (01) ==
LOC: M SDC 08:33
PROVIDERS: ATTEND Urology
DX: N20.0 Calculus of kidney (principal); I05.9 Rheumatic mitral valve disease, unspecified; E73.9 Lactose intolerance, unspecified; Z91.040 Latex allergy status; Z88.0 Allergy status to penicillin; Z88.2 Allergy status to sulfonamides; Z91.018 Allergy to other foods; Z79.899 Other long term (current) drug therapy
CPT/HCPCS: 52332; 52351; 74420; C1769; C1894; C2617; J1100; J1956; J2250; J2405; J3010; Q9967

== ENCOUNTER → 2023-08-23 | Outpatient (CLI) | payer MEDICARE ==
[~2023-08-23] MED LIST changes: +ADVI200T17 PO; -LevoFLOXacin IV 500 MG in IV 1 EA IV ONE; -OXYB5TAB10 PO; +OXYB5TAB11 PO; +THERTAB52 PO
[2023-08-23 10:15] LABS: PLATELET COUNT, AUTOMATED 317 10^3/uL (150-450)
[2023-08-23 10:44] LABS: INR 0.99; PROTHROMBIN TIME 12.8 SECONDS (12.5-14.5)
[2023-08-23 10:45] LABS: PARTIAL THROMBOPLASTIN TIME 31.3 SECONDS (24.8-34.2)
== END ==
LOC: M PLALAB 09:09
PROVIDERS: ATTEND Physician Assistant
DX: Z01.818 Encounter for other preprocedural examination (principal)

== ENCOUNTER 2023-08-26 11:29 | Day surgery (SDC) | payer MEDICARE ==
[~2023-08-26] VITALS: Ht 149.9 cm; Wt 54.3 kg
[~2023-08-26 11:29] MED LIST changes: -OXYB5TAB11 PO; +OXYB5TAB14 PO
[2023-08-26] MEDS: NS 1,000 ML IV ONE (11:59)
[2023-08-26] MEDS: SCOPOLAMINE 1MG TRANSDERMAL PATCH TOP ONE (12:57)
[2023-08-26] MEDS ORDERED: fentaNYL 100 MCG/2 ML INJECTION As Ordered ONE (13:07)
[2023-08-26] MEDS ORDERED: LIDOCAINE 2% 100MG/5ML SDV (FOR ANES.) As Ordered ONE (13:07)
[2023-08-26] MEDS ORDERED: propofoL 200 MG/20 ML VIAL As Ordered ONE (13:07)
[2023-08-26 14:40] VITALS: BP 130/60; O2SAT 97
== END 2023-08-26 14:49 | disposition home or self-care (01) ==
LOC: M OPP 11:29
PROVIDERS: ATTEND Internal Medicine Gastroenterology
DX: K64.0 First degree hemorrhoids (principal); K57.30 Diverticulosis of large intestine without perforation or abscess without bleeding; Z53.8 Procedure and treatment not carried out for other reasons; R63.4 Abnormal weight loss; K29.50 Unspecified chronic gastritis without bleeding; K31.89 Other diseases of stomach and duodenum; K22.89 Other specified disease of esophagus; Z98.0 Intestinal bypass and anastomosis status; R10.13 Epigastric pain; R68.81 Early satiety; Z79.1 Long term (current) use of non-steroidal anti-inflammatories (NSAID); Z79.51 Long term (current) use of inhaled steroids; Z79.83 Long term (current) use of bisphosphonates; Z79.891 Long term (current) use of opiate analgesic; Z79.899 Other long term (current) drug therapy; Z88.0 Allergy status to penicillin; Z88.2 Allergy status to sulfonamides; Z88.5 Allergy status to narcotic agent; Z88.8 Allergy status to other drugs, medicaments and biological substances; Z91.040 Latex allergy status
CPT/HCPCS: 43239; 45378; 88305; J3010

== ENCOUNTER → 2023-11-08 | Outpatient (CLI) | payer MEDICARE | LOC: M PLAIMG 09:45 | PROVIDERS: ATTEND Urology | DX: N20.0 Calculus of kidney (principal) ==

== ENCOUNTER → 2024-03-17 | Outpatient (CLI) | payer MEDICARE ==
[~2024-03-17] MED LIST changes: +ONDA-282 PO; -ONDA4TAB6 PO
[2024-03-17 10:20] LABS: BASO # 0.1 10^3/uL (0.0-0.2); BASO % 1.1 % (0.0-1.0); EOS # 0.2 10^3/uL (0.0-0.5); EOS % 2.5 % (0.0-3.0); HEMATOCRIT 40.4 % (36.0-47.0); HEMOGLOBIN 13.2 g/dl (12.0-15.5); LYMPH # 1.5 10^3/uL (1.5-5.0); LYMPH % 19.5 % (24.0-44.0); MEAN CORPUSCULAR HEMOGLOBIN 28.4 pg (27.0-33.0); MEAN CORPUSCULAR HGB CONC 32.7 g/dl (32.0-36.5); MEAN CORPUSCULAR VOLUME 87.1 fl (80.0-96.0); MONO # 0.5 10^3/uL (0.0-0.8); MONO % 6.6 % (2.0-8.0); NEUTROPHILS # 5.3 10^3/uL (1.5-8.5); NEUTROPHILS % 69.9 % (36.0-66.0); PLATELET COUNT, AUTOMATED 341 10^3/uL (150-450); RED BLOOD COUNT 4.64 10^6/uL (4.00-5.40); WHITE BLOOD COUNT 7.6 10^3/uL (4.0-10.0)
== END ==
LOC: M PLALAB 08:51
PROVIDERS: ATTEND Registered Nurse
DX: R06.02 Shortness of breath (principal)

== ENCOUNTER → 2024-03-18 | Outpatient (CLI) | payer MEDICARE | LOC: M EKG 08:55 | PROVIDERS: ATTEND Registered Nurse | DX: R00.2 Palpitations (principal); R55 Syncope and collapse ==

== ENCOUNTER → 2024-03-24 | Outpatient (CLI) | payer MEDICARE | LOC: M PLAIMG 09:32 | PROVIDERS: ATTEND Registered Nurse | DX: R06.02 Shortness of breath (principal); R55 Syncope and collapse; R60.0 Localized edema ==

== ENCOUNTER → 2024-04-21 | Outpatient (CLI) | payer MEDICARE ==
[~2024-04-21] MED LIST changes: +GABA-1172 PO; -GABA-282 PO
[2024-04-21 15:14] LABS: BLOOD UREA NITROGEN 18 MG/DL (9-23); CALCIUM LEVEL 10.5 MG/DL (8.3-10.6); CARBON DIOXIDE LEVEL 26 MMOL/L (20-31); CHLORIDE LEVEL 105 MMOL/L (98-107); CREATININE FOR GFR 0.77 MG/DL (0.55-1.30); GLOMERULAR FILTRATION RATE > 60.0 (>39); GLUCOSE, FASTING 90 MG/DL (74-106); POTASSIUM SERUM 3.6 MMOL/L (3.5-5.1); SODIUM LEVEL 138 MMOL/L (136-145)
== END ==
LOC: M PLALAB 09:12
PROVIDERS: ATTEND Registered Nurse
DX: I11.0 Hypertensive heart disease with heart failure (principal); I50.9 Heart failure, unspecified

== ENCOUNTER → 2024-11-12 | Outpatient (CLI) | payer MEDICARE ==
[~2024-11-12] MED LIST changes: -FLOM0.4C39 PO; +ISOS-18 PO; -ISOS30TAB PO; +TAMS-18 PO
== END ==
LOC: M PLAIMG 10:52
PROVIDERS: ATTEND Urology
DX: N20.0 Calculus of kidney (principal)

== ENCOUNTER → 2024-12-01 | Outpatient (CLI) | payer MEDICARE ==
[2024-12-01 10:05] LABS: ALBUMIN 3.7 G/DL (3.2-5.2); BILIRUBIN,DIRECT 0.1 MG/DL (<0.4); BILIRUBIN,TOTAL 0.4 MG/DL (0.3-1.2); CALCIUM LEVEL 10.3 MG/DL (8.3-10.6); CHOLESTEROL RISK RATIO 4.59 (<5); CREATININE FOR GFR 0.8 MG/DL (0.55-1.30); GLOMERULAR FILTRATION RATE 74.9 (>39); HDL CHOLESTEROL 46.4 MG/DL (>40); LDL CHOLESTEROL 123.6 MG/DL (<100); NON-HDL-C 166.6 MG/DL; POTASSIUM SERUM 3.9 MMOL/L (3.5-5.1); TOTAL PROTEIN 6.6 G/DL (5.7-8.2)
== END ==
LOC: M PLALAB 08:00
PROVIDERS: ATTEND Registered Nurse
DX: E78.2 Mixed hyperlipidemia (principal); I11.0 Hypertensive heart disease with heart failure

== ENCOUNTER → 2025-03-03 | Outpatient (CLI) | payer MEDICARE | LOC: M WHC 12:44 | PROVIDERS: ATTEND Internal Medicine | DX: Z12.31 Encounter for screening mammogram for malignant neoplasm of breast (principal); R92.333 Mammographic heterogeneous density, bilateral breasts; M81.0 Age-related osteoporosis without current pathological fracture ==

== ENCOUNTER → 2025-05-01 | Outpatient (CLI) | payer MEDICARE ==
[~2025-05-01] MED LIST changes: +ACET-1349 PO; +ATOR80TA59 PO; +KETO-204 PO; +QUET1TAB17 PO
== END ==
LOC: M EKG 09:03
PROVIDERS: ATTEND Nurse Practitioner Family
DX: R00.2 Palpitations (principal)

== ENCOUNTER 2025-05-19 09:37 | Emergency (ER) | payer MEDICARE ==
[~2025-05-19] VITALS: Ht 152.4 cm; Wt 50.9 kg
[~2025-05-19 09:37] MED LIST changes: -ACET-1349 PO; -ATOR80TA59 PO; -KETO-204 PO; -QUET1TAB17 PO
[2025-05-19 09:39] VITALS: TEMP 98.6
[2025-05-19 10:37] LABS: BASO # 0.1 10^3/uL (0.0-0.2); BASO % 1.1 % (0.0-1.0); EOS # 0.1 10^3/uL (0.0-0.5); EOS % 0.8 % (0.0-3.0); LYMPH # 0.8 10^3/uL (1.5-5.0); LYMPH % 7.5 % (24.0-44.0); MONO # 0.2 10^3/uL (0.0-0.8); MONO % 1.7 % (2.0-8.0); NEUTROPHILS # 9.1 10^3/uL (1.5-8.5); NEUTROPHILS % 88.5 % (36.0-66.0); PLATELET COUNT, AUTOMATED 445 10^3/uL (150-450)
[2025-05-19 10:57] LABS: ALT/SGPT 26.0 U/L (7.0-40); AST/SGOT 32.0 U/L (<34); CALCIUM LEVEL 10.1 MG/DL (8.3-10.6); CARBON DIOXIDE LEVEL 23.0 MMOL/L (20-31); CHLORIDE LEVEL 103.0 MMOL/L (98-107); CREATININE FOR GFR 0.68 MG/DL (0.55-1.30); GLOMERULAR FILTRATION RATE 88.5 (>39); POTASSIUM SERUM 3.9 MMOL/L (3.5-5.1); SODIUM LEVEL 137.0 MMOL/L (136-145)
[2025-05-19 11:44] LABS: KETONE, URINE AUTO RFX NEGATIVE (NEGATIVE); LEUKOCYTE ESTERASE UR AUTO RFX NEGATIVE (NEGATIVE); NITRITE, URINE AUTO RFX NEGATIVE (NEGATIVE); RBC, URINE AUTO RFX 0 /HPF (0-3); SQUAM EPITHELIAL CELL UR AURFX 0 /HPF (0-6); WBC, URINE AUTO RFX 1 /HPF (0-3)
[2025-05-19] MEDS: KETOROLAC 30 MG/ML 1 ML VIAL IV ONE (12:13)
[2025-05-19 13:30] VITALS: BP 129/71; O2SAT 95
[2025-05-19] MEDS ORDERED: KETO-204 PO (13:32)
[2025-05-28] MEDS ORDERED: QUET1TAB17 PO (22:14)
[2025-05-28] MEDS ORDERED: ACET-1349 PO (22:14)
[2025-05-28] MEDS ORDERED: ATOR80TA59 PO (22:14)
== END 2025-05-19 13:40 | disposition home or self-care (01) ==
LOC: M ED 09:37
DX: R10.A2 Flank pain, left side (principal); I10 Essential (primary) hypertension; K21.9 Gastro-esophageal reflux disease without esophagitis; E78.5 Hyperlipidemia, unspecified; Z87.442 Personal history of urinary calculi; N28.1 Cyst of kidney, acquired; Z79.899 Other long term (current) drug therapy; Z88.0 Allergy status to penicillin; Z88.2 Allergy status to sulfonamides; Z91.040 Latex allergy status
CPT/HCPCS: 36415; 51701; 74176; 80047; 80053; 81001; 83605; 85025; 96374; 99284; J1885

== ENCOUNTER → 2025-05-27 | Outpatient (REF) | payer MEDICARE ==
[~2025-05-27] MED LIST changes: +ACET-1349 PO; +ATOR80TA59 PO; +KETO-204 PO; +QUET1TAB17 PO
[2025-05-27 13:49] LABS: APPEARANCE, URINE TURBID (CLEAR); BACTERIA, URINE AUTO 2+ (NEGATIVE); BILIRUBIN, URINE AUTO NEGATIVE (NEGATIVE); BLOOD, URINE BLOOD 1+ (NEGATIVE); GLUCOSE, URINE (UA) AUTO NEGATIVE (NEGATIVE); KETONE, URINE AUTO NEGATIVE (NEGATIVE); LEUKOCYTE ESTERASE, URINE AUTO 2+ (NEGATIVE); MUCUS, URINE SMALL (NEGATIVE); NITRITE, URINE AUTO NEGATIVE (NEGATIVE); PROTEIN, URINE AUTO 2+ mg/dL (NEGATIVE); RBC, URINE AUTO 54 /HPF (0-3); SPECIFIC GRAVITY URINE AUTO 1.011 (1.002-1.035); SQUAMOUS EPITHELIAL CELL UR AU 0 /HPF (0-6); UROBILINOGEN, URINE AUTO 4.0 mg/dL (0.0-2.0); WBC, URINE AUTO TNTC /HPF (0-3)
== END ==
LOC: M SMT 12:53
PROVIDERS: ATTEND Urology
DX: N39.0 Urinary tract infection, site not specified (principal)

== ENCOUNTER → 2025-06-17 | Outpatient (CLI) | payer MEDICARE ==
[~2025-06-17] MED LIST changes: +LEVO1TAB40 PO
== END ==
LOC: M PLAIMG 08:17
PROVIDERS: ATTEND Nurse Practitioner Family
DX: R06.02 Shortness of breath (principal); R00.2 Palpitations